=== PATIENT | male | born 1945 | race Caucasian/White ===

== ENCOUNTER → 2016-04-30 | Outpatient (CLI) | payer OTHER ==
[~2016-04-30] MED LIST: ACET325T96 PO; ASPI81TA28 PO; ATEN50TA8 PO; GLUC10007 PO; KETO2SHA TOP; MELO7.5T5 PO; MULT-506 PO; OMEGA Q PO; OXYC1TAB3 PO; SALI1SPR3; SIMV20TA2 PO; SIMV40TA4 PO; TAMS0.4C59 PO; [UNRECOGNIZED DRUG - OTHER] PO
[2016-04-30 13:13] LABS: BASO % 0.5 %; BASO ABS # 0.03 K/uL (0-0.2); COMPLETE YES; EOS % 2.4 %; HEMATOCRIT 43.3 % (42-52); IG% 0.2 %; LYMPH % 32.7 %; LYMPH ABS # 2.08 K/uL (1.2-3.4); MEAN CELL VOLUME 94.7 fL (80-100); MEAN CORPUSCULAR HEMOGLOBIN 31.9 pg (25-34); MEAN CORPUSCULAR HGB CONC 33.7 g/dl (32-36); MEAN PLATELET VOLUME 9.8 fL (7.4-10.4); MONO % 8.2 %; PLATELET COUNT 166 K/uL (130-400); RED BLOOD COUNT 4.57 M/uL (4.7-6.1); WHITE BLOOD COUNT 6.36 K/uL (4.8-10.8)
[2016-04-30 13:16] LABS: ESTIMATED AVERAGE GLUCOSE 114 mg/dl; HA1C FLAG Normal (Normal)
[2016-04-30 13:19] LABS: ALT/SGPT 38 U/L (12-78); AST/SGOT 18 U/L (15-37); BLOOD UREA NITROGEN 17 mg/dl (7-18); BUN/CREATININE RATIO 13.3 (10-20); CALCIUM 9.1 mg/dl (8.5-10.1); CARBON DIOXIDE 28 mmol/L (21-32); CHLORIDE 108 mmol/L (98-107); GLUCOSE 98 mg/dl (70-99); POTASSIUM 4.4 mmol/L (3.5-5.1); SODIUM 144 mmol/L (136-145)
[2016-04-30 13:21] LABS: ALB/GLOB RATIO 1.1 (0.9-2); ALKALINE PHOSPHATASE 53 U/L (45-117); CHOLESTEROL 137 mg/dl (0-200); CHOLESTEROL/HDL RATIO 2.3; HDL CHOLESTEROL 60 mg/dl; LDL CHOLESTEROL CALCULATED 56 mg/dl; TRIGLYCERIDES 103 mg/dl (0-150); VERY LOW DENSITY LIPOPROT CALC 21 mg/dl
--- NOTE | 2016-05-06 12:47 | CODING QUERY MEDICAL NECESSITY ---
SUPPORTING DIAGNOSIS NEEDED Dr. Miller, A supporting diagnosis is required for the test/procedure performed on this patient in order for us to be reimbursed by the patient's insurance. Please provide a supporting diagnosis for the following test/procedure listed below next to the test name along with your signature. *If there is no additional diagnosis for this patient that would support the following test/procedure please document that below next to the test/procedure. Test(s)/Procedure(s) that require a supporting diagnosis: * 53382 PSA DIAGNOSIS: DATE OF SERVICE: 04/30/16 Provider Signature: Date: Thank you Brennan [facility] Information Management Once completed, please kindly fax back to [phone] For questions please call [phone]
--- NOTE | 2016-05-06 12:50 | CODING QUERY MEDICAL NECESSITY ---
SUPPORTING DIAGNOSIS NEEDED Dr. Pittman, A supporting diagnosis is required for the test/procedure performed on this patient in order for us to be reimbursed by the patient's insurance. Please provide a supporting diagnosis for the following test/procedure listed below next to the test name along with your signature. *If there is no additional diagnosis for this patient that would support the following test/procedure please document that below next to the test/procedure. Test(s)/Procedure(s) that require a supporting diagnosis: * [id number] GLYCATED HEMOGLOBIN DIAGNOSIS: DATE OF SERVICE: 04/30/16 Provider Signature: Date: Thank you Brennan Buchanan [facility] Information Management Once completed, please kindly fax back to [phone] For questions please call [phone]
== END | disposition home or self-care (01) ==
LOC: C.LABBFT 07:34
PROVIDERS: ATTEND Urology
DX: E78.5 Hyperlipidemia, unspecified (principal); R73.03 Prediabetes; R39.9 Unspecified symptoms and signs involving the genitourinary system; C61 Malignant neoplasm of prostate

== ENCOUNTER → 2016-05-06 | Outpatient (CLI) | payer OTHER | END | disposition home or self-care (01) | LOC: C.LABBFT 12:57 | PROVIDERS: ATTEND Internal Medicine | DX: Z11.59 Encounter for screening for other viral diseases (principal) ==

== ENCOUNTER → 2016-10-31 | Outpatient (CLI) | payer OTHER ==
[~2016-10-31] MED LIST changes: -OXYC1TAB3 PO
[2016-10-31 13:02] VITALS: BP 104/63; PULSE 56; TEMP 36.7; O2SAT 96
--- NOTE | 2016-10-31 13:54 | Radiation Oncology Follow-Up ---
Radiation Oncology Follow-Up Date of Visit Oct 31, 2016. Reason For Visit Annual follow-up Radiation Completion Date Cesium 131 seed implant 06/11/11 Interim History He has had increased urinary symptoms over this past year. When he saw Dr. Miller his tamsulosin was increased to 2 pills daily. He had been on Toviaz. He discontinued the medication. He felt it did not make a difference in his urinary status. His AUA score was 17.5. This was up from 12 last year. He completed and expanded prostate cancer index composite for clinical practice and gave a score of 2 of 12 and urinary incontinence symptoms. He gave a score of 5 of 12 and urinary irritation symptoms. He was score of 0 12 and bowel symptoms. He gave a score of 9 of 12 in sexual symptoms. He gave a score 1 of 12 and hormonal vitality symptoms. His total was 17 of 60. He had a recheck PSA 04/30/2016 and that was 0.200. Allergies Coded Allergies: No Known Allergies (Unverified , 03/11/16) Home Medications Scheduled Aspirin (Aspirin Ec), 81 MG PO DAILY Atenolol (Tenormin), 50 MG PO DAILY Glucosamine Sulfate (Glucosamine), 500 MG PO BID Ketoconazole (Topical) (Ketoconazole), 1 APPLN TOP 2XWK Meloxicam (Mobic), 7.5 MG PO DAILY Multivitamin (Multivitamin), 1 TAB PO DAILY Saline (Saline Nasal [place]), 1 PRN Simvastatin (Zocor), 20 MG PO QPM Tamsulosin Hcl (Flomax), 0.4 MG PO BID [[place] Q ], 1 TAB PO DAILY [Revers w tumeric], 2 TAB PO DAILY Review of Systems Gastrointestinal: Symptoms: WNL GI Comments: Rectal spotting that he relates to hemorrhoids;Metamucil daily; Oral: Symptoms: No Problems Respiratory: Symptoms: WNL Urinary: Symptoms: WNL Comments: 2 voids/night;Doesn't always empty bladder;Takes flomax; Skin: Symptoms: No Problems Physical Exam Vital Signs Date Time Temp Pulse Resp B/P (MAP) Pulse Ox O2 Delivery O2 Flow Rate FiO2 10/31/16 13:02 36.7 56 12 104/63 96 Fatigue: None General Appearance: no apparent distress Eyes: normal inspection, EOMI ENT: normal ENT inspection, hearing grossly normal Respiratory/Chest: lungs clear, no respiratory distress, no accessory muscle use Cardiovascular: regular rate, rhythm, no gallop, + systolic murmur (2/6 systolic murmur) Abdomen: non tender, soft Extremities: no pedal edema Neurologic/Psychiatric: no motor/sensory deficits, alert, normal mood/affect Skin: warm/dry Laboratory Studies Test 10/31/16 13:28 Assessment & Plan Plan: PSA was drawn today prior to examination. He'll be notified as to results. Continue on Flomax as instructed by Dr. Miller. He'll be seeing him in 6 months. Follow-up appointment with our office was not given. He is now 5 years since the completion of the radiation. He may call our office if he has any questions or concerns in the interim. Total Time In Follow-Up I spent 20 minutes speaking to the patient and performing examination. I spent 15 minutes reviewing information and completing this note. Copy To Miller Pittman M.D.; Dedrick Miller MD
== END | disposition home or self-care (01) ==
LOC: C.ONC 12:53
PROVIDERS: ATTEND Physician Assistant Medical
DX: Z08 Encounter for follow-up examination after completed treatment for malignant neoplasm (principal); Z92.3 Personal history of irradiation; Z85.46 Personal history of malignant neoplasm of prostate

== ENCOUNTER → 2016-12-20 | Day surgery (SDC) | payer OTHER ==
[2016-12-06 13:25] VITALS: BMI 27.0
[~2016-12-20] VITALS: Ht 172.7 cm; Wt 80.9 kg
[~2016-12-20] MED LIST changes: +LIDOCAINE HCL 2% 2 ML VIAL (20MG/ML) ONE; -MELO7.5T5 PO; +MIDAZOLAM HCL 1 MG/ML 2ML VIAL ONE; +ONDANSETRON INJ 2 MG/ML 2 ML VIAL ONE; +PROPOFOL IV EMULSION 10 MG/ML 20 ML VIAL IV ONE; -SALI1SPR3; -SIMV20TA2 PO; +SODIUM CHLORIDE 0.9% 500ML 500 ML IV ONE; -[UNRECOGNIZED DRUG - OTHER] PO
[2016-12-20 08:08] VITALS: Ht 172.7 cm; Wt 80.9 kg
--- NOTE | 2016-12-20 08:19 | Endo History and Physical ---
History & Physical Date of Service: Dec 20, 2016. Chief Complaint: Screening Referring Physician: Dr. Pittman History of Present Illness 71 yo CM who presents for screening colonoscopy. Past Surgical History Hx Cardiac Surgery: No Hx Internal Defibrillator: No Hx Pacemaker: No Hx Abdominal Surgery: No Hx of Implantable Prosthesis: No Hx Post-Op Nausea and Vomiting: No Hx Cancer Surgery: Yes (PROSTATE BIOPSIES) Hx Thoracic Surgery: No Hx Orthopedic: Yes (RT KNEE SURGERY, RT RCR, RT RING TRIGGER FINGER, LT MIDDLE TRIGGER FINGER) Hx Urinary Tract Surgery: No Family History None Social History Smoking Status: Former Smoker Hx Substance Use: No Hx Alcohol Use: No Allergies Coded Allergies: No Known Allergies (Unverified , 12/20/16) Current Medications Reported Home Medications Medications Dose Route/Sig Max Daily Dose Days Date Category Tylenol (Acetaminophen) 325 Mg Tab 650 Mg PO DAILY PRN 12/06/16 Reported Zocor (Simvastatin) 40 Mg Tab 40 Mg PO HS 12/06/16 Reported Ketoconazole (Ketoconazole (Topical)) 2 % Sha 1 Appln TOP 2XWK 10/31/16 Reported Glucosamine (Glucosamine Sulfate) 1,000 Mg Tab 1,500 Mg PO BID 03/11/16 Reported Aspirin Ec (Aspirin) 81 Mg Tab 81 Mg PO QPM 11/01/15 Reported [[place] Q ] 2 Tabs PO QAM 05/02/14 Reported Tenormin (Atenolol) 50 Mg Tab 50 Mg PO QPM 05/02/14 Reported Flomax (Tamsulosin Hcl) 0.4 Mg Cap 0.4 Mg PO BID 05/26/12 Reported Multivitamin (Multivitamins) Tab 1 Tab PO QAM 01/23/11 Reported Vital Signs Weight (Kilograms): 80.91 Height (Feet): 5 Height (Inches): 8 Physical Exam General Appearance: WD/WN, no apparent distress Respiratory/Chest: Auscultation: breath sounds normal Cardiovascular: Heart Auscultation: RRR Abdomen: Bowel Sounds: normal Inspection & Palpation: soft, non-distended, no tenderness, guarding & rebound Assessment and Plan Assessment: 71 yo CM who presents for screening colonoscopy. Plan: Proceed with colonoscopy.
--- NOTE | 2016-12-20 08:51 | Discharge Instructions ---
Endoscopy Patient Instructions Date / Procedure(s) Performed Dec 20, 2016. Colonoscopy Allergy Information Coded Allergies: No Known Allergies (Unverified , 12/20/16) Discharge Date / Findings Dec 20, 2016. Colon polyp Diverticulosis Internal hemorrhoids Medication Instructions OK to resume all medications today as prescribed Reported Home Medications Medications Dose Route/Sig Max Daily Dose Days Date Category Tylenol (Acetaminophen) 325 Mg Tab 650 Mg PO DAILY PRN 12/06/16 Reported Zocor (Simvastatin) 40 Mg Tab 40 Mg PO HS 12/06/16 Reported Ketoconazole (Ketoconazole (Topical)) 2 % Sha 1 Appln TOP 2XWK 10/31/16 Reported Glucosamine (Glucosamine Sulfate) 1,000 Mg Tab 1,500 Mg PO BID 03/11/16 Reported Aspirin Ec (Aspirin) 81 Mg Tab 81 Mg PO QPM 11/01/15 Reported [[place] Q ] 2 Tabs PO QAM 05/02/14 Reported Tenormin (Atenolol) 50 Mg Tab 50 Mg PO QPM 05/02/14 Reported Flomax (Tamsulosin Hcl) 0.4 Mg Cap 0.4 Mg PO BID 05/26/12 Reported Multivitamin (Multivitamins) Tab 1 Tab PO QAM 01/23/11 Reported Provider Instructions Activity Restrictions - No exercising or heavy lifting for 24 hours. - Do not drink alcohol the day of the procedure. - Do not drive a car or operate machinery until the day after the procedure. - Do not make any important decisions or sign important papers in 24 hours after the procedure. Following Day: - Return to full activity which may include returning to work/school. Diet Start your diet with liquids and light foods (jello, soup, juice, toast). Then eat your usual diet if not nauseated. Treatment For Common After Affects For mild abdominal pain, bloating, or excessive gas: - Rest - Eat lightly - Lie on right side Follow-Up Information Follow-up with DR. CHING as scheduled Anesthesia Information What You Should Know You have had a procedure that required some medicine to reduce anxiety and discomfort. This treatment is called moderate sedation. After receiving the treatment, you may be sleepy, but you will be able to breathe on your own. The effects of the treatment may last for several hours. Follow these instructions along with Activity/Diet recommendations noted above: * Do NOT do anything where dizziness or clumsiness would be dangerous. * Rest quietly at home today, then you can be up and about tomorrow. * Have a responsible person stay with you the rest of today. * You may have had an I.V. today. If so, you may take the dressing off later today. Recommendations Call your doctor if: * Trouble breathing * Continuous vomiting for more than 24 hours * Temperature above 101 degrees * Severe abdominal pain or bloating * Pain not relieved by pain medicine ordered * There is increased drainage or redness from any incision * A large amount of rectal bleeding greater than 2-3 tablespoons. (If you had a polyp/s removed or have hemorrhoids, a small amount of blood - from the rectum is to be expected.) * You have any unanswered questions or concerns. IN THE EVENT OF A SERIOUS EMERGENCY, GO TO THE NEAREST EMERGENCY ROOM Your discharge instructions were prepared by provider Cecil Car. Patient Instructions Signature Page Norberto Jerome Patient (or Guardian) Signature/Date: I have read and understand the instructions given to me by my caregivers. Caregiver/RN/Doctor Signature/Date: The above-named patient and/or guardian has received patient instructions on this date. + Original Patient Signature Page (only) stays with chart. Please make copy for patient.
--- NOTE | 2016-12-20 08:59 | GI REPORT ---
Procedure Date: 12/20/2016 8:28 AM Procedure: Colonoscopy Indications: Screening for colorectal malignant neoplasm Medicines: Monitored Anesthesia Care Complications: No immediate complications. Estimated Blood Loss: Estimated blood loss: none. Procedure: Pre-Anesthesia Assessment: - Prior to the procedure, a History and Physical was performed, and patient medications and allergies were reviewed. The patient's tolerance of previous anesthesia was also reviewed. The risks and benefits of the procedure and the sedation options and risks were discussed with the patient. All questions were answered, and informed consent was obtained. Prior Anticoagulants: The patient has taken aspirin, last dose was 2 days prior to procedure. ASA Grade Assessment: III - A patient with severe systemic disease. After reviewing the risks and benefits, the patient was deemed in satisfactory condition to undergo the procedure. After I obtained informed consent, the scope was passed under direct vision. Throughout the procedure, the patient's blood pressure, pulse, and oxygen saturations were monitored continuously. The scope was introduced through the anus and advanced to the terminal ileum. The colonoscopy was performed without difficulty. The patient tolerated the procedure well. The quality of the bowel preparation was good. The terminal ileum, ileocecal valve, appendiceal orifice, and rectum were photographed. Findings: A 5 mm polyp was found in the sigmoid colon. The polyp was sessile. The polyp was removed with a hot snare. Resection and retrieval were complete. Multiple small-mouthed diverticula were found in the sigmoid colon. Non-bleeding internal hemorrhoids were found during retroflexion. The hemorrhoids were small. Impression: - One 5 mm polyp in the sigmoid colon, removed with a hot snare. Resected and retrieved. - Diverticulosis in the sigmoid colon. - Non-bleeding internal hemorrhoids. Recommendation: - Resume previous diet. - Continue present medications. - Repeat colonoscopy for surveillance based on pathology results. - Return to primary care physician as previously scheduled. Cecil Car DO 12/20/2016 8:58:14 AM This report has been signed electronically. Note Initiated On: 12/20/2016 8:28 AM I attest to the content of the Intraoperative Record and orders documented therein, exceptions below
--- NOTE | 2016-12-20 09:17 | Anesthesiology Progress Note ---
Anesthesia Post Op Note Date & Time Dec 20, 2016 at 09:17 Vital Signs Pain Intensity: 0 Vital Signs Past 12 Hours Date Time Temp Pulse Resp B/P (MAP) Pulse Ox O2 Delivery O2 Flow Rate FiO2 12/20/16 09:09 43 16 95/56 (69) 95 Room Air 12/20/16 08:54 48 16 88/56 (67) 97 Nasal Cannula 2 12/20/16 08:21 36.4 55 16 123/79 (94) 95 Room Air Notes Mental Status: alert / awake / arousable, participated in evaluation Pt Amnestic to Procedure: Yes Nausea / Vomiting: adequately controlled Pain: adequately controlled Airway Patency, RR, SpO2: stable & adequate BP & HR: stable & adequate Hydration State: stable & adequate Anesthetic Complications: no major complications apparent
[2016-12-20 09:24] VITALS: BP 98/68; PULSE 42; O2SAT 97
== END | disposition home or self-care (01) ==
LOC: C.GI 07:59
PROVIDERS: ATTEND Internal Medicine
DX: D12.5 Benign neoplasm of sigmoid colon (principal); K57.90 Diverticulosis of intestine, part unspecified, without perforation or abscess without bleeding; K64.8 Other hemorrhoids; Z87.891 Personal history of nicotine dependence; I10 Essential (primary) hypertension

== ENCOUNTER → 2017-07-16 | Outpatient (CLI) | payer OTHER ==
[~2017-07-16] MED LIST changes: +ACET-1693 PO; -ACET325T96 PO; -LIDOCAINE HCL 2% 2 ML VIAL (20MG/ML) ONE; -MIDAZOLAM HCL 1 MG/ML 2ML VIAL ONE; -ONDANSETRON INJ 2 MG/ML 2 ML VIAL ONE; -PROPOFOL IV EMULSION 10 MG/ML 20 ML VIAL IV ONE; -SODIUM CHLORIDE 0.9% 500ML 500 ML IV ONE
[2017-07-16 12:53] LABS: BASO % 0.5 %; BASO ABS # 0.04 K/uL (0-0.2); EOS % 3.7 %; EOS ABS # 0.28 K/uL (0-0.5); HEMATOCRIT 42.2 % (42-52); HEMOGLOBIN 14.4 g/dL (14.0-18.0); IG# 0.01 K/uL (0.00-0.02); LYMPH % 31.3 %; LYMPH ABS # 2.37 K/uL (1.2-3.4); MEAN CELL VOLUME 93.6 fL (80-100); MEAN CORPUSCULAR HEMOGLOBIN 31.9 pg (25-34); MEAN CORPUSCULAR HGB CONC 34.1 g/dl (32-36); MEAN PLATELET VOLUME 9.5 fL (7.4-10.4); MONO % 10.4 %; MONO ABS # 0.79 K/uL (0.11-0.59); NEUT ABS # 4.09 K/uL (1.4-6.5); PLATELET COUNT 142 K/uL (130-400); RED CELL DISTRIBUTION WIDTH CV 13.6 % (11.5-14.5); RED CELL DISTRIBUTION WIDTH SD 46.4 fL (36.4-46.3); WHITE BLOOD COUNT 7.58 K/uL (4.8-10.8)
[2017-07-16 13:13] LABS: ALBUMIN 3.7 gm/dl (3.4-5.0); AST/SGOT 23 U/L (15-37); BLOOD UREA NITROGEN 24 mg/dl (7-18); CALCIUM 8.7 mg/dl (8.5-10.1); CARBON DIOXIDE 23 mmol/L (21-32); CREATININE 1.31 mg/dl (0.60-1.40); GLUCOSE 106 mg/dl (70-99); HEMOGLOBIN A1C 5.5 % (4.5-5.6); POTASSIUM 4.2 mmol/L (3.5-5.1); SODIUM 139 mmol/L (136-145)
[2017-07-16 13:17] LABS: ALKALINE PHOSPHATASE 59 U/L (45-117); ALT/SGPT 32 U/L (12-78); CHOLESTEROL 123 mg/dl (0-200); LDL CHOLESTEROL CALCULATED 57 mg/dl; TOTAL PROTEIN 7.2 gm/dl (6.4-8.2)
== END | disposition home or self-care (01) ==
LOC: C.LABBFT 08:22
PROVIDERS: ATTEND Internal Medicine
DX: R73.03 Prediabetes (principal); E78.5 Hyperlipidemia, unspecified

== ENCOUNTER 2020-02-01 11:39 | Inpatient (IN) ==
[2020-02-01] MEDS ORDERED: SODIUM CHLORIDE 0.9% 1000ML 500 ML IV ONE (12:16)
--- NOTE | 2020-02-01 12:23 | Emergency Department Note ---
History of Present Illness General Chief complaint: Arrhythmia/Palpitations Stated complaint: AFIB Time Seen by Provider: 02/01/20 12:04 Source: patient Mode of arrival: ambulatory Limitations: no limitations History of Present Illness Provider complaint: Rapid heart rate, short of breath Onset (ago): unknown Location: chest Maximum Pain Intensity: 0 Current Pain Intensity: 0 Exacerbated By: + movement Associated symptoms: + chest pain, + cough and + shortness of breath; no headaches, no nausea/vomiting, no syncope and no weakness Treatments prior to arrival: none This is a 74-year-old male who presents the emergency room after being referred by Dr. Miller of oncology. Patient states he presented for a checkup with Dr. Miller regarding his stage IV lung adenocarcinoma and due to concern for an evolving rash on his legs. States while he was having his visit, Dr. Miller was concerned about his rapid and irregular heart rate, told him he had atrial f ibrillation and sent him to the emergency room. Patient denies any known history of atrial fibrillation. States he follows with Dr. Garcia of cardiology due to history of mitral regurgitation. States he has periodically had echoes of his heart but does not recall any of the results. Patient states he has finished radiation, but is still undergoing chemotherapy. Patient states his last chemotherapy was 01/20/2020, and he is not scheduled for another dose until next week. Patient states he does periodically get a fast and fluttering heartbeat that is at times bothersome and associated with shortness of breath. Patient states this is often worse with exertion. Patient denies any other k nown triggers for the symptoms or a pattern to them. Patient denies any recent fevers or chills, rhinorrhea or congestion. Patient was recently tested for coronavirus and found to be negative. Patient states he has a chronic dry cough secondary to his chemotherapy meds. Patient denies any abdominal pain, nausea or vomiting, or change in bowel movements. Patient states he is occasionally constipated, however denies black or bloody stools. Patient denies any calf tenderness or leg swelling. Patient states the rash she is noted to his bilateral lower extremities is not raised, not itchy, not painful. Patient states he does take a baby aspirin, however does not take any anticoagulation. Patient states he used to but this was stopped. On review of EMR, there is a cardiology note from Dr. Garcia that states the patient has a history of paroxysmal a.fib. There is also a stress echo that was negative for ischemia and shows an EF of 50%. Pt seen during a time of high acuity and national emergency pandemic while wearing PPE. Home Medications Home Medications Medication Instructions Recorded Confirmed Type coenzyme Q10 100 mg capsule 200 mg PO QAM cap 11/24/18 02/01/20 History multivitamin 1 tab PO QAM 11/24/18 02/01/20 History glucosamine HCl 1,500 mg tablet 1,500 mg PO QAM 02/16/19 02/01/20 History atenolol 50 mg PO QAM 10/06/19 02/01/20 History tamsulosin 0.4 mg PO BID 10/06/19 02/01/20 History Portable Oxygen #1 ea 11/22/19 02/01/20 Rx benzonatate 100 mg capsule 100 mg PO BID PRN #60 cap 11/26/19 02/01/20 Rx ketoconazole 2 % shampoo 1 appln TOP 2XWK ml 12/02/19 02/01/20 History lorazepam 0.5 mg tablet 0.5 mg PO .COMPLEX PRN #60 tab 12/08/19 02/01/20 Rx albuterol sulfate 2 puff INHALATION Q6 PRN 01/13/20 02/01/20 History psyllium [Metamucil] 1 packet PO QAM 01/13/20 02/01/20 History tramadol 50 - 100 mg PO Q6H PRN 01/13/20 02/01/20 History triamterene-hydrochlorothiazid 1 tab PO QAM 01/13/20 02/01/20 History atorvastatin 40 mg PO HS 02/01/20 02/01/20 History Allergies Allergy/AdvReac Type Severity Reaction Status Date / Time No Known Allergies Allergy Verified 02/01/20 12:09 Past Med/Surg History Medical History Abdominal bruit Adenopathy Allergic rhinitis Bright red blood per rectum no problems at present Chronic kidney disease, stage III (moderate) stage 3 Constipation Diverticulosis Dyspnea on exertion Esophageal reflux History of colon polyps History of prostate cancer 2011, s/p brachytherapy Presenting PSA 2.8, clinical stage TIIa HTN (hypertension) Hyperlipidemia IBS (irritable bowel syndrome) Internal hemorrhoids Lung neoplasm recently diagnosed will be starting chemo Mitral valve prolapse Severe, with severe regurgitation Osteoarthritis Persistent dry cough x 6-7 months 2/2 lung carcinoma Prediabetes Severe mitral regurgitation by prior echocardiogram Surgical History History of arthroscopy of right knee History of brachytherapy prostate cancer - finished treatment and follows with urology once a year History of cataract surgery right and left History of colonoscopy History of prostate biopsy History of repair of rotator cuff Rt History of right knee surgery History of tonsillectomy Status post trigger finger release x 2 left and right hand Family History Father, age 72 complications cardiac cath had abdominal aneurysm Mother, age 67 colon ca Uncle, age 64 lung cancer No family history of adverse response to anesthesia Heart disease Intestinal cancer Mother Cancer Social History Smoking Status: Former smoker Tobacco Type: Cigarettes Age Started Using Tobacco: 15; Age Quit Using Tobacco: 46; packs per day: 0.5; Number of Years Since Quit: 27; Second Hand Exposure: No; Hx Alcohol Use: No Hx Substance Use: No Preferred Language: [place] Communication Ability: Effective 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 Required: No Beliefs That Will Affect Care: None marital status: Current Living Situation: Spouse Current Living Situation Comment: lives significant other current occupational status: retired 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 and A total of 10 systems reviewed and were otherwise negative Physical Exam Vital Signs Vital Signs - 24 hr 02/01/20 11:41 02/01/20 12:08 02/01/20 12:37 Temperature 36.7 C Temperature Source Oral Pulse Rate 135 H Pulse Rate from SpO2 Sensor 113 H Pulse Rhythm Irregular Respiratory Rate 20 Respiratory Effort / Characteristics Non-Labored Spontaneous Respiratory Depth Normal Respiratory Pattern Regular Blood Pressure 112/79 89/65 L Blood Pressure Mean 90 80 Blood Pressure Position Sitting Pulse Oximetry 97 96 96 Oxygen Delivery Method Room Air Room Air Sepsis Recent Fever Within 48 Hours No Sepsis New/Unexplained Change in Mental Status No Sepsis Action Taken by Nursing No Action Required 02/01/20 12:38 02/01/20 13:01 Temperature Temperature Source Pulse Rate 113 H 104 H Pulse Rate from SpO2 Sensor 108 H 98 H Pulse Rhythm Respiratory Rate 24 28 H Respiratory Effort / Characteristics Respiratory Depth Respiratory Pattern Blood Pressure 115/78 93/61 L Blood Pressure Mean 93 72 Blood Pressure Position Pulse Oximetry 96 96 Oxygen Delivery Method Sepsis Recent Fever Within 48 Hours Sepsis New/Unexplained Change in Mental Status Sepsis Action Taken by Nursing GENERAL: alert, well appearing, well nourished, no distress, non-toxic EYE EXAM: normal conjunctiva, PERRL and EOM's grossly intact OROPHARYNX: no exudate, no erythema, lips, buccal mucosa, and tongue normal and mucous membranes are moist, no mucocutaneous lesions NECK: supple, no nuchal rigidity, no adenopathy, non-tender LUNGS: Clear to auscultation. Normal chest wall mechanics, no w/r/r HEART: Loud murmur noted at the apex on the left lateral chest, S1 normal and S2 normal, on telemetry heart rate is tachycardic and irregular consistent with atrial fibrillation ABDOMEN: abdomen soft, non-tender, normo-active bowel sounds, no masses, no rebound or guarding. BACK: Back is symmetrical on inspection and there is no deformity, no midline tenderness, no CVA tenderness. SKIN: no rashes and no bruising, petechiae noted to bilateral pretibial areas on the lower extremities, no vesicles, no sloughing, blanchable UPPER EXTREMITIES: upper extremities are grossly normal. FROM, nml pulses b/l. LOWER EXTREMITIES: No pitting edema. FROM, nml pulses b/l. No calf tenderness, no palpable ropiness. NEURO EXAM: Normal sensorium, cranial nerves II-XII grossly intact, normal speech, no gross weakness of arms, no gross weakness of legs. Gross sensation intact. Course Course 1315: Discussed with OSMAN Jackman hospitalist team. She is aware of the patient and the need for admission. Agrees with plan for CT of the chest given symptoms, findings, and abnormal chest x-ray. Administered Medications Acetaminophen (Acetaminophen 325 Mg Tab) 650 mg PO Q4H PRN PRN Reason: Moderate Pain Stop: 03/02/20 17:00 Last Admin: 02/01/20 23:29 Dose: 650 mg Documented by: [id number] Atorvastatin Calcium (Atorvastatin 40 Mg Tab) 40 mg PO HS [facility] Stop: 03/02/20 20:59 Last Admin: 02/01/20 21:10 Dose: 40 mg Documented by: [id number] Metoprolol Tartrate (Metoprolol Tartrate 25 Mg Tab) 12.5 mg PO BID [facility] Stop: 03/02/20 13:54 Last Admin: 02/02/20 08:51 Dose: 12.5 mg Documented by: [id number] Admin: 02/01/20 21:10 Dose: 25 mg Documented by: [id number] Admin: 02/01/20 15:02 Dose: 12.5 mg Documented by: [id number] Miscellaneous (Ketoconazole 2% Shampoo: Order Awaiting Action) 1 ea N/A QS [facility] Stop: 03/03/20 00:00 Last Admin: 02/02/20 08:52 Dose: Not Given Documented by: [id number] Admin: 02/02/20 08:50 Dose: Not Given Documented by: [id number] Admin: 02/01/20 23:29 Dose: Not Given Documented by: [id number] Multivitamins (Multivitamin Tab) 1 tab PO QAM [facility] Stop: 03/03/20 08:59 Last Admin: 02/02/20 08:52 Dose: 1 tab Documented by: [id number] Psyllium Hydrophilic Mucilloid (Psyllium 58.6% Powder Packet) 1 pkt PO QAM [facility] Stop: 03/03/20 08:59 Last Admin: 02/02/20 08:52 Dose: 1 pkt Documented by: [id number] Tamsulosin HCl (Tamsulosin Hcl 0.4 Mg Cap) 0.4 mg PO BID [facility] Stop: 03/02/20 20:59 Last Admin: 02/02/20 08:52 Dose: 0.4 mg Documented by: [id number] Admin: 02/01/20 21:11 Dose: 0.4 mg Documented by: [id number] Discontinued Medications Sodium Chloride (Nss 1000ml) 500 mls @ 999 mls/hr IV .Q31M ONE Stop: 02/01/20 12:46 Last Infusion: 02/01/20 14:20 Dose: 0 mls/hr Documented by: [id number] Admin: 02/01/20 13:00 Dose: 999 mls/hr Documented by: [id number] Ioversol (Optiray 320 125ml) 120 ml IV ONCE ONE Stop: 02/01/20 14:40 Last Admin: 02/01/20 14:39 Dose: 120 ml Documented by: [id number] Metoprolol Tartrate (Metoprolol Tartrate 25 Mg Tab) 37.5 mg PO NOW STA Stop: 02/02/20 10:21 Last Admin: 02/02/20 10:44 Dose: 37.5 mg Documented by: [id number] Metoprolol Tartrate (Metoprolol Tartrate 1 Mg/Ml Vial) 5 mg IV NOW STA Stop: 02/02/20 13:05 Last Admin: 02/02/20 13:15 Dose: 5 mg Documented by: [id number] Metoprolol Tartrate (Metoprolol Tartrate 50 Mg Tab) 50 mg PO NOW STA Stop: 02/02/20 14:50 Last Admin: 02/02/20 15:07 Dose: 50 mg Documented by: [id number] Medical Decision Making Differential Diagnosis Differential diagnosis includes etiologies such as premature contractions, electrolyte abnormality, cardiac dysrhythmia, thyroid dysfunction, pulmonary embolism, infection, gastrointestinal, as well as others were entertained. Medical Records Attestation: I reviewed the patient's medical records. Home Medications Current Medication List: was personally reviewed by me Laboratory Data Attestation: I reviewed the patient's lab results. Result diagrams: 02/02/20 04:12 02/02/20 04:11 Lab Results 02/01/20 02/01/20 02/01/20 Range/Units 12:53 12:53 12:53 WBC 5.27 (4.8-10.8) K/uL RBC 3.16 L (4.7-6.1) M/uL Hgb 10.1 L (14.0-18.0) g/dL Hct 30.1 L (42-52) % MCV 95.3 (80-100) fL MCH 32.0 (25-34) pg MCHC 33.6 (32-36) g/dL RDW Std Deviation 61.0 H (36.4-46.3) fL RDW Coeff of Khadijah 18.4 H (11.5-14.5) % Plt Count 56 L (130-400) K/uL MPV 10.5 H (7.4-10.4) fL Immature Gran % (Auto) 0.4 % Neut % (Auto) 75.3 % Lymph % (Auto) 6.3 % Story % (Auto) 16.9 % Eos % (Auto) 1.1 % Baso % (Auto) 0.0 % Neut # (Auto) 3.97 (1.4-6.5) K/uL Lymph # (Auto) 0.33 L (1.2-3.4) K/uL Story # (Auto) 0.89 H (0.11-0.59) K/uL Eos # (Auto) 0.06 (0-0.5) K/uL Baso # (Auto) 0.00 (0-0.2) K/uL Immature Gran # (Auto) 0.02 (0.00-0.02) K/uL Platelet Estimate Decreased L (Normal) PT 11.5 (9.0-12.0) Seconds INR 1.1 (0.9-1.1) Sodium 139 (136-145) mmol/L Potassium 3.7 (3.5-5.1) mmol/L Chloride 107 (98-107) mmol/L Carbon Dioxide 24 (21-32) mmol/L Anion Gap 7.0 (3-11) BUN 17 (7-18) mg/dl Creatinine 1.14 (0.6-1.4) mg/dl Est Cr Clr Drug Dosing 55.0 ml/min Est GFR ( Amer) 73.0 Est GFR (Non-Af Amer) 63.0 BUN/Creatinine Ratio 14.7 (10-20) Glucose 90 (70-99) mg/dl Calcium 8.5 (8.5-10.1) mg/dl Magnesium 1.9 (1.8-2.4) mg/dl Total Bilirubin 0.5 (0.2-1) mg/dl AST 14 L (15-37) U/L ALT 27 (12-78) U/L Alkaline Phosphatase 58 (45-117) U/L Troponin I 0.016 (0-0.045) ng/ml NT-Pro-B Natriuret Pep 7353 H (0-900) pg/ml Total Protein 5.8 L (6.4-8.2) gm/dl Albumin 2.6 L (3.4-5.0) gm/dl Globulin 3.2 (2.5-4.0) gm/dl Albumin/Globulin Ratio 0.8 L (0.9-2) Imaging Data Radiologist's Impression: XR chest 1V portable CLINICAL HISTORY: sob, palpitations COMPARISON STUDY: 01/13/2020 FINDINGS: The heart remains enlarged. There is a left-sided A-Port catheter. There are progressive right lung airspace opacities, most pronounced in the right midlung zone. There is also interstitial/groundglass opacities within the left midlung zone. There is mild right hilar enlargement suspicious for adenopathy.[ IMPRESSION: 1. Cardiomegaly and suspected right hilar adenopathy 2. Progressive right lung airspace opacities. Slight progression in interstitial/groundglass left lung opacities. ACT 112: Negative or not required by law. Electronically signed by: Scott Price M.D. 02/01/2020 1:10 PM Blood Pressure Blood Pressure Findings: Normal blood pressure MDM Narrative Pt here after being referred by oncology having discovered the pt was in a.fib. Pt denies hx of this however cards note prior mentions paroxysmal a.fib. Pt was tachycardic and had a borderline BP initially. Given hx of severe MR, IVF cautiously started for the BP given poor po intake intermittently while being treated for cancer. BP did improve. Case discussed with hospitalist while I was awaiting results of CTA chest to r/o PE and other pathology. They went ahead and contacted cards who gave them specific medication regimen to begin treatment. CHA2DS VASC score 2 at this time. HR in the ER remained in the low 100's at rest, however with any exertion, pt became markedly more SOB and HR escalated to 130's. Pt aware of results and in agreement with plan. Unclear onset of symptoms as patient states he has been dealing with this "for a long time". An order was placed for continuous cardiac monitoring. The monitor shows a rate of _106_ with _a.fib__ rhythm. Impression & Plan Atrial fibrillation with RVR, Mitral valve prolapse, Dyspnea, Thrombocytopenia, Anemia Discharge Plan Visit Data Chief Complaint: Arrhythmia/Palpitations Stated Complaint: AFIB ED Provider: Savanna Benjamin Discharge Problem: Atrial fibrillation with RVR, Mitral valve prolapse, Dyspnea, Thrombocytopenia, Anemia Patient Disposition: Admitted As Inpatient Discharge Instructions Interventions: ED Discharge Assessment Last Done: 02/01/20 22:46 Discharge Problem: Dyspnea Qualifiers: Dyspnea type: shortness of breath Qualified Code(s): R06.02 - Shortness of breath Anemia Qualifiers: Anemia type: other cause Other causes of anemia: antineoplastic chemotherapy Qualified Code(s): D64.81 - Anemia due to antineoplastic chemotherapy
--- NOTE | 2020-02-01 13:09 | History & Physical Report ---
Date of Service February 01, 2020 Assessment & Plan (1) Atrial fibrillation with RVR: - Admit to PCU - Trend cardiac biomarkers, initial set =0.016, will trend x 2 more sets, likely component of demand ischemia - EKG reviewed - afib with rvr with HR in 110s, possibly some underlying aflutter - Consult cardiology for new onset -follows with Dr. aGrcia - discussed over the phone - will switch atenolol to metoprolol, start 12.5 mg BID now and titrate up, consider digoxin if BP remains borderline low, s/p 500 mL NSS bolus in the ER - Has not previously been on anticoagulation in light of current chemotherapy and thrombocytopenia with issues dealing with hemoptysis in the past - Check 2 D echo - Checking CTA of the chest to R/o PE - CTA was previously done on 01/13/2028 neg for PE - PT/OT consulted-patient did have one fall which was mechanical a few months ago, does not use ambulatory devices for assistance - Hemoglobin is 10.1 today, previously has been 12.3, possibly partial hypovolemia d/t chemo? - BNP elevated at 7353 (2) HTN (hypertension): -Switch atenolol to metoprolol as above, atorvastatin 40 mg, hold triamterene hydrochlorothiazide (3) Hyperlipidemia: -Statin therapy as above (4) Mitral valve prolapse: - noted, stable -2D echo as above (5) Diastolic CHF due to valvular disease: Noted, last stress echo done in September 2019 showing negative exercise stress echo for ischemia, no exercise-induced chest pain no EKG changes (6) Thrombocytopenia: -Platelet count of 56 today, previously has been in the 160s - consult oncology (7) Metastatic lung cancer (metastasis from lung to other site): - Metastatic non-small cell lung carcinoma diagnosed October 2019, stage IV - Currently undergoing chemotherapy with paclitaxel and carboplatin weekly, last dose was on 01/20/2020, finished XRT therapy beginning of December 2019, next dose scheduled for Feb 09 - Consult oncology (8) History of prostate cancer: 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 Guo is aware -Nonpruritic, nonpainful -Awaiting platelet count as could be secondary to thrombocytopenia DVT prophylaxis: - teds CODE: Full code Dispo: From home, likely to remain in the hospital x 1-2 days History of Present Illness Primary Care Provider: Miller Pittman MD This is a 74-year-old male with PMHx of metastatic non-small cell lung carcinoma diagnosed in September 2019, history of prostate cancer diagnosed in 2009, HTN, HLD, paroxysmal A. fib, diastolic CHF due to valvular disease, severe mitral regurgitation, who presents from the cancer center for A. fib with RVR with heart rate in the 110s to 120s. Due to being on code flow we were not able to to accept the patient as a direct admission therefore he came to the ER. Patient has been in his normal state of health and feeling well unless he undergoes an exertional activity such as walking up a hill over to his neighbor's house, that is when he feels short of breath, has to stop for a few minutes to catch his breath and then can proceed. He reports this may have been worsening over the last few weeks but cannot confirm. He reports palpitations sometimes on a daily basis. He is not on formal anticoagulation in light of current chemotherapy and history of low platelet count. Since having his most recent chemotherapy he developed a rash which involves both of his lower extremities, the rash is not itchy or painful, and extends from the ankles to the pubic region. He would like to be able to go home tomorrow to be able to have a picnic with his family, and son who is visiting from [place]. Allergies Allergy/AdvReac Type Severity Reaction Status Date / Time No Known Allergies Allergy Verified 02/01/20 12:09 Home Medications Home Medications Medication Instructions Recorded Confirmed Type coenzyme Q10 100 mg capsule 200 mg PO QAM cap 11/24/18 02/01/20 History multivitamin 1 tab PO QAM 11/24/18 02/01/20 History glucosamine HCl 1,500 mg tablet 1,500 mg PO QAM 02/16/19 02/01/20 History atenolol 50 mg PO QAM 10/06/19 02/01/20 History tamsulosin 0.4 mg PO BID 10/06/19 02/01/20 History Portable Oxygen #1 ea 11/22/19 02/01/20 Rx benzonatate 100 mg capsule 100 mg PO BID PRN #60 cap 11/26/19 02/01/20 Rx ketoconazole 2 % shampoo 1 appln TOP 2XWK ml 12/02/19 02/01/20 History lorazepam 0.5 mg tablet 0.5 mg PO .COMPLEX PRN #60 tab 12/08/19 02/01/20 Rx albuterol sulfate 2 puff INHALATION Q6 PRN 01/13/20 02/01/20 History psyllium [Metamucil] 1 packet PO QAM 01/13/20 02/01/20 History tramadol 50 - 100 mg PO Q6H PRN 01/13/20 02/01/20 History triamterene-hydrochlorothiazid 1 tab PO QAM 01/13/20 02/01/20 History atorvastatin 40 mg PO HS 02/01/20 02/01/20 History Past Med/Surg History Medical History Abdominal bruit Adenopathy Allergic rhinitis Bright red blood per rectum no problems at present Chronic kidney disease, stage III (moderate) stage 3 Constipation Diverticulosis Dyspnea on exertion Esophageal reflux History of colon polyps History of prostate cancer 2011, s/p brachytherapy Presenting PSA 2.8, clinical stage TIIa HTN (hypertension) Hyperlipidemia IBS (irritable bowel syndrome) Internal hemorrhoids Lung neoplasm recently diagnosed will be starting chemo Mitral valve prolapse Severe, with severe regurgitation Osteoarthritis Persistent dry cough x 6-7 months 2/2 lung carcinoma Prediabetes Severe mitral regurgitation by prior echocardiogram Surgical History History of arthroscopy of right knee History of brachytherapy prostate cancer - finished treatment and follows with urology once a year History of cataract surgery right and left History of colonoscopy History of prostate biopsy History of repair of rotator cuff Rt History of right knee surgery History of tonsillectomy Status post trigger finger release x 2 left and right hand Family History Father, age 72 complications cardiac cath had abdominal aneurysm Mother, age 67 colon ca Uncle, age 64 lung cancer No family history of adverse response to anesthesia Heart disease Intestinal cancer Mother Cancer Social History Smoking Status: Former smoker Tobacco Type: Cigarettes Age Started Using Tobacco: 15; Age Quit Using Tobacco: 46; packs per day: 0.5; Number of Years Since Quit: 27; Second Hand Exposure: No; Hx Alcohol Use: No Hx Substance Use: No Preferred Language: Greek Communication Ability: Effective [employer] Plant Operator Required: No Beliefs That Will Affect Care: None marital status: Current Living Situation: Spouse Current Living Situation Comment: lives significant other current occupational status: retired 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 How many Children do You have: 1 Feels Safe at Home: Yes Safety Concerns: Feels Safe At This Time Childhood Exposure to Second-Hand Smoke: Yes caffeine: Yes (coffee very rarely occ tea) during the past year weight has: decreased > 10 lbs Dental Care, Regularly: Yes Physical Activity Frequency: 3-4 Times per Week Seatbelt Use: always Sunscreen Use: No Assistive Devices: None Review of Systems Review of Systems: Constitutional: No fever, chills, sweats, fatigue or weakness Eyes: No diplopia, no changes in vision ENT: No sore throat, tinnitus, or trouble swallowing Respiratory: No shortness of breath, No dyspnea at rest or on exertion, no cough or sputum Cardiovascular: No chest pain, + palpitations, no flutter Abdomen: No pain, No constipation, No diarrhea, No nausea, No vomiting Musculoskeletal: No calf pain, No joint pain, No swelling Genitourinary : No dysuria or urinary frequency, No hematuria Neurologic: No numbness/tingling, no difficulty with ambulation, no sensory or motor deficits Psychiatric: No depression or anxiety symptoms Endocrine: No fatigue, No weight changes Integumentary: + Rash as per HPI, no itch, nonpainful Physical Exam Physical Exam: General: awake, alert, no apparent distress Head: Normocephalic, atraumatic ENT: PERRL, EOMI, no pharyngeal exudate, mucous membranes moist Chest: Clear to auscultation, on room air, no adventitious breath sounds Cardiac: Irregularly irregular, heart rate in 120s at bedside, with minimal exertion increases to 140s to 150s, + loud systolic murmur, no JVD, normal peripheral pulses, good capillary refill Abdominal: NABS x 4 quadrants, soft, nondistended, nontender to palpation, no rebound or guarding Extremities: Normal inspection, no peripheral edema or erythema, calfs nontender to palpation Psych: Normal mood and affect Skin: Dark erythematous purpura overlying bilateral lower extremities involving the dorsal aspect of the foot up to the pubic region, rash become brightly erythematous over the thighs and groin, nonblanching, does not involve the trunk. Neuro: AAO x 3, strength intact bilaterally and rated 5/5, no motor deficits, speech is clear, no peripheral sensory deficits Results & Data Results & Data ([facility]) Vital Signs (Past 12 Hours) Vital Signs Temp Pulse Resp BP Pulse Ox 02/01/20 12:37 96 02/01/20 11:41 36.7 C 135 H 20 112/79 97 Diagnostic Findings XR chest 1V portable HISTORY: Atypical Chest Pain COMPARISON: Chest 12/01/2019. FINDINGS: No pneumothorax. No pleural effusions. The heart remains mildly enlarged. Perihilar interstitial thickening has significantly improved in the interval. Patchy irregular densities within the right midlung zone and right hilar prominence have also improved. Emphysema. Left subclavian Port-A-Cath terminates at the SVC. The patient's right perihilar mass like opacity is again noted. IMPRESSION: 1. Interval improvement in the airspace opacities and interstitial thickening compared to the prior study. No new focal lung consolidations to suggest pneumonia. 2. Right perihilar masslike opacity is again noted. ECG Additional Comments: 01-FEB-2020 12:41:54 [facility]-EDSTAT ROUTINE RETRIEVAL Atrial fibrillation with rapid ventricular response Abnormal ECG When compared with ECG of 13-JAN-2020 17:46, Atrial fibrillation has replaced Sinus rhythm 25mm/s 10mm/mV 150Hz 9.0.9 12SL 241 KASSIE: 10 Unconfirmed Vent. rate 113 BPM IL interval * ms QRS duration 110 ms QT/QTc 352/482 ms P-R-T axes * 15 34 Code Status & VTE Plan Code Status Full code-discussed with the patient at bedside Supervising Physician Co-Signing Physician Notes Patient was seen and examined independently I discussed the case with Augustina Colindres PAC I reviewed pertinent past medical social family history and also the plan of care and agree with the plan of care. Patient will be rate controlled with metoprolol change from atenolol. Pending patient of biomarkers trended echocardiogram is not anticoagulated due to thrombocytopenia and petechial rash also with a history of hemoptysis and current lung cancer under treatment. Patient was irregularly irregular with a rapid rate when I saw him his lungs with poor air movement consistent with a COPD did not have significant heart failure auscultated lung sounds he did have a petechial rash on his lower extremities which is bilaterally and nonblanching Rate controlling agents with beta-saranya evaluate remainder of his cardiac function with an echocardiogram also left atrial size valvular state and also trend his cardiac biomarkers. Formal anticoagulation likely may be challenging given his preceding medical problems Any exceptions will be noted below PG Care Time/CCT Total # of Minutes Spent Total Time Spent with Patient: Total time spent is greater than 50% in coordination of care (as documented) at patient's floor/unit and/or counseling patient: Coding Level of Care Code 84843 Initial Inpt Care Lvl 3 Diagnoses Atrial fibrillation with RVR I48.91 HTN (hypertension) I10 Hyperlipidemia E78.5 Mitral valve prolapse I34.1 Diastolic CHF due to valvular disease I50.30; I38 Thrombocytopenia D69.6 Metastatic lung cancer (metastasis from lung to other site) C34.91 Laterality: right History of prostate cancer Z85.46 Chronic kidney disease, stage III (moderate) N18.3 Prediabetes R73.03 Rash R21 (1) Metastatic lung cancer (metastasis from lung to other site) Laterality: right Qualified Code(s): C34.91 - Malignant neoplasm of unspecified part of right bronchus or lung
--- NOTE | 2020-02-01 13:12 | XRay Report ---
XR chest 1V portable CLINICAL HISTORY: sob, palpitations COMPARISON STUDY: 01/13/2020 FINDINGS: The heart remains enlarged. There is a left-sided A-Port catheter. There are progressive ri ght lung airspace opacities, most pronounced in the right midlung zone. There is also interstitial/gr oundglass opacities within the left midlung zone. There is mild right hilar enlargement suspicious fo r adenopathy.[ IMPRESSION: 1. Cardiomegaly and suspected right hilar adenopathy 2. Progressive right lung airspace opacities. Slight progression in interstitial/groundglass left sheela g opacities. ACT 112: Negative or not required by law. Electronically signed by: Scott Price M.D. 02/01/2020 1:10 PM
[2020-02-01 13:32] LABS: Hematocrit (blood only) 30.1 % (42-52); Hemoglobin 10.1 g/dL (14.0-18.0); Mean Corpuscular Hgb Conc 33.6 g/dL (32-36); Mean Corpuscular Volume 95.3 fL (80-100); RDW Coefficient of Variation 18.4 % (11.5-14.5); Red Blood Count 3.16 M/uL (4.7-6.1); White Blood Count 5.27 K/uL (4.8-10.8)
[2020-02-01 13:39] LABS: INR 1.1 (0.9-1.1); Prothrombin Time 11.5 Seconds (9.0-12.0)
[2020-02-01 13:48] LABS: Albumin Level 2.6 gm/dl (3.4-5.0); BUN Creatinine Ratio 14.7 (10-20); Calcium 8.5 mg/dl (8.5-10.1); Magnesium 1.9 mg/dl (1.8-2.4); Potassium 3.7 mmol/L (3.5-5.1)
[2020-02-01 13:54] LABS: Albumin Globulin Ratio 0.8 (0.9-2); Bilirubin,Total 0.5 mg/dl (0.2-1); Globulin 3.2 gm/dl (2.5-4.0); Total Protein 5.8 gm/dl (6.4-8.2); Troponin I 0.016 ng/ml (0-0.045)
[2020-02-01 13:56] LABS: Mean Platelet Volume 10.5 fL (7.4-10.4); Platelet Count 56 K/uL (130-400)
[2020-02-01 13:57] LABS: Eosinophils # (auto) 0.06 K/uL (0-0.5); Eosinophils % (auto) 1.1 %; Immature Granulocytes # (auto) 0.02 K/uL (0.00-0.02); Immature Granulocytes % (auto) 0.4 %; Lymphocytes # (auto) 0.33 K/uL (1.2-3.4); Lymphocytes % (auto) 6.3 %; Monocytes # (auto) 0.89 K/uL (0.11-0.59); Monocytes % (auto) 16.9 %; Neutrophils # (auto) 3.97 K/uL (1.4-6.5); Neutrophils % (auto) 75.3 %; Platelet Estimate Decreased (Normal)
[2020-02-01] MEDS ORDERED: OPTIRAY 320 125ml IV ONE (14:39)
[2020-02-01] MEDS: METOPROLOL TARTRATE 25 MG TAB PO SCH ×2 (15:02→21:10)
--- NOTE | 2020-02-01 15:06 | CT Scan Report ---
CT ANGIOGRAM OF THE CHEST CLINICAL HISTORY: Lung carcinoma. Rapid atrial fibrillation. Worsening chest x-ray. COMPARISON STUDY: Chest CT dated 01/13/2020, chest x-ray dated 02/01/2020 TECHNIQUE: Following the IV administration of 120 mL of Optiray-320, CT angiogram of the thorax was p erformed from the thoracic inlet to the lung bases utilizing the pulmonary embolus protocol. Images a re reviewed in the axial, sagittal, and coronal planes. IV contrast was administered without complica tion. MIP imaging was performed. A dose lowering technique was utilized adhering to the principles o f ALARA. CT DOSE: 536.04 mGycm FINDINGS: There are enlarged subcarinal paratracheal and prevascular lymph nodes. There is mild right hilar diann nopathy. There was no evidence of thoracic aortic dilatation. The heart is enlarged with left atrial enlargement There were no pulmonary artery filling defects to indicate acute pulmonary embolism. There is a trace left pleural effusion and increasing right pleural effusion. There is interlobular septal edema. There is a 25 mm right lower lobe pulmonary mass. There is persis tent subpleural reticulation. There are persistent right upper lobe and right lower lobe pulmonary ai rspace opacities, likely resenting a nonspecific pneumonitis. There is an enlarging 18 mm left lower lobe nodule with focal bronchiectasis/cystic spaces. There is persistent right-sided bronchial wall thickening. There is small hiatal hernia. IMPRESSION: 1. No evidence of acute pulmonary embolism 2. Persistent pathologic mediastinal and hilar lymphadenopathy 3. Persistent 2.5 cm right lower lobe pulmonary nodule 4. Worsening interlobular septal edema, and increasing right pleural effusion. 5. Subpleural reticulation 6. Persistent right upper lobe and right lower lobe airspace opacity suspicious for a pneumonitis 7. Enlarging 18 mm left lower lobe pulmonary nodule containing focal bronchiectasis/cystic spaces. 8. Cardiomegaly with left atrial enlargement ACT 112: Negative or not required by law. Electronically signed by: Scott Priec M.D. 02/01/2020 3:05 PM
--- NOTE | 2020-02-01 16:23 | Electrocardiogram Report ---
Test Reason : Blood Pressure : / mmHG Vent. Rate : 113 BPM Atrial Rate : 113 BPM P-R Int : 000 ms QRS Dur : 110 ms QT Int : 352 ms P-R-T Axes : 000 015 034 degrees QTc Int : 482 ms Atrial fibrillation with rapid ventricular response Abnormal ECG When compared with ECG of 13-JAN-2020 17:46, Atrial fibrillation has replaced Sinus rhythm Confirmed by Teja Sun ([id number]) on 02/01/2020 4:23:24 PM Referred By: Confirmed By:Teja Sun
[2020-02-01] MEDS ORDERED: ALBUTEROL HFA 8 GM INHALER INH PRN (17:01)
[2020-02-01] MEDS ORDERED: ONDANSETRON INJ 2 MG/ML 2 ML VIAL IV PRN (17:01)
[2020-02-01] MEDS ORDERED: traMADol HCL 50 MG TABLET PO PRN (17:01)
[2020-02-01] MEDS ORDERED: ACETAMINOPHEN 325 MG TAB PO PRN (17:01)
[2020-02-01] MEDS ORDERED: LORazepam 0.5 MG TAB PO PRN (17:01)
[2020-02-01] MEDS ORDERED: BENZONATATE 100 MG CAPSULE PO PRN (17:01)
[2020-02-01 18:13] LABS: Appearance Urine Clear (Clear); Bacteria Urine Automated Negative (Negative); Bilirubin Urine Negative (Negative); Blood Urine 2+ (Negative); Cast Urine Automated 0 /lpf (0-5); Color Urine Yellow; Epithelial Cell Urine Auto 0-5 /lpf (0-5); Glucose Urine UA Negative (Negative); Ketones Urine Negative (Negative); Leukocyte Esterase Urine Negative (Negative); Nitrite Urine Negative (Negative); Protein Urine Negative (Negative); Specific Gravity Urine 1.007 (1.000-1.030); Urobilinogen Urine Negative (Negative); WBC Urine Automated 0 /hpf (0-5); pH Urine 6.5 (4.5-7.5)
--- NOTE | 2020-02-01 19:53 | Cardiology Consultation ---
Date of Consultation February 01, 2020 Assessment & Plan (1) Atrial fibrillation with RVR: Recurrence of paroxysmal atrial fibrillation. Inadequate rate control may be contributing to his exertional dyspnea. Rather than increasing his atenolol, recommend transitioning to oral metoprolol and titrating dose to achieve ventricular rate of 80-100 bpm. Likely this will require a metoprolol dose in the 100 mg per day range to be equivalent or greater than current atenolol dose. Since his CHADS-Vasc score is only 1 and he has thrombocytopenia currently as well as a recent history of bleeding problems (hemoptysis, epistaxis), risk/benefit ratio favors withholding anticoagulation at this time. (2) Severe mitral regurgitation by prior echocardiogram: Given his limited prognosis secondary to metastatic lung cancer and the absence of clear-cut evidence that his mitral regurgitation is symptomatic, he is not a candidate for operative intervention /mitral valve replacement. (3) Thrombocytopenia: (4) Metastatic lung cancer (metastasis from lung to other site): (5) Diastolic CHF due to valvular disease: This has been an ongoing concern regarding the potential role of diastolic CHF even previously as an outpatient (due to infiltrates on CXR and elevated pro-BNP), however he has never appeared volume overloaded on exam to me and he has not demonstrated any weight gain or classic CHF symptoms (orthopnea, PND). Would be judicious with IV fluid loading, but doubt he would benefit from routine diuretic dosing (as noted, trial of Dyazide resulted in orthostasis). Will follow volume status closely. History of Present Illness Attending Physician: Salvatore Real MD History of Present Illness 74-year-old man with severe mitral regurgitation secondary to mitral valve prolapse, paroxysmal atrial fibrillation (atenolol, CHADS-VASC=1/no anticoagulation), and carotid atherosclerosis who was diagnosed with Stage IV adenocarcinoma of the lung earlier this year (s/p XRT, chemo ongoing) who was noted to have paroxysmal atrial fibrillation with rapid ventricular response (110-120 bpm) at the time of his oncology visit today. He notes dyspnea on moderate exertion in recent weeks, no clear decline in his stamina at a specific point in time, but rather a gradual decrease in exercise tolerance in recent months (during which time he has been receiving chemotherapy). His weight has been stable over the past month, he is down about 10 lb from 2 months ago. He denies orthopnea, PND, leg edema, chest pain, presyncope, or syncope. He notes only occasional palpitations, experiencing a sense of a more forceful heartbeat. Currently, his main concern is bilateral lower extremity rash which is potentially felt secondary to one of the chemotherapy agents. Of note, at one point he was a concern that he might have an element of diastolic congestive heart failure. He was started on low-dose every other day Dyazide but became orthostatic. He never did show clear evidence of volume overload, his diuretic was stopped with no change in his dyspneic symptoms or chest x-ray. He does have history of hemoptysis, but this seems to have resolved post radiation therapy. He has been thrombocytopenic at times due to chemotherapy and has noted some epistaxis. A stress echo September 2019 was terminated due to an SVT, no obvious ischemia but limited LV augmentation (unclear if this was due to SVT or latent systolic dysfunction from severe mitral regurgitation). At he time of my evaluation, he was comfortable at rest with no specific complaints. Allergies Allergy/AdvReac Type Severity Reaction Status Date / Time No Known Allergies Allergy Verified 02/01/20 12:09 Home Medications Home Medications Medication Instructions Recorded Confirmed Type coenzyme Q10 100 mg capsule 200 mg PO QAM cap 11/24/18 02/01/20 History multivitamin 1 tab PO QAM 11/24/18 02/01/20 History glucosamine HCl 1,500 mg tablet 1,500 mg PO QAM 02/16/19 02/01/20 History atenolol 50 mg PO QAM 10/06/19 02/01/20 History tamsulosin 0.4 mg PO BID 10/06/19 02/01/20 History Portable Oxygen #1 ea 11/22/19 02/01/20 Rx benzonatate 100 mg capsule 100 mg PO BID PRN #60 cap 11/26/19 02/01/20 Rx ketoconazole 2 % shampoo 1 appln TOP 2XWK ml 12/02/19 02/01/20 History lorazepam 0.5 mg tablet 0.5 mg PO .COMPLEX PRN #60 tab 12/08/19 02/01/20 Rx albuterol sulfate 2 puff INHALATION Q6 PRN 01/13/20 02/01/20 History psyllium [Metamucil] 1 packet PO QAM 01/13/20 02/01/20 History tramadol 50 - 100 mg PO Q6H PRN 01/13/20 02/01/20 History triamterene-hydrochlorothiazid 1 tab PO QAM 01/13/20 02/01/20 History atorvastatin 40 mg PO HS 02/01/20 02/01/20 History Patient History Medical History Abdominal bruit Adenopathy Allergic rhinitis Bright red blood per rectum no problems at present Chronic kidney disease, stage III (moderate) stage 3 Constipation Diverticulosis Dyspnea on exertion Esophageal reflux History of colon polyps History of prostate cancer 2011, s/p brachytherapy Presenting PSA 2.8, clinical stage TIIa HTN (hypertension) Hyperlipidemia IBS (irritable bowel syndrome) Internal hemorrhoids Lung neoplasm recently diagnosed will be starting chemo Mitral valve prolapse Severe, with severe regurgitation Osteoarthritis Persistent dry cough x 6-7 months 2/2 lung carcinoma Prediabetes Severe mitral regurgitation by prior echocardiogram Surgical History History of arthroscopy of right knee History of brachytherapy prostate cancer - finished treatment and follows with urology once a year History of cataract surgery right and left History of colonoscopy History of prostate biopsy History of repair of rotator cuff Rt History of right knee surgery History of tonsillectomy Status post trigger finger release x 2 left and right hand Family History Father, age 72 complications cardiac cath had abdominal aneurysm Mother, age 67 colon ca Uncle, age 64 lung cancer No family history of adverse response to anesthesia Heart disease Intestinal cancer Mother Cancer Social History Smoking Status: Former smoker Tobacco Type: Cigarettes Age Started Using Tobacco: 15; Age Quit Using Tobacco: 46; packs per day: 0.5; Number of Years Since Quit: 27; Second Hand Exposure: No; Hx Alcohol Use: No Hx Substance Use: No Preferred Language: Occitan Communication Ability: Effective Sanitarian Aide Required: No Beliefs That Will Affect Care: None marital status: Current Living Situation: Spouse Current Living Situation Comment: lives significant other current occupational status: retired 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 How many Children do You have: 1 Feels Safe at Home: Yes Safety Concerns: Feels Safe At This Time Childhood Exposure to Second-Hand Smoke: Yes caffeine: Yes (coffee very rarely occ tea) during the past year weight has: decreased > 10 lbs Dental Care, Regularly: Yes Physical Activity Frequency: 3-4 Times per Week Seatbelt Use: always Sunscreen Use: No Assistive Devices: None Review of Systems Constitutional: + fatigue and + weight loss; no fever, no chills and no weight gain Eyes: no problem reported Ear, Nose, Mouth, Throat: + epistaxis Respiratory: + cough and + dyspnea Cardiovascular: as per Subjective / HPI Gastrointestinal: no abdominal pain and no change in stools Musculoskeletal: no myalgia Integumentary: + rash and + new lesions Neurologic: no falls and no syncope Psychiatric: no problem reported Hematologic / Lymphatic: + easy bleeding and + easy bruising Physical Exam Physical Exam: Normal habitus white male who appears comfortable. Afebrile. BP low normal. Heart rate 100-110 bpm, normal respiratory rate. Skin: Violaceous reticular lesions both lower extremities. HEENT: Unremarkable. Neck: Jugular venous pulse at the clavicle at 90, murmur transmitted to carotids. Lungs: decreased breath sounds with scattered dry crackles or rhonchi right base. Otherwise clear. Cardiac: Regular rhythm with normal S1 and S2. 4/6 harsh mid systolic murmur at the left sternal border, apex, and axilla radiating to the base and carotids. No diastolic murmur or gallop. Mid systolic click not appreciated today (intermittently noted in the past). Abdomen: Benign. Extremities: Nontender with trace pretibial edema. Intact peripheral pulses. Neurologic: Normal affect, nonfocal Results & Data ([facility]) Laboratory Results Hemoglobin 10.1, WBC 2 7, platelet count 56,000. Normal electrolytes, BUN 17, creatinine 1.4. Troponin negative. ProBNP 7353. Albumin 2.6. Diagnostic Findings Chest CT showed pathologic mediastinal hilar lymphadenopathy, worsening interlobular septal edema, increasing right pleural effusion, persistent right upper lobe/right lower lobe airspace opacities. ECG today showed atrial fibrillation with rapid ventricular response of 113 bpm, otherwise unremarkable. Compared to 01/13/2020 ECG, atrial fibrillation has replaced sinus rhythm. PG Care Time/CCT Total # of Minutes Spent Total Time Spent with Patient: Total time spent is greater than 50% in coordination of care (as documented) at patient's floor/unit and/or counseling patient: Coding Level of Care Code 78753 Initial Inpt Care Lvl 3 Diagnoses Atrial fibrillation with RVR I48.91 Severe mitral regurgitation by prior echocardiogram I34.0 Thrombocytopenia D69.6 Metastatic lung cancer (metastasis from lung to other site) C34.91 Laterality: right Diastolic CHF due to valvular disease I50.30; I38 (1) Metastatic lung cancer (metastasis from lung to other site) Laterality: right Qualified Code(s): C34.91 - Malignant neoplasm of unspecified part of right bronchus or lung
[2020-02-01] MEDS: ATORVASTATIN 40 MG TAB PO SCH (21:10)
[2020-02-01] MEDS: TAMSULOSIN HCL 0.4 MG CAP PO SCH (21:11)
[2020-02-01] MEDS: KETOCONAZOLE 2% SCH (23:29)
[2020-02-02 04:47] LABS: Hematocrit (blood only) 30.1 % (42-52); Hemoglobin 9.7 g/dL (14.0-18.0); Mean Corpuscular Hemoglobin 31.2 pg (25-34); Mean Corpuscular Hgb Conc 32.2 g/dL (32-36); Mean Corpuscular Volume 96.8 fL (80-100); RDW Coefficient of Variation 19.1 % (11.5-14.5); RDW Standard Deviation 63.5 fL (36.4-46.3); Red Blood Count 3.11 M/uL (4.7-6.1); White Blood Count 4.43 K/uL (4.8-10.8)
[2020-02-02 05:17] LABS: Albumin Level 2.5 gm/dl (3.4-5.0); BUN Creatinine Ratio 14.4 (10-20); Calcium 8.1 mg/dl (8.5-10.1); Creatinine Clr Calc Pharmacy 53.6 ml/min; Est GFR (African American) 70.8; Est GFR (Non-African American) 61.1; Potassium 3.8 mmol/L (3.5-5.1)
[2020-02-02 05:22] LABS: Albumin Globulin Ratio 0.8 (0.9-2); Bilirubin,Total 0.4 mg/dl (0.2-1); Phosphorus 4.4 mg/dl (2.5-4.9); Total Protein 5.5 gm/dl (6.4-8.2); Troponin I 0.024 ng/ml (0-0.045)
[2020-02-02 05:27] LABS: Mean Platelet Volume 10.2 fL (7.4-10.4); Platelet Count 55 K/uL (130-400)
--- NOTE | 2020-02-02 08:41 | Consultation Report ---
DATE OF CONSULTATION: 02/02/2020 REASON FOR CONSULTATION: A 74-year-old gentleman with metastatic nonsmall cell lung cancer, admitted for rapid ventricular rate, paroxysmal atrial fibrillation. HISTORY OF PRESENT ILLNESS: Mr. Jerome is a very pleasant 74-year-old gentleman well known to [facility] with current diagnosis of metastatic nonsmall cell lung cancer made in September of 2019. This gentleman again had been under the care of Dr. Thompson prior to departure and more recently followed by our physician extenders. On 01/20/2020, he began a new chemotherapeutic regimen; Alimta/carboplatin and pembrolizumab. I had actually seen him in the office yesterday because of subacute onset rash encompassing his lower extremities bilaterally. I suspect pembrolizumab as the offending agent and planned to proceed with his next cycle of chemotherapy minus pembrolizumab. Nonetheless, while in the office during physical examination, Mr. Jerome became acutely short of breath and nursing noted rapid ventricular response in the 120s to 130s. On auscultation, he was clearly irregularly irregular and summoned to go to the Emergency Room for admission to the hospital. Apparently, he does have history of paroxysmal atrial fibrillation, currently followed by Dr. Garcia. Mr. Jerome was seen and examined this morning and enjoying breakfast. He feels much better. His ventricular rate is in the low 100s. I have been asked to see him because precipitous drop in platelet count. Again, this gentleman is on carboplatin and thrombocytopenia is very common with this agent. May consider dose modification moving forward. PAST MEDICAL HISTORY: Again, significant for paroxysmal atrial fibrillation, metastatic nonsmall cell lung cancer, history of prostate cancer, hypertension, hyperlipidemia, IBS, mitral valve prolapse, osteoarthritis, prediabetic, stage III kidney disease, diverticulosis, esophageal reflux. PAST SURGICAL HISTORY: Includes a trigger finger release x2 in left and right hand, tonsillectomy, right knee surgery, rotator cuff repair, prostate biopsy, colonoscopy, cataract surgery, brachytherapy for prostate cancer and arthroscopy the right knee. MEDICATIONS: Prior to admission, atorvastatin 40 mg p.o. at bedtime, triamterene/hydrochlorothiazide 1 tablet p.o. every day, tramadol 50-100 q. 6 hours p.r.n., psyllium 1 packet p.o. q.a.m., albuterol 2 puffs inhaled q. 6 hours, lorazepam 0.5 mg p.o. q.8 hours p.r.n. tamsulosin 0.4 mg p.o. b.i.d., atenolol 50 mg p.o. daily, glucosamine 1500 mg p.o. daily, multivitamin 1 tablet p.o. daily, Coenzyme Q10 200 mg p.o. daily. ALLERGIES: No known drug allergies. FAMILY HISTORY: Father at age 72 from cardiac catheterization and AAA. Mother suffered from colorectal cancer, at age 67. Had uncle with lung cancer at age 64, . 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 He lives independently. He is a reformed smoker and denies any alcohol use. REVIEW OF SYSTEMS: Again, this gentleman was seen in the office yesterday. Negative for fevers, chills or sweats. He was not anorexic or losing weight. He had presented with skin rash encompassing his lower extremities, I believe attributable to the pembrolizumab. Rash was nonpruritic. HEENT: He has not been complaining of headaches, lightheadedness or dizziness. No acute visual or hearing deficits. No sinus symptoms, sore throat or dysphagia. LYMPH: No history of lymphoproliferative disease. CARDIAC: Again, found to be in rapid ventricular rate. Paroxysmal atrial fibrillation in the office, which led to admission. PULMONARY: Positive history of COPD, on bronchodilators. He was acutely short of breath in the office. No cough or hemoptysis. GASTROINTESTINAL: Negative for abdominal pain, nausea, vomiting, diarrhea or constipation. GENITOURINARY: Positive history of prostate cancer. MUSCULOSKELETAL: Positive history of osteoarthritis. No focal muscle weakness. ENDOCRINE: Negative for diabetes or thyroid disease. NEUROLOGIC: Negative for seizure, stroke, or migraine headache. HEMATOLOGIC: Positive for cytopenias attributable to chemotherapy. PHYSICAL EXAMINATION: GENERAL: Very pleasant 74-year-old male, awake, alert and appropriate, in no acute distress. VITAL SIGNS: Temperature 36.6, pulse 114, respiratory rate 20, blood pressure 98/65. SKIN: Without rash or lesion. Turgor is fair. HEENT: Head is atraumatic, normocephalic. Eyes: PERRLA. Nares patent without rhinorrhea or discharge. Throat is clear. NECK: Supple. HEART: Still irregularly irregular. LUNGS: Clear to auscultation bilaterally. ABDOMEN: Soft, nontender, nondistended. EXTREMITIES: No clubbing, cyanosis or edema. NEUROLOGICAL: Grossly intact. LABORATORY DATA: WBC count 4430, hemoglobin 9.7, platelet count 55,000. Sodium 141, potassium 3.8, chloride 109, carbon dioxide 24, creatinine 1.17, BUN 17. BNP 7353, albumin 2.5. IMPRESSION: 1. Atrial fibrillation with rapid ventricular response. 2. Hypertension. 3. Metastatic nonsmall cell lung cancer status post cycle #1 of Alimta/carboplatin/pembrolizumab administered on 01/20/2020. 4. Thrombocytopenia attributable to carboplatin effect. PLAN: In summary, Mr. Jerome is a very pleasant 74-year-old gentleman currently under our care at [facility], receiving initial chemotherapy for metastatic nonsmall cell lung cancer. This gentleman was previously managed by Dr. Thompson and seen by our physician extenders. He recently started combination Alimta/carboplatin and pembrolizumab. He had contacted the office a couple of days prior with subacute onset nonpruritic rash encompassing his lower extremities. He was summoned to the office for direct examination. During examination he became acutely short of breath and his ventricular rate was in the 120-130s range. He was subsequently admitted to a monitored bed for a cardiology consult and management. I have been asked to see Mr. Jerome because of low platelets. Keep in mind carboplatin when given in high doses can result in transient thrombocytopenia. He received his initial course on 01/20/2020, it is now 02/02/2020, and the timeline fits. I expect his platelet count to recover spontaneously and no intervention is required at this time. Would monitor his peripheral counts daily nonetheless. Outpatient followup has been established and I have nothing further to offer. I agree with current medical management and will periodically look in on Mr. Jerome during his stay. I do not anticipate a lengthy admission. Thank you very much for allowing me to participate in his care. If there are any questions or concerns, feel free to contact me at any time.
[2020-02-02] MEDS: KETOCONAZOLE 2% SCH ×3 (08:50→23:13)
[2020-02-02] MEDS: METOPROLOL TARTRATE 25 MG TAB PO SCH (08:51)
[2020-02-02] MEDS: PSYLLIUM 58.6% POWDER PACKET PO SCH (08:52)
[2020-02-02] MEDS: MULTIVITAMIN TAB PO SCH (08:52)
[2020-02-02] MEDS: TAMSULOSIN HCL 0.4 MG CAP PO SCH ×2 (08:52→20:53)
[2020-02-02] MEDS ORDERED: GLUCOSAMINE HCL 1500 MG PO SCH (09:00)
[2020-02-02] MEDS ORDERED: NON-FORMULARY MEDICATION (Coenzyme Q10 200 MG) PO SCH (09:00)
[2020-02-02] MEDS ORDERED: METOPROLOL TARTRATE 25 MG TAB PO STA (10:20)
--- NOTE | 2020-02-02 10:36 | Cardiology Progress Note ---
Date of Service February 02, 2020 Assessment & Plan (1) Atrial fibrillation with RVR: Rather than increasing his atenolol, recommend transitioning to oral metoprolol and titrating dose to achieve ventricular rate of 80-100 bpm. Likely this will require a metoprolol dose in the 100 mg per day range to be equivalent or greater than current atenolol dose. Since his CHADS-Vasc score is only 1 and he has thrombocytopenia currently as well as a recent history of bleeding problems (hemoptysis, epistaxis), risk/benefit ratio favors withholding anticoagulation at this time. (2) Severe mitral regurgitation by prior echocardiogram: Given his limited prognosis secondary to metastatic lung cancer and the absence of clear-cut evidence that his mitral regurgitation is symptomatic, he is not a candidate for operative intervention /mitral valve replacement. (3) Thrombocytopenia: (4) Metastatic lung cancer (metastasis from lung to other site): (5) Diastolic CHF due to valvular disease: This has been an ongoing concern regarding the potential role of diastolic CHF even previously as an outpatient (due to infiltrates on CXR and elevated pro-BNP), however he has never appeared volume overloaded on exam to me and he has not demonstrated any weight gain or classic CHF symptoms (orthopnea, PND). No need for diuretic at this point. Admission and Anticipated Discharge Date Admission Date: February 01, 2020 Subjective Uneventful night. Rate still suboptimally controlled, however he received only minimal doses of beta-saranya. He denies any chest pain, dyspnea, or other complaints. Anxious to return home. Physical Exam Physical Exam: Normal habitus white male who appears comfortable. Afebrile. BP low normal. Heart rate 100-120 bpm, normal respiratory rate. Skin: Violaceous reticular lesions both lower extremities. HEENT: Unremarkable. Neck: Jugular venous pulse at the clavicle at 90, murmur transmitted to carotids. Lungs: decreased breath sounds with scattered dry crackles or rhonchi right base. Otherwise clear. Cardiac: Regular rhythm with normal S1 and S2. 4/6 harsh mid systolic murmur at the left sternal border, apex, and axilla radiating to the base and carotids. No diastolic murmur or gallop. Mid systolic click not appreciated today (intermittently noted in the past). Abdomen: Benign. Extremities: Nontender with trace pretibial edema. Intact peripheral pulses. Neurologic: Normal affect, nonfocal Results & Data ([facility]) Laboratory Results Hemoglobin 9.7, platelet count 55,000. Potassium 3.8, creatinine 1.17. Troponin negative x3. PG Care Time/CCT Total # of Minutes Spent Total Time Spent with Patient: Total time spent is greater than 50% in coordination of care (as documented) at patient's floor/unit and/or counseling patient: Coding Level of Care Code 18847 Subseq Hosp Care Lvl 3 Diagnoses Atrial fibrillation with RVR I48.91 Severe mitral regurgitation by prior echocardiogram I34.0 Thrombocytopenia D69.6 Metastatic lung cancer (metastasis from lung to other site) C34.91 Laterality: right Diastolic CHF due to valvular disease I50.30; I38 (1) Metastatic lung cancer (metastasis from lung to other site) Laterality: right Qualified Code(s): C34.91 - Malignant neoplasm of unspecified part of right bronchus or lung
--- NOTE | 2020-02-02 11:21 | XCELERA ---
[id number]
[2020-02-02] MEDS ORDERED: METOPROLOL TARTRATE 1 MG/ML VIAL IV STA (13:04)
[2020-02-02] MEDS ORDERED: METOPROLOL TARTRATE 50 MG TAB PO STA (14:49)
[2020-02-02] MEDS: ATORVASTATIN 40 MG TAB PO SCH (20:53)
[2020-02-02] MEDS ORDERED: METOPROLOL TARTRATE 100 MG TAB PO ONE (21:00)
--- NOTE | 2020-02-02 22:58 | Hospitalist Progress Note ---
Date of Service February 02, 2020 Assessment & Plan (1) Atrial fibrillation with RVR: - Admit to PCU - Trend cardiac biomarkers negative x 3 - EKG reviewed - afib with rvr with HR in 110s, possibly some underlying aflutter - Consult cardiology for new onset -follows with Dr. Garcia - discussed over the phone - will contiue on metoprolol: increased to 50 mg in AM and repeated dose in early afternoon with an extra IV dose of 5 mg with no avail. Will increase in evening to 100 mg PO BID and monitor heart rate. -If continues to be elevated will consider adding dig. - Has not previously been on anticoagulation in light of current chemotherapy and thrombocytopenia with issues dealing with hemoptysis in the past - Checked 2 D echo - PT/OT consulted-patient did have one fall which was mechanical a few months ago, does not use ambulatory devices for assistance - Hemoglobin is 10.1 today, previously has been 12.3, possibly partial hypovolemia d/t chemo? - BNP elevated at 7353 (2) HTN (hypertension): -Switch atenolol to metoprolol as above, atorvastatin 40 mg, hold triamterene hydrochlorothiazide (3) Hyperlipidemia: -Statin therapy as above (4) Mitral valve prolapse: - noted, stable -2D echo as above (5) Diastolic CHF due to valvular disease: Noted, last stress echo done in September 2019 showing negative exercise stress echo for ischemia, no exercise-induced chest pain no EKG changes (6) Thrombocytopenia: -Platelet count of 55 today, previously has been in the 160s (7) Metastatic lung cancer (metastasis from lung to other site): - Metastatic non-small cell lung carcinoma diagnosed October 2019, stage IV - Currently undergoing chemotherapy with paclitaxel and carboplatin weekly, last dose was on 01/20/2020, finished XRT therapy beginning of December 2019, next dose scheduled for Feb 09 - Consulted oncology (8) History of prostate cancer: 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 (11) Rash: -New onset since chemotherapy on 01/19, that agent is being removed from chemotherapy, Dr. Guo is aware -Nonpruritic, nonpainful -Awaiting platelet count as could be secondary to thrombocytopenia DVT prophylaxis: - teds CODE: Full code Admission and Anticipated Discharge Date Admission Date: February 01, 2020 Subjective Patient reports feeling well. He has no new complaints at this time. Review of Systems Review of Systems: All systems reviewed & are unremarkable except as noted in HPI & below Physical Exam Physical Exam: Head: Normocephalic, atraumatic ENT: PERRL, EOMI, no pharyngeal exudate, mucous membranes moist Chest: Clear to auscultation, on room air, no adventitious breath sounds Cardiac: Irregularly irregular, heart rate in 120-130s at bedside, with minimal exertion increases to 140s to 150s, + loud systolic murmur, no JVD, normal peripheral pulses, good capillary refill Abdominal: NABS x 4 quadrants, soft, nondistended, nontender to palpation, no rebound or guarding Extremities: Normal inspection, no peripheral edema or erythema, calfs nontender to palpation Psych: Normal mood and affect Skin: Dark erythematous purpura overlying bilateral lower extremities involving the dorsal aspect of the foot up to the pubic region, rash become brightly erythematous over the thighs and groin, nonblanching, does not involve the trunk. Neuro: AAO x 3, strength intact bilaterally and rated 5/5, no motor deficits, speech is clear, no peripheral sensory deficits Results & Data Results & Data ([facility]) Vital Signs (Past 12 Hours) Vital Signs Temp Pulse Pulse Pulse Resp BP BP 02/02/20 16:00 36.9 C 02/02/20 15:50 105 H 02/02/20 15:16 110 H 22 100/62 02/02/20 14:32 105 H 106/68 02/02/20 13:15 112 H 105/64 02/02/20 12:08 102/60 02/02/20 11:50 36.9 C 109 H 18 Pulse Ox 02/02/20 16:00 02/02/20 15:50 02/02/20 15:16 95 02/02/20 14:32 02/02/20 13:15 02/02/20 12:08 02/02/20 11:50 98 PG Care Time/CCT Total # of Minutes Spent Total Time Spent with Patient: Total time spent is greater than 50% in coordination of care (as documented) at patient's floor/unit and/or counseling patient: Coding Level of Care Code 45546 Subseq Hosp Care Lvl 3 Diagnoses Atrial fibrillation with RVR I48.91 HTN (hypertension) I10 Hyperlipidemia E78.5 Mitral valve prolapse I34.1 Diastolic CHF due to valvular disease I50.30; I38 Thrombocytopenia D69.6 Metastatic lung cancer (metastasis from lung to other site) C34.91 Laterality: right History of prostate cancer Z85.46 Chronic kidney disease, stage III (moderate) N18.3 Prediabetes R73.03 Rash R21 Time Spent (min) 55 (1) Metastatic lung cancer (metastasis from lung to other site) Laterality: right Qualified Code(s): C34.91 - Malignant neoplasm of unspecified part of right bronchus or lung
[2020-02-03] MEDS: HEPARIN 100 UNIT/ML 5ML FLUSH FLUSH PRN ×2 (04:55→06:43)
[2020-02-03 07:07] LABS: Hematocrit (blood only) 30.2 % (42-52); Hemoglobin 9.9 g/dL (14.0-18.0); Mean Corpuscular Hemoglobin 31.4 pg (25-34); Mean Corpuscular Hgb Conc 32.8 g/dL (32-36); Mean Corpuscular Volume 95.9 fL (80-100); RDW Coefficient of Variation 19.1 % (11.5-14.5); RDW Standard Deviation 63.7 fL (36.4-46.3); Red Blood Count 3.15 M/uL (4.7-6.1); White Blood Count 5.11 K/uL (4.8-10.8)
[2020-02-03 07:25] LABS: Mean Platelet Volume 9.8 fL (7.4-10.4); Platelet Count 59 K/uL (130-400)
[2020-02-03 07:26] LABS: Platelet Estimate Decreased (Normal)
[2020-02-03] MEDS: TAMSULOSIN HCL 0.4 MG CAP PO SCH (07:34)
[2020-02-03] MEDS: PSYLLIUM 58.6% POWDER PACKET PO SCH (07:34)
[2020-02-03] MEDS: MULTIVITAMIN TAB PO SCH (07:34)
[2020-02-03 07:48] LABS: Albumin Level 2.6 gm/dl (3.4-5.0); BUN Creatinine Ratio 13.6 (10-20); Calcium 8.1 mg/dl (8.5-10.1); Est GFR (African American) 74.6; Est GFR (Non-African American) 64.4; Potassium 3.7 mmol/L (3.5-5.1)
[2020-02-03 07:50] LABS: Albumin Globulin Ratio 0.8 (0.9-2); Bilirubin,Total 0.6 mg/dl (0.2-1); Globulin 3.1 gm/dl (2.5-4.0); Total Protein 5.7 gm/dl (6.4-8.2)
[2020-02-03] MEDS ORDERED: METOPROLOL TARTRATE 100 MG TAB PO SCH (09:00)
[2020-02-03] MEDS: KETOCONAZOLE 2% SCH ×2 (09:29→15:40)
[2020-02-03] MEDS ORDERED: DIGOXIN 0.25 MG TAB PO ONE (10:26)
--- NOTE | 2020-02-03 11:08 | Cardiology Progress Note ---
Date of Service February 03, 2020 Assessment & Plan (1) Atrial fibrillation with RVR: Continue to upwardly titrate beta-saranya, currently up to metoprolol 100 mg twice daily. Given borderline BP but need for further rate control, would not hold beta- saranya for systolic blood pressure greater than 90 mmHg as long as he is asymptomatic. Recommend adding digoxin 0.25 mg daily (could give 2 doses today for loading) to further manage tachycardia without further drop in blood pressure. Since his CHADS-Vasc score is only 1 and he has thrombocytopenia currently as well as a recent history of bleeding problems (hemoptysis, epistaxis), risk/benefit ratio favors withholding anticoagulation at this time. (2) Severe mitral regurgitation by prior echocardiogram: Given his limited prognosis secondary to metastatic lung cancer and the absence of clear-cut evidence that his mitral regurgitation is symptomatic, he is not a candidate for operative intervention /mitral valve replacement. (3) Thrombocytopenia: (4) Metastatic lung cancer (metastasis from lung to other site): (5) Diastolic CHF due to valvular disease: No symptoms to suggest ongoing volume overload. Admission and Anticipated Discharge Date Admission Date: February 01, 2020 Subjective Uneventful night, but rate still suboptimally controlled. Mild hypotension at times, but he denies lightheadedness or orthostasis. He denies any chest pain, dyspnea, or other complaints. Anxious to return home. Physical Exam Physical Exam: Normal habitus white male who appears comfortable. Afebrile. BP low normal to mildly hypotensive. Heart rate 110-140 bpm. Skin: Violaceous reticular lesions both lower extremities. HEENT: Unremarkable. Neck: Jugular venous pulse at the clavicle at 90, murmur transmitted to carotids. Lungs: decreased breath sounds, generally clear. Cardiac: Regular rhythm with normal S1 and S2. 4/6 harsh mid systolic murmur at the left sternal border, apex, and axilla radiating to the base and carotids. No diastolic murmur or gallop. Abdomen: Benign. Extremities: Nontender with trace pretibial edema. Intact peripheral pulses. Neurologic: Normal affect, nonfocal Results & Data ([facility]) Vital Signs (Past 12 Hours) Vital Signs Temp Pulse Resp BP BP Pulse Ox 02/03/20 07:42 98.1 F 139 H 20 95/68 L 96 02/03/20 03:55 98.2 F 104 H 20 92/65 L 94 02/02/20 23:40 98.1 F 97 H 20 85/55 L 94 PG Care Time/CCT Total # of Minutes Spent Total Time Spent with Patient: Total time spent is greater than 50% in coordination of care (as documented) at patient's floor/unit and/or counseling patient: Coding Level of Care Code 41139 Subseq Hosp Care Lvl 3 Diagnoses Atrial fibrillation with RVR I48.91 Severe mitral regurgitation by prior echocardiogram I34.0 Thrombocytopenia D69.6 Metastatic lung cancer (metastasis from lung to other site) C34.91 Laterality: right Diastolic CHF due to valvular disease I50.30; I38 (1) Metastatic lung cancer (metastasis from lung to other site) Laterality: right Qualified Code(s): C34.91 - Malignant neoplasm of unspecified part of right bronchus or lung
--- NOTE | 2020-02-03 14:46 | Progress Notes ---
DATE: 02/03/2020 MEDICAL ONCOLOGY PROGRESS NOTE DIAGNOSES: 1. Atrial fibrillation with rapid ventricular response. 2. Hypertension. 3. Metastatic nonsmall cell lung cancer, status post cycle 1 of Alimta, carboplatin, and pembrolizumab. 4. Thrombocytopenia attributable to carboplatin effect. SUBJECTIVE: Mr. Jerome was seen and examined at bedside. According to Norberto, he will be discharged later today. His atrial fibrillation has been somewhat refractory, recently started on digoxin and metoprolol. I was asked to see him because of persistent thrombocytopenia. His platelet count over the past couple of days has hovered right around 60,000. I expect him to spontaneously recover in the coming days. He is due for his next cycle of chemotherapy late next week. He otherwise feels well, offers no complaints. OBJECTIVE: GENERAL: A very pleasant 74-year-old gentleman in no acute distress. VITAL SIGNS: Temperature 36.8, pulse 117, respiratory rate 18, blood pressure 91/64. SKIN: Without rash or lesion. HEENT: Oral mucosa without erythema or ulceration. HEART: Irregularly irregular. LUNGS: Clear to auscultation bilaterally. ABDOMEN: Soft, nontender, nondistended. EXTREMITIES: No clubbing, cyanosis or edema. NEUROLOGIC: Grossly intact. LABORATORY DATA: WBC count 5110, hemoglobin 9.9, platelet count 59,000. IMPRESSION: 1. Atrial fibrillation with rapid ventricular response. 2. Hypertension. 3. Metastatic nonsmall cell lung cancer, status post cycle 1 of Alimta, carboplatin, and pembrolizumab. 4. Thrombocytopenia attributable to carboplatin effect. PLAN: Mr. Jerome will most likely go home later on today. He feels well and not having any significant adverse effects attributable to chemotherapy; however, did experience skin rash, which may be attributable to pembrolizumab, which was nonpuritic. Additionally, his platelet count had dropped to around the 60,000 lina. I expect a spontaneous resolution and normalization of his counts in the days ahead. Mr. Jerome has outpatient followup established next week, at which time he will receive his next course of chemotherapy. Thank you for allowing me to participate in his care and we will officially sign off.
--- NOTE | 2020-02-09 22:07 | Discharge Summary ---
Date of Service February 03, 2020 Admission HPI Per Admitting Provider This is a 74-year-old male with PMHx of metastatic non-small cell lung carcinoma diagnosed in September 2019, history of prostate cancer diagnosed in 2009, HTN, HLD, paroxysmal A. fib, diastolic CHF due to valvular disease, severe mitral regurgitation, who presents from the cancer center for A. fib with RVR with heart rate in the 110s to 120s. Due to being on code flow we were not able to to accept the patient as a direct admission therefore he came to the ER. Patient has been in his normal state of health and feeling well unless he undergoes an exertional activity such as walking up a hill over to his neighbor's house, that is when he feels short of breath, has to stop for a few minutes to catch his breath and then can proceed. He reports this may have been worsening over the last few weeks but cannot confirm. He reports palpitations sometimes on a daily basis. He is not on formal anticoagulation in light of current chemotherapy and history of low platelet count. Since having his most recent chemotherapy he developed a rash which involves both of his lower extremities, the rash is not itchy or painful, and extends from the ankles to the pubic region. He would like to be able to go home tomorrow to be able to have a picnic with his family, and son who is visiting from [place]. Principal Diagnosis RVR a fib Discharge Exam Head: Normocephalic, atraumatic ENT: PERRL, EOMI, no pharyngeal exudate, mucous membranes moist Chest: Clear to auscultation, on room air, no adventitious breath sounds Cardiac: Irregularly irregular, better controlled, + loud systolic murmur, no JVD, normal peripheral pulses, good capillary refill Abdominal: NABS x 4 quadrants, soft, nondistended, nontender to palpation, no rebound or guarding Extremities: Normal inspection, no peripheral edema or erythema, calfs nontender to palpation Psych: Normal mood and affect Skin: Dark erythematous purpura overlying bilateral lower extremities involving the dorsal aspect of the foot up to the pubic region, rash become brightly erythematous over the thighs and groin, nonblanching, does not involve the trunk. Neuro: AAO x 3, strength intact bilaterally and rated 5/5, no motor deficits, speech is clear, no peripheral sensory deficit Discharge Data Allergies Allergy/AdvReac Type Severity Reaction Status Date / Time No Known Allergies Allergy Verified 02/08/20 10:38 Consultations 02/01/20 13:58 ED Decision to Admit Stat 02/01/20 14:14 Consult Oncology Routine 02/01/20 17:01 Consult Cardiology Routine Consult Case Management - Discharge Planning Routine Ordered Studies 02/01/20 13:22 CT angio chest PE protocol Stat Hospital Course (1) Atrial fibrillation with RVR: - Admit to PCU - Trend cardiac biomarkers negative x 3 - EKG reviewed - afib with rvr with HR in 110s, possibly some underlying aflutter - Consult cardiology for new onset -follows with Dr. Garcia - discussed over the phone - will contiue on metoprolol: increased to 50 mg in AM and repeated dose in early afternoon with an extra IV dose of 5 mg with no avail. Will increase in evening to 100 mg PO BID and monitor heart rate. -If continues to be elevated will consider adding dig. - Has not previously been on anticoagulation in light of current chemotherapy and thrombocytopenia with issues dealing with hemoptysis in the past - Checked 2 D echo - PT/OT consulted-patient did have one fall which was mechanical a few months ago, does not use ambulatory devices for assistance - Hemoglobin is 10.1 today, previously has been 12.3, possibly partial hypovolemia d/t chemo? - BNP elevated at 7353 On day of discharge, HR improved with dig. will also discharge on BB. (2) HTN (hypertension): -Switch atenolol to metoprolol as above, atorvastatin 40 mg, hold triamterene hydrochlorothiazide (3) Hyperlipidemia: -Statin therapy as above (4) Mitral valve prolapse: - noted, stable -2D echo as above (5) Diastolic CHF due to valvular disease: Noted, last stress echo done in September 2019 showing negative exercise stress echo for ischemia, no exercise-induced chest pain no EKG changes (6) Thrombocytopenia: -Platelet count of 55 today, previously has been in the 160s (7) Metastatic lung cancer (metastasis from lung to other site): - Metastatic non-small cell lung carcinoma diagnosed October 2019, stage IV - Currently undergoing chemotherapy with paclitaxel and carboplatin weekly, last dose was on 01/20/2020, finished XRT therapy beginning of December 2019, next dose scheduled for Feb 09 - Consulted oncology (8) History of prostate cancer: Adenocarcinoma the prostate presenting PSA 2.8, clinical stage TIIa origionally diagnosed in 2011 (9) Chronic kidney disease, stage III (moderate): - Cr stable, monitor (10) Prediabetes: -A1C is at goal. (11) Rash: -New onset since chemotherapy on 01/19, that agent is being removed from chemotherapy, Dr. Guo is aware -Nonpruritic, nonpainful -Awaiting platelet count as could be secondary to thrombocytopenia DVT prophylaxis: - teds CODE: Full code Total Time Total Time Spent Total Time Spent (In Minutes): 32 Total Time Includes: Examination of the Patient, Discharge Planning and Medication Reconciliation Discharge Plan Discharge Items Patient Disposition: Home - Self-Care Reason For Visit: AFIB WITH RVR Discharge Diagnosis: Atrial fib with RVR Activity: Resume your previous activity Non-emergency contact: Primary Care Provider Call non-emergency contact if: you have any medication questions Follow-up/Referrals: Brice Garcia MD [Physician] - 02/10/20 9:00 am (APPOINTMENT WITH DR. GARCIA- CARDIOLOGY) Francisco Pittman MD [Primary Care Provider] - 02/08/20 10:30 am (APPOINTMENT WITH STACY MULLEN FOR DR. PITTMAN) Diet: Heart Healthy Addtl Attending Provider Instructions: You have been hospitalized for an acute medical problem. During your stay at [facility], we have made an effort to correct the problem that brought you to the hospital while keeping you as comfortable as possible. Medications were used to bring your condition under control and your discharge instructions will include directions for any medications you should take after leaving the hospital. Please make sure you see your Primary Care Provider as part of your follow up plan. Recommend not to go hunting this weekend and to take it easy at home until seen by Dr. Garcia next week. Pending Studies at Discharge: No Stand-Alone Forms: My [facility] XMS [employer], Smoking Cessation Medications and DC Order Prescriptions: New metoprolol succinate 200 mg tablet extended release 24 hr 200 mg PO QPM Qty: 30 RF: 0 digoxin 250 mcg (0.25 mg) tablet 250 mcg PO DAILY Qty: 30 RF: 0 Continued ketoconazole 2 % shampoo 1 appln TOP 2XWK RF: 0 lorazepam 0.5 mg tablet 0.5 mg PO .COMPLEX PRN (Reason: anxiety) Qty: 60 RF: 2 (DME) Portable Oxygen Misc See Rx Instructions .ROUTE .MEDSUPPLY Qty: 1 RF: 0 coenzyme Q10 100 mg capsule 200 mg PO QAM RF: 0 multivitamin [Daily Multi-Vitamin] tablet 1 tab PO QAM RF: 0 glucosamine HCl 1,500 mg tablet 1,500 mg PO QAM RF: 0 tamsulosin 0.4 mg capsule 0.4 mg PO BID RF: 0 atorvastatin 40 mg tablet 40 mg PO HS RF: 0 tramadol 50 mg tablet 50 - 100 mg PO Q6H PRN (Reason: pain) RF: 0 psyllium Packet 1 packet PO QAM RF: 0 albuterol sulfate 90 mcg/actuation HFA aerosol inhaler 2 puff INHALATION Q6 PRN (Reason: Shortness Of Breath Or Wheezing) RF: 0 Discontinued atenolol 50 mg tablet 50 mg PO QAM RF: 0 triamterene-hydrochlorothiazid 37.5-25 mg tablet 1 tab PO QAM RF: 0 Discharge Orders: Discharge Order (Routine); Ordered 02/03/20 Ordered By: Scar Blue Admission Data Admit Date/Time: 02/01/20 13:14 Attending Provider: Scar Blue Admit Provider: Salvatore Real Primary Care Provider: Francisco Pittman Other Providers: Salvatore Real ; Yovanny Miller V. ; Brice Garcia Other Interventions: Discharge Summary Assessment (RN) Last Done: 02/03/20 15:51 Coding Level of Care Code D/C Day Management >30 mins Diagnoses Atrial fibrillation with RVR I48.91 HTN (hypertension) I10 Hyperlipidemia E78.5 Mitral valve prolapse I34.1 Diastolic CHF due to valvular disease I50.30; I38 Thrombocytopenia D69.6 Metastatic lung cancer (metastasis from lung to other site) C34.91 Laterality: right History of prostate cancer Z85.46 Chronic kidney disease, stage III (moderate) N18.3 Prediabetes R73.03 Rash R21
== END 2020-02-03 16:22 | disposition home or self-care (01) | DRG 309 ==
LOC: ED 11:39 → SUATTDRO 13:14 → EDINP 13:14 → 1E 22:46

== ENCOUNTER 2020-02-29 17:18 | Inpatient (IN) ==
--- NOTE | 2020-02-29 17:53 | Emergency Department Note ---
Impression & Plan Pneumonitis, Metastatic lung cancer (metastasis from lung to other site), Atrial fibrillation with RVR, Dyspnea on minimal exertion ED Provider Note NAME: GUS KEY AGE: 74 SEX: M ARRIVES VIA: Walk-In INFORMANT: Patient ED PROVIDER(S): Wyatt Mendes MD CHIEF COMPLAINT: Shortness of breath. PLAN: Disposition: Admit. MEDICAL DECISION MAKING: The patient is a pleasant 74 y/o gentleman with a pmhx of metastatic lung CA on chemotherapy, atrial fibrillation on Amiodarone, Digoxin, and metoprolol (not on AC 2/2 h/o hemoptysis) who presents to the emergency department for evaluation of progressive SOB over the past several weeks where he had outpatient CTA of the chest performed [employer] however was referred to ED by his mass spectroscopist, Dr. Garcia, for concern of his worsening sx and possible contributing factor of uncontrolled atrial fibrillation where they may consider PPM. The patient reports semi-productive cough and chest tightness. Denies n/v/d, urinary sx. Review of CT (report below) was negative for PE but with evidence of pneumonitis. The patient reports he is on 2L NC at home as needed but has needed to be on his O2 24/7 over the past week. He reports his HR easily goes up to 150s with minimal exertion. On arrival the patient is chronically ill appearing, mildly dyspneic but in NAD, AF, HR 110s-130s in afib, otherwise VSS. He appears clinically dry. Lung with scant wheezes and rhonchi. EKG shows afib without overt acute ischemia. WBC and platelets wnl. H/H similar to prior range. Chemistry without acidosis. Lactate wnl. Cr. 1.43 increased from recent c/w patients clinically dry appearance. LFTs and electrolytes unremarkable. Troponin negative/undetectable. BNP 4700 decreased from last month. Procalcitonin < 0.05. UA without convincing infection. Covid19 RNA, NAAT negartive. Blood cultures drawn and pending. However given no fever or leukocytosis at this time will defer decision for ABX to admitting team. Patient with some improvement with Combivent, Mucinex, IVF. He is agreeable with admission. Case was discussed with Dr. Ag, [facility] hospitalist, who will evaluate the patient for admission. Triage Nursing notes reviewed and agree them. Prior medical records reviewed Vital Signs: reviewed and remarkable for Afib rvr. Differential diagnosis: Reactive airway disease, pneumonia, pneumothorax, COPD, CHF, infections, cardiac ischemia, pulmonary embolism, musculoskeletal, gastrointestinal, as well as other pathologies. ER treatment provided: See below. Diagnostics interpreted by me: ECG: Atrial Fibrillation, 106 bpm, no ectopy, nonspecific ST and TWA. No overt ST elevation. Cardiac Monitoring: An order for continuous cardiac monitoring was placed and demonstrated Atrial Fibrillation, 106 bpm, no ectopy. Laboratory studies: See below. Imaging studies: OUTPATIENT CT 02/29/2020 @ [address]. CT angio chest PE protocol CT DOSE: 297.42 mGy.cm HISTORY: 74 years-old Male with PE. Acute cough with shortness of breath TECHNIQUE: Multiple CTA images of the chest were obtained after the intravenous administration of 120 ml Optiray 320. Coronal and sagittal MIPS were obtained from the axial data set and were submitted for review. All measurements were obtained according to NASCET criteria. A dose lowering technique was utilized adhering to the principles of ALARA. COMPARISON: CTA chest 02/01/2020 FINDINGS: CTA: Unchanged moderate to marked cardiomegaly. No pericardial effusion. No thoracic aortic aneurysm. Suboptimal opacification of the aorta and left heart secondary to contrast bolus timing. Left IJ Stiytz-g-Csky catheter distal tip terminates within the SVC. Pulmonary artery is opacified to the level of the proximal subsegmental branches and demonstrates no filling defects to suggest thromboembolic disease. CT CHEST: Unremarkable thyroid. Enlarged mediastinal and hilar lymph nodes are unchanged. Unchanged prominent supraclavicular lymph nodes. Trace left and moderate right pleural effusions, mildly increased in size on the right from comparison. There is no pneumothorax. Bilateral subpleural reticular opacities suggest chronic fibrosis. 1.8 x 1.3 cm subsolid cystic nodular opacity of the left lower lobe on image 69 series 4 is unchanged. 3 mm solid nodule of the left lower lobe. Asymmetric groundglass and consolidative opacities throughout the right lung have progressively worsened from comparison. Asymmetric intralobular septal thickening throughout the right lung is also noted. Nodular 2.9 cm opacity of the subpleural right lower lobe previously measured approximately 2.5 cm. Central airways are patent. Mild bibasilar mucous plugging. Indeterminate 1.7 cm nodular focus along the posterior margin of the right hepatic lobe is unchanged. Small hiatal hernia. No acute process of the imaged upper abdomen. Unremarkable soft tissues. Degenerative changes of the shoulders and spine. IMPRESSION: 1. Cardiomegaly without evidence of pulmonary thromboembolic disease. 2. Trace left and moderate right pleural effusions. The right pleural effusion has mildly increased in size from comparison. 3. There are progressively worsened mixed groundglass and alveolar opacities throughout the right lung with associated intralobular septal thickening. These findings are suggestive of a nonspecific infectious or inflammatory pneumonitis with probable associated pulmonary edema. 4. 2.9 cm consolidative nodular opacity of the right lower lobe appears mildly increased in size from comparison. 5. 1.8 cm cystic nodule of the basal left lower lobe is unchanged. 6. Mild bibasilar mucous plugging. 7. Unchanged mediastinal, hilar and supraclavicular adenopathy. Consultation(s): Case was discussed with Dr. Ag, [facility] hospitalist, who will evaluate the patient for admission. HPI: The patient is a pleasant 74 y/o gentleman with a pmhx of metastatic lung CA on chemotherapy, atrial fibrillation on Amiodarone, Digoxin, and metoprolol (not on AC 2/2 h/o hemoptysis) who presents to the emergency department for evaluation of progressive SOB over the past several weeks where he had outpatient CTA of the chest performed [employer] however was referred to ED by his card iologist, Dr. Garcia, for concern of his worsening sx and possible contributing factor of uncontrolled atrial fibrillation where they may consider PPM. The patient reports semi-productive cough and chest tightness. Denies n/v/d, urinary sx. Review of CT (report below) was negative for PE but with evidence of pneumonitis. The patient reports he is on 2L NC at home as needed but has needed to be on his O2 24/7 over the past week. He reports his HR easily goes up to 150s with minimal exertion. ROS: See above HPI for pertinent positives & negatives. A total of 10 systems reviewed and were otherwise negative. PAST MEDICAL HISTORY:See below. PAST SURGICAL HISTORY:See below. FAMILY HISTORY:See below. SOCIAL HISTORY:See below. HOME MEDICATIONS:See below. ALLERGIES:See below. VITALS:See below. PHYSICAL EXAMINATION: GENERAL: Awake, alert, chronically ill-appearing, in no distress HENT: Normocephalic, atraumatic. Oropharynx with dry mucous membranes and otherwise unremarkable. EYES: Normal conjunctiva. Sclera non-icteric. NECK: Supple. No nuchal rigidity. FROM. No JVD. RESPIRATORY: Scant wheezes and rhonchi throughout. Mild dyspnea without dist ress. CARDIAC: Tachcyardic rate, irregular rhythm. Extremities warm and well perfused. Pulses equal. ABDOMEN: Soft, non-distended. No tenderness to palpation. No rebound or guarding. No masses. RECTAL: Deferred. MUSCULOSKELETAL: Chest examination reveals no tenderness. The back is symmetrical on inspection without obvious abnormality. There is no CVA tenderness to palpation. No joint edema. LOWER EXTREMITIES: Calves are equal size bilaterally and non-tender. No edema. No discoloration. NEURO: Normal sensorium. No sensory or motor deficits noted. SKIN: No rash or jaundice noted. Wyatt Mendes MD Past Med/Surg History Medical History Abdominal bruit Adenopathy Allergic rhinitis Bright red blood per rectum no problems at present Chronic kidney disease, stage III (moderate) Constipation Diverticulosis Esophageal reflux History of back problems History of colon polyps History of prostate cancer 2011, s/p brachytherapy Presenting PSA 2.8, clinical stage TIIa HTN (hypertension) Hyperlipidemia IBS (irritable bowel syndrome) Internal hemorrhoids Osteoarthritis Persistent dry cough x 6-7 months 2/2 lung carcinoma Prediabetes Severe mitral regurgitation by prior echocardiogram Surgical History History of arthroscopy of right knee History of brachytherapy prostate cancer - finished treatment and follows with urology once a year History of cataract surgery right and left History of colonoscopy History of prostate biopsy History of repair of rotator cuff Rt History of right knee surgery History of tonsillectomy Status post trigger finger release x 2 left and right hand Family History Mother , age 67 colon ca Intestinal cancer Father , age 72 complications cardiac cath had abdominal aneurysm No problems noted. Brother No problems noted. Sister No problems noted. Son No problems noted. Uncle , age 64 lung cancer No problems noted. Other Cancer Heart disease No family history of adverse response to anesthesia Social History Smoking Status: Former smoker Tobacco Type: Cigarettes Age Started Using Tobacco: 15; Age Quit Using Tobacco: 46; packs per day: 0.5; Years Smoked: 31; Cigarettes Per Day: 0.5 pack; Smoking End Date: quit smoking at age 46; Number of Years Since Quit: 27; Second Hand Exposure: No; Do You Dip or Chew Tobacco: No; Hx Alcohol Use: No Hx Substance Use: No Preferred Language: Tanzanian Communication Ability: Effective Filling Carrier Required: No Beliefs That Will Affect Care: None marital status: Current Living Situation: Spouse Current Living Situation Comment: lives significant other current occupational status: retired 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 How many Children do You have: 1 Other Information That Helps Us Care for You: No Feels Safe at Home: Yes Safety Concerns: Feels Safe At This Time Childhood Exposure to Second-Hand Smoke: Yes caffeine: Yes (coffee very rarely occ tea) during the past year weight has: decreased > 10 lbs Dental Care, Regularly: Yes Physical Activity Frequency: 3-4 Times per Week Seatbelt Use: always Sunscreen Use: No Assistive Devices: Glasses, Oxygen - at Night and Oxygen - Continuous Allergies Allergies Allergy/AdvReac Type Severity Reaction Status Date / Time No Known Allergies Allergy Verified 02/29/20 20:55 Home Meds Home Medications Medication Instructions Recorded Confirmed multivitamin 1 tab PO QAM 11/24/18 02/29/20 glucosamine HCl 1,500 mg tablet 1,500 mg PO BID 02/16/19 02/29/20 tamsulosin 0.4 mg PO BID 10/06/19 02/29/20 ketoconazole 2 % shampoo 1 appln TOP 2XWK ml 12/02/19 02/29/20 albuterol sulfate 2 puff INHALATION Q6 PRN 01/13/20 02/29/20 psyllium 1 packet PO QAM 01/13/20 02/29/20 tramadol 50 - 100 mg PO Q6H PRN 01/13/20 02/29/20 atorvastatin 40 mg PO HS 02/01/20 02/29/20 dexamethasone 4 mg tablet 20 mg PO .BID UD tab 02/10/20 02/29/20 [place] Q Plus 2 tabs PO QAM 02/29/20 02/29/20 digoxin 125 mcg PO DAILY 02/29/20 02/29/20 folic acid 1 mg PO DAILY 02/29/20 02/29/20 olanzapine [Zyprexa] 2.5 mg PO UD 02/29/20 02/29/20 Previous Rx's Medication Instructions Recorded Portable Oxygen #1 ea 11/22/19 lorazepam 0.5 mg tablet 0.5 mg PO .COMPLEX PRN #60 tab 12/08/19 metoprolol succinate 200 mg PO QPM #30 tab 02/03/20 triamterene 37.5 1 tab PO .COMPLEX #24 tab 02/10/20 mg-hydrochlorothiazide 25 mg tablet amiodarone 200 mg tablet 200 mg PO BID #180 tab 02/17/20 hydrocodone-homatropine 5 mg-1.5 5 ml PO Q4H PRN #200 ml 02/24/20 mg/5 mL (5 mL) oral syrup Results & Data (ED) Vital Signs Vital Signs - 24 hr 02/29/20 17:30 02/29/20 17:57 02/29/20 17:59 Temperature 36.7 C Temperature Source Oral Pulse Rate 116 H Pulse Rate [Left Finger] 101 H Pulse Rate from SpO2 Sensor Pulse Rhythm Regular Pulse Strength Normal Respiratory Rate 20 28 H Respiratory Effort / Characteristics Non-Labored Respiratory Depth Normal Respiratory Pattern Regular Blood Pressure 113/72 Blood Pressure [Left Arm] 113/83 Blood Pressure Mean 85 Blood Pressure Mean [Left Arm] 93 Blood Pressure Position Lying Pulse Oximetry 93 99 98 Oxygen Delivery Method Room Air Nasal Cannula Nasal Cannula Oxygen Flow Rate 2 2 Sepsis Recent Fever Within 48 Hours No Sepsis New/Unexplained Change in Mental Status N/A Sepsis Action Taken by Nursing No Action Required 02/29/20 18:00 02/29/20 18:30 02/29/20 19:21 Temperature Temperature Source Pulse Rate 110 H 106 H Pulse Rate [Left Finger] Pulse Rate from SpO2 Sensor 114 H 97 H Pulse Rhythm Pulse Strength Respiratory Rate 28 H 29 H 18 Respiratory Effort / Characteristics Non-Labored Spontaneous Respiratory Depth Respiratory Pattern Blood Pressure 122/77 97/69 L Blood Pressure [Left Arm] Blood Pressure Mean 91 81 Blood Pressure Mean [Left Arm] Blood Pressure Position Pulse Oximetry 95 97 96 Oxygen Delivery Method Nasal Cannula Room Air Oxygen Flow Rate 2 Sepsis Recent Fever Within 48 Hours Sepsis New/Unexplained Change in Mental Status Sepsis Action Taken by Nursing 02/29/20 19:30 Temperature Temperature Source Pulse Rate 98 H Pulse Rate [Left Finger] Pulse Rate from SpO2 Sensor 96 H Pulse Rhythm Pulse Strength Respiratory Rate 27 H Respiratory Effort / Characteristics Respiratory Depth Respiratory Pattern Blood Pressure 101/67 Blood Pressure [Left Arm] Blood Pressure Mean 72 Blood Pressure Mean [Left Arm] Blood Pressure Position Pulse Oximetry 99 Oxygen Delivery Method Nasal Cannula Oxygen Flow Rate 2 Sepsis Recent Fever Within 48 Hours Sepsis New/Unexplained Change in Mental Status Sepsis Action Taken by Nursing Laboratory Data Attestation: I reviewed the patient's lab results. Result diagrams: 02/29/20 18:00 02/29/20 18:00 Lab Results 02/29/20 02/29/20 02/29/20 Range/Units 18:00 18:00 18:00 WBC 5.94 (4.8-10.8) K/uL RBC 3.20 L (4.7-6.1) M/uL Hgb 10.3 L (14.0-18.0) g/dL Hct 31.2 L (42-52) % MCV 97.5 (80-100) fL MCH 32.2 (25-34) pg MCHC 33.0 (32-36) g/dL RDW Std Deviation 67.0 H (36.4-46.3) fL RDW Coeff of Khadijah 19.0 H (11.5-14.5) % Plt Count 163 (130-400) K/uL MPV 9.7 (7.4-10.4) fL Immature Gran % (Auto) 0.3 % Neut % (Auto) 71.6 % Lymph % (Auto) 15.0 % [place] % (Auto) 12.6 % Eos % (Auto) 0.5 % Baso % (Auto) 0.0 % Neut # (Auto) 4.25 (1.4-6.5) K/uL Lymph # (Auto) 0.89 L (1.2-3.4) K/uL [place] # (Auto) 0.75 H (0.11-0.59) K/uL Eos # (Auto) 0.03 (0-0.5) K/uL Baso # (Auto) 0.00 (0-0.2) K/uL Immature Gran # (Auto) 0.02 (0.00-0.02) K/uL PT 11.8 (9.0-12.0) Seconds INR 1.1 (0.9-1.1) APTT 28.8 (21.0-31.0) Seconds PTT Ratio 1.0 Sodium 132 L (136-145) mmol/L Potassium 3.7 (3.5-5.1) mmol/L Chloride 100 (98-107) mmol/L Carbon Dioxide 24 (21-32) mmol/L Anion Gap 8.0 (3-11) BUN 17 (7-18) mg/dl Creatinine 1.43 H (0.6-1.4) mg/dl Est Cr Clr Drug Dosing 43.8 ml/min Est GFR ( Amer) 55.5 Est GFR (Non-Af Amer) 47.9 BUN/Creatinine Ratio 12.0 (10-20) Glucose 103 H (70-99) mg/dl Lactate (0.4-2.0) mmol/L Calcium 8.7 (8.5-10.1) mg/dl Phosphorus 3.5 (2.5-4.9) mg/dl Magnesium 2.0 (1.8-2.4) mg/dl Total Bilirubin 0.5 (0.2-1) mg/dl Direct Bilirubin 0.2 (0-0.2) mg/dl AST 29 (15-37) U/L ALT 36 (12-78) U/L Alkaline Phosphatase 73 (45-117) U/L Troponin I < 0.015 (0-0.045) ng/ml NT-Pro-B Natriuret Pep 4754 H (0-900) pg/ml Total Protein 6.6 (6.4-8.2) gm/dl Albumin 3.0 L (3.4-5.0) gm/dl Globulin 3.6 (2.5-4.0) gm/dl Albumin/Globulin Ratio 0.8 L (0.9-2) Procalcitonin (0-0.5) ng/ml TSH 1.440 (0.300-4.500) uIu/ml COVID-19 Eval Order SARS-CoV-2, RNA, NAAT (NEGATIVE) 02/29/20 02/29/20 02/29/20 Range/Units 18:00 18:57 19:14 WBC (4.8-10.8) K/uL RBC (4.7-6.1) M/uL Hgb (14.0-18.0) g/dL Hct (42-52) % MCV (80-100) fL MCH (25-34) pg MCHC (32-36) g/dL RDW Std Deviation (36.4-46.3) fL RDW Coeff of Khadijah (11.5-14.5) % Plt Count (130-400) K/uL MPV (7.4-10.4) fL Immature Gran % (Auto) % Neut % (Auto) % Lymph % (Auto) % [place] % (Auto) % Eos % (Auto) % Baso % (Auto) % Neut # (Auto) (1.4-6.5) K/uL Lymph # (Auto) (1.2-3.4) K/uL [place] # (Auto) (0.11-0.59) K/uL Eos # (Auto) (0-0.5) K/uL Baso # (Auto) (0-0.2) K/uL Immature Gran # (Auto) (0.00-0.02) K/uL PT (9.0-12.0) Seconds INR (0.9-1.1) APTT (21.0-31.0) Seconds PTT Ratio Sodium (136-145) mmol/L Potassium (3.5-5.1) mmol/L Chloride (98-107) mmol/L Carbon Dioxide (21-32) mmol/L Anion Gap (3-11) BUN (7-18) mg/dl Creatinine (0.6-1.4) mg/dl Est Cr Clr Drug Dosing ml/min Est GFR ( Amer) Est GFR (Non-Af Amer) BUN/Creatinine Ratio (10-20) Glucose (70-99) mg/dl Lactate 1.0 (0.4-2.0) mmol/L Calcium (8.5-10.1) mg/dl Phosphorus (2.5-4.9) mg/dl Magnesium (1.8-2.4) mg/dl Total Bilirubin (0.2-1) mg/dl Direct Bilirubin (0-0.2) mg/dl AST (15-37) U/L ALT (12-78) U/L Alkaline Phosphatase (45-117) U/L Troponin I (0-0.045) ng/ml NT-Pro-B Natriuret Pep (0-900) pg/ml Total Protein (6.4-8.2) gm/dl Albumin (3.4-5.0) gm/dl Globulin (2.5-4.0) gm/dl Albumin/Globulin Ratio (0.9-2) Procalcitonin < 0.05 (0-0.5) ng/ml TSH (0.300-4.500) uIu/ml COVID-19 Eval [facility] SARS-CoV-2, RNA, NAAT (NEGATIVE) 02/29/20 Range/Units 19:14 WBC (4.8-10.8) K/uL RBC (4.7-6.1) M/uL Hgb (14.0-18.0) g/dL Hct (42-52) % MCV (80-100) fL MCH (25-34) pg MCHC (32-36) g/dL RDW Std Deviation (36.4-46.3) fL RDW Coeff of Khadijah (11.5-14.5) % Plt Count (130-400) K/uL MPV (7.4-10.4) fL Immature Gran % (Auto) % Neut % (Auto) % Lymph % (Auto) % [place] % (Auto) % Eos % (Auto) % Baso % (Auto) % Neut # (Auto) (1.4-6.5) K/uL Lymph # (Auto) (1.2-3.4) K/uL [place] # (Auto) (0.11-0.59) K/uL Eos # (Auto) (0-0.5) K/uL Baso # (Auto) (0-0.2) K/uL Immature Gran # (Auto) (0.00-0.02) K/uL PT (9.0-12.0) Seconds INR (0.9-1.1) APTT (21.0-31.0) Seconds PTT Ratio Sodium (136-145) mmol/L Potassium (3.5-5.1) mmol/L Chloride (98-107) mmol/L Carbon Dioxide (21-32) mmol/L Anion Gap (3-11) BUN (7-18) mg/dl Creatinine (0.6-1.4) mg/dl Est Cr Clr Drug Dosing ml/min Est GFR ( Amer) Est GFR (Non-Af Amer) BUN/Creatinine Ratio (10-20) Glucose (70-99) mg/dl Lactate (0.4-2.0) mmol/L Calcium (8.5-10.1) mg/dl Phosphorus (2.5-4.9) mg/dl Magnesium (1.8-2.4) mg/dl Total Bilirubin (0.2-1) mg/dl Direct Bilirubin (0-0.2) mg/dl AST (15-37) U/L ALT (12-78) U/L Alkaline Phosphatase (45-117) U/L Troponin I (0-0.045) ng/ml NT-Pro-B Natriuret Pep (0-900) pg/ml Total Protein (6.4-8.2) gm/dl Albumin (3.4-5.0) gm/dl Globulin (2.5-4.0) gm/dl Albumin/Globulin Ratio (0.9-2) Procalcitonin (0-0.5) ng/ml TSH (0.300-4.500) uIu/ml COVID-19 Eval Order SARS-CoV-2, RNA, NAAT NEGATIVE (NEGATIVE) Administered Medications Amiodarone HCl (Amiodarone 200 Mg Tab) 200 mg PO BID SOPHY Stop: 03/30/20 22:14 Last Admin: 02/29/20 22:38 Dose: 200 mg Documented by: [id number] Enoxaparin Sodium (Enoxaparin Inj 40 Mg/0.4 Ml Syr) 40 mg SQ Q24H SOPHY Stop: 03/30/20 21:59 Last Admin: 02/29/20 22:42 Dose: 40 mg Documented by: [id number] Metoprolol Succinate (Metoprolol Succ 50mg Ext Rel Tab) 200 mg PO QPM SOPHY Stop: 03/30/20 22:14 Last Admin: 02/29/20 22:46 Dose: Not Given Documented by: [id number] Discontinued Medications Albuterol (Ipratropium [place]/Albuterol Respimat Inh) 2 puffs INH NOW STA Stop: 02/29/20 18:13 Last Admin: 02/29/20 19:19 Dose: 2 puffs Documented by: [id number] Guaifenesin (Guaifenesin 600 Mg Tabcr) 600 mg PO NOW STA Stop: 02/29/20 18:13 Last Admin: 02/29/20 19:15 Dose: 600 mg Documented by: [id number] Sodium Chloride (Nss) 500 mls @ 999 mls/hr IV .Q31M ONE Stop: 02/29/20 18:42 Last Infusion: 02/29/20 19:59 Dose: 0 mls/hr Documented by: [id number] Admin: 02/29/20 19:21 Dose: 999 mls/hr Documented by: [id number] Furosemide 20 mg/ Syringe 2 mls @ 4 mls/min IV ONE ONE Stop: 02/29/20 21:54 Last Admin: 02/29/20 22:37 Dose: 4 mls/min Documented by: [id number] Discharge Plan Visit Data Chief Complaint: Cardiac Assessment Stated Complaint: AFIB ED Provider: Wyatt Mendes Discharge Problem: Pneumonitis, Metastatic lung cancer (metastasis from lung to other site), Atrial fibrillation with RVR, Dyspnea on minimal exertion Patient Disposition: Admitted As Inpatient Discharge Instructions Interventions: ED Discharge Assessment Last Done: 02/29/20 21:22 Discharge Problem: Metastatic lung cancer (metastasis from lung to other site) Qualifiers: Laterality: unspecified laterality Qualified Code(s): C34.90 - Malignant neoplasm of unspecified part of unspecified bronchus or lung
[2020-02-29] MEDS ORDERED: SODIUM CHLORIDE 0.9% 500 ML IV ONE (18:12)
[2020-02-29] MEDS ORDERED: IPRATROPIUM BROMIDE/ALBUTEROL respimat INH INH STA (18:12)
[2020-02-29] MEDS ORDERED: guaiFENesin 600 MG TABCR PO STA (18:12)
[2020-02-29 18:30] LABS: Eosinophils # (auto) 0.03 K/uL (0-0.5); Eosinophils % (auto) 0.5 %; Hematocrit (blood only) 31.2 % (42-52); Hemoglobin 10.3 g/dL (14.0-18.0); Immature Granulocytes # (auto) 0.02 K/uL (0.00-0.02); Immature Granulocytes % (auto) 0.3 %; Lymphocytes # (auto) 0.89 K/uL (1.2-3.4); Mean Corpuscular Hemoglobin 32.2 pg (25-34); Mean Corpuscular Volume 97.5 fL (80-100); Mean Platelet Volume 9.7 fL (7.4-10.4); Monocytes # (auto) 0.75 K/uL (0.11-0.59); Monocytes % (auto) 12.6 %; Neutrophils # (auto) 4.25 K/uL (1.4-6.5); Neutrophils % (auto) 71.6 %; Platelet Count 163 K/uL (130-400); White Blood Count 5.94 K/uL (4.8-10.8)
[2020-02-29 18:39] LABS: Aspartate Aminotransferase 29 U/L (15-37); Blood Urea Nitrogen 17 mg/dl (7-18); Calcium 8.7 mg/dl (8.5-10.1); Carbon Dioxide 24 mmol/L (21-32); Chloride 100 mmol/L (98-107); Creatinine Clr Calc Pharmacy 43.8 ml/min; Est GFR (African American) 55.5; Est GFR (Non-African American) 47.9; Glucose 103 mg/dl (70-99); Phosphorus 3.5 mg/dl (2.5-4.9); Potassium 3.7 mmol/L (3.5-5.1); Sodium 132 mmol/L (136-145)
[2020-02-29 18:46] LABS: INR 1.1 (0.9-1.1); Partial Thromboplastin Time 28.8 Seconds (21.0-31.0); Prothrombin Time 11.8 Seconds (9.0-12.0)
[2020-02-29 18:51] LABS: Alanine Aminotransferase 36 U/L (12-78); Albumin Globulin Ratio 0.8 (0.9-2); Alkaline Phosphatase 73 U/L (45-117); Bilirubin Direct 0.2 mg/dl (0-0.2); Bilirubin,Total 0.5 mg/dl (0.2-1); Globulin 3.6 gm/dl (2.5-4.0); NT Pro B Type Natriuretic Pept 4754 pg/ml (0-900); Total Protein 6.6 gm/dl (6.4-8.2); Troponin I < 0.015 ng/ml (0-0.045)
--- NOTE | 2020-02-29 20:30 | History & Physical Report ---
Date of Service February 29, 2020 Assessment & Plan (1) Dyspnea: 74yo C male presenting with MARTELL associated with decreased exercise tolerance, exertional palpitations and hypoxia. Patient with recently diagnosed atrial fibrillation and is currently following with Cardiology for medication o ptimization. He is on Amiodarone as well as digoxin and metoprolol at present. Reports episodes of palpitations, tachycardia with HR in the 140-160's of late. Question some CHF in setting of AF with overall poor rate control, severe MR - CT with suggestion of pulmonary edema as well as pleural effusions R>L. Some consideration for worsening of underlying malignancy as etiology of dyspnea, fatigue and exercise intolerance. Doubt infectious process as patient is afebrile, no leukocytosis, negative procalcitonin. SARS-CoV-2 test NEGATIVE. No sick contacts. Some discussion in prior Cardiology notes re: evaluation by EP for possible pacemaker placement should medications prove to be ineffective. -Admit to medical with telemetry -Check 2D echocardiogram -Supplemental O2 as needed to maintain saturations >92% -Lasix 20mg IV x 1 dose now, may redose if needed -Monitor I/Os, daily weights -Cardiology consultation appreciated -?Pleural effusions as failure vs malignant - if no improvement with gentle diuresis may need diagnostic/therapeutic thoracentesis Present on Admission?: Yes (2) Atrial fibrillation with RVR: Patient currently rate controlled at rest. No anticoagulation -Continue Amiodarone -Continue Metoprolol 200mg po qPM - patient to receive dose tonight -Continue Digoxin 0.125mg po daily - check level -Cardiology consultation appreciated Present on Admission?: Yes (3) HTN (hypertension): Blood pressure stable -Continue Metoprolol -Continue to monitor Present on Admission?: Yes (4) Hyperlipidemia: Chronic. Stable -Continue Atorvastatin 40mg po qHS Present on Admission?: Yes (5) Chronic kidney disease, stage III (moderate): Chronic. Mildly increased Cr to 1.43 from 1.2 previously -Lasix x 20mg IV as above -Closely monitor BUN, Cr, electrolytes and renal function -Avoid nephrotoxic agents -Renal dosing where needed Present on Admission?: Yes (6) Metastatic lung cancer (metastasis from lung to other site): Noted. Patient follows with Dr. Miller. Is currently undergoing chemotherapy. 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 Miller (next treatment scheduled for 03/02/20), CKD, GERD, HTN, HLP. Patient with severe MR secondary to mitral valve prolapse, newly diagnosed paroxysmal atrial fibrillation. He currently follows with Cardiology, last saw Dr. Garcia on 02/24/20. Patient with overall poorly controlled ventricular rate. He is currently on Metoprolol, Amiodarone and Digoxin. He takes Dyazide twice weekly. Patient notes worsening dyspnea on exertion and decreased exercise tolerance over the last 1-2 weeks. He reports cough productive for cardenas frothy sputum, occasionally pink/blood tinged. He experiences palpitations and tachycardia with minimal exertion, HR 140-160 at times as well as decreased oxygen saturations to mid 80's. Occasional dizziness, fatigue. Patient has oxygen at home - was previously using it as needed with exertion, however, he has been on 2L consistently over the last 3 days. He denies chest pain, fever, chills, nausea/vomiting/diarrhea/constipation. Denies edema, rapid weight gain, possibly mild orthopnea, no PND Patient was contacted by Dr. Garcia this morning and was noted to be dyspneic during the conversation. Saturations in the 80's. He had a CT performed this morning at the request of Dr. Miller then proceeded to the ER for additional workup. ER Course: Albuterol, Guaifenasin, NSS Allergies Allergy/AdvReac Type Severity Reaction Status Date / Time No Known Allergies Allergy Verified 02/29/20 20:55 Home Medications Medication Instructions Recorded Confirmed Type multivitamin 1 tab PO QAM 11/24/18 02/29/20 History glucosamine HCl 1,500 mg tablet 1,500 mg PO BID 02/16/19 02/29/20 History tamsulosin 0.4 mg PO BID 10/06/19 02/29/20 History Portable Oxygen #1 ea 11/22/19 02/24/20 Rx ketoconazole 2 % shampoo 1 appln TOP 2XWK ml 12/02/19 02/29/20 History lorazepam 0.5 mg tablet 0.5 mg PO .COMPLEX PRN #60 tab 12/08/19 02/29/20 Rx albuterol sulfate 2 puff INHALATION Q6 PRN 01/13/20 02/29/20 History psyllium 1 packet PO QAM 01/13/20 02/29/20 History tramadol 50 - 100 mg PO Q6H PRN 01/13/20 02/29/20 History atorvastatin 40 mg PO HS 02/01/20 02/29/20 History metoprolol succinate 200 mg PO QPM #30 tab 02/03/20 02/29/20 Rx dexamethasone 4 mg tablet 20 mg PO .BID UD tab 02/10/20 02/29/20 History triamterene 37.5 1 tab PO .COMPLEX #24 tab 02/10/20 02/29/20 Rx mg-hydrochlorothiazide 25 mg tablet amiodarone 200 mg tablet 200 mg PO BID #180 tab 02/17/20 02/29/20 Rx hydrocodone-homatropine 5 mg-1.5 5 ml PO Q4H PRN #200 ml 02/24/20 02/29/20 Rx mg/5 mL (5 mL) oral syrup Allons Q Plus 2 tabs PO QAM 02/29/20 02/29/20 History digoxin 125 mcg PO DAILY 02/29/20 02/29/20 History folic acid 1 mg PO DAILY 02/29/20 02/29/20 History olanzapine [Zyprexa] 2.5 mg PO UD 02/29/20 02/29/20 History Past Med/Surg History Medical History Abdominal bruit Adenopathy Allergic rhinitis Bright red blood per rectum Chronic kidney disease, stage III (moderate) Constipation Diverticulosis Esophageal reflux History of back problems History of colon polyps History of prostate cancer HTN (hypertension) Hyperlipidemia IBS (irritable bowel syndrome) Internal hemorrhoids Osteoarthritis Persistent dry cough Prediabetes Severe mitral regurgitation by prior echocardiogram Surgical History History of arthroscopy of right knee History of brachytherapy History of cataract surgery History of colonoscopy History of prostate biopsy History of repair of rotator cuff History of right knee surgery History of tonsillectomy Status post trigger finger release Family History Mother , age 67 colon ca Intestinal cancer Father , age 72 complications cardiac cath had abdominal aneurysm No problems noted. Brother No problems noted. Sister No problems noted. Son No problems noted. Uncle , age 64 lung cancer No problems noted. Other Cancer Heart disease No family history of adverse response to anesthesia Social History Smoking Status: Former smoker Tobacco Type: Cigarettes Age Started Using Tobacco: 15; Age Quit Using Tobacco: 46; packs per day: 0.5; Years Smoked: 31; Cigarettes Per Day: 0.5 pack; Smoking End Date: quit smoking at age 46; Number of Years Since Quit: 27; Second Hand Exposure: No; Do You Dip or Chew Tobacco: No; Hx Alcohol Use: No Hx Substance Use: No Preferred Language: Irish Communication Ability: Effective Inventory Technician Required: No Beliefs That Will Affect Care: None marital status: Current Living Situation: Spouse Current Living Situation Comment: lives significant other current occupational status: retired 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 How many Children do You have: 1 Other Information That Helps Us Care for You: No Feels Safe at Home: Yes Safety Concerns: Feels Safe At This Time Childhood Exposure to Second-Hand Smoke: Yes caffeine: Yes (coffee very rarely occ tea) during the past year weight has: decreased > 10 lbs Dental Care, Regularly: Yes Physical Activity Frequency: 3-4 Times per Week Seatbelt Use: always Sunscreen Use: No Assistive Devices: Glasses, Oxygen - at Night and Oxygen - Continuous Review of Systems Review of Systems: All systems reviewed & are unremarkable except as noted in HPI & below Physical Exam Physical Exam: General: patient resting comfortably, NAD, non-toxic in appearance, AA&O x 4 Skin: warm, dry, intact, no rashes or lesions, left AC bruising HEENT: NC/AT, PERRL, EOMI, anicteric sclera, conjunctiva without injection, external ear normal to inspection and nontender, nares patent, moist mucus membranes, dentition intact, no oropharyngeal lesions, neck supple, trachea midline, no LAD, no thyromegaly, no JVD Heart: +S1/S2, irregularly irregular, 3/6 JABARI at LSB Lungs: equal air entry bilaterally, +crackles in bilateral bases, no rhonchi/wheezes Abd: +BS, soft, NT/ND, no masses/organomegaly/ascites Ext: warm, 2+ pulses in UE/LE bilaterally, no clubbing/cyanosis or edema Neuro: nonfocal, patient AA&O x 4, speech intact, no facial droop, moving all extremities on command with equal strength 5/5 Results & Data Results & Data ([facility]) Vital Signs (Past 12 Hours) Vital Signs Temp Pulse Pulse Resp BP BP Pulse Ox 02/29/20 19:30 98 H 27 H 101/67 99 02/29/20 19:21 18 96 02/29/20 18:30 106 H 29 H 97/69 L 97 02/29/20 18:00 110 H 28 H 122/77 95 02/29/20 17:59 98 02/29/20 17:57 101 H 28 H 113/83 99 02/29/20 17:30 36.7 C 116 H 20 113/72 93 Laboratory Results Lab Results 02/29/20 02/29/20 02/29/20 Range/Units 18:00 18:00 18:00 WBC 5.94 (4.8-10.8) K/uL RBC 3.20 L (4.7-6.1) M/uL Hgb 10.3 L (14.0-18.0) g/dL Hct 31.2 L (42-52) % MCV 97.5 (80-100) fL MCH 32.2 (25-34) pg MCHC 33.0 (32-36) g/dL RDW Std Deviation 67.0 H (36.4-46.3) fL RDW Coeff of Khadijah 19.0 H (11.5-14.5) % Plt Count 163 (130-400) K/uL MPV 9.7 (7.4-10.4) fL Immature Gran % (Auto) 0.3 % Neut % (Auto) 71.6 % Lymph % (Auto) 15.0 % [place] % (Auto) 12.6 % Eos % (Auto) 0.5 % Baso % (Auto) 0.0 % Neut # (Auto) 4.25 (1.4-6.5) K/uL Lymph # (Auto) 0.89 L (1.2-3.4) K/uL [place] # (Auto) 0.75 H (0.11-0.59) K/uL Eos # (Auto) 0.03 (0-0.5) K/uL Baso # (Auto) 0.00 (0-0.2) K/uL Immature Gran # (Auto) 0.02 (0.00-0.02) K/uL PT 11.8 (9.0-12.0) Seconds INR 1.1 (0.9-1.1) APTT 28.8 (21.0-31.0) Seconds PTT Ratio 1.0 Sodium 132 L (136-145) mmol/L Potassium 3.7 (3.5-5.1) mmol/L Chloride 100 (98-107) mmol/L Carbon Dioxide 24 (21-32) mmol/L Anion Gap 8.0 (3-11) BUN 17 (7-18) mg/dl Creatinine 1.43 H (0.6-1.4) mg/dl Est Cr Clr Drug Dosing 43.8 ml/min Est GFR ( Amer) 55.5 Est GFR (Non-Af Amer) 47.9 BUN/Creatinine Ratio 12.0 (10-20) Glucose 103 H (70-99) mg/dl Lactate (0.4-2.0) mmol/L Calcium 8.7 (8.5-10.1) mg/dl Phosphorus 3.5 (2.5-4.9) mg/dl Magnesium 2.0 (1.8-2.4) mg/dl Total Bilirubin 0.5 (0.2-1) mg/dl Direct Bilirubin 0.2 (0-0.2) mg/dl AST 29 (15-37) U/L ALT 36 (12-78) U/L Alkaline Phosphatase 73 (45-117) U/L Troponin I < 0.015 (0-0.045) ng/ml NT-Pro-B Natriuret Pep 4754 H (0-900) pg/ml Total Protein 6.6 (6.4-8.2) gm/dl Albumin 3.0 L (3.4-5.0) gm/dl Globulin 3.6 (2.5-4.0) gm/dl Albumin/Globulin Ratio 0.8 L (0.9-2) Procalcitonin (0-0.5) ng/ml TSH 1.440 (0.300-4.500) uIu/ml Urine Color Urine Appearance (Clear) Urine pH (4.5-7.5) Ur Specific [place] (1.000-1.030) Urine Protein (Negative) Urine Glucose (UA) (Negative) Urine Ketones (Negative) Urine Blood (Negative) Urine Nitrite (Negative) Urine Bilirubin (Negative) Urine Urobilinogen (Negative) Ur Leukocyte Esterase (Negative) Urine WBC (Auto) (0-5) /hpf Urine RBC (Auto) (0-4) /hpf U Hyaline Cast (Auto) (0-5) /lpf U Epithel Cells (Auto) (0-5) /lpf Urine Bacteria (Auto) (Negative) COVID-19 Eval Order SARS-CoV-2, RNA, NAAT (NEGATIVE) 02/29/20 02/29/20 02/29/20 Range/Units 18:00 18:57 19:14 WBC (4.8-10.8) K/uL RBC (4.7-6.1) M/uL Hgb (14.0-18.0) g/dL Hct (42-52) % MCV (80-100) fL MCH (25-34) pg MCHC (32-36) g/dL RDW Std Deviation (36.4-46.3) fL RDW Coeff of Khadijah (11.5-14.5) % Plt Count (130-400) K/uL MPV (7.4-10.4) fL Immature Gran % (Auto) % Neut % (Auto) % Lymph % (Auto) % [place] % (Auto) % Eos % (Auto) % Baso % (Auto) % Neut # (Auto) (1.4-6.5) K/uL Lymph # (Auto) (1.2-3.4) K/uL [place] # (Auto) (0.11-0.59) K/uL Eos # (Auto) (0-0.5) K/uL Baso # (Auto) (0-0.2) K/uL Immature Gran # (Auto) (0.00-0.02) K/uL PT (9.0-12.0) Seconds INR (0.9-1.1) APTT (21.0-31.0) Seconds PTT Ratio Sodium (136-145) mmol/L Potassium (3.5-5.1) mmol/L Chloride (98-107) mmol/L Carbon Dioxide (21-32) mmol/L Anion Gap (3-11) BUN (7-18) mg/dl Creatinine (0.6-1.4) mg/dl Est Cr Clr Drug Dosing ml/min Est GFR ( Amer) Est GFR (Non-Af Amer) BUN/Creatinine Ratio (10-20) Glucose (70-99) mg/dl Lactate 1.0 (0.4-2.0) mmol/L Calcium (8.5-10.1) mg/dl Phosphorus (2.5-4.9) mg/dl Magnesium (1.8-2.4) mg/dl Total Bilirubin (0.2-1) mg/dl Direct Bilirubin (0-0.2) mg/dl AST (15-37) U/L ALT (12-78) U/L Alkaline Phosphatase (45-117) U/L Troponin I (0-0.045) ng/ml NT-Pro-B Natriuret Pep (0-900) pg/ml Total Protein (6.4-8.2) gm/dl Albumin (3.4-5.0) gm/dl Globulin (2.5-4.0) gm/dl Albumin/Globulin Ratio (0.9-2) Procalcitonin < 0.05 (0-0.5) ng/ml TSH (0.300-4.500) uIu/ml Urine Color Urine Appearance (Clear) Urine pH (4.5-7.5) Ur Specific [place] (1.000-1.030) Urine Protein (Negative) Urine Glucose (UA) (Negative) Urine Ketones (Negative) Urine Blood (Negative) Urine Nitrite (Negative) Urine Bilirubin (Negative) Urine Urobilinogen (Negative) Ur Leukocyte Esterase (Negative) Urine WBC (Auto) (0-5) /hpf Urine RBC (Auto) (0-4) /hpf U Hyaline Cast (Auto) (0-5) /lpf U Epithel Cells (Auto) (0-5) /lpf Urine Bacteria (Auto) (Negative) COVID[facility]19 [facility] SARS-[facility]-2, RNA, NAAT (NEGATIVE) 02/29/20 02/29/20 Range/Units 19:14 20:50 WBC (4.8-10.8) K/uL RBC (4.7-6.1) M/uL Hgb (14.0-18.0) g/dL Hct (42-52) % MCV (80-100) fL MCH (25-34) pg MCHC (32-36) g/dL RDW Std Deviation (36.4-46.3) fL RDW Coeff of Khadijah (11.5-14.5) % Plt Count (130-400) K/uL MPV (7.4-10.4) fL Immature Gran % (Auto) % Neut % (Auto) % Lymph % (Auto) % [place] % (Auto) % Eos % (Auto) % Baso % (Auto) % Neut # (Auto) (1.4-6.5) K/uL Lymph # (Auto) (1.2-3.4) K/uL [place] # (Auto) (0.11-0.59) K/uL Eos # (Auto) (0-0.5) K/uL Baso # (Auto) (0-0.2) K/uL Immature Gran # (Auto) (0.00-0.02) K/uL PT (9.0-12.0) Seconds INR (0.9-1.1) APTT (21.0-31.0) Seconds PTT Ratio Sodium (136-145) mmol/L Potassium (3.5-5.1) mmol/L Chloride (98-107) mmol/L Carbon Dioxide (21-32) mmol/L Anion Gap (3-11) BUN (7-18) mg/dl Creatinine (0.6-1.4) mg/dl Est Cr Clr Drug Dosing ml/min Est GFR ( Amer) Est GFR (Non-Af Amer) BUN/Creatinine Ratio (10-20) Glucose (70-99) mg/dl Lactate (0.4-2.0) mmol/L Calcium (8.5-10.1) mg/dl Phosphorus (2.5-4.9) mg/dl Magnesium (1.8-2.4) mg/dl Total Bilirubin (0.2-1) mg/dl Direct Bilirubin (0-0.2) mg/dl AST (15-37) U/L ALT (12-78) U/L Alkaline Phosphatase (45-117) U/L Troponin I (0-0.045) ng/ml NT-Pro-B Natriuret Pep (0-900) pg/ml Total Protein (6.4-8.2) gm/dl Albumin (3.4-5.0) gm/dl Globulin (2.5-4.0) gm/dl Albumin/Globulin Ratio (0.9-2) Procalcitonin (0-0.5) ng/ml TSH (0.300-4.500) uIu/ml Urine Color Yellow Urine Appearance Cloudy A (Clear) Urine pH 5.5 (4.5-7.5) Ur Specific [place] > 1.045 H (1.000-1.030) Urine Protein Negative (Negative) Urine Glucose (UA) Negative (Negative) Urine Ketones Negative (Negative) Urine Blood 3+ H (Negative) Urine Nitrite Negative (Negative) Urine Bilirubin Negative (Negative) Urine Urobilinogen Negative (Negative) Ur Leukocyte Esterase Negative (Negative) Urine WBC (Auto) 0 (0-5) /hpf Urine RBC (Auto) 10-30 H (0-4) /hpf U Hyaline Cast (Auto) 0 (0-5) /lpf U Epithel Cells (Auto) 0-5 (0-5) /lpf Urine Bacteria (Auto) Negative (Negative) COVID-19 Eval Order SARS-CoV-2, RNA, NAAT NEGATIVE (NEGATIVE) Diagnostic Findings CT angio chest PE protocol CT DOSE: 297.42 mGy.cm HISTORY: 74 years-old Male with PE. Acute cough with shortness of breath TECHNIQUE: Multiple CTA images of the chest were obtained after the intravenous administration of 120 ml Optiray 320. Coronal and sagittal MIPS were obtained from the axial data set and were submitted for review. All measurements were obtained according to NASCET criteria. A dose lowering technique was utilized adhering to the principles of ALARA. COMPARISON: CTA chest 02/01/2020 FINDINGS: CTA: Unchanged moderate to marked cardiomegaly. No pericardial effusion. No thoracic aortic aneurysm. Suboptimal opacification of the aorta and left heart secondary to contrast bolus timing. Left IJ [id number] catheter distal tip terminates within the SVC. Pulmonary artery is opacified to the level of the proximal subsegmental branches and demonstrates no filling defects to suggest thromboembolic disease. CT CHEST: Unremarkable thyroid. Enlarged mediastinal and hilar lymph nodes are unchanged. Unchanged prominent supraclavicular lymph nodes. Trace left and moderate right pleural effusions, mildly increased in size on the right from comparison. There is no pneumothorax. Bilateral subpleural reticular opacities suggest chronic fibrosis. 1.8 x 1.3 cm subsolid cystic nodular opacity of the left lower lobe on image 69 series 4 is unchanged. 3 mm solid nodule of the left lower lobe. Asymmetric groundglass and consolidative opacities throughout the right lung have progressively worsened from comparison. Asymmetric intralobular septal thickening throughout the right lung is also noted. Nodular 2.9 cm opacity of the subpleural right lower lobe previously measured approximately 2.5 cm. Central airways are patent. Mild bibasilar mucous plugging. Indeterminate 1.7 cm nodular focus along the posterior margin of the right hepatic lobe is unchanged. Small hiatal hernia. No acute process of the imaged upper abdomen. Unremarkable soft tissues. Degenerative changes of the shoulders and spine. IMPRESSION: 1. Cardiomegaly without evidence of pulmonary thromboembolic disease. 2. Trace left and moderate right pleural effusions. The right pleural effusion has mildly increased in size from comparison. 3. There are progressively worsened mixed groundglass and alveolar opacities throughout the right lung with associated intralobular septal thickening. These findings are suggestive of a nonspecific infectious or inflammatory pneumonitis with probable associated pulmonary edema. 4. 2.9 cm consolidative nodular opacity of the right lower lobe appears mildly increased in size from comparison. 5. 1.8 cm cystic nodule of the basal left lower lobe is unchanged. 6. Mild bibasilar mucous plugging. 7. Unchanged mediastinal, hilar and supraclavicular adenopathy. ACT 112: Negative or not required by law. The above report was generated using voice recognition software. It may contain grammatical, syntax or spelling errors. Electronically signed by: Gabriel Valencia M.D. 02/29/2020 5:36 PM Dictated: 02/29/20 1726Transcribed: 02/29/20 172 ECG Additional Comments: Study shows AF at 106 with RVR, OFL=112, IUx=841, ST depressions present in lateral leads, V4-V6 Code Status & VTE Plan VTE Prophylaxis Plan VTE Prophylaxis will be ordered: Yes PG Care Time/CCT Total # of Minutes Spent Total Time Spent with Patient: Total time spent is greater than 50% in coordination of care (as documented) at patient's floor/unit and/or counseling patient: Coding Level of Care Code 63942 Initial Inpt Care Lvl 3 Diagnoses Dyspnea R06.02 Dyspnea type: shortness of breath Atrial fibrillation with RVR I48.91 HTN (hypertension) I10 Hypertension type: essential hypertension Hyperlipidemia E78.5 Hyperlipidemia type: unspecified Chronic kidney disease, stage III (moderate) N18.30 Chronic kidney disease stage 3 subtype: unspecified whether 3a or 3b Metastatic lung cancer (metastasis from lung to other site) C34.91 Laterality: right Severe mitral regurgitation by prior echocardiogram I34.0 (1) HTN (hypertension) Hypertension type: essential hypertension Qualified Code(s): I10 - Essential (primary) hypertension (2) Hyperlipidemia Hyperlipidemia type: unspecified Qualified Code(s): E78.5 - Hyperlipidemia, unspecified (3) Chronic kidney disease, stage III (moderate) Chronic kidney disease stage 3 subtype: unspecified whether 3a or 3b Qualified Code(s): N18.30 - Chronic kidney disease, stage 3 unspecified (4) Metastatic lung cancer (metastasis from lung to other site) Laterality: right Qualified Code(s): C34.91 - Malignant neoplasm of unspecified part of right bronchus or lung (5) Dyspnea Dyspnea type: shortness of breath Qualified Code(s): R06.02 - Shortness of breath
[2020-02-29 21:06] LABS: Appearance Urine Cloudy (Clear); Bacteria Urine Automated Negative (Negative); Bilirubin Urine Negative (Negative); Blood Urine 3+ (Negative); Cast Urine Automated 0 /lpf (0-5); Color Urine Yellow; Epithelial Cell Urine Auto 0-5 /lpf (0-5); Glucose Urine UA Negative (Negative); Ketones Urine Negative (Negative); Leukocyte Esterase Urine Negative (Negative); Nitrite Urine Negative (Negative); Protein Urine Negative (Negative); Specific Gravity Urine > 1.045 (1.000-1.030); Urobilinogen Urine Negative (Negative); WBC Urine Automated 0 /hpf (0-5); pH Urine 5.5 (4.5-7.5)
[2020-02-29] MEDS ORDERED: FUROSEMIDE 20 MG in SYRINGE 0 ML IV ONE (21:53)
[2020-02-29] MEDS ORDERED: ENOXAPARIN INJ 40 MG/0.4 ML SYR SQ SCH (22:00)
[2020-02-29] MEDS ORDERED: LORazepam 0.5 MG TAB PO PRN (22:01)
[2020-02-29] MEDS: AMIODARONE 200 MG TAB PO SCH (22:38)
[2020-02-29] MEDS: METOPROLOL SUCC 50MG EXT REL TAB PO SCH (22:46)
[2020-03-01] MEDS: HEPARIN 100 UNIT/ML 5ML FLUSH FLUSH PRN (05:54)
[2020-03-01] MEDS: AMIODARONE 200 MG TAB PO SCH ×2 (08:06→20:07)
[2020-03-01] MEDS: FOLIC ACID 1 MG TAB PO SCH (08:06)
[2020-03-01] MEDS: TAMSULOSIN HCL 0.4 MG CAP PO SCH ×2 (08:06→20:07)
[2020-03-01] MEDS: PSYLLIUM 58.6% POWDER PACKET PO SCH (08:07)
[2020-03-01 09:08] LABS: Basophils # (auto) 0.01 K/uL (0-0.2); Basophils % (auto) 0.3 %; Eosinophils # (auto) 0.06 K/uL (0-0.5); Eosinophils % (auto) 1.5 %; Hematocrit (blood only) 30.1 % (42-52); Immature Granulocytes # (auto) 0.01 K/uL (0.00-0.02); Immature Granulocytes % (auto) 0.3 %; Lymphocytes # (auto) 0.63 K/uL (1.2-3.4); Lymphocytes % (auto) 16.1 %; Mean Corpuscular Hemoglobin 32.8 pg (25-34); Mean Corpuscular Hgb Conc 33.2 g/dL (32-36); Mean Corpuscular Volume 98.7 fL (80-100); Mean Platelet Volume 9.3 fL (7.4-10.4); Monocytes % (auto) 12.8 %; Neutrophils # (auto) 2.71 K/uL (1.4-6.5); Platelet Count 160 K/uL (130-400); RDW Coefficient of Variation 19.1 % (11.5-14.5); RDW Standard Deviation 68.9 fL (36.4-46.3); Red Blood Count 3.05 M/uL (4.7-6.1); White Blood Count 3.92 K/uL (4.8-10.8)
[2020-03-01 09:34] LABS: BUN Creatinine Ratio 10.9 (10-20); Calcium 8.7 mg/dl (8.5-10.1); Creatinine Clr Calc Pharmacy 48.6 ml/min; Est GFR (African American) 62.9; Est GFR (Non-African American) 54.3; Potassium 3.8 mmol/L (3.5-5.1)
--- NOTE | 2020-03-01 09:35 | Hospitalist Progress Note ---
Date of Service March 01, 2020 Assessment & Plan (1) Dyspnea: * with hemoptysis * 74yo C male presenting with MARTELL associated with decreased exercise tolerance, exertional palpitations and hypoxia. Patient with recently diagnosed atrial fibrillation and is currently following with Cardiology for medication optimization. He is on Amiodarone as well as digoxin and metoprolol at present. Reports episodes of palpitations, tachycardia with HR in the 140- 160's of late. Question some CHF in setting of AF with overall poor rate control, severe MR - CT with suggestion of pulmonary edema as well as pleural effusions R>L. Some consideration for worsening of underlying malignancy as etiology of dyspnea, fatigue and exercise intolerance. * Doubt infectious process as patient is afebrile, no leukocytosis, negative procalcitonin. SARS-CoV-2 test NEGATIVE. No sick contacts. * Blood cultures pending * Some discussion in prior Cardiology notes re: evaluation by EP for possible pacemaker placement should medications prove to be ineffective. * Has been afib on monitor with rates 100-130s * 2D Echo with severe MR and hyperdynamic EF >70% * Cardiology consulted -- concerns regarding CHF vs progression of lung CA given BNP almost half of prior in January 2020 with BNP 7353 and no signs of jovany lure, currently 4754 but did have some diuresis with lasix 20mg IV x 2 since admission with improvement of creatinine. Will order additional 40mg PO x 1 this afternoon given continued improvement. * Pulmonology consulted for possible thoracentesis as patient typically not on continuous O2 and endorsing shortness of breath on 4L NC this morning * Strict I&O, Daily Weights * Supplemental O2 to maintain saturation >92% * Incentive spirometer -- wean O2 as tolerated --> currently down to 3L NC at 95% * COVID-19 negative * Continue to monitor (2) Atrial fibrillation with RVR: * Patient currently rate controlled at rest. No anticoagulation. TSH 1.44. * Continue Amiodarone * Continue Metoprolol 200mg po qPM * Continue Digoxin 0.125mg po daily - dig level 0.9 * Cardiology consultation appreciated -- will consult pulm to see about thoracentesis but if malignant would not move forward with possible AV tonio ablation/pacemaker * Pulm consultation appreciated (3) HTN (hypertension): * Blood pressure stable but slightly hypotensive -- issues with diuretics and orthostasis as outpatient per cardiology * BP currently 107/70 * Continue Metoprolol * Continue to monitor (4) Hyperlipidemia: * Chronic. Stable * Continue Atorvastatin 40mg po qHS (5) Chronic kidney disease, stage III (moderate): * Chronic. Mildly increased Cr to 1.43 from 1.2 previously * Lasix x 20mg IV as above and Cr improved to 1.29 and will order additional 40mg PO lasix as above per rec from Cardiology * Renally dose as appropriate and avoid nephrotoxic agents * BMP in AM (6) Metastatic lung cancer (metastasis from lung to other site): * Patient also with hx Prostate Ca 2010 s/p seed implant and brachytherapy 2011. * Noted. Patient follows with Dr. Miller. Is currently undergoing chemotherapy-- combined palliative chemoradiation. * CT with mildly increased size in consolidative nodular opacity of the RLL as well as pleural effusions (pulm consulted as above for thoracentesis) * Chemo per Oncology -- consultation placed (7) Severe mitral regurgitation by prior echocardiogram: * 2D Echo as above -- not candidate at this time for valve replacement Dispo: continued inpatient stay. pulm consult for possible thoracentesis pending Admission and Anticipated Discharge Date Admission Date: February 29, 2020 Subjective Patient evaluated this morning. Some shortness of breath, worse with exertion and his heart rate gets up to the 130s. Was seen by Dr. Garcia this morning and we discussed repeating chest xray and possibly smaller additional amount of diuretic to be administered if BPs able to tolerate. He does endorse minimal lightheadedness with ambulation this morning to the bathroom. Cough, worsened over past several days and he has had to utilize his oxygen continuously. Endorses hemoptysis almost daily for several days approximately t humb nail bright red blood, once with cardenas/tissue like material he states "looked like lung tissue". No fever, chills, orthopena, edema, abdominal fullness. Chest pain across lower left chest wall yesterday and day before following coughing he believes but no further chest pain reported. Eating/drinking without difficulty and moved his bowels this morning. Review of Systems Review of Systems: All systems reviewed & are unremarkable except as noted in HPI & below Physical Exam Constitutional: WD/WN, vitals as above no acute distress Eyes: + anicteric sclerae and PERRL ENMT: mmm Neck: normal visual inspection and trachea midline Respiratory: normal respiratory effort; no respiratory distress and no labored breathing Auscultation: + diminished lung sounds (bases, R >L) and + crackles (bases); no wheezes Cardiovascular: Rate/Rhythm: + irregularly irregular Heart Sounds: + murmur (systolic 3/6 LSB) Vessels: no JVD Extremities: no edema Chest (Breasts): Additional Comments: L port present Gastrointestinal (Abdomen): normal bowel sounds, soft, nontender, no hepatosplenomegaly Skin: warm, dry Neurologic: PERRL, EOMI, accommodation nl, no face palsy, no dysarthria Psychiatric: A+Ox3, euthymic affect Lymphatic: no cervical or axillary lymphadenopathy Results & Data Results & Data ([facility]) Vital Signs (Past 12 Hours) Vital Signs Temp Pulse Pulse Resp BP BP Pulse Ox 03/01/20 07:23 37.1 C 93 H 16 90/52 L 97 03/01/20 07:21 92 H 03/01/20 04:48 111 H 91/58 L 03/01/20 04:00 37.1 C 98 H 18 72/46 L 92 03/01/20 02:12 96 H 02/29/20 22:42 76 98/58 L 02/29/20 21:55 36.7 C 96 H 96 H 17 113/64 93 Laboratory Results 03/01/20 03/01/20 03/01/20 Range/Units 08:19 08:19 08:19 WBC 3.92 L (4.8-10.8) K/uL RBC 3.05 L (4.7-6.1) M/uL Hgb 10.0 L (14.0-18.0) g/dL Hct 30.1 L (42-52) % MCV 98.7 (80-100) fL MCH 32.8 (25-34) pg MCHC 33.2 (32-36) g/dL RDW Std Deviation 68.9 H (36.4-46.3) fL RDW Coeff of Khadijah 19.1 H (11.5-14.5) % Plt Count 160 (130-400) K/uL MPV 9.3 (7.4-10.4) fL Immature Gran % (Auto) 0.3 % Neut % (Auto) 69.0 % Lymph % (Auto) 16.1 % [place] % (Auto) 12.8 % Eos % (Auto) 1.5 % Baso % (Auto) 0.3 % Neut # (Auto) 2.71 (1.4-6.5) K/uL Lymph # (Auto) 0.63 L (1.2-3.4) K/uL [place] # (Auto) 0.50 (0.11-0.59) K/uL Eos # (Auto) 0.06 (0-0.5) K/uL Baso # (Auto) 0.01 (0-0.2) K/uL Immature Gran # (Auto) 0.01 (0.00-0.02) K/uL PT (9.0-12.0) Seconds INR (0.9-1.1) APTT (21.0-31.0) Seconds PTT Ratio Sodium 137 (136-145) mmol/L Potassium 3.8 (3.5-5.1) mmol/L Chloride 103 (98-107) mmol/L Carbon Dioxide 27 (21-32) mmol/L Anion Gap 7.0 (3-11) BUN 14 (7-18) mg/dl Creatinine 1.29 (0.6-1.4) mg/dl Est Cr Clr Drug Dosing 48.6 ml/min Est GFR ( Amer) 62.9 Est GFR (Non-Af Amer) 54.3 BUN/Creatinine Ratio 10.9 (10-20) Glucose 117 H (70-99) mg/dl Lactate (0.4-2.0) mmol/L Calcium 8.7 (8.5-10.1) mg/dl Phosphorus (2.5-4.9) mg/dl Magnesium (1.8-2.4) mg/dl Total Bilirubin (0.2-1) mg/dl Direct Bilirubin (0-0.2) mg/dl AST (15-37) U/L ALT (12-78) U/L Alkaline Phosphatase (45-117) U/L Troponin I (0-0.045) ng/ml NT-Pro-B Natriuret Pep (0-900) pg/ml Total Protein (6.4-8.2) gm/dl Albumin (3.4-5.0) gm/dl Globulin (2.5-4.0) gm/dl Albumin/Globulin Ratio (0.9-2) Procalcitonin (0-0.5) ng/ml TSH (0.300-4.500) uIu/ml Urine Color Urine Appearance (Clear) Urine pH (4.5-7.5) Ur Specific [place] (1.000-1.030) Urine Protein (Negative) Urine Glucose (UA) (Negative) Urine Ketones (Negative) Urine Blood (Negative) Urine Nitrite (Negative) Urine Bilirubin (Negative) Urine Urobilinogen (Negative) Ur Leukocyte Esterase (Negative) Urine WBC (Auto) (0-5) /hpf Urine RBC (Auto) (0-4) /hpf U Hyaline Cast (Auto) (0-5) /lpf U Epithel Cells (Auto) (0-5) /lpf Urine Bacteria (Auto) (Negative) Digoxin 0.9 (0.8-2.0) ng/ml COVID-19 Eval Order SARS-CoV-2, RNA, NAAT (NEGATIVE) 02/29/20 02/29/20 02/29/20 Range/Units 20:50 19:14 19:14 WBC (4.8-10.8) K/uL RBC (4.7-6.1) M/uL Hgb (14.0-18.0) g/dL Hct (42-52) % MCV (80-100) fL MCH (25-34) pg MCHC (32-36) g/dL RDW Std Deviation (36.4-46.3) fL RDW Coeff of Khadijah (11.5-14.5) % Plt Count (130-400) K/uL MPV (7.4-10.4) fL Immature Gran % (Auto) % Neut % (Auto) % Lymph % (Auto) % [place] % (Auto) % Eos % (Auto) % Baso % (Auto) % Neut # (Auto) (1.4-6.5) K/uL Lymph # (Auto) (1.2-3.4) K/uL [place] # (Auto) (0.11-0.59) K/uL Eos # (Auto) (0-0.5) K/uL Baso # (Auto) (0-0.2) K/uL Immature Gran # (Auto) (0.00-0.02) K/uL PT (9.0-12.0) Seconds INR (0.9-1.1) APTT (21.0-31.0) Seconds PTT Ratio Sodium (136-145) mmol/L Potassium (3.5-5.1) mmol/L Chloride (98-107) mmol/L Carbon Dioxide (21-32) mmol/L Anion Gap (3-11) BUN (7-18) mg/dl Creatinine (0.6-1.4) mg/dl Est Cr Clr Drug Dosing ml/min Est GFR ( Amer) Est GFR (Non-Af Amer) BUN/Creatinine Ratio (10-20) Glucose (70-99) mg/dl Lactate (0.4-2.0) mmol/L Calcium (8.5-10.1) mg/dl Phosphorus (2.5-4.9) mg/dl Magnesium (1.8-2.4) mg/dl Total Bilirubin (0.2-1) mg/dl Direct Bilirubin (0-0.2) mg/dl AST (15-37) U/L ALT (12-78) U/L Alkaline Phosphatase (45-117) U/L Troponin I (0-0.045) ng/ml NT-Pro-B Natriuret Pep (0-900) pg/ml Total Protein (6.4-8.2) gm/dl Albumin (3.4-5.0) gm/dl Globulin (2.5-4.0) gm/dl Albumin/Globulin Ratio (0.9-2) Procalcitonin (0-0.5) ng/ml TSH (0.300-4.500) uIu/ml Urine Color Yellow Urine Appearance Cloudy A (Clear) Urine pH 5.5 (4.5-7.5) Ur Specific [place] > 1.045 H (1.000-1.030) Urine Protein Negative (Negative) Urine Glucose (UA) Negative (Negative) Urine Ketones Negative (Negative) Urine Blood 3+ H (Negative) Urine Nitrite Negative (Negative) Urine Bilirubin Negative (Negative) Urine Urobilinogen Negative (Negative) Ur Leukocyte Esterase Negative (Negative) Urine WBC (Auto) 0 (0-5) /hpf Urine RBC (Auto) 10-30 H (0-4) /hpf U Hyaline Cast (Auto) 0 (0-5) /lpf U Epithel Cells (Auto) 0-5 (0-5) /lpf Urine Bacteria (Auto) Negative (Negative) Digoxin (0.8-2.0) ng/ml COVID-19 Eval [facility] SARS-CoV-2, RNA, NAAT NEGATIVE (NEGATIVE) 02/29/20 02/29/20 02/29/20 Range/Units 18:57 18:00 18:00 WBC (4.8-10.8) K/uL RBC (4.7-6.1) M/uL Hgb (14.0-18.0) g/dL Hct (42-52) % MCV (80-100) fL MCH (25-34) pg MCHC (32-36) g/dL RDW Std Deviation (36.4-46.3) fL RDW Coeff of Khadijah (11.5-14.5) % Plt Count (130-400) K/uL MPV (7.4-10.4) fL Immature Gran % (Auto) % Neut % (Auto) % Lymph % (Auto) % [place] % (Auto) % Eos % (Auto) % Baso % (Auto) % Neut # (Auto) (1.4-6.5) K/uL Lymph # (Auto) (1.2-3.4) K/uL [place] # (Auto) (0.11-0.59) K/uL Eos # (Auto) (0-0.5) K/uL Baso # (Auto) (0-0.2) K/uL Immature Gran # (Auto) (0.00-0.02) K/uL PT (9.0-12.0) Seconds INR (0.9-1.1) APTT (21.0-31.0) Seconds PTT Ratio Sodium 132 L (136-145) mmol/L Potassium 3.7 (3.5-5.1) mmol/L Chloride 100 (98-107) mmol/L Carbon Dioxide 24 (21-32) mmol/L Anion Gap 8.0 (3-11) BUN 17 (7-18) mg/dl Creatinine 1.43 H (0.6-1.4) mg/dl Est Cr Clr Drug Dosing 43.8 ml/min Est GFR ( Amer) 55.5 Est GFR (Non-Af Amer) 47.9 BUN/Creatinine Ratio 12.0 (10-20) Glucose 103 H (70-99) mg/dl Lactate 1.0 (0.4-2.0) mmol/L Calcium 8.7 (8.5-10.1) mg/dl Phosphorus 3.5 (2.5-4.9) mg/dl Magnesium 2.0 (1.8-2.4) mg/dl Total Bilirubin 0.5 (0.2-1) mg/dl Direct Bilirubin 0.2 (0-0.2) mg/dl AST 29 (15-37) U/L ALT 36 (12-78) U/L Alkaline Phosphatase 73 (45-117) U/L Troponin I < 0.015 (0-0.045) ng/ml NT-Pro-B Natriuret Pep 4754 H (0-900) pg/ml Total Protein 6.6 (6.4-8.2) gm/dl Albumin 3.0 L (3.4-5.0) gm/dl Globulin 3.6 (2.5-4.0) gm/dl Albumin/Globulin Ratio 0.8 L (0.9-2) Procalcitonin < 0.05 (0-0.5) ng/ml TSH 1.440 (0.300-4.500) uIu/ml Urine Color Urine Appearance (Clear) Urine pH (4.5-7.5) Ur Specific [place] (1.000-1.030) Urine Protein (Negative) Urine Glucose (UA) (Negative) Urine Ketones (Negative) Urine Blood (Negative) Urine Nitrite (Negative) Urine Bilirubin (Negative) Urine Urobilinogen (Negative) Ur Leukocyte Esterase (Negative) Urine WBC (Auto) (0-5) /hpf Urine RBC (Auto) (0-4) /hpf U Hyaline Cast (Auto) (0-5) /lpf U Epithel Cells (Auto) (0-5) /lpf Urine Bacteria (Auto) (Negative) Digoxin (0.8-2.0) ng/ml COVID-19 Eval Order SARS-CoV-2, RNA, NAAT (NEGATIVE) 02/29/20 02/29/20 Range/Units 18:00 18:00 WBC 5.94 (4.8-10.8) K/uL RBC 3.20 L (4.7-6.1) M/uL Hgb 10.3 L (14.0-18.0) g/dL Hct 31.2 L (42-52) % MCV 97.5 (80-100) fL MCH 32.2 (25-34) pg MCHC 33.0 (32-36) g/dL RDW Std Deviation 67.0 H (36.4-46.3) fL RDW Coeff of Khadijah 19.0 H (11.5-14.5) % Plt Count 163 (130-400) K/uL MPV 9.7 (7.4-10.4) fL Immature Gran % (Auto) 0.3 % Neut % (Auto) 71.6 % Lymph % (Auto) 15.0 % [place] % (Auto) 12.6 % Eos % (Auto) 0.5 % Baso % (Auto) 0.0 % Neut # (Auto) 4.25 (1.4-6.5) K/uL Lymph # (Auto) 0.89 L (1.2-3.4) K/uL [place] # (Auto) 0.75 H (0.11-0.59) K/uL Eos # (Auto) 0.03 (0-0.5) K/uL Baso # (Auto) 0.00 (0-0.2) K/uL Immature Gran # (Auto) 0.02 (0.00-0.02) K/uL PT 11.8 (9.0-12.0) Seconds INR 1.1 (0.9-1.1) APTT 28.8 (21.0-31.0) Seconds PTT Ratio 1.0 Sodium (136-145) mmol/L Potassium (3.5-5.1) mmol/L Chloride (98-107) mmol/L Carbon Dioxide (21-32) mmol/L Anion Gap (3-11) BUN (7-18) mg/dl Creatinine (0.6-1.4) mg/dl Est Cr Clr Drug Dosing ml/min Est GFR ( Amer) Est GFR (Non-Af Amer) BUN/Creatinine Ratio (10-20) Glucose (70-99) mg/dl Lactate (0.4-2.0) mmol/L Calcium (8.5-10.1) mg/dl Phosphorus (2.5-4.9) mg/dl Magnesium (1.8-2.4) mg/dl Total Bilirubin (0.2-1) mg/dl Direct Bilirubin (0-0.2) mg/dl AST (15-37) U/L ALT (12-78) U/L Alkaline Phosphatase (45-117) U/L Troponin I (0-0.045) ng/ml NT-Pro-B Natriuret Pep (0-900) pg/ml Total Protein (6.4-8.2) gm/dl Albumin (3.4-5.0) gm/dl Globulin (2.5-4.0) gm/dl Albumin/Globulin Ratio (0.9-2) Procalcitonin (0-0.5) ng/ml TSH (0.300-4.500) uIu/ml Urine Color Urine Appearance (Clear) Urine pH (4.5-7.5) Ur Specific [place] (1.000-1.030) Urine Protein (Negative) Urine Glucose (UA) (Negative) Urine Ketones (Negative) Urine Blood (Negative) Urine Nitrite (Negative) Urine Bilirubin (Negative) Urine Urobilinogen (Negative) Ur Leukocyte Esterase (Negative) Urine WBC (Auto) (0-5) /hpf Urine RBC (Auto) (0-4) /hpf U Hyaline Cast (Auto) (0-5) /lpf U Epithel Cells (Auto) (0-5) /lpf Urine Bacteria (Auto) (Negative) Digoxin (0.8-2.0) ng/ml COVID-19 Eval Order SARS-CoV-2, RNA, NAAT (NEGATIVE) Diagnostic Findings CXR IMPRESSION: 1. Mildly progressed mixed interstitial and alveolar opacities throughout the right lung. 2. Trace left and moderate right pleural effusions. PG Care Time/CCT Total # of Minutes Spent Total Time Spent with Patient: Total time spent is greater than 50% in coordination of care (as documented) at patient's floor/unit and/or counseling patient: Coding Level of Care Code 09359 Subseq Hosp Care Lvl 3 Diagnoses Dyspnea R06.02 Dyspnea type: shortness of breath Atrial fibrillation with RVR I48.91 HTN (hypertension) I10 Hypertension type: essential hypertension Hyperlipidemia E78.5 Hyperlipidemia type: unspecified Chronic kidney disease, stage III (moderate) N18.30 Chronic kidney disease stage 3 subtype: unspecified whether 3a or 3b Metastatic lung cancer (metastasis from lung to other site) C34.90 Laterality: unspecified laterality Severe mitral regurgitation by prior echocardiogram I34.0 (1) Dyspnea Dyspnea type: shortness of breath Qualified Code(s): R06.02 - Shortness of breath (2) HTN (hypertension) Hypertension type: essential hypertension Qualified Code(s): I10 - Essential (primary) hypertension (3) Hyperlipidemia Hyperlipidemia type: unspecified Qualified Code(s): E78.5 - Hyperlipidemia, unspecified (4) Chronic kidney disease, stage III (moderate) Chronic kidney disease stage 3 subtype: unspecified whether 3a or 3b Qualified Code(s): N18.30 - Chronic kidney disease, stage 3 unspecified (5) Metastatic lung cancer (metastasis from lung to other site) Laterality: unspecified laterality Qualified Code(s): C34.90 - Malignant neoplasm of unspecified part of unspecified bronchus or lung
--- NOTE | 2020-03-01 09:52 | XRay Report ---
XR chest 1V portable HISTORY: 74 years-old Male f/u follow-up study in a patient with pulmonary opacities COMPARISON: CTA of the chest 02/29/2020, chest radiograph 02/01/2020 TECHNIQUE: Portable AP view of the chest FINDINGS: Cardiac silhouette is enlarged. Unchanged left subclavian [id number] catheter. No pneumothorax. Tr vandana left and moderate right pleural effusions. Interstitial alveolar opacities throughout the right l geronimo are moderately progressed from comparison. Mild interstitial opacities of the left midlung. Degen erative changes of the shoulders and spine. IMPRESSION: 1. Mildly progressed mixed interstitial and alveolar opacities throughout the right lung. 2. Trace left and moderate right pleural effusions. ACT 112: Negative or not required by law. The above report was generated using voice recognition software. It may contain grammatical, syntax o r spelling errors. Electronically signed by: Gabriel Valencia M.D. 03/01/2020 9:51 AM
--- NOTE | 2020-03-01 11:18 | Cardiology Consultation ---
Date of Consultation March 01, 2020 Assessment & Plan (1) Dyspnea on minimal exertion: Etiology of his dyspnea is uncertain and may be multifactorial, but highly suspicious for progressive/disseminated carcinoma right lung as major contributing component. Although there may be a mild element of volume overload, his chest x-ray has very asymmetric findings and has worsened despite diuresis and he has not had any classic symptoms of heart failure. Specifically, he has no orthopnea (able to lie flat), his weight has been stable, his pro-BNP is actually lower than it was 3 weeks ago, and prior trial of diuretic caused orthostasis without changing his dyspneic symptoms. Reasonable to try some level of diuresis to keep him on the "dry" side of volume status and perhaps reduce right lung congestion (even if it is not classic congestive heart failure). However, suspect that he would have a narrow window before becoming more hypotensive and perhaps azotemic. At this point, his creatinine improved overnight with diuresis, so could initiate furosemide 40 mg p.o. daily while closely monitoring his volume status.. (2) Atrial fibrillation with RVR: His current ventricular rate is reasonable for his physiologic status (hospitalized with hypoxemia), but he has required large doses of chronotropic agents to achieve even borderline rate control. I discussed options with Dr. Astorga, he felt that an AV tonio ablation with a pacemaker might be reasonable, but we both felt this would only be an option if he clinically improves and does not have progressive decline due to his current right lung proces Due to mild thrombocytopenia from his chemotherapy as well as recent hemoptysis, he has not been anticoagulated. We will reassess clinical status on a daily basis to determine whether to proceed with ablation/pacemaker. (3) Severe mitral regurgitation by prior echocardiogram: Given his limited prognosis secondary to metastatic lung cancer and the absence of clear-cut evidence that his mitral regurgitation is symptomatic, he is not a candidate for operative intervention /mitral valve replacement. (4) Thrombocytopenia: (5) Metastatic lung cancer (metastasis from lung to other site): (6) Diastolic CHF due to valvular disease: As noted, there has been an ongoing concern regarding the potential role of diastolic CHF even previously as an outpatient (due to infiltrates on CXR and elevated pro-BNP), however he has never appeared volume overloaded on exam to me and he has not demonstrated any weight gain or classic CHF symptoms. Will check repeat echocardiogram for further clarification of the role of congestive heart failure, reevaluating systolic function, inferior vena caval diameter as a proxy for central venous pressure, etc. Case discussed with hospitalist team. We will continue to follow along with from a cardiology perspective. Thank you. History of Present Illness Reason for Consultation: MR JASBIR Requesting Physician: Salvatore Real MD Attending Physician: Salvatore Real MD History of Present Illness 74-year-old man with severe mitral regurgitation secondary to mitral valve prolapse, persistent atrial fibrillation (multiple negative chronotropes/no anticoagulation), and Stage IV adenocarcinoma of the lung (s/p XRT, chemo ongoing) who developed recurrent atria fibrillation with rapid ventricular response approximately 3 weeks ago and who was admitted yesterday with progressive dyspnea, right lung infiltrate, hypoxemia, and borderline control of his ventricular rate. He was admitted and given 2 doses of IV Lasix with moderate diuresis and mild improvement in dyspneic symptoms. He is currently at rest on supplemental oxygen. He had been noting a progressive decline in his exercise tolerance with worsening dyspnea at lower levels of exertion in recent weeks. He had a largely nonproductive cough, with occasional minor hemoptysis and one episode where a "grayish material" was coughed up. No chest pain, orthopnea, PND, or leg edema. His weight has been very constant over the past several months. He does note occasional palpitations as a sensation of "fast heartbeat", usually with activity. No presyncope or syncope, he has had mild orthostatic symptoms. Of note, at one point he was a concern that he might have an element of diastolic congestive heart failure. He was started on low-dose every other day Dyazide but became orthostatic. He never did show clear evidence of volume overload, his diuretic was stopped with no change in his dyspneic symptoms or c hest x-ray. He is not anticoagulated due to his ongoing hemoptysis and some degree of thrombocytopenia due to chemotherapy. A stress echo September 2019 was terminated due to an SVT, no obvious ischemia but limited LV augmentation (unclear if this was due to SVT or latent systolic dysfunction from severe mitral regurgitation). At he time of my evaluation, he was comfortable at rest with a sporadic n onproductive cough but no other specific complaints. Allergies Allergy/AdvReac Type Severity Reaction Status Date / Time No Known Allergies Allergy Verified 02/29/20 20:55 Home Medications Medication Instructions Recorded Confirmed Type multivitamin 1 tab PO QAM 11/24/18 02/29/20 History glucosamine HCl 1,500 mg tablet 1,500 mg PO BID 02/16/19 02/29/20 History tamsulosin 0.4 mg PO BID 10/06/19 02/29/20 History Portable Oxygen #1 ea 11/22/19 02/24/20 Rx ketoconazole 2 % shampoo 1 appln TOP 2XWK ml 12/02/19 02/29/20 History lorazepam 0.5 mg tablet 0.5 mg PO .COMPLEX PRN #60 tab 12/08/19 02/29/20 Rx albuterol sulfate 2 puff INHALATION Q6 PRN 01/13/20 02/29/20 History psyllium 1 packet PO QAM 01/13/20 02/29/20 History tramadol 50 - 100 mg PO Q6H PRN 01/13/20 02/29/20 History atorvastatin 40 mg PO HS 02/01/20 02/29/20 History metoprolol succinate 200 mg PO QPM #30 tab 02/03/20 02/29/20 Rx dexamethasone 4 mg tablet 20 mg PO .BID UD tab 02/10/20 02/29/20 History triamterene 37.5 1 tab PO .COMPLEX #24 tab 02/10/20 02/29/20 Rx mg-hydrochlorothiazide 25 mg tablet amiodarone 200 mg tablet 200 mg PO BID #180 tab 02/17/20 02/29/20 Rx hydrocodone-homatropine 5 mg-1.5 5 ml PO Q4H PRN #200 ml 02/24/20 02/29/20 Rx mg/5 mL (5 mL) oral syrup [place] Q Plus 2 tabs PO QAM 02/29/20 02/29/20 History digoxin 125 mcg PO DAILY 02/29/20 02/29/20 History folic acid 1 mg PO DAILY 02/29/20 02/29/20 History olanzapine [Zyprexa] 2.5 mg PO UD 02/29/20 02/29/20 History Patient History Medical History Abdominal bruit Adenopathy Allergic rhinitis Bright red blood per rectum no problems at present Chronic kidney disease, stage III (moderate) Constipation Diverticulosis Esophageal reflux History of back problems History of colon polyps History of prostate cancer 2012, s/p brachytherapy Presenting PSA 2.8, clinical stage TIIa HTN (hypertension) Hyperlipidemia IBS (irritable bowel syndrome) Internal hemorrhoids Osteoarthritis Persistent dry cough x 6-7 months 2/2 lung carcinoma Prediabetes Severe mitral regurgitation by prior echocardiogram Surgical History History of arthroscopy of right knee History of brachytherapy prostate cancer - finished treatment and follows with urology once a year History of cataract surgery right and left History of colonoscopy History of prostate biopsy History of repair of rotator cuff Rt History of right knee surgery History of tonsillectomy Status post trigger finger release x 2 left and right hand Family History Father, age 72 complications cardiac cath had abdominal aneurysm Mother, age 67 colon ca Uncle, age 64 lung cancer No family history of adverse response to anesthesia Heart disease Intestinal cancer Mother Cancer Social History Smoking Status: Former smoker Tobacco Type: Cigarettes Age Started Using Tobacco: 15; Age Quit Using Tobacco: 46; packs per day: 0.5; Years Smoked: 31; Cigarettes Per Day: 0.5 pack; Smoking End Date: quit smoking at age 46; Number of Years Since Quit: 27; Second Hand Exposure: No; Do You Dip or Chew Tobacco: No; Hx Alcohol Use: No Hx Substance Use: No Preferred Language: Greenlandic Communication Ability: Effective Coffee Attendant Required: No Beliefs That Will Affect Care: None marital status: Current Living Situation: Spouse Current Living Situation Comment: lives significant other current occupational status: retired 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 How many Children do You have: 1 Other Information That Helps Us Care for You: No Feels Safe at Home: Yes Safety Concerns: Feels Safe At This Time Childhood Exposure to Second-Hand Smoke: Yes caffeine: Yes (coffee very rarely occ tea) during the past year weight has: decreased > 10 lbs Dental Care, Regularly: Yes Physical Activity Frequency: 3-4 Times per Week Seatbelt Use: always Sunscreen Use: No Assistive Devices: Glasses, Oxygen - at Night and Oxygen - Continuous Review of Systems Constitutional: + fatigue; no fever, no chills, no weight loss and no weight gain Eyes: no problem reported Ear, Nose, Mouth, Throat: + epistaxis Respiratory: + cough and + dyspnea Cardiovascular: as per Subjective / HPI Gastrointestinal: no abdominal pain and no change in stools Musculoskeletal: no myalgia Integumentary: + rash (Lower extremity discoloration noted a few weeks ago); no new lesions Neurologic: no falls and no syncope Psychiatric: no problem reported Hematologic / Lymphatic: + easy bleeding and + easy bruising Physical Exam Physical Exam: Normal habitus white male who appears comfortable lying at 30 degrees. Afebrile. BP mildly hypotensive. Pulse average approximately 100 bpm o vernight, generally not greater than 110 bpm. Skin: No generalized lesions currently. HEENT: Unremarkable. Neck: Jugular venous pulse at the clavicle at 90, murmur transmitted to carotids. Lungs: Coarse crackles decreased breath sounds right side, left clear. No wheezing or accessory muscle use. Cardiac: irregular rhythm with normal S1 and S2. 4/6 harsh mid systolic murmur at the left sternal border, apex, and axilla radiating to the base and carotids. No diastolic murmur or gallop. Abdomen: Benign. Extremities: Nontender without pretibial edema. Intact peripheral pulses. Neurologic: Normal affect and conversation, nonfocal Results & Data ([facility]) Vital Signs (Past 12 Hours) Vital Signs Temp Pulse Pulse Resp BP BP Pulse Ox 03/01/20 07:23 98.8 F 93 H 16 90/52 L 97 03/01/20 07:21 92 H 03/01/20 04:48 111 H 91/58 L 03/01/20 04:00 98.8 F 98 H 18 72/46 L 92 03/01/20 02:12 96 H Laboratory Results Globin 10.0, white count 3.2, platelet count 160,000. Normal electrolytes, BUN/creatinine yesterday 17/1.43, today 14/1.29. proBNP 4754. Albumin 3.[address] yesterday showed right lung opacities and moderate right pleural effusion. Right lower lobe nodular opacity mildly increased from previous. Chest x-ray today showed mildly progressed interstitial/alveolar opacities right lung. ECG showed atrial fibrillation with ventricular rate of 106 bpm, nonspecific ST- T wave abnormalities. Compared with 02/01/2020 ECG, minor increase in ST-T wave abnormalities. (1) Metastatic lung cancer (metastasis from lung to other site) Laterality: unspecified laterality Qualified Code(s): C34.90 - Malignant neoplasm of unspecified part of unspecified bronchus or lung
--- NOTE | 2020-03-01 12:29 | Electrocardiogram Report ---
Test Reason : Blood Pressure : / mmHG Vent. Rate : 106 BPM Atrial Rate : 100 BPM P-R Int : 000 ms QRS Dur : 112 ms QT Int : 352 ms P-R-T Axes : 000 051 057 degrees QTc Int : 467 ms Atrial fibrillation with rapid ventricular response vs atrial flutter Minimal voltage criteria for LVH, may be normal variant Nonspecific ST and T wave abnormality Abnormal ECG When compared with ECG of 01-FEB-2020 12:41, ST now depressed in Lateral leads Nonspecific T wave abnormality now evident in Inferior leads Confirmed by Blayne Levine ([id number]) on 03/01/2020 12:29:49 PM Referred By: Yovanny Miller Confirmed By:Blayne Levine
--- NOTE | 2020-03-01 13:12 | XCELERA ---
[id number]}___[id number]
[2020-03-01] MEDS ORDERED: FUROSEMIDE 40 MG TAB PO ONE (13:46)
[2020-03-01] MEDS: DIGOXIN 0.125 MG TAB PO SCH (15:56)
[2020-03-01] MEDS ORDERED: COUGH DROP (SUGAR FREE) LOZ 24 LOZ/1 BOX BUCCAL ONE (15:58)
[2020-03-01] MEDS ORDERED: ALBUTEROL HFA 8 GM INHALER INH PRN (17:47)
[2020-03-01] MEDS: HYDROcodone/HOMATROPINE SYRUP 5MG/1.5MG 5ML UDP PO PRN ×2 (17:58→21:50)
[2020-03-01] MEDS: LEVALBUTEROL TARTRATE 15 GM HFA.AER.AD INH SCH (19:08)
--- NOTE | 2020-03-01 19:46 | Pulmonary Consultation ---
Date of Consultation March 01, 2020 Assessment & Plan (1) Pleural effusion: --Right-sided pleural effusion Etiology could be underlying cancer CHF will be low and depression given its only unilateral I would still continue with diuresis. Plan would be to have thoracentesis done to see if it is malignant and to see if there is any benefit after taking the fluid out. Risk and benefits of the procedure explained to the patient in depth. --History of stage IV adenocarcinoma of the lung S/p radiation, currently getting chemotherapy Patient does have radiation changes appreciated on the CT chest which was done at the time of presentation Plan: Thoracentesis to be done with the patient is willing to do it. Risk and benefit of the procedure explained to the patient in depth. Please note the above document was generated using voice recognition software. It may contain grammatical, syntax or spelling errors.Any formal questions or concerns about the content, text or information contained within the body of this dictation should be directly addressed to the provider for clarification. (2) Adenocarcinoma: History of Present Illness Attending Physician: Salvatore Real MD History of Present Illness 74-year-old male with past medical history of stage IV adenocarcinoma of the lung s/p radiation. Completed 4 cycles of chemo. Has been following up with pulmonary Dr. Garza. He was admitted to the hospital with complaints of shortness of breath mostly persistent on exertion. Pulmonary were consulted because of right-sided pleural effusion At the time of examination patient states that when he is resting he does not get short of breath is on exertion when he gets really short of breath No associated chest pain, no dizziness, no palpitation. Denies any fever or chills. No hemoptysis. Does cough but is not bringing up any phlegm. No dysuria, no diarrhea. No recent travel history. Social history: [id number] smoking history quit in 1993. Allergies Allergy/AdvReac Type Severity Reaction Status Date / Time No Known Allergies Allergy Verified 02/29/20 20:55 Home Medications Medication Instructions Recorded Confirmed Type multivitamin 1 tab PO QAM 11/24/18 02/29/20 History glucosamine HCl 1,500 mg tablet 1,500 mg PO BID 02/16/19 02/29/20 History tamsulosin 0.4 mg PO BID 10/06/19 02/29/20 History Portable Oxygen #1 ea 11/22/19 02/24/20 Rx ketoconazole 2 % shampoo 1 appln TOP 2XWK ml 12/02/19 02/29/20 History lorazepam 0.5 mg tablet 0.5 mg PO .COMPLEX PRN #60 tab 12/08/19 02/29/20 Rx albuterol sulfate 2 puff INHALATION Q6 PRN 01/13/20 02/29/20 History psyllium 1 packet PO QAM 01/13/20 02/29/20 History tramadol 50 - 100 mg PO Q6H PRN 01/13/20 02/29/20 History atorvastatin 40 mg PO HS 02/01/20 02/29/20 History metoprolol succinate 200 mg PO QPM #30 tab 02/03/20 02/29/20 Rx dexamethasone 4 mg tablet 20 mg PO .BID UD tab 02/10/20 02/29/20 History triamterene 37.5 1 tab PO .COMPLEX #24 tab 02/10/20 02/29/20 Rx mg-hydrochlorothiazide 25 mg tablet amiodarone 200 mg tablet 200 mg PO BID #180 tab 02/17/20 02/29/20 Rx hydrocodone-homatropine 5 mg-1.5 5 ml PO Q4H PRN #200 ml 02/24/20 02/29/20 Rx mg/5 mL (5 mL) oral syrup [place] Q Plus 2 tabs PO QAM 02/29/20 02/29/20 History digoxin 125 mcg PO DAILY 02/29/20 02/29/20 History folic acid 1 mg PO DAILY 02/29/20 02/29/20 History olanzapine [Zyprexa] 2.5 mg PO UD 02/29/20 02/29/20 History Patient History Medical History Abdominal bruit Adenopathy Allergic rhinitis Bright red blood per rectum no problems at present Chronic kidney disease, stage III (moderate) Constipation Diverticulosis Esophageal reflux History of back problems History of colon polyps History of prostate cancer 2011, s/p brachytherapy Presenting PSA 2.8, clinical stage TIIa HTN (hypertension) Hyperlipidemia IBS (irritable bowel syndrome) Internal hemorrhoids Osteoarthritis Persistent dry cough x 6-7 months 2/2 lung carcinoma Prediabetes Severe mitral regurgitation by prior echocardiogram Surgical History History of arthroscopy of right knee History of brachytherapy prostate cancer - finished treatment and follows with urology once a year History of cataract surgery right and left History of colonoscopy History of prostate biopsy History of repair of rotator cuff Rt History of right knee surgery History of tonsillectomy Status post trigger finger release x 2 left and right hand Family History Mother , age 67 colon ca Intestinal cancer Father , age 72 complications cardiac cath had abdominal aneurysm No problems noted. Brother No problems noted. Sister No problems noted. Son No problems noted. Uncle , age 64 lung cancer No problems noted. Other Cancer Heart disease No family history of adverse response to anesthesia Social History Smoking Status: Former smoker Tobacco Type: Cigarettes Age Started Using Tobacco: 15; Age Quit Using Tobacco: 46; packs per day: 0.5; Years Smoked: 31; Cigarettes Per Day: 0.5 pack; Smoking End Date: quit smoking at age 46; Number of Years Since Quit: 27; Second Hand Exposure: No; Do You Dip or Chew Tobacco: No; Hx Alcohol Use: No Hx Substance Use: No Preferred Language: Comoran Communication Ability: Effective Librarian Helper Required: No Beliefs That Will Affect Care: None marital status: Current Living Situation: Spouse Current Living Situation Comment: lives significant other 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 occupational status: retired 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 How many Children do You have: 1 Other Information That Helps Us Care for You: No Feels Safe at Home: Yes Safety Concerns: Feels Safe At This Time Childhood Exposure to Second-Hand Smoke: Yes caffeine: Yes (coffee very rarely occ tea) during the past year weight has: decreased > 10 lbs Dental Care, Regularly: Yes Physical Activity Frequency: 3-4 Times per Week Seatbelt Use: always Sunscreen Use: No Assistive Devices: Oxygen - Continuous Review of Systems Review of Systems: All systems reviewed & are unremarkable except as noted in HPI & below Physical Exam Physical Exam: Constitutional: No acute distress HEENT: EOMI, PERRLA Respiratory system: Decreased air entry on the right side, no wheeze, no rhonchi, mild crackles right lower lobe CVS: S1-S2 positive, no murmurs or gallops, irregular Abdomen: Soft, nontender, nondistended, positive bowel sounds x4 Extremities: +2 pulses bilaterally radialis/ dorsalis pedis, no cyanosis, no edema Neuro: Awake alert oriented x3 Psych: Normal mood and affect G/U: No [place] Skin: no rashes, warm and dry Lymphatic: no cervical or axillary lymphadenopathy Results & Data Results & Data ([facility]) Vital Signs (Past 12 Hours) Vital Signs Temp Pulse Pulse Resp BP Pulse Ox 03/01/20 19:16 36.8 C 86 16 119/65 93 03/01/20 19:11 88 22 95 03/01/20 17:41 36.6 C 114 H 105/64 95 03/01/20 15:56 109 H 03/01/20 15:33 37.1 C 98 H 18 107/70 95 03/02/20 05:44 03/02/20 05:44 PG Care Time/CCT Total # of Minutes Spent Total Time Spent with Patient: Total time spent is greater than 50% in coordination of care (as documented) at patient's floor/unit and/or counseling patient: Coding Level of Care Code 46187 Initial Inpt Care Lvl 3 Diagnoses Pleural effusion J90 Adenocarcinoma C80.1
--- NOTE | 2020-03-01 19:46 | Procedure Note ---
Procedure Note Date of Service March 01, 2020 Bedside Ultrasound: Lung: Right-sided pleural effusion is appreciated moderate to large. There is atelectatic lung also appreciated. No pleural effusion appreciated on the left side. Coding CPT Codes Pulmonary/Thoracic - Pulmonary and Thoracic: 84149 US, Chest, real time with imaging documentation ([id number]) [facility] [place] (Charg[place]) Pulmonary/Thoracic Procedure 1: Pulmonary and Thoracic: 42961 US, Chest, real time with imaging documentation
[2020-03-01] MEDS: METOPROLOL SUCC 50MG EXT REL TAB PO SCH (20:07)
[2020-03-01] MEDS: ATORVASTATIN 40 MG TAB PO SCH (20:08)
[2020-03-01] MEDS ORDERED: METOPROLOL SUCC 50MG EXT REL TAB PO SCH (21:00)
[2020-03-02 06:16] LABS: Hematocrit (blood only) 28.1 % (42-52); Hemoglobin 9.2 g/dL (14.0-18.0); Mean Corpuscular Hemoglobin 32.5 pg (25-34); Mean Corpuscular Hgb Conc 32.7 g/dL (32-36); Mean Corpuscular Volume 99.3 fL (80-100); Mean Platelet Volume 9.1 fL (7.4-10.4); Platelet Count 151 K/uL (130-400); RDW Coefficient of Variation 18.9 % (11.5-14.5); RDW Standard Deviation 68.8 fL (36.4-46.3); Red Blood Count 2.83 M/uL (4.7-6.1); White Blood Count 4.07 K/uL (4.8-10.8)
[2020-03-02 06:42] LABS: BUN Creatinine Ratio 13.8 (10-20); Calcium 8.2 mg/dl (8.5-10.1); Creatinine Clr Calc Pharmacy 51.4 ml/min; Est GFR (African American) 67.3; Potassium 3.4 mmol/L (3.5-5.1)
[2020-03-02 06:45] LABS: Ferritin 762.3 ng/ml (8-388)
[2020-03-02 06:56] LABS: Folate (Folic Acid) > 20.00 ng/ml (>5.38); Vitamin B12 1667 pg/ml (193-986)
[2020-03-02] MEDS: LEVALBUTEROL TARTRATE 15 GM HFA.AER.AD INH SCH ×4 (07:22→20:03)
[2020-03-02] MEDS: PSYLLIUM 58.6% POWDER PACKET PO SCH (07:30)
[2020-03-02] MEDS: TAMSULOSIN HCL 0.4 MG CAP PO SCH ×2 (07:30→21:26)
[2020-03-02] MEDS: FOLIC ACID 1 MG TAB PO SCH (07:30)
[2020-03-02] MEDS: AMIODARONE 200 MG TAB PO SCH ×2 (07:30→21:24)
--- NOTE | 2020-03-02 08:39 | Consultation Report ---
DATE OF CONSULTATION: 03/02/2020 REASON FOR CONSULTATION: A 74-year-old gentleman with metastatic nonsmall cell lung cancer, admitted with dyspnea on exertion. HISTORY OF PRESENT ILLNESS: The patient is a very pleasant, well known 74-year-old gentleman currently under our care for metastatic nonsmall cell lung cancer, initially treated with combination pembrolizumab, Alimta and carboplatin, which was initiated on 01/20/2020. Shortly after his initial dose developed skin rash and was not sure if it was the checkpoint inhibitor versus traditional chemotherapy. Thus, his last dose administered just prior to this admission at the end of January consisted of Alimta and carboplatin devoid of pembrolizumab. The patient was previously admitted to [facility] with uncontrolled atrial fibrillation and skin rash. His rash had improved and for a brief period of time, atrial fibrillation was controlled by medical management. However, when he presented to our office with shortness of breath. Of course, there was a concern he could be suffering from a treatment-induced pneumonitis, particularly pembrolizumab versus an acute pulmonary embolism. CTA of the chest was performed, which revealed several interesting findings. First and foremost, there was no evidence of pulmonary embolism. There was increased right pleural effusion noted and a small amount of effusion on the left side. There have progressively worsened mixed ground-glass and alveolar opacities throughout the right lung associated with intralobar septal thickening. These findings are suggestive of nonspecific infectious or inflammatory pneumonitis with probable associated pulmonary edema. Lastly, a 2.9 cm consolidative nodular opacity in the right lower lobe appears to be mildly increased in size from comparison. According to the patient, Cardiology also wanted him hospitalized potentially for a pacemaker placement and/or cardioversion. Appropriately, Pulmonary is on consult and hopefully will proceed with thoracentesis and sample the right pleural effusion for cytology to rule out malignant effusion. At bedside this morning, the patient is in good spirits and offers no specific complaints. PAST MEDICAL HISTORY: Significant for severe mitral regurgitation, prediabetes, osteoarthritis, internal hemorrhoids, irritable bowel syndrome, hyperlipidemia, hypertension, history of prostate cancer, metastatic nonsmall cell lung cancer, chronic kidney disease. PAST SURGICAL HISTORY: Status post trigger finger release, tonsillectomy, right knee surgery, repair of rotator cuff, prostate biopsy, colonoscopy, cataract surgery, brachytherapy, and arthroscopy of the right knee. MEDICATIONS: Includes Zyprexa 2.5 mg p.o. UD, folic acid 1 mg p.o. daily, digoxin 25 mcg p.o. every day, omega Q Plus 2 tablets p.o. daily, hydrocodone cough syrup 5 mL p.o. q. 4 hours p.r.n., amiodarone 200 mg p.o. b.i.d., triamterene/hydrochlorothiazide 1 tablet p.o. every day, dexamethasone 20 mg p.o. b.i.d. UD, metoprolol 200 mg p.o. daily, atorvastatin 40 mg p.o. daily, tramadol 50-100 mg p.o. q. 6 hours p.r.n., albuterol sulfate 2 puffs inhaled q. 6 hours, lorazepam 0.5 mg p.o. p.r.n., tamsulosin 0.4 mg p.o. b.i.d., glucosamine 1500 mg p.o. b.i.d., multivitamin 1 tablet p.o. daily. ALLERGIES: No known drug allergies. FAMILY HISTORY: Mother at age 67 from colorectal cancer. Father 72, complications of cardiac and abdominal aortic aneurysm. REVIEW OF SYSTEMS: CONSTITUTIONAL: As per HPI, mainly for shortness of breath and dyspnea on exertion. No fevers, chills or sweats. He is not anorexic or losing weight. SKIN: Previous drug rash, thought to be attributable to pembrolizumab has resolved. HEENT: Denies headaches, lightheadedness or dizziness. No sinus symptoms, sore throat or dysphagia. LYMPH: No history of lymphoproliferative disease. CARDIAC: Positive history of atrial fibrillation and mitral regurgitation. PULMONARY: Ground-glass opacities and bilateral pleural effusions noted on radiograph. Positive for dyspnea on exertion and shortness of breath. GASTROINTESTINAL: Negative for abdominal pain, nausea, vomiting, diarrhea or constipation, hematochezia or melena stools. GENITOURINARY: No hematuria, dysuria, urinary incontinence. PSYCHIATRIC: Positive for anxiety. ENDOCRINE: Negative for diabetes or thyroid disease. NEUROLOGIC: Negative for seizure, stroke, or migraine headache. MUSCULOSKELETAL: Negative for focal muscle weakness. No arthralgias. HEMATOLOGIC: Positive for persistent anemia attributable to chemotherapeutic effect. PHYSICAL EXAMINATION: GENERAL: A very pleasant 74-year-old gentleman, awake, alert and appropriate, in no acute distress. VITAL SIGNS: Temperature 37.2, pulse 86, respiratory rate 18, blood pressure 87/54. SKIN: Warm, dry, noncyanotic without petechia, rash or ecchymosis. HEENT: Head is atraumatic, normocephalic. Eyes: PERRLA, EOMI. Sclerae nonicteric. No conjunctival injection. Nares are patent without rhinorrhea or discharge. Throat clear. Tongue midline. Mucous membranes are moist. NECK: Supple without JVD or thyromegaly. LYMPHATICS: No cervical or supraclavicular palpable nodes. HEART: Regular rate and rhythm. No clicks, rubs, murmurs or gallops. LUNGS: Bibasilar crackles heard posteriorly. ABDOMEN: Soft, nontender, nondistended, without palpable hepatosplenomegaly. EXTREMITIES: No calf tenderness or swelling. No clubbing, cyanosis or edema. NEUROLOGICALLY: Awake, alert and oriented x3. Cranial nerves grossly intact. LABORATORY DATA: WBC count 4070, hemoglobin 9.2, platelet count 151,000. Sodium 136, potassium 3.4, chloride 102, carbon dioxide 31, creatinine 1.22, BUN 17. Ferritin 762.3, serum iron 31, TIBC 181. IMPRESSION: 1. Shortness of breath and dyspnea on exertion. 2. Paroxysmal atrial fibrillation. 3. Bilateral pleural effusions. 4. Iron deficiency anemia. 5. Metastatic nonsmall cell lung cancer. 6. Possible drug-induced pneumonitis (pembrolizumab). PLAN: I have been asked to visit with the patient in house. This gentleman now has had 2 hospitalizations within the last couple of weeks, initially for skin rash and paroxysmal atrial fibrillation, now with dyspnea and shortness of breath. I am very troubled by a CTA that was done prior to admission, which not only reveals increasing right-sided pleural effusion, but also ground-glass opacities which may suggest a pneumonitis initiated by pembrolizumab. He received his initial course on 01/20/2020 and has only received 1 dose thus far. His checkpoint inhibitors are notorious for autoimmune attacks on multiple organ systems including lung, bowel, thyroid, and liver. Appropriately, his last chemotherapy consisted of just Alimta and carboplatin. There is also suggestion perhaps his disease is progressing; however, he is very early in his treatment phase and do not want to totally change up therapy based on these findings. That said, appreciate pulmonary's input. Perhaps a thoracentesis for cytology and even consider sampling one of these infiltrates. For now, however, we will plan to completely hold pembrolizumab. Perhaps corticosteroids may be helpful in this setting. According to the patient Cardiology plans for pacemaker placement. I agree with medical management otherwise. We will continue to hold chemotherapy until the patient is medically stable. Thank you very much for allowing me to participate in his care. If you have any questions or concerns, feel free to call me at any time.
[2020-03-02] MEDS: predniSONE 50 MG TAB PO SCH (11:23)
[2020-03-02] MEDS ORDERED: POTASSIUM CHLORIDE CRTAB 20 MEQ TABCR PO STA (12:33)
--- NOTE | 2020-03-02 13:05 | Hospitalist Progress Note ---
Date of Service March 02, 2020 Assessment & Plan (1) Dyspnea: * with hemoptysis * 74yo C male presenting with MARTELL associated with decreased exercise tolerance, exertional palpitations and hypoxia. Patient with recently diagnosed atrial fibrillation and is currently following with Cardiology for medication optimization. He is on Amiodarone as well as digoxin and metoprolol at present. Reports episodes of palpitations, tachycardia with HR in the 140- 160's of late. Question some CHF in setting of AF with overall poor rate control, severe MR - CT with suggestion of pulmonary edema as well as pleural effusions R>L. Some consideration for worsening of underlying malignancy as etiology of dyspnea, fatigue and exercise intolerance. * Doubt infectious process as patient is afebrile, no leukocytosis, negative procalcitonin. SARS-CoV-2 test NEGATIVE. No sick contacts. * Blood cultures pending * Some discussion in prior Cardiology notes re: evaluation by EP for possible pacemaker placement should medications prove to be ineffective. * Has been afib on monitor with rates slightly better 90-100s with elevations with activity * 2D Echo with severe MR and hyperdynamic EF >70% * Cardiology consulted -- concerns regarding CHF vs progression of lung CA given BNP almost half of prior in January 2020 with BNP 7353 and no signs of failure, currently 4754 but did have some diuresis with lasix 20mg IV x 2 since admission with improvement of creatinine. Additional 40mg PO x 1 afternoon 03/01 and will continue 40mg daily if BP/Cr tolerates. * Pulmonology consulted for possible thoracentesis as patient typically not on continuous O2 and endorsing shortness of breath on 4L NC morning of 03/01 * Oncology consulted -- appreciate recs. Will ordered prednisone 50mg for pneumonitis possibly for pneumonitis given CTA findings with ground-glass opacities. * Incentive spirometer -- wean O2 as tolerated --> currently 98% on 2L * Sputum cx if able to produce given consolidations on CXR (repeat with pulm congestion 03/02) * Supplemental O2 to maintain saturation >92% * Xopenex HFA scheduled for reported sob * Strict I&O, Daily Weights --> Wt down to 68.5kg from 72.3kg 02/28 (although I&O show balance +1L cumulative) * COVID-19 negative * Continue to monitor Thoracentesis planned for this afternoon with Pulmonology Based on results, possibly to move forward with pacemaker next week (2) Atrial fibrillation with RVR: * Patient currently rate controlled at rest. No anticoagulation. TSH 1.44. * Continue Amiodarone * Continue Metoprolol 200mg po qPM * Continue Digoxin 0.125mg po daily - dig level 0.9 * Cardiology consultation appreciated -- will consult pulm to see about thoracentesis but if malignant would not move forward with possible AV tonio ablation/pacemaker next week * Pulm consultation appreciated (3) HTN (hypertension): * Blood pressure stable but slightly hypotensive -- issues with diuretics and orthostasis as outpatient per cardiology * BP currently 107/71 * Continue Metoprolol * Continue to monitor (4) Hyperlipidemia: * Chronic. Stable * Continue Atorvastatin 40mg po qHS (5) Chronic kidney disease, stage III (moderate): * Chronic. Mildly increased Cr to 1.43 from 1.2 previously * Lasix x 20mg IV as above and Cr improved to 1.29 and ordered additional 40mg PO lasix as above and will continue * Renally dose as appropriate and avoid nephrotoxic agents * Cr 1.22 * BMP in AM (6) Metastatic lung cancer (metastasis from lung to other site): * Patient also with hx Prostate Ca 2010 s/p seed implant and brachytherapy 2011. * Noted. Patient follows with Dr. Miller. Is currently undergoing chemotherapy-- combined palliative chemoradiation. * CT with mildly increased size in consolidative nodular opacity of the RLL as well as pleural effusions (pulm consulted as above for thoracentesis) * Chemo per Oncology -- consultation placed and rec prednisone 50mg and will hold off on further chemo until medically cleared * May need to consider palliative consultation in the future -- was discussed with patient for goals of care (7) Severe mitral regurgitation by prior echocardiogram: * 2D Echo as above -- not candidate at this time for valve replacement Hypokalemia -- K 3.4 on AM labs, likely from diuretic use. Mag wnl 2.1 Replace with 40meq PO as giving additional lasix 40mg PO as above BMP in AM Anemia/Thrombocytopenia --likely secondary to chemotherapy. Iron studies c/w chronic disease. B12 high, Folate >20 Dispo: continued inpatient stay. pulm consult for possible thoracentesis/catheter placement this afternoon Admission and Anticipated Discharge Date Admission Date: February 29, 2020 Subjective Patient evaluated at lunch. Not much of an appetite but not new since on chemotherapy. Shortness of breath still present but back down to 2L NC (prior on intermittent 2L). Cough still present. No further hemoptysis. Discussed possible palliative consultation in future to discuss goals of care. Was also seen by Dr. Garcia this morning who will plan on pacemaker next week. Rates have been better controlled in the 90-100s this morning and were 60-80 overnight per telemetry. No fever, chills, chest pain, nausea/vomiting, dysuria reported. Was seen by pulmonology this morning and plans on thoracentesis this afternoon. Review of Systems Review of Systems: All systems reviewed & are unremarkable except as noted in HPI & below Physical Exam Constitutional: WD/WN, vitals as above no acute distress Eyes: + anicteric sclerae and PERRL Neck: normal visual inspection and trachea midline Respiratory: normal respiratory effort, + cough and able to speak in complete sentences; no respiratory distress, no labored breathing and not tachypneic Auscultation: + diminished lung sounds (bases, R >L); no crackles and no wheezes 98% on 2L NC Cardiovascular: Rate/Rhythm: + irregularly irregular Heart Sounds: + murmur (systolic 3/6 LSB) Vessels: no JVD Extremities: no edema Chest (Breasts): Additional Comments: L port present Gastrointestinal (Abdomen): normal bowel sounds, soft, nontender, no hepatosplenomegaly Musculoskeletal: no cyanosis or clubbing, extremities motor strength 5/5 Neurologic: PERRL, EOMI, accommodation nl, no face palsy, no dysarthria Psychiatric: Orientation: alert and oriented x 3 Results & Data Results & Data ([facility]) Vital Signs (Past 12 Hours) Vital Signs Temp Pulse Resp BP Pulse Ox 03/02/20 11:39 36.4 C L 93 H 20 107/71 98 03/02/20 07:44 36.6 C 75 18 93/57 L 99 03/02/20 07:22 86 18 95 03/02/20 03:30 37.2 C 82 18 87/54 L 96 Laboratory Results 03/02/20 03/02/20 03/02/20 Range/Units 05:44 05:44 05:44 WBC (4.8-10.8) K/uL RBC (4.7-6.1) M/uL Hgb (14.0-18.0) g/dL Hct (42-52) % MCV (80-100) fL MCH (25-34) pg MCHC (32-36) g/dL RDW Std Deviation (36.4-46.3) fL RDW Coeff of Khadijah (11.5-14.5) % Plt Count (130-400) K/uL MPV (7.4-10.4) fL Sodium 136 (136-145) mmol/L Potassium 3.4 L (3.5-5.1) mmol/L Chloride 102 (98-107) mmol/L Carbon Dioxide 31 (21-32) mmol/L Anion Gap 3.0 (3-11) BUN 17 (7-18) mg/dl Creatinine 1.22 (0.6-1.4) mg/dl Est Cr Clr Drug Dosing 51.4 ml/min Est GFR ( Amer) 67.3 Est GFR (Non-Af Amer) 58.0 BUN/Creatinine Ratio 13.8 (10-20) Glucose 97 (70-99) mg/dl Calcium 8.2 L (8.5-10.1) mg/dl Magnesium 2.1 (1.8-2.4) mg/dl Iron 31 L (35-175) mcg/dl TIBC 181 L (250-450) mcg/dl Transferrin 152 L (200-360) mg/dl Transferrin % Sat 14 L (20-50) % Ferritin 762.3 H (8-388) ng/ml Vitamin B12 1667 H (193-986) pg/ml Folate > 20.00 (>5.38) ng/ml 03/02/20 Range/Units 05:44 WBC 4.07 L (4.8-10.8) K/uL RBC 2.83 L (4.7-6.1) M/uL Hgb 9.2 L (14.0-18.0) g/dL Hct 28.1 L (42-52) % MCV 99.3 (80-100) fL MCH 32.5 (25-34) pg MCHC 32.7 (32-36) g/dL RDW Std Deviation 68.8 H (36.4-46.3) fL RDW Coeff of Khadijah 18.9 H (11.5-14.5) % Plt Count 151 (130-400) K/uL MPV 9.1 (7.4-10.4) fL Sodium (136-145) mmol/L Potassium (3.5-5.1) mmol/L Chloride (98-107) mmol/L Carbon Dioxide (21-32) mmol/L Anion Gap (3-11) BUN (7-18) mg/dl Creatinine (0.6-1.4) mg/dl Est Cr Clr Drug Dosing ml/min Est GFR ( Amer) Est GFR (Non-Af Amer) BUN/Creatinine Ratio (10-20) Glucose (70-99) mg/dl Calcium (8.5-10.1) mg/dl Magnesium (1.8-2.4) mg/dl Iron (35-175) mcg/dl TIBC (250-450) mcg/dl Transferrin (200-360) mg/dl Transferrin % Sat (20-50) % Ferritin (8-388) ng/ml Vitamin B12 (193-986) pg/ml Folate (>5.38) ng/ml Diagnostic Findings CXR IMPRESSION: 1. Cardiomegaly with mild pulmonary vascular congestion. 2. Airspace consolidation throughout the right lung is similar to yesterday. 3. A right pleural effusion is again noted. PG Care Time/CCT Total # of Minutes Spent Total Time Spent with Patient: Total time spent is greater than 50% in coordination of care (as documented) at patient's floor/unit and/or counseling patient: Coding Level of Care Code 07964 Subseq Hosp Care Lvl 3 Diagnoses Dyspnea R06.02 Dyspnea type: shortness of breath Atrial fibrillation with RVR I48.91 HTN (hypertension) I10 Hypertension type: essential hypertension Hyperlipidemia E78.5 Hyperlipidemia type: unspecified Chronic kidney disease, stage III (moderate) N18.30 Chronic kidney disease stage 3 subtype: unspecified whether 3a or 3b Metastatic lung cancer (metastasis from lung to other site) C34.90 Laterality: unspecified laterality Severe mitral regurgitation by prior echocardiogram I34.0 (1) Chronic kidney disease, stage III (moderate) Chronic kidney disease stage 3 subtype: unspecified whether 3a or 3b Qualified Code(s): N18.30 - Chronic kidney disease, stage 3 unspecified (2) Metastatic lung cancer (metastasis from lung to other site) Laterality: unspecified laterality Qualified Code(s): C34.90 - Malignant neoplasm of unspecified part of unspecified bronchus or lung (3) Dyspnea Dyspnea type: shortness of breath Qualified Code(s): R06.02 - Shortness of breath (4) Hyperlipidemia Hyperlipidemia type: unspecified Qualified Code(s): E78.5 - Hyperlipidemia, unspecified (5) HTN (hypertension) Hypertension type: essential hypertension Qualified Code(s): I10 - Essential (primary) hypertension
--- NOTE | 2020-03-02 13:47 | XRay Report ---
SINGLE VIEW CHEST CLINICAL HISTORY: Follow-up airspace consolidation. FINDINGS: An AP, portable, upright chest radiograph is compared to study dated 03/01/2020 and correla stanton with chest CT dated 02/29/2020. A left subclavian central venous infusion port is unchanged in po sition. The heart is enlarged. There is mild pulmonary vascular congestion. A right pleural effusion is noted. Airspace consolidation is again seen throughout the right lung. The left lung appears clear . No pneumothorax is seen. The skeletal structures are osteopenic. The bony thorax is grossly intact. IMPRESSION: 1. Cardiomegaly with mild pulmonary vascular congestion. 2. Airspace consolidation throughout the right lung is similar to yesterday. 3. A right pleural effusion is again noted. ACT 112: Negative or not required by law. Electronically signed by: Dorian Chin M.D. 03/02/2020 1:45 PM
[2020-03-02] MEDS ORDERED: FUROSEMIDE 40 MG TAB PO ONE (14:04)
--- NOTE | 2020-03-02 14:06 | Cardiology Progress Note ---
Date of Service March 02, 2020 Assessment & Plan (1) Dyspnea on minimal exertion: Pain is predominantly related to his right lung process. Thoracentesis today may shed further light (transudate versus exudate, etc.). As previously noted, doubt major congestive component but reasonable to try low- dose diuretic to keep him on the "dry" side during for hypovolemia, hypotension, or azotemia. If he clinically stabilizes from a pulmonary/oxygenation standpoint, he could potentially be discharged home with arrangements for any cardiac procedure (ablation/pacemaker) for sometime in the next week or so.. (2) Atrial fibrillation with RVR: Although uncontrolled ventricular rate to his atrial fibrillation does not seem to be playing a major role in his dyspnea, it likely plays some role and his heart rate was very poorly controlled with minimal activity last evening despite being on multiple negative chronotropic agents. As such, he likely would benefit from AV tonio ablation/pacemaker, but it would be important to discern whether his prognosis is favorable enough to merit intervention of this degree. If his prognosis is such that rapid decline is expected, he will be unlikely to derive sufficient benefit from the procedure to warrant the discomfort/risk. There evaluation of his right long process. (3) Severe mitral regurgitation by prior echocardiogram: Given his limited prognosis secondary to metastatic lung cancer and the absence of clear-cut evidence that his mitral regurgitation is symptomatic, he is not a candidate for operative intervention /mitral valve replacement. (4) Thrombocytopenia: (5) Metastatic lung cancer (metastasis from lung to other site): (6) Diastolic CHF due to valvular disease: As noted under dyspnea, suspect congestion is a minor component of his current situation, but empiric use of diuretic is reasonable. I will not be rounding tomorrow, but will ask Dr. Astorga to check in on the patient to discuss potential ablation/pacemaker. Admission and Anticipated Discharge Date Admission Date: February 29, 2020 Subjective Uneventful clinical course overnight. He feels fairly comfortable at rest on supplemental oxygen. Heart rate generally 90-100 bpm at rest, rate did increase to 130-140 bpm when he walked to the bathroom and brushed his teeth last evening. Thoracentesis planned for this afternoon. No chest pain, dyspnea at rest, subjective palpitations, or other symptoms at the time of my evaluation this morning. Physical Exam Physical Exam: Normal habitus white male who appears comfortable lying at 30 degrees. Afebrile. BP low normal. Pulse currently 94 bpm and irregular. Skin: No generalized lesions currently. HEENT: Unremarkable. Neck: Jugular venous pulse at the clavicle at 90, murmur transmitted to carotids. Lungs: Decreased breath sounds right side, generally clear. No wheezing or accessory muscle use. Cardiac: irregular rhythm with normal S1 and S2. 4/6 harsh mid systolic murmur at the left sternal border, apex, and axilla radiating to the base and carotids. No diastolic murmur or gallop. Abdomen: Benign. Extremities: Nontender without pretibial edema. Intact peripheral pulses. Neurologic: Normal affect and conversation, nonfocal Results & Data ([facility]) Vital Signs (Past 12 Hours) Vital Signs Temp Pulse Resp BP Pulse Ox 03/02/20 11:39 97.5 F L 93 H 20 107/71 98 03/02/20 07:44 97.9 F 75 18 93/57 L 99 03/02/20 07:22 86 18 95 03/02/20 03:30 99.0 F 82 18 87/54 L 96 PG Care Time/CCT Total # of Minutes Spent Total Time Spent with Patient: Total time spent is greater than 50% in coordination of care (as documented) at patient's floor/unit and/or counseling patient: Coding Level of Care Code 85163 Subseq Hosp Care Lvl 3 Diagnoses Dyspnea on minimal exertion R06.00 Atrial fibrillation with RVR I48.91 Severe mitral regurgitation by prior echocardiogram I34.0 Thrombocytopenia D69.6 Metastatic lung cancer (metastasis from lung to other site) C34.90 Laterality: unspecified laterality Diastolic CHF due to valvular disease I50.30; I38 (1) Metastatic lung cancer (metastasis from lung to other site) Laterality: unspecified laterality Qualified Code(s): C34.90 - Malignant neoplasm of unspecified part of unspecified bronchus or lung
--- NOTE | 2020-03-02 16:01 | Procedure Note ---
Procedure Note Date of Service March 02, 2020 Procedure: Diagnostic therapeutic ultrasound-guided catheter thoracentesis Integrity Assessor: Dr. Gregory Brewer Indication: Pleural effusion Consent: Signed by patient and verified with timeout prior to procedure Anesthesia: 1% lidocaine without epinephrine local. Procedure: Consent was verified and timeout performed. Appropriate imaging studies were reviewed prior to the procedure. Patient was placed in a seated position and limited thoracic ultrasound was performed of the right chest. See separate imaging. Appropriate site above the diaphragm for thoracentesis was selected. The skin was prepped and draped in normal sterile fashion. Lidocaine was used for local analgesia. Fluid was aspirated via the finder needle. A small skin alie was made with the scalpel and the catheter over the needle apparatus was advanced over the rib into the pleural space. Using the syringe one-way valve system, a total of 1400 mL's of serous fluid was removed. The catheter was removed and observed to be intact. A sterile dressing was applied. Post procedure chest x-ray was ordered. Good lung finding was appreciated postprocedure. Fluid was sent for labs, culture and cytology. Complications: None Blood loss: Less than 2 cc Coding CPT Codes Pulmonary/Thoracic - Pulmonary and Thoracic: 80537 Thoracentesis w imaging ([id number]) [facility] [place] ([place]) Pulmonary/Thoracic Procedure 1: Pulmonary and Thoracic: 74932 Thoracentesis w imaging
[2020-03-02] MEDS: DIGOXIN 0.125 MG TAB PO SCH (16:25)
--- NOTE | 2020-03-02 16:25 | XRay Report ---
SINGLE VIEW CHEST CLINICAL HISTORY: Status post thoracentesis. FINDINGS: An AP, portable, upright chest radiograph is compared to study performed earlier the same d ay 03/02/2020 and correlated with chest CT dated 02/29/2020. A left subclavian central venous infusio n port is unchanged in position. The heart is enlarged. There is mild pulmonary vascular congestion. A right pleural effusion is noted. Airspace consolidation is again seen throughout the right lung. Th e left lung appears clear. No pneumothorax is seen. The skeletal structures are osteopenic. The bony thorax is grossly intact. The lucent lesion is again seen in the right proximal humeral shaft. IMPRESSION: 1. No pneumothorax is identified post procedure. 2. Cardiomegaly with mild pulmonary vascular congestion. 3. Airspace consolidation throughout the right lung is unchanged from earlier today. 4. A right pleural effusion is again noted. ACT 112: Negative or not required by law. Electronically signed by: Dorian Chin M.D. 03/02/2020 4:24 PM
[2020-03-02 16:42] LABS: Glucose Pleural Fluid 134 mg/dl
[2020-03-02 16:51] LABS: Amylase Pleural Fluid 20 U/L; LDH Pleural Fluid 185 U/L
[2020-03-02 17:04] LABS: Albumin Level 2.7 gm/dl (3.4-5.0); Bilirubin,Total 0.4 mg/dl (0.2-1); Total Protein 6.6 gm/dl (6.4-8.2)
[2020-03-02 17:32] LABS: Appearance Pleural Fluid CLEAR; Basophils, Fluid 0 %; Color Pleural Fluid YELLOW; Eosinophils, Fluid 2 %; Lymphocytes, Fluid 21 %; Mono,Macrophage,Mesothelial 66 %; Neutrophils, Fluid 11 %; RBC Pleural Fluid (A) < 3000 /uL; Source Pleural Fluid RIGHT LUNG; WBC Pleural Fluid (A) 410 /uL
--- NOTE | 2020-03-02 18:36 | Pulmonology Progress Note ---
Date of Service March 02, 2020 Assessment & Plan (1) Pleural effusion: --Right-sided pleural effusion Etiology could be underlying cancer CHF will be low and depression given its only unilateral I would still continue with diuresis. Status post thoracentesis 03/02/2020, 1400 mL serous fluid removed --> transudative as per lights criteria Pleural fluid:- LDH: 185, protein: 3, pH 7.49 Serum:- LDH: 318, protein 6.6 Follow culture and cytology. --Exertional shortness of breath Pleural effusion might be playing a role But underlying lung disease and the scarring of the lung from the radiation is also one of the etiology Continue with O2 supplementation to keep oxygen saturation between 88-92% --History of stage IV adenocarcinoma of the lung S/p radiation, currently getting chemotherapy Patient does have radiation changes appreciated on the CT chest which was done at the time of presentation Plan: Follow culture and cytology Please note the above document was generated using voice recognition software. It may contain grammatical, syntax or spelling errors.Any formal questions or concerns about the content, text or information contained within the body of this dictation should be directly addressed to the provider for clarification. (2) Adenocarcinoma: (3) Acute and chronic respiratory failure with hypoxia: Admission and Anticipated Discharge Date Admission Date: February 29, 2020 Subjective Patient seen and examined at bedside. No acute distress, no adverse events overnight. Denies any chest pain. Does complain of shortness of breath on exertion. Good appetite. Urinating well. No fever or chills. Review of Systems Review of Systems: All systems reviewed & are unremarkable except as noted in Subjective Physical Exam Physical Exam: Constitutional: No acute distress HEENT: EOMI, PERRLA Respiratory system: Decreased air entry on the right side, no wheeze, no rhonc hi, mild crackles right lower lobe CVS: S1-S2 positive, no murmurs or gallops, irregular Abdomen: Soft, nontender, nondistended, positive bowel sounds x4 Extremities: +2 pulses bilaterally radialis/ dorsalis pedis, no cyanosis, no edema Neuro: Awake alert oriented x3 Psych: Normal mood and affect G/U: No Sinclair Skin: no rashes, warm and dry Lymphatic: no cervical or axillary lymphadenopathy Results & Data Results & Data ([facility]) Vital Signs (Past 12 Hours) Vital Signs Temp Pulse Pulse Resp BP Pulse Ox 03/02/20 16:42 36.4 C L 92 H 18 109/68 93 03/02/20 16:25 90 03/02/20 16:00 96 H 03/02/20 11:39 36.4 C L 93 H 20 107/71 98 03/02/20 07:44 36.6 C 75 18 93/57 L 99 03/02/20 07:22 86 18 95 03/02/20 05:44 03/02/20 05:44 PG Care Time/CCT Total # of Minutes Spent Total Time Spent with Patient: Total time spent is greater than 50% in coordination of care (as documented) at patient's floor/unit and/or counseling patient: Coding Level of Care Code 15946 Subseq Hosp Care Lvl 3 Diagnoses Pleural effusion J90 Adenocarcinoma C80.1 Acute and chronic respiratory failure with hypoxia J96.21
[2020-03-02] MEDS: METOPROLOL SUCC 50MG EXT REL TAB PO SCH (21:26)
[2020-03-02] MEDS: ATORVASTATIN 40 MG TAB PO SCH (21:26)
[2020-03-03] MEDS: HEPARIN 100 UNIT/ML 5ML FLUSH FLUSH PRN (05:48)
[2020-03-03 05:58] LABS: Eosinophils # (auto) 0.01 K/uL (0-0.5); Eosinophils % (auto) 0.2 %; Hemoglobin 9.5 g/dL (14.0-18.0); Immature Granulocytes # (auto) 0.01 K/uL (0.00-0.02); Immature Granulocytes % (auto) 0.2 %; Lymphocytes # (auto) 0.44 K/uL (1.2-3.4); Lymphocytes % (auto) 7.8 %; Mean Corpuscular Hemoglobin 31.9 pg (25-34); Mean Corpuscular Hgb Conc 32.8 g/dL (32-36); Mean Corpuscular Volume 97.3 fL (80-100); Mean Platelet Volume 9.4 fL (7.4-10.4); Monocytes # (auto) 1.35 K/uL (0.11-0.59); Monocytes % (auto) 23.9 %; Neutrophils # (auto) 3.84 K/uL (1.4-6.5); Neutrophils % (auto) 67.9 %; Platelet Count 177 K/uL (130-400); RDW Standard Deviation 63.7 fL (36.4-46.3); Red Blood Count 2.98 M/uL (4.7-6.1); White Blood Count 5.65 K/uL (4.8-10.8)
[2020-03-03 06:17] LABS: BUN Creatinine Ratio 17.7 (10-20); Calcium 8.6 mg/dl (8.5-10.1); Creatinine Clr Calc Pharmacy 52.6 ml/min; Est GFR (African American) 69.3; Est GFR (Non-African American) 59.8; Potassium 3.5 mmol/L (3.5-5.1)
[2020-03-03] MEDS: AMIODARONE 200 MG TAB PO SCH ×2 (07:40→20:49)
[2020-03-03] MEDS: FOLIC ACID 1 MG TAB PO SCH (07:41)
[2020-03-03] MEDS: TAMSULOSIN HCL 0.4 MG CAP PO SCH ×2 (07:41→20:49)
[2020-03-03] MEDS: PSYLLIUM 58.6% POWDER PACKET PO SCH (07:42)
[2020-03-03] MEDS: predniSONE 50 MG TAB PO SCH (07:42)
[2020-03-03] MEDS: LEVALBUTEROL TARTRATE 15 GM HFA.AER.AD INH SCH ×4 (08:00→20:20)
[2020-03-03] MEDS: FUROSEMIDE 40 MG TAB PO SCH (08:33)
[2020-03-03] MEDS ORDERED: predniSONE 50 MG TAB PO SCH (09:00)
--- NOTE | 2020-03-03 10:00 | Hospitalist Progress Note ---
Date of Service March 03, 2020 Assessment & Plan (1) Dyspnea: * with hemoptysis (none further reported) * 74yo C male presenting with MARTELL associated with decreased exercise tolerance, exertional palpitations and hypoxia. Patient with recently diagnosed atrial fibrillation and is currently following with Cardiology for medication optimization. He is on Amiodarone as well as digoxin and metoprolol at present. Reports episodes of palpitations, tachycardia with HR in the 140- 160's of late. Question some CHF in setting of AF with overall poor rate control, severe MR - CT with suggestion of pulmonary edema as well as pleural effusions R>L. Some consideration for worsening of underlying malignancy as etiology of dyspnea, fatigue and exercise intolerance. * Doubt infectious process as patient is afebrile, no leukocytosis, negative procalcitonin. SARS-CoV-2 test NEGATIVE. No sick contacts. * Blood cultures pending * Some discussion in prior Cardiology notes re: evaluation by EP for possible pacemaker placement should medications prove to be ineffective. * Has been afib on monitor with rates slightly better 90-100s with elevations with activity * 2D Echo with severe MR and hyperdynamic EF >70% * COVID negative * Cardiology consulted * -- concerns regarding CHF vs progression of lung CA given BNP almost half of prior in January 2020 with BNP 7353 and no signs of failure, currently 4754 but did have some diuresis with lasix 20mg IV x 2 since admission with improvement of creatinine and will continue daily 40mg given continued improvement * --Dr. Astorga plans for ablation/pacemaker for ventricular rate control pending cytology from thora * --Strict I&O, Daily Weights --> Wt down to 68.3kg from 72.3kg * Oncology consulted -- appreciate recs. * -- ordered prednisone 50mg for pneumonitis possibly for pneumonitis given CTA findings with ground-glass opacities. * Pulmonology consulted * -- s/p thoracentesis 03/02 for 1.4L. * -- TRANSUDATIVE per lights criteria, pH 7.49. Cholesterol pending, GS(few poly, no organisms seen)/cx , AFB pending * -- wean O2 as tolerated -- 96% on 1L. Pt typically utilizes 2L with ambulation [employer] and has concentrator through care plus and will not need 2step prior to d/c * --Sputum culture pending * -- Follow pleural fluid * Xopenex HFA scheduled -- may continue at d/c for pneumonitis with prednisone as above, as does seem to have provided help Continue to monitor Possible d/c tomorrow and will need f/u with cardiology for ablation/pacemaker (2) Atrial fibrillation with RVR: * Patient currently rate controlled at rest. No anticoagulation. TSH 1.44. * Continue Amiodarone * Continue Metoprolol 200mg po qPM * Continue Digoxin 0.125mg po daily - dig level 0.9 * Cardiology consultation appreciated -- will consult pulm to see about thoracentesis but if malignant would not move forward with possible AV tonio ablation/pacemaker next week as above * Pulm consultation appreciated * Rates afib 80-100s but up to 130s this morning with activity. Per cardiology, if able to walk without significant dyspnea, ok for d/c from their standpoint (3) HTN (hypertension): * Blood pressure stable but slightly hypotensive -- issues with diuretics and orthostasis as outpatient per cardiology * BP improved, currently 123/77 * Continue Metoprolol as above and monitor (4) Hyperlipidemia: * Chronic. Stable * Continue Atorvastatin 40mg po qHS (5) Chronic kidney disease, stage III (moderate): * Chronic. Mildly increased Cr to 1.43 from 1.2 previously * Lasix x 20mg IV x2 as above and continuing with 40mg PO daily * Renally dose as appropriate and avoid nephrotoxic agents * Cr 1.19 * BMP in AM (6) Metastatic lung cancer (metastasis from lung to other site): * Patient also with hx Prostate Ca 2010 s/p seed implant and brachytherapy 2011. * Noted. Patient follows with Dr. Miller. Is currently undergoing chemotherapy-- combined palliative chemoradiation. * CT with mildly increased size in consolidative nodular opacity of the RLL as well as pleural effusions (pulm consulted as above for thoracentesis) * Chemo per Oncology -- consultation placed and rec prednisone 50mg and will hold off on further chemo until medically cleared * May need to consider palliative consultation in the future -- was discussed with patient for goals of care but will hold off for now as patient with transudative effusion, cytology pending (7) Severe mitral regurgitation by prior echocardiogram: * 2D Echo as above -- not candidate at this time for valve replacement Hypokalemia -- RESOLVED -- K 3.5 BMP in AM given continued lasix -- if continued will likely need supplementation at discharge Anemia/Thrombocytopenia --likely secondary to chemotherapy. Iron studies c/w chronic disease (ca pt). B12 high, Folate >20 -- h/h improved 9.09/09 -- CBC in AM Dispo: continued inpatient stay with likely discharge tomorrow if stable Admission and Anticipated Discharge Date Admission Date: February 29, 2020 Subjective Patient evaluated this afternoon. Was seen by Dr. Astorga this morning who will plan on ablation/pacemaker next week pending results of pleural fluid, although it does appear to be transudative as discussed with patient. He still has shortness of breath, improved from yesterday but hasn't been up walking much. He did note Dr. Astorga also wanted him to take a walk in the halls to see how he was doing with regards to breathing. Able to produce a sputum sample. HRs overall better controlled afib 80-100s but when he gets up he notices increase and had been noted up to the 130s. No fever or chills, chest pain, abdominal pain, nausea or vomiting. Eating/drinking without difficulty. Hopeful for discharge tomorrow. Review of Systems Review of Systems: All systems reviewed & are unremarkable except as noted in HPI & below Physical Exam Constitutional: WD/WN, vitals as above no acute distress Eyes: + anicteric sclerae and PERRL Neck: normal visual inspection and trachea midline Respiratory: normal respiratory effort, + cough and able to speak in complete sentences; no respiratory distress, no labored breathing and not tachypneic Auscultation: + diminished lung sounds (R sided) and + crackles (RLL); no wheezes 97% on 2L NC Cardiovascular: Rate/Rhythm: + irregularly irregular; not tachycardic Heart Sounds: + murmur (systolic 3/6 LSB) Vessels: no JVD Extremities: no edema Chest (Breasts): Additional Comments: L port Gastrointestinal (Abdomen): normal bowel sounds, soft, nontender, no hepatosplenomegaly Musculoskeletal: no cyanosis or clubbing, extremities motor strength 5/5 Neurologic: PERRL, EOMI, accommodation nl, no face palsy, no dysarthria Psychiatric: Orientation: alert and oriented x 3 Lymphatic: no cervical or axillary lymphadenopathy Results & Data Results & Data ([facility]) Vital Signs (Past 12 Hours) Vital Signs Temp Pulse Pulse Resp BP BP Pulse Ox 03/03/20 09:00 94 H 03/03/20 08:00 108 H 18 94 03/03/20 07:18 36.6 C 79 18 92/57 L 94 03/03/20 03:19 36.4 C L 88 18 104/66 94 03/03/20 00:24 82 03/02/20 23:19 36.8 C 77 18 95/62 L 94 Laboratory Results 03/03/20 03/03/20 03/02/20 Range/Units 05:46 05:46 16:21 WBC 5.65 (4.8-10.8) K/uL RBC 2.98 L (4.7-6.1) M/uL Hgb 9.5 L (14.0-18.0) g/dL Hct 29.0 L (42-52) % MCV 97.3 (80-100) fL MCH 31.9 (25-34) pg MCHC 32.8 (32-36) g/dL RDW Std Deviation 63.7 H (36.4-46.3) fL RDW Coeff of Khadijah 18.0 H (11.5-14.5) % Plt Count 177 (130-400) K/uL MPV 9.4 (7.4-10.4) fL Immature Gran % (Auto) 0.2 % Neut % (Auto) 67.9 % Lymph % (Auto) 7.8 % [place] % (Auto) 23.9 % Eos % (Auto) 0.2 % Baso % (Auto) 0.0 % Neut # (Auto) 3.84 (1.4-6.5) K/uL Lymph # (Auto) 0.44 L (1.2-3.4) K/uL [place] # (Auto) 1.35 H (0.11-0.59) K/uL Eos # (Auto) 0.01 (0-0.5) K/uL Baso # (Auto) 0.00 (0-0.2) K/uL Immature Gran # (Auto) 0.01 (0.00-0.02) K/uL Sodium 137 (136-145) mmol/L Potassium 3.5 (3.5-5.1) mmol/L Chloride 102 (98-107) mmol/L Carbon Dioxide 29 (21-32) mmol/L Anion Gap 6.0 (3-11) BUN 21 H (7-18) mg/dl Creatinine 1.19 (0.6-1.4) mg/dl Est Cr Clr Drug Dosing 52.6 ml/min Est GFR ( Amer) 69.3 Est GFR (Non-Af Amer) 59.8 BUN/Creatinine Ratio 17.7 (10-20) Glucose 115 H (70-99) mg/dl Calcium 8.6 (8.5-10.1) mg/dl Magnesium (1.8-2.4) mg/dl Total Bilirubin 0.4 (0.2-1) mg/dl Lactate Dehydrogenase (87-241) U/L Total Protein 6.6 (6.4-8.2) gm/dl Albumin 2.7 L (3.4-5.0) gm/dl Fluid Neutrophils % % Fluid Lymphocytes % % Fluid Eosinophils % % Fluid Basophils % % Fluid Meso/Macro/[place] % % Pleural Fluid Source Pleural Color Pleural Appearance Pleural pH (7.3-7.4) Pleural WBC /uL Pleural RBC /uL Pleural Total Protein g/dl Pleural LDH U/L Pleural Glucose mg/dl Pleural Amylase U/L Pleural Cholesterol 03/02/20 03/02/20 03/02/20 Range/Units 16:21 15:40 15:40 WBC (4.8-10.8) K/uL RBC (4.7-6.1) M/uL Hgb (14.0-18.0) g/dL Hct (42-52) % MCV (80-100) fL MCH (25-34) pg MCHC (32-36) g/dL RDW Std Deviation (36.4-46.3) fL RDW Coeff of Khadijah (11.5-14.5) % Plt Count (130-400) K/uL MPV (7.4-10.4) fL Immature Gran % (Auto) % Neut % (Auto) % Lymph % (Auto) % [place] % (Auto) % Eos % (Auto) % Baso % (Auto) % Neut # (Auto) (1.4-6.5) K/uL Lymph # (Auto) (1.2-3.4) K/uL [place] # (Auto) (0.11-0.59) K/uL Eos # (Auto) (0-0.5) K/uL Baso # (Auto) (0-0.2) K/uL Immature Gran # (Auto) (0.00-0.02) K/uL Sodium (136-145) mmol/L Potassium (3.5-5.1) mmol/L Chloride (98-107) mmol/L Carbon Dioxide (21-32) mmol/L Anion Gap (3-11) BUN (7-18) mg/dl Creatinine (0.6-1.4) mg/dl Est Cr Clr Drug Dosing ml/min Est GFR ( Amer) Est GFR (Non-Af Amer) BUN/Creatinine Ratio (10-20) Glucose (70-99) mg/dl Calcium (8.5-10.1) mg/dl Magnesium (1.8-2.4) mg/dl Total Bilirubin (0.2-1) mg/dl Lactate Dehydrogenase 318 H (87-241) U/L Total Protein (6.4-8.2) gm/dl Albumin (3.4-5.0) gm/dl Fluid Neutrophils % % Fluid Lymphocytes % % Fluid Eosinophils % % Fluid Basophils % % Fluid Meso/Macro/[place] % % Pleural Fluid Source Pleural Color Pleural Appearance Pleural pH 7.49 H (7.3-7.4) Pleural WBC /uL Pleural RBC /uL Pleural Total Protein g/dl Pleural LDH U/L Pleural Glucose mg/dl Pleural Amylase U/L Pleural Cholesterol Pending 03/02/20 03/02/20 Range/Units 15:40 05:44 WBC (4.8-10.8) K/uL RBC (4.7-6.1) M/uL Hgb (14.0-18.0) g/dL Hct (42-52) % MCV (80-100) fL MCH (25-34) pg MCHC (32-36) g/dL RDW Std Deviation (36.4-46.3) fL RDW Coeff of Khadijah (11.5-14.5) % Plt Count (130-400) K/uL MPV (7.4-10.4) fL Immature Gran % (Auto) % Neut % (Auto) % Lymph % (Auto) % [place] % (Auto) % Eos % (Auto) % Baso % (Auto) % Neut # (Auto) (1.4-6.5) K/uL Lymph # (Auto) (1.2-3.4) K/uL [place] # (Auto) (0.11-0.59) K/uL Eos # (Auto) (0-0.5) K/uL Baso # (Auto) (0-0.2) K/uL Immature Gran # (Auto) (0.00-0.02) K/uL Sodium (136-145) mmol/L Potassium (3.5-5.1) mmol/L Chloride (98-107) mmol/L Carbon Dioxide (21-32) mmol/L Anion Gap (3-11) BUN (7-18) mg/dl Creatinine (0.6-1.4) mg/dl Est Cr Clr Drug Dosing ml/min Est GFR ( Amer) Est GFR (Non-Af Amer) BUN/Creatinine Ratio (10-20) Glucose (70-99) mg/dl Calcium (8.5-10.1) mg/dl Magnesium 2.1 (1.8-2.4) mg/dl Total Bilirubin (0.2-1) mg/dl Lactate Dehydrogenase (87-241) U/L Total Protein (6.4-8.2) gm/dl Albumin (3.4-5.0) gm/dl Fluid Neutrophils % 11 % Fluid Lymphocytes % 21 % Fluid Eosinophils % 2 % Fluid Basophils % 0 % Fluid Meso/Macro/[place] % 66 % Pleural Fluid Source RIGHT LUNG Pleural Color YELLOW Pleural Appearance CLEAR Pleural pH (7.3-7.4) Pleural WBC 410 /uL Pleural RBC < 3000 /uL Pleural Total Protein 3.0 g/dl Pleural LDH 185 U/L Pleural Glucose 134 mg/dl Pleural Amylase 20 U/L Pleural Cholesterol PG Care Time/CCT Total # of Minutes Spent Total Time Spent with Patient: Total time spent is greater than 50% in coordination of care (as documented) at patient's floor/unit and/or counseling patient: Coding Level of Care Code 94299 Subseq Hosp Care Lvl 2 Diagnoses Dyspnea R06.02 Dyspnea type: shortness of breath Atrial fibrillation with RVR I48.91 HTN (hypertension) I10 Hypertension type: essential hypertension Hyperlipidemia E78.5 Hyperlipidemia type: unspecified Chronic kidney disease, stage III (moderate) N18.30 Chronic kidney disease stage 3 subtype: unspecified whether 3a or 3b Metastatic lung cancer (metastasis from lung to other site) C34.90 Laterality: unspecified laterality Severe mitral regurgitation by prior echocardiogram I34.0 (1) Dyspnea Dyspnea type: shortness of breath Qualified Code(s): R06.02 - Shortness of breath (2) HTN (hypertension) Hypertension type: essential hypertension Qualified Code(s): I10 - Essential (primary) hypertension (3) Hyperlipidemia Hyperlipidemia type: unspecified Qualified Code(s): E78.5 - Hyperlipidemia, unspecified (4) Chronic kidney disease, stage III (moderate) Chronic kidney disease stage 3 subtype: unspecified whether 3a or 3b Qualified Code(s): N18.30 - Chronic kidney disease, stage 3 unspecified (5) Metastatic lung cancer (metastasis from lung to other site) Laterality: unspecified laterality Qualified Code(s): C34.90 - Malignant neoplasm of unspecified part of unspecified bronchus or lung
--- NOTE | 2020-03-03 11:52 | Cardiology Progress Note ---
Date of Service March 03, 2020 Assessment & Plan (1) Dyspnea on minimal exertion: seems to be improved since his thoracentesis. I think a better understanding of his dyspnea and associated etiology will be obtained once he is more active. Hopefully he will have an opportunity to ambulate around the singleton today to better gauge his symptoms. (2) Atrial fibrillation with RVR: Heart rates at rest are normal. With activity they certainly rise but not markedly so. I think will be difficult to determine if all of his dyspnea is related to rapid ventricular rates. He is on an aggressive rate control regimen. We did discuss the option of an ablate and pace strategy. Whether we pursue the strategy I think depends on the etiology of his primary lung disease and malignancy. I think if he is ambulatory around the singleton with minimal dyspnea he can certainly be discharged home regardless of heart rates. If he continues to have symptomatic pleural effusions or of a primary lung process such as his malignancy or pneumonitis has not resolved, this would need to be addressed before we proceed with any form of invasive rate control strategy. (3) Severe mitral regurgitation by prior echocardiogram: Possibly contributing to symptoms, but he is not a candidate for any operative intervention. (4) Thrombocytopenia: (5) Metastatic lung cancer (metastasis from lung to other site): (6) Diastolic CHF due to valvular disease: He reports being administered additional doses of diuretic for recurrent pleural effusion. 1400 cc of transudate of fluid removed yesterday. Admission and Anticipated Discharge Date Admission Date: February 29, 2020 Subjective This morning the patient claims he feeling well. He states that he had some improvement in his breathing and activity tolerance subsequent to the thoracentesis yesterday. His coughing peers have resolved entirely. He did report being ambulatory to the bathroom and noticing on his monitor heart rates in the 120s. However, he did not report limiting dyspnea with activity. No dizziness or lightheadedness. No symptoms of chest pain with activity. Review of Systems Review of Systems: Per HPI Physical Exam Physical Exam: The patient is alert and oriented. Mood and affect appeared normal. He answered all questions appropriately. HEENT: Pupils are equal and reactive to light and accommodation. Extraocular movements are intact. The sclerae are anicteric. Neuro: Cranial nerves intact Neck: Patient's neck is supple. He has palpable carotid pulses bilaterally without bruits on auscultation. There is no evidence of jugular venous distention. The thyroid is not enlarged. Lungs: Coarse breath sounds throughout all mirza. No rales. Normal excursion. No expiratory wheezing. Normal respiratory effort Cardiac: Heart demonstrates an Irregular rhythm.. Normal S1 and S2. holosystolic murmur of variable intensity. Pulses: The patient has palpable radial pulses bilaterally that are equal in intensity Extremities: There was no evidence of hypoperfusion. There is no cyanosis or clubbing. There is no edema. Skin: I did not appreciate any rashes on examination today. Results & Data ([facility]) Vital Signs (Past 12 Hours) Vital Signs Temp Pulse Pulse Resp BP BP Pulse Ox 03/03/20 11:24 95 H 18 94 03/03/20 11:19 36.4 C L 98 H 18 110/72 92 03/03/20 09:00 94 H 03/03/20 08:00 108 H 18 94 03/03/20 07:18 36.6 C 79 18 92/57 L 94 03/03/20 03:19 36.4 C L 88 18 104/66 94 03/03/20 00:24 82 Laboratory Results Abnormal Lab Results 03/02/20 03/02/20 03/02/20 05:44 15:40 15:40 WBC RBC Hgb Hct MCV MCH MCHC RDW Std Deviation RDW Coeff of Khadijah Plt Count MPV Immature Gran % (Auto) Neut % (Auto) Lymph % (Auto) Dupage % (Auto) Eos % (Auto) Baso % (Auto) Neut # (Auto) Lymph # (Auto) Dup[place] # (Auto) Eos # (Auto) Baso # (Auto) Immature Gran # (Auto) Sodium Potassium Chloride Carbon Dioxide Anion Gap BUN Creatinine Est Cr Clr Drug Dosing Est GFR ( Amer) Est GFR (Non-Af Amer) BUN/Creatinine Ratio Glucose Calcium Magnesium 2.1 Total Bilirubin Lactate Dehydrogenase Total Protein Albumin Fluid Neutrophils % 11 Fluid Lymphocytes % 21 Fluid Eosinophils % 2 Fluid Basophils % 0 Fluid Meso/Macro/Dupage % 66 Pleural Fluid Source RIGHT LUNG Pleural Color YELLOW Pleural Appearance CLEAR Pleural pH 7.49 H Pleural WBC 410 Pleural RBC < 3000 Pleural Total Protein 3.0 Pleural LDH 185 Pleural Glucose 134 Pleural Amylase 20 03/02/20 03/02/20 03/03/20 16:21 16:21 05:46 WBC 5.65 RBC 2.98 L Hgb 9.5 L Hct 29.0 L MCV 97.3 MCH 31.9 MCHC 32.8 RDW Std Deviation 63.7 H RDW Coeff of Khadijah 18.0 H Plt Count 177 MPV 9.4 Immature Gran % (Auto) 0.2 Neut % (Auto) 67.9 Lymph % (Auto) 7.8 Dupage % (Auto) 23.9 Eos % (Auto) 0.2 Baso % (Auto) 0.0 Neut # (Auto) 3.84 Lymph # (Auto) 0.44 L Dupage # (Auto) 1.35 H Eos # (Auto) 0.01 Baso # (Auto) 0.00 Immature Gran # (Auto) 0.01 Sodium Potassium Chloride Carbon Dioxide Anion Gap BUN Creatinine Est Cr Clr Drug Dosing Est GFR ( Amer) Est GFR (Non-Af Amer) BUN/Creatinine Ratio Glucose Calcium Magnesium Total Bilirubin 0.4 Lactate Dehydrogenase 318 H Total Protein 6.6 Albumin 2.7 L Fluid Neutrophils % Fluid Lymphocytes % Fluid Eosinophils % Fluid Basophils % Fluid Meso/Macro/Dupage % Pleural Fluid Source Pleural Color Pleural Appearance Pleural pH Pleural WBC Pleural RBC Pleural Total Protein Pleural LDH Pleural Glucose Pleural Amylase 03/03/20 05:46 WBC RBC Hgb Hct MCV MCH MCHC RDW Std Deviation RDW Coeff of Khadijah Plt Count MPV Immature Gran % (Auto) Neut % (Auto) Lymph % (Auto) Dupage % (Auto) Eos % (Auto) Baso % (Auto) Neut # (Auto) Lymph # (Auto) Dupage # (Auto) Eos # (Auto) Baso # (Auto) Immature Gran # (Auto) Sodium 137 Potassium 3.5 Chloride 102 Carbon Dioxide 29 Anion Gap 6.0 BUN 21 H Creatinine 1.19 Est Cr Clr Drug Dosing 52.6 Est GFR ( Amer) 69.3 Est GFR (Non-Af Amer) 59.8 BUN/Creatinine Ratio 17.7 Glucose 115 H Calcium 8.6 Magnesium Total Bilirubin Lactate Dehydrogenase Total Protein Albumin Fluid Neutrophils % Fluid Lymphocytes % Fluid Eosinophils % Fluid Basophils % Fluid Meso/Macro/Dupage % Pleural Fluid Source Pleural Color Pleural Appearance Pleural pH Pleural WBC Pleural RBC Pleural Total Protein Pleural LDH Pleural Glucose Pleural Amylase PG Care Time/CCT Total # of Minutes Spent Total Time Spent with Patient: Total time spent is greater than 50% in coordination of care (as documented) at patient's floor/unit and/or counseling patient: Coding Level of Care Code 72007 Subseq Hosp Care Lvl 2 Diagnoses Dyspnea on minimal exertion R06.00 Atrial fibrillation with RVR I48.91 Severe mitral regurgitation by prior echocardiogram I34.0 Thrombocytopenia D69.6 Metastatic lung cancer (metastasis from lung to other site) C34.90 Laterality: unspecified laterality Diastolic CHF due to valvular disease I50.30; I38 (1) Metastatic lung cancer (metastasis from lung to other site) Laterality: unspecified laterality Qualified Code(s): C34.90 - Malignant neoplasm of unspecified part of unspecified bronchus or lung
--- NOTE | 2020-03-03 14:07 | Pulmonology Progress Note ---
Date of Service March 03, 2020 Assessment & Plan (1) Pleural effusion: --Right-sided pleural effusion Etiology could be underlying cancer CHF will be low on differential given its only unilateral I would still continue with diuresis. Status post thoracentesis 03/02/2020, 1400 mL serous fluid removed --> transudative as per lights criteria Pleural fluid:- LDH: 185, protein: 3, pH 7.49 Serum:- LDH: 318, protein 6.6 Follow culture and cytology. --Exertional shortness of breath Pleural effusion might be playing a role But underlying lung disease and the scarring of the lung from the radiation is also one of the etiology Continue with O2 supplementation to keep oxygen saturation between 88-92% --History of stage IV adenocarcinoma of the lung S/p radiation, currently getting chemotherapy Patient does have radiation changes appreciated on the CT chest which was done at the time of presentation Plan: Patient was saturating 97% on 2 L nasal cannula. I think patient should be tried off oxygen. Ambulate him and see if he still needs oxygen. Follow-up cytology. Clinically patient looks better. He is diuresing well as well. No further recommendations from pulmonary perspective. Will sign off. Please recall if needed. Please note the above document was generated using voice recognition software. It may contain grammatical, syntax or spelling errors.Any formal questions or concerns about the content, text or information contained within the body of this dictation should be directly addressed to the provider for clarification. (2) Adenocarcinoma: (3) Acute and chronic respiratory failure with hypoxia: Admission and Anticipated Discharge Date Admission Date: February 29, 2020 Subjective Patient seen and examined at bedside. No acute distress, no adverse events overnight. Denies any chest pain today. Shortness of breath is improved. No headache, no nausea, no vomiting. He does complain that he gets palpitation when he exerts himself. Good appetite. Review of Systems Review of Systems: All systems reviewed & are unremarkable except as noted in Subjective Physical Exam Physical Exam: Constitutional: No acute distress HEENT: EOMI, PERRLA Respiratory system: Decreased air entry on the right side, no wheeze, no rhonchi, mild crackles right lower lobe CVS: S1-S2 positive, no murmurs or gallops, irregular Abdomen: Soft, nontender, nondistended, positive bowel sounds x4 Extremities: +2 pulses bilaterally radialis/ dorsalis pedis, no cyanosis, no edema Neuro: Awake alert oriented x3 Psych: Normal mood and affect G/U: No Sinclair Patient was saturating 97% on 2 L nasal cannula at the time of examination at rest. Went down to 1 L Skin: no rashes, warm and dry Lymphatic: no cervical or axillary lymphadenopathy Results & Data Results & Data ([facility]) Vital Signs (Past 12 Hours) Vital Signs Temp Pulse Pulse Resp BP BP Pulse Ox 03/03/20 11:24 95 H 18 94 03/03/20 11:19 36.4 C L 98 H 18 110/72 92 03/03/20 09:00 94 H 03/03/20 08:00 108 H 18 94 03/03/20 07:18 36.6 C 79 18 92/57 L 94 03/03/20 03:19 36.4 C L 88 18 104/66 94 03/03/20 05:46 03/03/20 05:46 PG Care Time/CCT Total # of Minutes Spent Total Time Spent with Patient: Total time spent is greater than 50% in coordination of care (as documented) at patient's floor/unit and/or counseling patient: Coding Level of Care Code 84268 Subseq Hosp Care Lvl 3 Diagnoses Pleural effusion J90 Adenocarcinoma C80.1 Acute and chronic respiratory failure with hypoxia J96.21
[2020-03-03] MEDS: DIGOXIN 0.125 MG TAB PO SCH (15:25)
[2020-03-03] MEDS: METOPROLOL SUCC 50MG EXT REL TAB PO SCH (20:50)
[2020-03-03] MEDS: ATORVASTATIN 40 MG TAB PO SCH (20:50)
[2020-03-04] MEDS: LEVALBUTEROL TARTRATE 15 GM HFA.AER.AD INH SCH ×4 (07:08→20:37)
[2020-03-04] MEDS: FUROSEMIDE 40 MG TAB PO SCH (07:43)
[2020-03-04] MEDS: PSYLLIUM 58.6% POWDER PACKET PO SCH (07:43)
[2020-03-04] MEDS: FOLIC ACID 1 MG TAB PO SCH (07:43)
[2020-03-04] MEDS: TAMSULOSIN HCL 0.4 MG CAP PO SCH ×2 (07:43→21:03)
[2020-03-04] MEDS: AMIODARONE 200 MG TAB PO SCH ×2 (07:43→21:03)
[2020-03-04] MEDS: predniSONE 50 MG TAB PO SCH (07:43)
[2020-03-04] MEDS: DIGOXIN 0.125 MG TAB PO SCH (15:38)
--- NOTE | 2020-03-04 17:41 | Hospitalist Progress Note ---
Date of Service March 04, 2020 Assessment & Plan (1) Dyspnea on minimal exertion: -- Improved since his thoracentesis removing 1400 cc of transudative fluid. -- No SOB at rest, but ambulated in the hallway today, became very dyspneic and his O2 saturation dropped into the upper 80s. -- HR went into the 120's and 130's with walking. -- This is likely multifactorial with lung cancer, severe mitral regurgitation, radiation pneumonitis, anemia, atrial fibrillation. -- Continue Amiodarone 200 mg b.i.d, Toprol XL 200 mg q pm, and Digoxin 125 mcg daily. -- Continue Prednisone 50 mg daily, will eventually taper. -- Continue supplemental oxygen. -- He is receiving chemotherapy with Dr. Miller to treat underlying malignancy. (2) Atrial fibrillation with RVR: -- Patient met with Dr. Astorga and they discussed the option of an ablation and pacemaker implantation. -- Whether they pursue this strategy will depend on the etiology of his primary lung processes and malignancy. -- If patient develops recurrent symptomatic pleural effusions that are of a primary lung process (such as his malignancy or ongoing pneumonitis) this would need to be addressed before they proceed with any form of invasive rate control strategy. -- Continue Amiodarone 200 mg b.i.d, Toprol XL 200 mg q pm, and Digoxin 125 mcg daily. -- Patient currently on Lovenox for anticoagulation, will need to convert to Eliquis or Xarelto at discharge. (3) Severe mitral regurgitation by prior echocardiogram: -- May be contributing to symptoms but he is not a candidate for any surgical intervention. (4) Metastatic lung cancer (metastasis from lung to other site): -- Management as per Heme-Onc and Pulmonology. -- Continue chemotherapy. (5) Diastolic CHF due to valvular disease: -- Removed 1400 cc of transudate of fluid removed with thoracentesis. -- Negative fluid balance of 1321 ml. -- Body weight is down 10 pounds since being admitted. -- Improve rate control with diastolic CHF. -- Continue to diurese Lasix 40 mg daily. Admission and Anticipated Discharge Date Admission Date: February 29, 2020 Subjective Mr. Jerome is a 74-year-old male with a history of Hypertension, Hyperlipidemia, Stage III CKD, Prediabetes, Severe Mitral Regurgitation, history of Prostate Cancer, Stage 4 Adenocarcinoma of the Lung , and Anxiety who was admitted on 04/30/2019 with complaints of dyspnea on minimal exertion. Patient was in rapid A-Fib on admission and had a grossly abnormal imaging of his chest showing radiation changes and right pleural effusion. Patient underwent thoracentesis on 03/02 with removal of 1400 cc of transudative fluid. He had improved breathing and exertional tolerance following the thoracentesis. There was a question of whether or not he had a component of heart failure. However in the past he has had Pro-BNP levels in the 7000 range with no signs or symptoms of heart failure, but his proBNP was in the 4000 range during this hospitalization. He has been diuresing while here. Patient's heart rate appears to be well controlled when he is at a state of rest, and on telemetry his heart rates have been running in the 70s and 80s in atrial fibrillation. His heart rates still jump up into the 120s and 130s when he moves around. Patient's saturations are staying in the 90s on 2 liters of oxygen via nasal cannula. Patient has not done any significant walking in the hallways yet. The patient offers no other complaints. He still has a mild cough, but denies any hemoptysis. He denies any active chest pain, heaviness, tightness, pressure, or discomfort. No syncope or near-syncope. He has not had any signs or symptoms of stroke or mini stroke. Physical Exam Physical Exam: GENERAL: Patient in no acute distress, sitting in a bedside chair. HEENT: Head is atraumatic, normocephalic. EOM's intact. Facies symmetric. No perioral cyanosis. NECK: No JVD. JVP is not elevated. Carotid upstrokes are + 2 bilaterally. No bruits are noted. CHEST/LUNGS: Crackles in the right lower lung field. No wheezes noted. CVS: S1 and S2 are irregularly irregular at an apical rate of 80 bpm. There is a grade 3-4/6 apical holosystolic murmur which radiates to the axilla. No diastolic murmurs appreciated. No gallops or rubs. No abdominal aortic or renal bruits. ABDOMINAL EXAM: Bowel sounds are present. No masses, organomegaly, or tenderness. EXTREMITIES: No clubbing or cyanosis. No edema. Intact posterior tibial and radial pulses bilaterally. NEUROLOGIC EXAM: Patient is awake, alert, and oriented. Pleasant and cooperative. Answers questions appropriately. Speech is clear. Normal movement in all 4 extremities. Gait pattern is unremarkable. Patient ambulated in the hallway with nurse and became very dyspneic. O2 saturation dropped into the upper 80s on supplemental oxygen. Heart rate went up into the 120s to 130s in atrial fibrillation. Skin: no rashes, warm and dry Lymphatic: no cervical or axillary lymphadenopathy Results & Data Results & Data ([facility]) Vital Signs (Past 12 Hours) Vital Signs Temp Pulse Pulse Resp BP BP Pulse Ox 03/04/20 15:58 36.7 C 80 18 92/61 L 95 03/04/20 15:38 82 03/04/20 15:22 100 H 03/04/20 14:16 109 H 20 86 L 03/04/20 11:20 36.7 C 76 18 91/59 L 96/57 L 96 03/04/20 10:58 76 16 94 03/04/20 07:20 36.5 C 82 18 100/63 91 03/04/20 07:11 59 L 16 91 03/04/20 06:58 107 H Medications Administered Active Medications Generic Name Dose Route Start Last Admin Trade Name Freq PRN Reason Stop Dose Admin Amiodarone HCl 200 mg 02/29/20 22:15 03/04/20 07:43 Amiodarone 200 Mg Tab PO 03/30/20 22:14 200 mg BID SOPHY Administration Atorvastatin Calcium 40 mg 03/01/20 21:00 03/03/20 20:50 Atorvastatin 40 Mg Tab PO 03/31/20 20:59 40 mg HS SOPHY Administration Digoxin 0.125 mg 03/01/20 16:00 03/04/20 15:38 Digoxin 0.125 Mg Tab PO 03/31/20 15:59 0.125 mg DAILY@1600 SOPHY Administration Enoxaparin Sodium 40 mg 02/29/20 22:00 02/29/20 22:42 Enoxaparin Inj 40 Mg/0.4 Ml Syr SQ 03/30/20 21:59 40 mg Q24H SOPHY Administration Folic Acid 1 mg 03/01/20 09:00 03/04/20 07:43 Folic Acid 1 Mg Tab PO 03/31/20 08:59 1 mg DAILY SOPHY Administration Furosemide 40 mg 03/03/20 09:00 03/04/20 07:43 Furosemide 40 Mg Tab PO 04/02/20 08:59 40 mg QAM SOPHY Administration Heparin Sodium (Porcine) 5 ml 02/29/20 22:14 03/03/20 05:48 Heparin 100 Unit/Ml 5ml Flush FLUSH 03/30/20 22:13 3 ml PRN PRN Administration Flush Hydrocodone Bit/Homatropine Methylb 5 ml 02/29/20 22:08 03/01/20 21:50 Hydrocodone/Homatropine Syrup 5mg/1.5mg 5ml Udp PO 03/14/20 22:07 5 ml Q4H PRN Administration cough Levalbuterol HCl 2 puffs 03/02/20 19:00 03/04/20 14:09 Levalbuterol Tartrate 15 Gm Hfa.Aer.Ad INH 04/01/20 18:59 2 puffs QIDR SOPHY Administration Lorazepam 0.5 mg 02/29/20 22:01 Lorazepam 0.5 Mg Tab PO 03/30/20 22:00 HS PRN anxiety Metoprolol Succinate 200 mg 02/29/20 22:15 03/03/20 20:50 Metoprolol Succ 50mg Ext Rel Tab PO 03/30/20 22:14 200 mg QPM SOPHY Administration Prednisone 50 mg 03/02/20 10:45 03/04/20 07:43 Prednisone 50 Mg Tab PO 04/01/20 10:44 50 mg DAILY SOPHY Administration Psyllium Hydrophilic Mucilloid 1 pkt 03/01/20 09:00 03/04/20 07:43 Psyllium 58.6% Powder Packet PO 03/31/20 08:59 1 pkt QAM SOPHY Administration Tamsulosin HCl 0.4 mg 03/01/20 09:00 03/04/20 07:43 Tamsulosin Hcl 0.4 Mg Cap PO 03/31/20 08:59 0.4 mg BID SOPHY Administration PG Care Time/CCT Total # of Minutes Spent Total Time Spent with Patient: Total time spent is greater than 50% in coordination of care (as documented) at patient's floor/unit and/or counseling patient:40 Coding Level of Care Code 95097 Subseq Hosp Care Lvl 3 Diagnoses Dyspnea on minimal exertion R06.00 Atrial fibrillation with RVR I48.91 Severe mitral regurgitation by prior echocardiogram I34.0 Metastatic lung cancer (metastasis from lung to other site) C34.90 Laterality: unspecified laterality Diastolic CHF due to valvular disease I50.30; I38 (1) Metastatic lung cancer (metastasis from lung to other site) Laterality: unspecified laterality Qualified Code(s): C34.90 - Malignant neoplasm of unspecified part of unspecified bronchus or lung
[2020-03-04] MEDS: ATORVASTATIN 40 MG TAB PO SCH (21:03)
[2020-03-04] MEDS: METOPROLOL SUCC 50MG EXT REL TAB PO SCH (21:03)
[2020-03-05] MEDS: LEVALBUTEROL TARTRATE 15 GM HFA.AER.AD INH SCH ×4 (07:04→21:06)
[2020-03-05] MEDS: TAMSULOSIN HCL 0.4 MG CAP PO SCH ×2 (08:46→20:18)
[2020-03-05] MEDS: AMIODARONE 200 MG TAB PO SCH ×2 (08:46→20:18)
[2020-03-05] MEDS: FOLIC ACID 1 MG TAB PO SCH (08:46)
[2020-03-05] MEDS: FUROSEMIDE 40 MG TAB PO SCH (08:46)
[2020-03-05] MEDS: PSYLLIUM 58.6% POWDER PACKET PO SCH (08:47)
[2020-03-05] MEDS: predniSONE 50 MG TAB PO SCH (08:47)
--- NOTE | 2020-03-05 08:48 | Hospitalist Progress Note ---
Date of Service March 05, 2020 Assessment & Plan (1) Dyspnea on minimal exertion: -- Improved since his thoracentesis removing 1400 cc of transudative fluid. -- No SOB at rest. Attempted 2 step but ambulated in the hallway again today on room air. O2 sats dropped to 83% with a heart rate of 96. -- This is likely multifactorial with lung cancer, severe mitral regurgitation, radiation pneumonitis, anemia, atrial fibrillation. -- Continue Amiodarone 200 mg b.i.d, Toprol XL 200 mg q pm, and Digoxin 125 mcg daily. -- Continue Prednisone 50 mg daily, will eventually taper. -- Continue supplemental oxygen. -- He is receiving chemotherapy with Dr. Miller to treat underlying malignancy. -- Will plan to keep the patient overnight again due to persistent hypoxia with activity. Plan for repeat chest x-ray in the AM and another dose of Lasix 40mg. (2) Atrial fibrillation with RVR: -- Patient met with Dr. Astorga and they discussed the option of an ablation and pacemaker implantation. -- Whether they pursue this strategy will depend on the etiology of his primary lung processes and malignancy. -- If patient develops recurrent symptomatic pleural effusions that are of a primary lung process (such as his malignancy or ongoing pneumonitis) this would need to be addressed before they proceed with any form of invasive rate control strategy. -- Continue Amiodarone 200 mg b.i.d, Toprol XL 200 mg q pm, and Digoxin 125 mcg daily. -- Patient currently on Lovenox for anticoagulation, will need to convert to Eliquis or Xarelto at discharge. (3) Severe mitral regurgitation by prior echocardiogram: -- May be contributing to symptoms but he is not a candidate for any surgical intervention. (4) Metastatic lung cancer (metastasis from lung to other site): -- Management as per Heme-Onc and Pulmonology. -- Continue chemotherapy. (5) Diastolic CHF due to valvular disease: -- Removed 1400 cc of transudate of fluid removed with thoracentesis. -- Negative fluid balance of 1321 ml. -- Body weight is down 10 pounds since being admitted. He is stable at 67.8kg today. -- Continue to diurese Lasix 40 mg daily. (6) Acute kidney injury: --Cr bumped to 1.48 this morning. BUN of 32. --Will continue Lasix and plan to monitor closely. Repeat BMP in the AM. (7) Hypokalemia: -- Potassium of 3.3 this morning. -- Will order potassium chloried 10meq PO today. -- Repeat BMP in AM. Admission and Anticipated Discharge Date Admission Date: February 29, 2020 Subjective 74-year-old male admitted for worsening dyspnea in the setting of atrial fibrillation with RVR and metastatic lung cancer. Patient is pending possible discharge tomorrow, however he developed worsening dyspnea while walking around the unit. Patient reports he has no shortness of breath while sitting. He remains on 2 L of nasal cannula oxygen. He has no other complaints today, and feels well. Cytology from thoracentesis is pending. Review of Systems Constitutional: no fever and no chills Eyes: no worsening vision Ear, Nose, Mouth, Throat: + dizziness (occasional dizziness with position changes ) Respiratory: no dyspnea Cardiovascular: no chest pain Gastrointestinal: no abdominal pain, no nausea and no vomiting Psychiatric: no confusion Physical Exam Physical Exam: Temp Pulse Resp BP Pulse Ox 36.5 C 64 18 95/57 L 93 03/05/20 07:00 03/05/20 07:19 03/05/20 07:08 03/05/20 07:00 03/05/20 07:08 Patient is afebrile. Hypotensive at 95/57, but is asymptomatic other than dizziness with position changes. Constitutional: average body habitus; no acute distress ENMT: Ears: no hearing impairment Neck: trachea midline, no thyromegaly Respiratory: normal respiratory effort, lungs clear to auscultation Cardiovascular: Rate/Rhythm: + irregularly irregular Gastrointestinal (Abdomen): Inspection/Auscultation: normal bowel sounds Percussion/Palpation: abdomen soft; abdomen nontender Psychiatric: A+Ox3, euthymic affect Results & Data Results & Data ([facility]) Vital Signs (Past 12 Hours) Vital Signs Temp Pulse Pulse Resp BP BP Pulse Ox 03/05/20 07:19 64 03/05/20 07:08 69 18 93 03/05/20 07:00 36.5 C 72 18 95/57 L 91 03/05/20 04:00 36.8 C 69 18 97/56 L 93 03/04/20 23:45 36.9 C 72 18 95/59 L 96 03/04/20 22:38 81 PG Care Time/CCT Total # of Minutes Spent Total Time Spent with Patient: Total time spent is greater than 50% in coordination of care (as documented) at patient's floor/unit and/or counseling patient: Coding Level of Care Code 47033 Subseq Hosp Care Lvl 2 History Expanded Problem Focused Exam Expanded Problem Focused Medical Decision Making Moderate Complexity Diagnoses Dyspnea on minimal exertion R06.00 Atrial fibrillation with RVR I48.91 Severe mitral regurgitation by prior echocardiogram I34.0 Metastatic lung cancer (metastasis from lung to other site) C34.90 Laterality: unspecified laterality Diastolic CHF due to valvular disease I50.30; I38 Acute kidney injury N17.9 Hypokalemia E87.6 (1) Metastatic lung cancer (metastasis from lung to other site) Laterality: unspecified laterality Qualified Code(s): C34.90 - Malignant neoplasm of unspecified part of unspecified bronchus or lung
[2020-03-05 09:36] LABS: Basophils # (auto) 0.02 K/uL (0-0.2); Basophils % (auto) 0.3 %; Eosinophils # (auto) 0.02 K/uL (0-0.5); Eosinophils % (auto) 0.3 %; Hematocrit (blood only) 33.1 % (42-52); Hemoglobin 10.7 g/dL (14.0-18.0); Immature Granulocytes # (auto) 0.14 K/uL (0.00-0.02); Immature Granulocytes % (auto) 1.9 %; Lymphocytes # (auto) 0.49 K/uL (1.2-3.4); Lymphocytes % (auto) 6.8 %; Mean Corpuscular Hemoglobin 32.3 pg (25-34); Mean Corpuscular Hgb Conc 32.3 g/dL (32-36); Mean Platelet Volume 9.7 fL (7.4-10.4); Monocytes # (auto) 1.24 K/uL (0.11-0.59); Monocytes % (auto) 17.2 %; Neutrophils # (auto) 5.28 K/uL (1.4-6.5); Neutrophils % (auto) 73.5 %; Nucleated RBC # (auto) 0.05 K/uL (0-0); Nucleated RBC % (auto) 0.7 %; Platelet Count 218 K/uL (130-400); RDW Coefficient of Variation 18.7 % (11.5-14.5); RDW Standard Deviation 68.4 fL (36.4-46.3); Red Blood Count 3.31 M/uL (4.7-6.1); White Blood Count 7.19 K/uL (4.8-10.8)
[2020-03-05 10:02] LABS: BUN Creatinine Ratio 21.8 (10-20); Calcium 9.2 mg/dl (8.5-10.1); Est GFR (African American) 53.3; Potassium 3.3 mmol/L (3.5-5.1)
[2020-03-05] MEDS ORDERED: POTASSIUM CHLORIDE 10 MEQ TABCR PO STA (10:33)
[2020-03-05] MEDS: DIGOXIN 0.125 MG TAB PO SCH (16:27)
[2020-03-05] MEDS ORDERED: LEVALBUTEROL TARTRATE 15 GM HFA.AER.AD INH PRN (18:10)
[2020-03-05] MEDS: METOPROLOL SUCC 50MG EXT REL TAB PO SCH (20:17)
[2020-03-05] MEDS: ATORVASTATIN 40 MG TAB PO SCH (20:18)
[2020-03-06] MEDS: HEPARIN 100 UNIT/ML 5ML FLUSH FLUSH PRN ×2 (05:20→18:23)
[2020-03-06] MEDS: LEVALBUTEROL TARTRATE 15 GM HFA.AER.AD INH SCH ×4 (07:37→19:12)
[2020-03-06 07:53] LABS: Calcium 8.3 mg/dl (8.5-10.1); Creatinine Clr Calc Pharmacy 43.2 ml/min; Est GFR (African American) 55.1; Est GFR (Non-African American) 47.5; Potassium 3.7 mmol/L (3.5-5.1)
--- NOTE | 2020-03-06 08:45 | XRay Report ---
XR chest 2V PA/lateral CLINICAL HISTORY: recent thoracentesis; persistent hypoxia COMPARISON STUDY: 03/02/2020 FINDINGS: The heart remains enlarged. There is a left-sided A-Port catheter. There are persistent ext ensive nodular right lung airspace opacities. There is subtle left lung interstitial thickening. No p neumothorax is visualized. There is a suspected small right pleural effusion.[ IMPRESSION: 1. No significant change from the preceding study 2. Extensive right lung airspace opacities 3. Small right pleural effusion 4. Cardiomegaly with interstitial thickening likely secondary to mild pulmonary vascular congestion ACT 112: Negative or not required by law. Electronically signed by: Scott Price M.D. 03/06/2020 8:44 AM
[2020-03-06] MEDS: AMIODARONE 200 MG TAB PO SCH ×2 (09:07→21:46)
[2020-03-06] MEDS: FOLIC ACID 1 MG TAB PO SCH (09:08)
[2020-03-06] MEDS: TAMSULOSIN HCL 0.4 MG CAP PO SCH ×2 (09:08→21:46)
[2020-03-06] MEDS: FUROSEMIDE 40 MG TAB PO SCH (09:08)
[2020-03-06] MEDS: predniSONE 50 MG TAB PO SCH (09:09)
[2020-03-06] MEDS: PSYLLIUM 58.6% POWDER PACKET PO SCH (09:09)
--- NOTE | 2020-03-06 13:47 | Hospitalist Progress Note ---
Date of Service March 06, 2020 Assessment & Plan (1) Dyspnea on minimal exertion: -- Improved since his thoracentesis removing 1400 cc of transudative fluid initially, but feels worsening today -- Attempted 2 step but ambulated in the hallway 03/05 on room air. O2 sats dropped to 83% with a heart rate of 96. -- This is likely multifactorial with lung cancer, severe mitral regurgitation, radiation pneumonitis, anemia, atrial fibrillation. -- Continue Amiodarone 200 mg b.i.d, Toprol XL 200 mg q pm, and Digoxin 125 mcg daily. -- Continue Prednisone 50 mg daily, will eventually taper. -- Continue supplemental oxygen. -- He is receiving chemotherapy with Dr. Miller to treat underlying malignancy. Repeat CXR today is noted as unchanged from 03/02 CXR Will discuss with pulm regarding tx options (2) Atrial fibrillation with RVR: -- Patient met with Dr. Astorga and they discussed the option of an ablation and pacemaker implantation. -- Whether they pursue this strategy will depend on the etiology of his primary lung processes and malignancy. -- If patient develops recurrent symptomatic pleural effusions that are of a primary lung process (such as his malignancy or ongoing pneumonitis) this would need to be addressed before they proceed with any form of invasive rate control strategy. -- Continue Amiodarone 200 mg b.i.d, Toprol XL 200 mg q pm, and Digoxin 125 mcg daily. -- Patient currently on Lovenox for anticoagulation, will need to convert to Eliquis or Xarelto at discharge. (3) Severe mitral regurgitation by prior echocardiogram: -- May be contributing to symptoms but he is not a candidate for any surgical intervention. (4) Metastatic lung cancer (metastasis from lung to other site): -- Management as per Heme-Onc and Pulmonology. -- Continue chemotherapy. (5) Diastolic CHF due to valvular disease: -- Removed 1400 cc of transudate of fluid removed with thoracentesis. -- Negative fluid balance of 1321 ml. -- Body weight is down 10 pounds since being admitted. He is stable at 67.8kg today. -- Continue to diurese Lasix 40 mg daily. (6) Acute kidney injury: --Cr bumped to 1.48 this morning. BUN of 32. --Will continue Lasix and plan to monitor closely. Repeat BMP in the AM. (7) Hypokalemia: -- Potassium WNL today Monitor Admission and Anticipated Discharge Date Admission Date: February 29, 2020 Subjective Pt with ongoing SOB, always with exertion and sometimes at rest. No chest pain and feels fine otherwise. No LE swelling. Pt denies fever, chest pain, abd pain, n/v/c/d, LE pain. He is not getting SOB with eating or talking, but woke this AM with what he feels was worse SOB. Review of Systems Review of Systems: Pertinent positives and negatives reviewed in HPI--all others negative Physical Exam Constitutional: WD/WN, vitals as above Eyes: normal visual mirza by confrontation and + anicteric sclerae Neck: normal visual inspection and trachea midline Respiratory: normal respiratory effort; no respiratory distress Auscultation: + crackles (R sided only, L is clear); no wheezes Moving good air b/l despite crackles on R Cardiovascular: Rate/Rhythm: regular rate and regular rhythm Gastrointestinal (Abdomen): Inspection/Auscultation: abdomen not distended Percussion/Palpation: abdomen soft; abdomen nontender Musculoskeletal: Head/Neck/Chest: normocephalic and head atraumatic negative for edema, peripheral pulses intact Skin: no rashes, warm and dry Neurologic: awake; not confused Speech / Cognition: normal speech Psychiatric: A+Ox3, euthymic affect Results & Data Results & Data ([facility]) Vital Signs (Past 12 Hours) Vital Signs Temp Pulse Pulse Pulse Resp BP BP 03/06/20 11:46 36.8 C 73 20 86/58 L 03/06/20 11:27 65 17 03/06/20 07:40 77 20 03/06/20 07:36 62 03/06/20 07:18 36.7 C 48 L 20 94/56 L 03/06/20 04:00 36.6 C 69 18 74/47 L 81/46 L Pulse Ox 03/06/20 11:46 93 03/06/20 11:27 03/06/20 07:40 93 03/06/20 07:36 03/06/20 07:18 93 03/06/20 04:00 95 PG Care Time/CCT Total # of Minutes Spent Total Time Spent with Patient: Total time spent is greater than 50% in coordination of care (as documented) at patient's floor/unit and/or counseling patient: Coding Level of Care Code 00868 Subseq Hosp Care Lvl 3 Diagnoses Dyspnea on minimal exertion R06.00 Atrial fibrillation with RVR I48.91 Severe mitral regurgitation by prior echocardiogram I34.0 Metastatic lung cancer (metastasis from lung to other site) C34.90 Laterality: unspecified laterality Diastolic CHF due to valvular disease I50.30; I38 Acute kidney injury N17.9 Hypokalemia E87.6 (1) Metastatic lung cancer (metastasis from lung to other site) Laterality: unspecified laterality Qualified Code(s): C34.90 - Malignant neoplasm of unspecified part of unspecified bronchus or lung
[2020-03-06] MEDS: DIGOXIN 0.125 MG TAB PO SCH (15:40)
--- NOTE | 2020-03-06 17:34 | Pulmonology Progress Note ---
Date of Service March 06, 2020 Assessment & Plan (1) Acute and chronic respiratory failure with hypoxia: Impression: 74-year-old male with advanced non-small cell lung cancer currently undergoing chemotherapy. He did receive pembrolizumab which was discontinued due to a skin rash. He has had progressive pulmonary infiltrates with increased septal thickening. The differential is broad and would include chemotherapeutic pulmonary toxicity related to pembrolizumab, fluid overload given his elevated BNP and severe mitral regurgitation, atypical pneumonia although his procalcitonin was negative, and lymphangitic progression of cancer. He has been treated empirically for the majority of these etiologies without significant improvement. At this point time performing a bronchoscopy would be of very low yield as he is already been on prednisone for several days and the findings in pulmonary associated chemotherapeutic toxicity are extraordinarily nonspecific and its essentially a diagnosis of exclusion. Recommendations: 1. I would recommend the patient be aggressively treated with steroids. We will discontinue his prednisone and place him on Solu-Medrol 125 mg IV every 8. 2. We will recheck inflammatory markers including ESR and CRP. We will also repeat his BNP level. Procalcitonin will also be rechecked to exclude infection although I think that is less likely. 3. I think continued diuresis may be beneficial. We will give him an additional dose of Lasix and see how he does. 4. Unfortunately the patient is extremely limited in his options for his mitral regurgitation. Unilateral infiltrates are common with MR and are most commonly seen within the right hemithorax. 5. If this is lymphangitic spread of tumor or tumor emboli syndrome, there is little that can be done other than chemotherapy. This is also a difficult diagnosis to make and again is typically empiric after other etiologies have been excluded. We will see how he responds to diuretics and a higher dose of steroids. Again I think the utility of bronchoscopy at this point time is exceedingly low. His prognosis is somewhat guarded and consideration for palliative care may be appro priate (2) Pneumonitis: (3) Abnormal CT scan of lung: Admission and Anticipated Discharge Date Admission Date: February 29, 2020 Subjective Called by hospitalist to reevaluate this patient with hypoxemia. The patient been previously seen by Dr. Brewer and underwent thoracentesis. He is known to me from clinic. The patient reports that he may have gotten somewhat better w ith his thoracentesis however he remains with dyspnea on exertion and exertional hypoxemia. He has been treated empirically with prednisone and diuretics. He has known severe mitral regurgitation. He did receive pembrolizumab and there was the possibility raised of chemotherapeutic pulmonary toxicity. His BNP on presentation was elevated over 4000 but down from 7000 in January. Procalcitonin on presentation was negative Review of Systems Review of Systems: All systems reviewed & are unremarkable except as noted in HPI & below Physical Exam Physical Exam: Constitutional: No acute distress HEENT: EOMI, PERRLA Respiratory system: Decreased air entry on the right side, no wheeze, no rhonchi, mild crackles right lower lobe CVS: S1-S2 positive, no murmurs or gallops, irregular Abdomen: Soft, nontender, nondistended, positive bowel sounds x4 Extremities: +2 pulses bilaterally radialis/ dorsalis pedis, no cyanosis, no edema Neuro: Awake alert oriented x3 Psych: Normal mood and affect G/U: No Sinclair Patient was saturating 97% on 2 L nasal cannula at the time of examination at rest. Went down to 1 L Skin: no rashes, warm and dry Lymphatic: no cervical or axillary lymphadenopathy Results & Data Results & Data ([facility]) Vital Signs (Past 12 Hours) Vital Signs Temp Pulse Pulse Resp BP BP Pulse Ox 03/06/20 15:59 36.5 C 68 16 92/56 L 84/57 L 94 03/06/20 15:40 72 03/06/20 15:21 70 18 97 03/06/20 15:00 66 03/06/20 11:46 36.8 C 73 20 86/58 L 93 03/06/20 11:27 65 17 03/06/20 07:40 77 20 93 03/06/20 07:36 62 03/06/20 07:18 36.7 C 48 L 20 94/56 L 93 Laboratory Results 03/05/20 08:57 03/06/20 06:42 Diagnostic Findings Imaging studies were independently reviewed, specifically the patient's CT angiogram from 02/29/2020 and compared to prior CT scans from 3 months ago. There has been development of patchy multifocal airspace opacities with increased interstitial markings and a right-sided pleural effusion. Chest x-ray from today was independently reviewed and demonstrated multifocal airspace opacities without significant pleural effusion identified. PG Care Time/CCT Total # of Minutes Spent Total Time Spent with Patient: Total time spent is greater than 50% in coordination of care (as documented) at patient's floor/unit and/or counseling patient: Coding Level of Care Code 59187 Subseq Hosp Care Lvl 3 Diagnoses Acute and chronic respiratory failure with hypoxia J96.[address] scan of lung R91.8
[2020-03-06 18:31] LABS: C Reactive Protein 0.96 mg/dl (0-0.29)
[2020-03-06] MEDS ORDERED: FUROSEMIDE 40 MG in SYRINGE 0 ML IV ONE (19:00)
[2020-03-06] MEDS: ATORVASTATIN 40 MG TAB PO SCH (21:46)
[2020-03-06] MEDS: methylPREDNISolone 125 MG in SYRINGE 0 ML IV SCH (21:47)
[2020-03-06] MEDS: METOPROLOL SUCC 50MG EXT REL TAB PO SCH (23:04)
[2020-03-07 06:34] LABS: BUN Creatinine Ratio 24.7 (10-20); Calcium 8.7 mg/dl (8.5-10.1); Creatinine Clr Calc Pharmacy 41.4 ml/min; Est GFR (African American) 52.4; Est GFR (Non-African American) 45.2; Potassium 3.7 mmol/L (3.5-5.1)
[2020-03-07] MEDS: methylPREDNISolone 125 MG in SYRINGE 0 ML IV SCH ×3 (06:39→20:51)
[2020-03-07] MEDS: LEVALBUTEROL TARTRATE 15 GM HFA.AER.AD INH SCH ×4 (07:17→20:05)
[2020-03-07] MEDS: AMIODARONE 200 MG TAB PO SCH ×2 (07:44→20:52)
[2020-03-07] MEDS: FOLIC ACID 1 MG TAB PO SCH (07:45)
[2020-03-07] MEDS: TAMSULOSIN HCL 0.4 MG CAP PO SCH ×2 (07:45→20:52)
[2020-03-07] MEDS: FUROSEMIDE 40 MG TAB PO SCH (07:45)
[2020-03-07] MEDS: PSYLLIUM 58.6% POWDER PACKET PO SCH (07:46)
[2020-03-07] MEDS: guaiFENesin 600 MG TABCR PO SCH ×2 (09:40→20:52)
[2020-03-07] MEDS: HEPARIN 100 UNIT/ML 5ML FLUSH FLUSH PRN (14:34)
[2020-03-07] MEDS: DIGOXIN 0.125 MG TAB PO SCH (16:09)
--- NOTE | 2020-03-07 16:12 | Pulmonology Progress Note ---
Date of Service March 07, 2020 Assessment & Plan (1) Acute and chronic respiratory failure with hypoxia: Impression: 74-year-old male with advanced non-small cell lung cancer currently undergoing chemotherapy. He did receive pembrolizumab which was discontinued due to a skin rash. He has had progressive pulmonary infiltrates with increased septal thickening. The differential is broad and would include chemotherapeutic pulmonary toxicity related to pembrolizumab, fluid overload given his elevated BNP and severe mitral regurgitation, atypical pneumonia although his procalcitonin was negative, and lymphangitic progression of cancer as well as radiation pneumonitis. I reviewed his therapeutic radiation plan with Dr. Issa and the area of infiltrate is clearly correlated with his radiation mirza and the timing would be consistent with radiation pneumonitis. Radiation pneumonitis is diagnosis of exclusion as is pembrolizumab pulmonary toxicity. Recommendations: 1. At this point time it appears that the leading diagnosis would be radiation pneumonitis although cannot exclude potential pembrolizumab pulmonary toxicity. Treatment is the same with steroids. It is unlikely that either of these entities would respond relatively quickly so the fact that his pulmonary infi ltrates persist would go along with either of these diagnoses. At this point time I think the patient is stable to dismiss from the hospital with supplemental oxygen at home. When he is ready to go home would place him on slow taper of prednisone, 50 mg daily for a week then decrease by 10 mg every week. He should have a follow-up chest x-ray and see us back in pulmonary clinic in about 4 weeks. 2. Patient does have elevated inflammatory markers including ESR, CRP as well as an elevated proBNP level. His procalcitonin was negative. This would argue against infection but raises the possibility of atypical pulmonary edema as well as inflammatory related lung disease. 3. Patient's dyspnea certainly could be related to his mitral valve disease but unfortunately he does not have surgical or interventional options. Unclear if he be a candidate for mitral clip. Management per cardiology. 4. The pleural fluid would argue for a cardiogenic etiology as its not common for pembrolizumab or radiation toxicity to cause pleural effusions. Defer additional diuresis to his primary care provider and cardiology service. Slightly increased to 1.5 with diuresis 5. Cannot exclude potential lymphangitic carcinomatosis or malignant pleural effusion although sensitivity and specificity is typically on the order of 60 to 70% with pleural fluid sampling. Would favor continuing to treat potential reversible causes and seeing how the patient does. From a pulmonary perspective, the patient could potentially be dismissed home. Will defer to the cardiology, medical oncology, and the patient's primary admitting service. I would be happy to see him back in clinic. If there are additional pulmonary concerns, feel free to contact us. Otherwise we will sign off at this point time. (2) Pneumonitis: (3) Abnormal CT scan of lung: Admission and Anticipated Discharge Date Admission Date: February 29, 2020 Subjective Patient seen and examined. He states he is doing okay clinically. He ambulated with oxygen desaturations down into the mid to low 80% range on room air. He is not coughing wheezing or expectorating phlegm. He is tolerating a diet. Review of Systems Review of Systems: Unchanged from prior Physical Exam Physical Exam: Constitutional: No acute distress HEENT: EOMI, PERRLA Respiratory system: Decreased air entry on the right side, no wheeze, no rhonchi, mild crackles right lower lobe CVS: S1-S2 positive, no murmurs or gallops, irregular Abdomen: Soft, nontender, nondistended, positive bowel sounds x4 Extremities: +2 pulses bilaterally radialis/ dorsalis pedis, no cyanosis, no edema Neuro: Awake alert oriented x3 Psych: Normal mood and affect G/U: No Sinclair Patient was saturating 97% on 2 L nasal cannula at the time of examination at rest. Went down to 1 L Results & Data Results & Data ([facility]) Vital Signs (Past 12 Hours) Vital Signs Temp Pulse Pulse Pulse Resp BP BP 03/07/20 15:45 36.3 C L 89 18 102/61 03/07/20 15:31 69 94 H 18 03/07/20 11:37 94 H 18 03/07/20 11:36 36.4 C L 91 H 18 107/62 03/07/20 07:32 36.6 C 77 18 96/58 L 90/62 L 03/07/20 07:19 71 03/07/20 07:18 95 H 18 Pulse Ox 03/07/20 15:45 94 03/07/20 15:31 96 03/07/20 11:37 96 03/07/20 11:36 95 03/07/20 07:32 91 03/07/20 07:19 03/07/20 07:18 80 L Laboratory Results 03/05/20 08:57 03/07/20 05:52 Pleural fluid cytology negative Diagnostic Findings No new imaging PG Care Time/CCT Total # of Minutes Spent Total Time Spent with Patient: Total time spent is greater than 50% in coordination of care (as documented) at patient's floor/unit and/or counseling patient: Coding Level of Care Code 04814 Subseq Hosp Care Lvl 3 Diagnoses Acute and chronic respiratory failure with hypoxia J96.[address] scan of lung R91.8 Time Spent (min) 35
--- NOTE | 2020-03-07 18:09 | Cardiology Progress Note ---
Date of Service March 07, 2020 Assessment & Plan (1) Dyspnea on minimal exertion: (2) Abnormal CT scan of lung: (3) Metastatic lung cancer (metastasis from lung to other site): (4) Atrial fibrillation with RVR: (5) Severe mitral regurgitation by prior echocardiogram: (6) Diastolic CHF due to valvular disease: Patient with dyspnea on minimal exertion which is multifactorial, primarily right lung process (apparently radiation pneumonitis) exacerbated by difficult to control ventricular response to his atrial fibrillation and underlying mitral regurgitation. His mitral regurgitation was asymptomatic prior to development of metastatic lung cancer and the requisite treatment. He had not previously demonstrated evidence of congestive heart failure. Suspect capillary leak from radiation pneumonitis is exacerbated by higher pulmonary pressures due to longstanding mitral regurgitation. The net result was a transudative right pleural effusion and persistent right lung infiltrates. Very doubtful that this is generalized congestive failure, given his absence of findings on left lung in the absence of other congestive symptoms (such as orthopnea). Certainly, worthwhile to maintain on the "dry" side, but he has lost 10 pounds and is mildly azotemic, more aggressive diuresis may have limited further benefit. Upon discharge, recommend sliding scale furosemide as follows (current weight 149 lbs): Weight furosemide dose <145 none 145-155 40 mg >155 80 mg Due to hemoptysis and prior thrombocytopenia (since resolved) he had not been anticoagulated. He has been tolerating enoxaparin without further hemoptysis, so it would be reasonable to initiate apixaban for outpatient anticoagulation. Given some degree of renal dysfunction and the possibility of recurrent hemoptysis, could use 2.5 mg twice daily dosing. He may be a candidate for AV tonio ablation with pacemaker placement if his pulmonary process improves/resolves. His ventricular rate is still suboptimally controlled, but does not require urgent intervention. Continue current negative chronotropic regimen of amiodarone, metoprolol, and digoxin upon discharge. Please arrange for cardiology follow-up in 1 week, will reevaluate overall clinical status and possibility of ablation/pacemaker at that time. Admission and Anticipated Discharge Date Admission Date: February 29, 2020 Subjective No major change in clinical status. Nonproductive cough. No orthostatic symptoms. Able to walk the hallways without difficulties but with oxygen desaturation when not supplemented. Heart rate 90-100 bpm at rest, increases to 120-130 bpm with activity. Initiated on steroids for possible radiation pneumonitis. Has been on furosemide 40 mg daily with 10 pound weight loss. Physical Exam Physical Exam: Normal habitus white male who appears comfortable Afebrile. BP low normal. Pulse currently 110 bpm and irregular. Skin: No generalized lesions currently. HEENT: Unremarkable. Neck: Jugular venous pulse at the clavicle at 90, murmur transmitted to carotids. Lungs: Decreased breath sounds right side, generally clear. No wheezing or accessory muscle use. Cardiac: irregular rhythm with normal S1 and S2. 4/6 harsh mid systolic murmur at the left sternal border, apex, and axilla radiating to the base and carotids. No diastolic murmur or gallop. Abdomen: Benign. Extremities: Nontender without pretibial edema. Intact peripheral pulses. Neurologic: Normal affect and conversation, nonfocal Results & Data ([facility] [place]) Laboratory Results Normal electrolytes. BUN 37, creatinine 1.5 (33 and 1.44 yesterday). Diagnostic Findings Chest x-ray yesterday showed extensive right lung airspace opacities with a small right pleural effusion and interstitial thickening. No change compared with 03/02/2020 study. PG Care Time/CCT Total # of Minutes Spent Total Time Spent with Patient: Total time spent is greater than 50% in coordination of care (as documented) at patient's floor/unit and/or counseling patient: Coding Level of Care Code 73878 Subseq Hosp Care Lvl 3 Diagnoses Dyspnea on minimal exertion R06.[address] scan of lung R91.8 Metastatic lung cancer (metastasis from lung to other site) C34.90 Laterality: unspecified laterality Atrial fibrillation with RVR I48.91 Severe mitral regurgitation by prior echocardiogram I34.0 Diastolic CHF due to valvular disease I50.30; I38 (1) Metastatic lung cancer (metastasis from lung to other site) Laterality: unspecified laterality Qualified Code(s): C34.90 - Malignant neoplasm of unspecified part of unspecified bronchus or lung
--- NOTE | 2020-03-07 19:08 | Hospitalist Progress Note ---
Date of Service March 07, 2020 Assessment & Plan (1) Acute respiratory failure with hypoxia: 2nd to suspected right-sided radiation pneumonitis + acute/chronic diastolic CHF. Both issues improved. Pt still on NC O2 but is comfortable. Remains on high-dose steroids and lasix has been transitioned to PO. Will need 2-step O2 test tomorrow prior to d/c home. (2) Radiation pneumonitis: Right-sided. Suspected. Currently on solumedrol 125mg TID. Stop in am. Then convert to po prednisone starting at 50mg/day and wean by 10mg each week. Will need close f/u with [facility] pulmonary post-d/c for this. Possibility of infectious pneumonia also entertained this admission but felt much less likely. No VTE / PE seen on recent CTA. (3) Atrial fibrillation with RVR: Continue Amiodarone 200 mg b.i.d, Toprol XL 200 mg q pm, and Digoxin 125 mcg daily. ?Eliquis or Xarelto at discharge? will d/w Dr Garcia. Rates not perfect but acceptable given current circumstances. Possibility of AV tonio ablation with pacemaker insertion still a possibility for the future. Will need close f/u with Dr Garcia post-d/c. (4) Severe mitral regurgitation by prior echocardiogram: not a candidate for any surgical intervention. (5) Metastatic lung cancer (metastasis from lung to other site): Lymph nodes, to the left lung (suspected), etc. No obvious liver, bony, or brain mets on recent or past imaging. f/u Dr Miller post-dc. Possible that his immune-based chemo caused pneumonitis but felt much less likely than radiation. (6) Diastolic CHF due to valvular disease: acute diastolic CHF. improved/resolved. converted to PO lasix. will use lasix on weight-based sliding scale post-d/c. (7) Acute kidney injury: 2nd to diuresis. BMP am. (8) Hypokalemia: Resolved (9) Chronic kidney disease, stage III (moderate): baseline 40s/50s total time today - 65 minutes including long conversation with son by phone, bedside visit, charting/orders, reviewing records/EMR, etc Admission and Anticipated Discharge Date Admission Date: February 29, 2020 Subjective patient feeling ok during the visit. had his sneakers on and jumped up from the chair to greet me. stated he walked the hallways - without O2 - and desatted to low 80s. had mild MARTELL with walking in hallways. anxious to go home. patient had NUMEROUS questions about his pleural effusion, lungs, cancer, prognosis, etc. he states he would return home with his ex- who has been helping with his care since lung ca was diagnosed. tele overnight - fib/flutter- rates 90s/100s. had extensive conversation with pt's son, Sarabjit, who lives in [place] -- discussion was 20 minutes. bedside rounds was 30 minutes, with >50% spent counseling patient, showing him xrays, drawing him picture of pleural effusion, etc. Review of Systems Constitutional: no fever, no chills and no anorexia Respiratory: + cough and + dyspnea on exertion; no sputum production Cardiovascular: no chest pain, no orthopnea and no edema Gastrointestinal: no abdominal pain Physical Exam Constitutional: no acute distress and no altered mental status ENMT: external ear and nose normal, oropharynx normal Respiratory: no respiratory distress Auscultation: + crackles (right lung; none left); no wheezes Cardiovascular: Rate/Rhythm: + tachycardic and + irregularly irregular Heart Sounds: normal S1, normal S2 and + murmur (3-4/6 holosystolic LLSB w/ xrt to left axillae) Vessels: posterior tibial pulses present and dorsalis pedis pulses present; no JVD Extremities: no edema Gastrointestinal (Abdomen): normal bowel sounds, soft, nontender, no hepatosplenomegaly Psychiatric: A+Ox3, euthymic affect Results & Data Results & Data ([facility]) Vital Signs (Past 12 Hours) Vital Signs Temp Pulse Pulse Pulse Resp BP BP 03/07/20 16:09 95 H 03/07/20 15:45 36.3 C L 89 18 102/61 03/07/20 15:31 69 94 H 18 03/07/20 11:37 94 H 18 03/07/20 11:36 36.4 C L 91 H 18 107/62 03/07/20 07:32 36.6 C 77 18 96/58 L 90/62 L 03/07/20 07:19 71 03/07/20 07:18 95 H 18 Pulse Ox 03/07/20 16:09 03/07/20 15:45 94 03/07/20 15:31 96 11/24/20 11:37 96 03/07/20 11:36 95 03/07/20 07:32 91 03/07/20 07:19 03/07/20 07:18 80 L Laboratory Results Laboratory Results - last 24 hr 03/06/20 03/07/20 17:51 05:52 ESR 37 H Sodium 136 Potassium 3.7 Chloride 98 Carbon Dioxide 32 Anion Gap 6.0 BUN 37 H Creatinine 1.50 H Est Cr Clr Drug Dosing 41.4 Est GFR ( Amer) 52.4 Est GFR (Non-Af Amer) 45.2 BUN/Creatinine Ratio 24.7 H Glucose 182 H Calcium 8.7 PG Care Time/CCT Total # of Minutes Spent Total Time Spent with Patient: Total time spent is greater than 50% in coordination of care (as documented) at patient's floor/unit and/or counseling patient: Prolonged Care Time Prolonged Care Time: Yes Total Prolonged Care Time: 65 Coding Level of Care Code 04252 Subseq Hosp Care Lvl 3 (25 - SIGNIFICANT, SEPARATELY IDENTIFIABLE ) Diagnoses Acute respiratory failure with hypoxia J96.01 Radiation pneumonitis J70.0 Atrial fibrillation with RVR I48.91 Severe mitral regurgitation by prior echocardiogram I34.0 Metastatic lung cancer (metastasis from lung to other site) C34.90 Laterality: unspecified laterality Diastolic CHF due to valvular disease I50.30; I38 Acute kidney injury N17.9 Hypokalemia E87.6 Chronic kidney disease, stage III (moderate) N18.30 Chronic kidney disease stage 3 subtype: unspecified whether 3a or 3b Additional Codes Prolonged Care Time - Prolonged Care Time: Yes ([id number]) Comment 65 total minutes today (1) Metastatic lung cancer (metastasis from lung to other site) Laterality: unspecified laterality Qualified Code(s): C34.90 - Malignant neoplasm of unspecified part of unspecified bronchus or lung (2) Chronic kidney disease, stage III (moderate) Chronic kidney disease stage 3 subtype: unspecified whether 3a or 3b Qualified Code(s): N18.30 - Chronic kidney disease, stage 3 unspecified
[2020-03-07] MEDS: METOPROLOL SUCC 50MG EXT REL TAB PO SCH (20:52)
[2020-03-07] MEDS: ATORVASTATIN 40 MG TAB PO SCH (20:52)
[2020-03-07] MEDS: HYDROcodone/HOMATROPINE SYRUP 5MG/1.5MG 5ML UDP PO PRN (20:57)
[2020-03-08] MEDS: HEPARIN 100 UNIT/ML 5ML FLUSH FLUSH PRN ×2 (06:00→14:45)
[2020-03-08] MEDS: methylPREDNISolone 125 MG in SYRINGE 0 ML IV SCH (06:00)
[2020-03-08] MEDS: LEVALBUTEROL TARTRATE 15 GM HFA.AER.AD INH SCH ×3 (07:22→15:32)
[2020-03-08] MEDS: FOLIC ACID 1 MG TAB PO SCH (08:21)
[2020-03-08] MEDS: guaiFENesin 600 MG TABCR PO SCH (08:21)
[2020-03-08] MEDS: PSYLLIUM 58.6% POWDER PACKET PO SCH (08:21)
[2020-03-08] MEDS: TAMSULOSIN HCL 0.4 MG CAP PO SCH (08:22)
[2020-03-08 08:34] LABS: BUN Creatinine Ratio 27.6 (10-20); Creatinine Clr Calc Pharmacy 41.3 ml/min; Est GFR (Non-African American) 44.9; Potassium 4.1 mmol/L (3.5-5.1)
[2020-03-08] MEDS: AMIODARONE 200 MG TAB PO SCH (11:47)
[2020-03-08] MEDS: FUROSEMIDE 40 MG TAB PO SCH (11:47)
--- NOTE | 2020-03-08 15:25 | Discharge Summary ---
Date of Service date of admission - February 29, 2020 date of discharge - March 08, 2020 Admission HPI Per Admitting Provider Norberto Jerome is a pleasant 74yo male with history of stage IV adenocarcinoma of the lung s/p XRT, currenlty on chemotherapy q [address] Miller (next treatment scheduled for 03/02/20), CKD, GERD, HTN, HLP. Patient with severe MR secondary to mitral valve prolapse, newly diagnosed paroxysmal atrial fibrillation. He currently follows with Cardiology, last saw Dr. aGrcia on 02/24/20. Patient with overall poorly controlled ventricular rate. He is currently on Metoprolol, Amiodarone and Digoxin. He takes Dyazide twice weekly. Patient notes worsening dyspnea on exertion and decreased exercise tolerance over the last 1-2 weeks. He reports cough productive for cardenas frothy sputum, occasionally pink/blood tinged. He experiences palpitations and tachycardia with minimal exertion, HR 140-160 at times as well as decreased oxygen saturations to mid 80's. Occasional dizziness, fatigue. Patient has oxygen at home - was previously using it as needed with exertion, however, he has been on 2L consistently over the last 3 days. He denies chest pain, fever, chills, nausea/vomiting/diarrhea/constipation. Denies edema, rapid weight gain, possibly mild orthopnea, no PND Patient was contacted by Dr. Garcia this morning and was noted to be dyspneic during the conversation. Saturations in the 80's. He had a CT performed this morning at the request of Dr. Miller then proceeded to the ER for additional workup. Principal Diagnosis acute hypoxic respiratory failure 2nd to suspected radiation pneumonitis Discharge Exam Constitutional no acute distress and no altered mental status ENMT external ear and nose normal, oropharynx normal Respiratory no respiratory distress Auscultation: + crackles (right lung; none left); no wheezes Cardiovascular Rate/Rhythm: regular rate and + irregularly irregular Heart Sounds: normal S1, normal S2 and + murmur (3-4/6 holosystolic LLSB w/ xrt to left axillae) Vessels: posterior tibial pulses present and dorsalis pedis pulses present; no JVD Extremities: no edema Gastrointestinal (Abdomen) normal bowel sounds, soft, nontender, no hepatosplenomegaly Psychiatric A+Ox3, euthymic affect Discharge Data Allergies Allergy/AdvReac Type Severity Reaction Status Date / Time No Known Allergies Allergy Verified 02/29/20 20:55 Consultations [facility] Cardiology [facility] Pulmonology Oncology PT/OT Procedures Performed 1. thoracentesis, right chest - Gregory Brewer MD 2. echocardiogram: * hyperdynamic LV * no regional wall motion abnormalities * EF >70% * severe prolapse of posterior mitral valve leaflet * severe mitral regurgitation * mild tricuspid regurgitation Ordered Studies 03/01/20 14:34 US point of care ultrasound Urgent 03/02/20 13:48 US point of care ultrasound Urgent Hospital Course (1) Acute respiratory failure with hypoxia: 2nd to suspected right-sided radiation pneumonitis + acute/chronic diastolic CHF + right-sided pleural effusion s/p thoracentesis. All issues improved while here but still requiring oxygen by time of discharge. Received IV/PO steroids, IV/PO diuretics, and again the thoracentesis on right. 2-step oxygen test prior to discharge showed the need for 2 liters of NC O2 with activity, but room air at rest. (2) Radiation pneumonitis: Right-sided. Suspected. Previously received radiation to the right chest lung cancer. Seen by [facility] Pulmonary - steroids were advised for this. Initially was on high-dose solumedrol. Converted to oral prednisone starting at 50mg/day for 1 week, then weaning down by 10mg each week. Will need close f/u with [facility] pulmonary post-d/c for this issue. Possibility of infectious pneumonia was also entertained this admission but felt much less likely. No VTE / PE seen on recent CTA. (3) Atrial fibrillation with RVR: Patient was seen by [facility] Cardiology while here. A.fib was challenging to control in the setting of his pulmonary issues. He will continue Amiodarone 200 mg b.i.d, Toprol XL 200 mg q pm, and Digoxin 125 mcg daily. After much discussion the patient will initiate Eliquis 2.5mg BID for anticoagulation. Due to the difficulty with controlling his atrial arrhythmias AV tonio ablation with pacemaker insertion was discussed as a future option. Will need close f/u with Dr Gilberto Garcia post-d/c to monitor the a.fib. (4) Severe mitral regurgitation by prior echocardiogram: not a candidate for any surgical intervention. (5) Metastatic lung cancer (metastasis from lung to other site): Lymph nodes, to the left lung (suspected), etc. No obvious liver, bony, or brain mets on recent or past imaging. f/u Dr Yovanny Miller post-dc at the [facility]. There was some possibility that his immune-based chemotherapy caused his pneumonitis but felt much less likely relative to radiation pneumonitis. (6) Diastolic CHF due to valvular disease: Acute/chronic. Acute component improved/resolved with IV diuretics. In addition to valvular heart disease his rapid a.fib likely also contributed to decompensation. Will use weight-based lasix at home as follows: if weight is LESS THAN 145 pounds then NO lasix or potassium if weight is 145 to 155 pounds then lasix 40mg once daily + potassium if weight is 155 pounds or more then lasix 80mg once daily + potassium (7) Acute kidney injury: 2nd to diuresis. Discharge Creatinine was 1.5. (8) Hypokalemia: Repleted/resolved. (9) Chronic kidney disease, stage III (moderate): Typical baseline CrCl 40s/50s Mild YOLANDA while here, likely due to diuretics Discharge Cr 1.5 (10) Pleural effusion on right: s/p thoracentesis by [facility] Pulmonary. Cytologies from fluid negative for malignant cells. Fluid was likely transudative by Lite's criteria. Will need to monitor for reaccumulation of the fluid given his complex heart issues as well as advanced lung cancer. Total Time Total Time Spent Total Time Spent (In Minutes): 45 Total Time Includes: Examination of the Patient, Discharge Planning, Medication Reconciliation and Communication With Other Providers Discharge Plan Discharge Items Patient Disposition: Home - Home Health Services Reason For Visit: Shortness of breath Discharge Diagnosis: 1. suspected radiation pneumonitis of right lung 2. atrial fibrillation 3. lung cancer 4. pleural effusion on right (pocket of fluid between the lung and chest wall) - fluid removed with needle procedure by asthma educator; no cancer cells found in the fluid; no infection in the fluid Activity: As commented below Activity Comment: gradually increase your activity as tolerated Non-emergency contact: Primary Care Provider, Carton Stamper, Oncologist and Senior Cyber Intelligence Analyst Call non-emergency contact if: you have any medication questions, your symptoms worsen and you have a fever Follow-up/Referrals: Brice Garcia MD [Physician] - (see Dr Garcia within 1 week) Francisco Pittman MD [Primary Care Provider] - Yovanny Miller DO [Physician] - (call office this coming Friday to schedule follow-up appointment for next week) Gregory Brewer MD [Physician] - (see Dr Brewer or Dr Garza within 1-2 weeks) Diet: Heart Healthy Fluids: 1800ml (7 cups) Addtl Attending Provider Instructions: You were treated for the problems listed above in "discharge diagnoses." It was felt that the bulk of your breathing problems was likely due to "radiation pneumonitis." This is when the lung becomes inflamed from prior radiation. It is treated with prednisone (steroids). You have made good progress while here with the steroids, IV diuretics, and time. Recommendations: 1. Starting 03/09/20, Thanksgiving - * take 5 tabs of prednisone once daily with food; do this daily for a total of 7 days, then -- * 4 tabs of prednisone daily with food for 7 days, then -- * 3 tabs of prednisone daily with food for 7 days, then -- call or see your lung doctor for further guidance * know that prednisone can irritate your stomach; thus, I have called in "pantoprazole" in for you -- it is an acid hand molder * prednisone can also cause water/fluid retention 2. For fluid/water excess/weight gain - * as per Dr Garcia do the following - * check your weight EVERY MORNING after emptying your bladder * if your weight is LESS THAN 145 pounds do NOT take lasix (furosemide) or potassium * if your weight is 145 to 155 pounds take lasix (furosemide) 40mg once daily along with potassium supplement * if your weight is 155 pounds or more take lasix 80mg once daily along with potassium supplement * if you have any questions about this please contact Dr Garcia's office 3. For cough/shortness of breath/wheezing - * may take xopenex inhaler 2 puffs every 6 hours as needed 4. For prevention of blood clots in your legs, lungs, and in the heart take - * ELIQUIS 2.5mg twice daily every day, first dose TONIGHT Information regarding your blood thinner - Your a.fib condition is typically treated with an anticoagulant. Anticoagulants will thin your blood to help prevent clots. * You should take her medication exactly as directed. * Never skip a dose. * Never take a double dose. If you miss a dose, take it as soon as you remember. Call your Primary Care doctor or plastic finisher if you experience any of the following: * Chest Pain * Sudden Shortness of Breath * Rapid or pounding heart beat * Fainting * Dizziness * Cough with blood or bloody sputum * Sweating more than normal * Bruises * Heavy or uncontrolled bleeding * Blood in your urine, stool or vomit * Black or tarry stools * Heavy nosebleeding Caring for Your Self at Home: * Avoid sitting, standing or lying down for long periods without moving your legs and feet * When traveling by car, stop to get out and move around at least once every 3 hours * On long airplane, train or bus rides, get up and move around when possible * If you can't get up, wiggle your toes and tighten your calves to keep your blood moving 5. Oxygen - use 2 liters with activity/walking/ambulation/leaving your home. At rest and with sleep can take the oxygen off. 6. LOWER your flomax (tamsulosin) to ONCE DAILY dosing since your blood pressures have been running a bit low at times. Follow-up - see separate section Return to [facility] if - * you have fevers over 100 degrees * you have worsening shortness of breath * you have chest pains * you have bleeding from any location * you have to turn the oxygen up on your oxygen tank to keep your breathing comfortable * any other concerns Pending Studies at Discharge: No Stand-Alone Forms: [facility], Smoking Cessation Medications and DC Order Prescriptions: New furosemide 40 mg Tablet 40 mg PO QAM PRN (Reason: weight gain/fluid) Qty: 30 RF: 2 levalbuterol tartrate [Xopenex HFA] 45 mcg/actuation Hfa Aerosol Inhaler 2 puff inhalation Q6 PRN (Reason: cough/wheeze/shortness of breath) Qty: 1 RF: 0 Eliquis 2.5 mg tablet 2.5 mg PO BID Qty: 60 RF: 2 prednisone 10 mg tablet 10 mg PO DIRECTED Qty: 100 RF: 1 potassium chloride 20 mEq tablet extended release 20 meq PO DAILY PRN (Reason: when you take lasix/furosemide only) Qty: 30 RF: 2 pantoprazole [Protonix] 40 mg tablet,delayed release (DR/EC) 40 mg PO DAILY Qty: 30 RF: 2 Continued ketoconazole 2 % shampoo 1 appln TOP 2XWK RF: 0 lorazepam 0.5 mg tablet 0.5 mg PO .COMPLEX PRN (Reason: anxiety) Qty: 60 RF: 2 hydrocodone-homatropine 5-1.5 mg/5 mL (5 mL) syrup 5 ml PO Q4H PRN (Reason: cough) Qty: 200 RF: 0 amiodarone 200 mg tablet 200 mg PO BID Qty: 180 RF: 2 (DME) Portable Oxygen Misc See Rx Instructions .ROUTE .MEDSUPPLY Qty: 1 RF: 0 multivitamin [Daily Multi-Vitamin] tablet 1 tab PO QAM RF: 0 glucosamine HCl 1,500 mg tablet 1,500 mg PO BID RF: 0 metoprolol succinate 200 mg tablet extended release 24 hr 200 mg PO QPM Qty: 30 RF: 0 tramadol 50 mg tablet 50 - 100 mg PO Q6H PRN (Reason: pain) RF: 0 psyllium Packet 1 packet PO QAM RF: 0 digoxin 250 mcg (0.25 mg) tablet 125 mcg PO DAILY RF: 0 folic acid 1 mg tablet 1 mg PO DAILY RF: 0 Cameron Q Plus 2 tabs PO QAM RF: 0 Changed tamsulosin 0.4 mg capsule 0.4 mg PO DAILY Qty: 0 RF: 0 Discontinued dexamethasone 4 mg tablet 20 mg PO .BID UD RF: 0 triamterene-hydrochlorothiazid 37.5-25 mg tablet 1 tab PO .COMPLEX Qty: 24 RF: 5 atorvastatin 40 mg tablet 40 mg PO HS RF: 0 albuterol sulfate 90 mcg/actuation HFA aerosol inhaler 2 puff INHALATION Q6 PRN (Reason: Shortness Of Breath Or Wheezing) RF: 0 olanzapine [Zyprexa] 2.5 mg tablet 2.5 mg PO UD RF: 0 Discharge Orders: Discharge Order (Routine); Ordered 03/08/20 Ordered By: Héctor Kirkland Admission Data Admit Date/Time: 02/29/20 19:59 Attending Provider: Héctor Kirkland Admit Provider: Francine Ag Primary Care Provider: Francisco Pittman Other Providers: Francine Ag ; Brice Garcia ; Gregory Brewer ; Yovanny Miller V. ; [facility],Home Healthcare Other Interventions: Discharge Summary Assessment (RN) Last Done: 03/08/20 16:10 Coding Level of Care Code D/C Day Management >30 mins Diagnoses Acute respiratory failure with hypoxia J96.01 Radiation pneumonitis J70.0 Atrial fibrillation with RVR I48.91 Severe mitral regurgitation by prior echocardiogram I34.0 Metastatic lung cancer (metastasis from lung to other site) C34.90 Laterality: unspecified laterality Diastolic CHF due to valvular disease I50.30; I38 Acute kidney injury N17.9 Hypokalemia E87.6 Chronic kidney disease, stage III (moderate) N18.30 Chronic kidney disease stage 3 subtype: unspecified whether 3a or 3b Pleural effusion on right J90
[2020-03-08] MEDS: DIGOXIN 0.125 MG TAB PO SCH (15:27)
== END 2020-03-08 16:39 | disposition home health service (06) | DRG 205 ==
LOC: ED 17:18 → SUATTDRO 19:59 → 2W 19:59 → 2N 03-04 16:34

== ENCOUNTER 2020-03-17 10:22 | Inpatient (IN) ==
[2020-03-17] MEDS ORDERED: LEVALBUTEROL HCL 1.25 MG/3 ML NEB NEB STA (10:50)
[2020-03-17] MEDS ORDERED: guaiFENesin 600 MG TABCR PO STA (10:50)
[2020-03-17] MEDS ORDERED: SODIUM CHLORIDE 0.9% 250 ML IV ONE ×3 (10:52→14:19)
[2020-03-17] MEDS ORDERED: DEXAMETHASONE SOD INJ 10 MG/ML VIAL IV ONE (10:52)
[2020-03-17 11:11] LABS: Hematocrit (blood only) 36.9 % (42-52); Hemoglobin 12.1 g/dL (14.0-18.0); Mean Corpuscular Hemoglobin 32.8 pg (25-34); Mean Corpuscular Hgb Conc 32.8 g/dL (32-36); RDW Coefficient of Variation 19.2 % (11.5-14.5); Red Blood Count 3.69 M/uL (4.7-6.1); White Blood Count 18.22 K/uL (4.8-10.8)
[2020-03-17 11:16] LABS: Base Excess VBG 0.3 mEq/L; Oxygen Saturation VBG 87.8 %; pH VBG 7.48 (7.36-7.41)
[2020-03-17 11:22] LABS: INR 1.1 (0.9-1.1); Prothrombin Time 11.9 Seconds (9.0-12.0)
[2020-03-17 11:29] LABS: Albumin Level 2.8 gm/dl (3.4-5.0); BUN Creatinine Ratio 25.3 (10-20); Bilirubin Direct 0.3 mg/dl (0-0.2); Calcium 8.6 mg/dl (8.5-10.1); Creatinine Clr Calc Pharmacy 40.1 ml/min; Est GFR (Non-African American) 44.9; Magnesium 2.2 mg/dl (1.8-2.4); Potassium 3.7 mmol/L (3.5-5.1)
[2020-03-17 11:32] LABS: Albumin Globulin Ratio 0.8 (0.9-2); Bilirubin,Total 0.9 mg/dl (0.2-1); Globulin 3.7 gm/dl (2.5-4.0); Phosphorus 2.8 mg/dl (2.5-4.9); Total Protein 6.5 gm/dl (6.4-8.2); Troponin I 0.022 ng/ml (0-0.045)
[2020-03-17 11:35] LABS: Mean Platelet Volume 9.1 fL (7.4-10.4); Platelet Count 83 K/uL (130-400)
[2020-03-17 11:36] LABS: Anisocytosis Present; Basophils # (auto) 0.01 K/uL (0-0.2); Basophils % (auto) 0.1 %; Eosinophils # (auto) 0.01 K/uL (0-0.5); Eosinophils % (auto) 0.1 %; Immature Granulocytes # (auto) 0.14 K/uL (0.00-0.02); Immature Granulocytes % (auto) 0.8 %; Lymphocytes # (auto) 0.88 K/uL (1.2-3.4); Lymphocytes % (auto) 4.8 %; Monocytes # (auto) 0.53 K/uL (0.11-0.59); Monocytes % (auto) 2.9 %; Neutrophils # (auto) 16.65 K/uL (1.4-6.5); Neutrophils % (auto) 91.3 %; Ovalocytes 1+; Platelet Estimate Decreased (Normal)
--- NOTE | 2020-03-17 12:56 | Electrocardiogram Report ---
Test Reason : Blood Pressure : / mmHG Vent. Rate : 069 BPM Atrial Rate : 468 BPM P-R Int : 000 ms QRS Dur : 114 ms QT Int : 390 ms P-R-T Axes : 000 041 177 degrees QTc Int : 417 ms Atrial fibrillation with a competing junctional pacemaker Nonspecific ST and T wave abnormality Abnormal ECG When compared with ECG of 29-FEB-2020 17:35, Vent. rate has decreased BY 37 BPM Confirmed by Miller Astorga ([id number]) on 03/17/2020 12:56:22 PM Referred By: Confirmed By:Venkat Astorga
--- NOTE | 2020-03-17 13:03 | XRay Report ---
XR chest 1V portable HISTORY: Atypical Chest Pain COMPARISON: Chest 03/16/2020. FINDINGS: Progressive airspace opacities within the bilateral mid to lower lung zones, right greater than left. The heart remains enlarged. Left subclavian Port-A-Cath terminates at the SVC. No pneumoth orax. Emphysema. Small right pleural effusion persists. IMPRESSION: Slight progression of bilateral airspace opacities, right greater than left. A small right pleural ef fusion remains unchanged. ACT 112: Negative or not required by law. Electronically signed by: Rajat To M.D. 03/17/2020 1:02 PM
--- NOTE | 2020-03-17 13:50 | CT Scan Report ---
CT chest wo con CLINICAL HISTORY: lung ca, hypoxia COMPARISON STUDY: 02/29/2020 CT DOSE: 231.71 mGy.cm TECHNIQUE: CT of the thorax was performed from the thoracic inlet to the lung bases. Images are revi ewed in the axial, sagittal, and coronal planes. IV contrast was not administered for this examinatio n. A dose lowering technique was utilized adhering to the principles of ALARA. FINDINGS: Thyroid: Imaged portions of the thyroid gland are normal in appearance. Thoracic aorta: The thoracic aorta is normal in course and caliber, noting standard 3 vessel arch kapil rosa. Heart: The heart is enlarged. There are coronary artery calcifications. There is dilatation of the pu lmonary arteries suggesting pulmonary hypertension Lungs and pleural spaces: There is interval decrease in the size of the [id number] right pleur al effusion. There are persistent extensive right lung airspace opacities. Since the prior study, the patient has developed groundglass opacities within the left lower lobe. There is evidence for subple ural reticulation. Mediastinum: There are borderline enlarged mediastinal lymph nodes, similar to the prior study Ernestine: There is no evidence of pathologic hilar adenopathy given the limitations of a noncontrast stud y Axilla: There is no evidence of pathologic axillary lymphadenopathy Upper abdomen: Partially visualized upper abdominal viscera is within normal limits. Skeletal structures: There is a stable subtle T7 sclerotic focus IMPRESSION: 1. Interval decrease in the size of the right pleural effusion 2. Stable mediastinal and hilar lymphadenopathy 3. Persistent extensive multifocal right lung airspace opacities. Interval development of groundglass lower lobe airspace opacities. The findings are indicative of a nonspecific infectious/inflammatory pneumonitis. Correlation with Covid 19 testing should be considered to exclude a superimposed Covid 1 9 pneumonia. ACT 112: Negative or not required by law. Electronically signed by: Scott Price M.D. 03/17/2020 1:48 PM
--- NOTE | 2020-03-17 14:11 | Emergency Department Note ---
Impression & Plan Acute radiation pneumonitis, Metastatic lung cancer (metastasis from lung to other site), Hemoptysis, Atrial fibrillation with RVR, Pleural effusion on right ED Provider Note NAME: GUS KEY AGE: 74 SEX: M ARRIVES VIA: Walk-In INFORMANT: Patient, ED PROVIDER(S): Wyatt Mendes MD CHIEF COMPLAINT: Shortness of breath. PLAN: Disposition: Admit. MEDICAL DECISION MAKING: The patient is a pleasant 74-year-old gentleman with a past medical history of CKD, atrial fibrillation, CHF, hypertension, history of lung CA on home oxygen, undergoing radiation therapy but yet to initiate chemotherapy who presents emergency department with worsening shortness of breath with oxygen saturation at home on his home concentrator in the 70s improved on 5 L nasal cannula upon arrival but with increased oxygen requirement from his baseline. The patient was recently admitted for similar shortness of breath and hypoxia and improved after having thoracentesis. He denies any fevers, chills, vomiting, diarrhea, urinary symptoms. He reports his cough has been his typical cough recently in the setting of his lung cancer though he does report several episodes of blood- tinged sputum that also occurs in the setting of having very minor intermittent nosebleeding that resolves without intervention. He is currently on steroids but he is unclear when he began these. He has had numerous negative COVID-19 tests. He does not feel he has gained any weight and reports he monitors this closely. On arrival the patient is chronically ill-appearing but no acute distress, afebrile with stable vital signs. He has scattered wheezes and is diminished at the bases. He appears clinically dry. WBC 18.2, increased from prior however in the setting of being on steroids. H/H 12.1/36.9 improved from prior. Platelets 83K, decreased from recent but within prior range of values. VBG is unremarkable. Creatinine 1.5 within prior range of values in setting of CKD. BUN/creatinine> 20 suggestive of component of dehydration. Chemistry without metabolic acidosis. LFTs unremarkable. Troponin 0.022, within normal limits. BNP 4200 similar to recent values. COVID-19 RNA NAAT test was negative. EKG demonstrates atrial fibrillation without overt acute ischemia. CXR shows progression of bilateral airspace opacities which is further clarified on CT of the chest, which shows "persistent extensive multifocal right lung airspace opacities and interval development of groundglass lower lobe airspace opacities." Patient did feel some marginal improvement after IV fluid hydration, dexamethasone, Mucinex and Xopenex neb. However given the patient's increased oxygen requirement in the setting of evolving airspace opacities reasonable to admit the patient for possible new/worsening pneumonia vs pneumonitis. Will defer decision for antibiotics to admitting team. Dr. Root, [facility] [place] aware and will admit the patient for further management. Triage Nursing notes reviewed and agree them. Prior medical records reviewed Vital Signs: reviewed and remarkable for hypoxia. Differential diagnosis: Reactive airway disease, pneumonia, pneumothorax, COPD, CHF, infections, cardiac ischemia, pulmonary embolism, musculoskeletal, gastrointestinal, as well as other pathologies. ER treatment provided: See below. Diagnostics interpreted by me: ECG: Atrial fibrillation, 69 bpm, nonspecific ST and T wave abnormality, no overt ST elevation. QTc 417, QRS 114. Similar to 02/29/2020. Cardiac Monitoring: An order for continuous cardiac monitoring was placed and d emonstrated Atrial fibrillation, 69 bpm, no ectopy. Laboratory studies: See below Imaging studies: XR chest 1V portable HISTORY: Atypical Chest Pain COMPARISON: Chest 03/16/2020. FINDINGS: Progressive airspace opacities within the bilateral mid to lower lung zones, right greater than left. The heart remains enlarged. Left subclavian Port-A-Cath terminates at the SVC. No pneumothorax. Emphysema. Small right pleural effusion persists. IMPRESSION: Slight progression of bilateral airspace opacities, right greater than left. A small right pleural effusion remains unchanged. CT chest wo con CLINICAL HISTORY: lung ca, hypoxia COMPARISON STUDY: 02/29/2020 CT DOSE: 231.71 mGy.cm TECHNIQUE: CT of the thorax was performed from the thoracic inlet to the lung bases. Images are reviewed in the axial, sagittal, and coronal planes. IV cont rast was not administered for this examination. A dose lowering technique was utilized adhering to the principles of ALARA. FINDINGS: Thyroid: Imaged portions of the thyroid gland are normal in appearance. Thoracic aorta: The thoracic aorta is normal in course and caliber, noting standard 3 vessel arch anatomy. Heart: The heart is enlarged. There are coronary artery calcifications. There is dilatation of the pulmonary arteries suggesting pulmonary hypertension Lungs and pleural spaces: There is interval decrease in the size of the [id number] right pleural effusion. There are persistent extensive right lung airspace opacities. Since the prior study, the patient has developed gregor undglass opacities within the left lower lobe. There is evidence for subpleural reticulation. Mediastinum: There are borderline enlarged mediastinal lymph nodes, similar to the prior study Ernestine: There is no evidence of pathologic hilar adenopathy given the limitations of a noncontrast study Axilla: There is no evidence of pathologic axillary lymphadenopathy Upper abdomen: Partially visualized upper abdominal viscera is within normal limits. Skeletal structures: There is a stable subtle T7 sclerotic focus IMPRESSION: 1. Interval decrease in the size of the right pleural effusion 2. Stable mediastinal and hilar lymphadenopathy 3. Persistent extensive multifocal right lung airspace opacities. Interval development of groundglass lower lobe airspace opacities. The findings are indicative of a nonspecific infectious/inflammatory pneumonitis. Correlation with Covid 19 testing should be considered to exclude a superimposed Covid 19 pneumonia. Consultation(s): Dr. Root, [facility] [place]. HPI: The patient is a pleasant 74-year-old gentleman with a past medical history of CKD, atrial fibrillation, CHF, hypertension, history of lung CA on home oxygen, undergoing radiation therapy but yet to initiate chemotherapy who [facility] emergency department with worsening shortness of breath with oxygen saturation at home on his home concentrator in the 70s improved on 5 L nasal cannula upon arrival but with increased oxygen requirement from his baseline. The patient was recently admitted for similar shortness of breath and hypoxia and improved after having thoracentesis. He denies any fevers, chills, vomiting, diarrhea, urinary symptoms. He reports his cough has been his typical cough recently in the setting of his lung cancer though he does report several episodes of blood-tinged sputum that also occurs in the setting of having very minor intermittent nosebleeding that resolves without intervention. He is currently on steroids but he is unclear when he began these. He has had numerous negative COVID-19 tests. He does not feel he has gained any weight and reports he monitors this closely. ROS: See above HPI for pertinent positives & negatives. A total of 10 systems reviewed and were otherwise negative. PAST MEDICAL HISTORY:See Below PAST SURGICAL HISTORY:See Below FAMILY HISTORY:See Below SOCIAL HISTORY:See Below HOME MEDICATIONS:See Below ALLERGIES:See Below VITALS:See Below PHYSICAL EXAMINATION: GENERAL: Awake, alert, chronically ill-appearing, in no distress HENT: Normocephalic, atraumatic. Oropharynx with dry mucous membranes and otherwise unremarkable. EYES: Normal conjunctiva. Sclera non-icteric. NECK: Supple. No nuchal rigidity. FROM. No JVD. RESPIRATORY: Scattered wheezes and is diminished at the bases. Mildly dyspneic but in no distress. CARDIAC: Tachcyardic rate, irregular rhythm. Extremities warm and well perfused. Pulses equal. ABDOMEN: Soft, non-distended. No tenderness to palpation. No rebound or guarding. No masses. RECTAL: Deferred. MUSCULOSKELETAL: Chest examination reveals no tenderness. The back is symmetrical on inspection without obvious abnormality. There is no CVA tenderness to palpation. No joint edema. LOWER EXTREMITIES: Calves are equal size bilaterally and non-tender. No edema. No discoloration. NEURO: Normal sensorium. No sensory or motor deficits noted. SKIN: No rash or jaundice noted. Wyatt Mendes MD Past Med/Surg History Medical History Abdominal bruit Adenopathy Allergic rhinitis Atrial fibrillation with RVR Bright red blood per rectum no problems at present Constipation Diastolic CHF due to valvular disease Diverticulosis Esophageal reflux History of back problems History of colon polyps History of prostate cancer 2011, s/p brachytherapy Presenting PSA 2.8, clinical stage TIIa IBS (irritable bowel syndrome) Internal hemorrhoids Metastatic lung cancer (metastasis from lung to other site) Osteoarthritis Persistent dry cough x 6-7 months 2/2 lung carcinoma Prediabetes Severe mitral regurgitation by prior echocardiogram Thrombocytopenia Surgical History History of arthroscopy of right knee History of brachytherapy prostate cancer - finished treatment and follows with urology once a year History of cataract surgery right and left History of colonoscopy History of prostate biopsy History of repair of rotator cuff Rt History of right knee surgery History of tonsillectomy Status post trigger finger release x 2 left and right hand Family History Mother , age 67 colon ca Intestinal cancer Father , age 72 complications cardiac cath had abdominal aneurysm No problems noted. Brother No problems noted. Sister No problems noted. Son No problems noted. Uncle , age 64 lung cancer No problems noted. Other Cancer Heart disease No family history of adverse response to anesthesia Social History Smoking Status: Former smoker Tobacco Type: Cigarettes Age Started Using Tobacco: 15; Age Quit Using Tobacco: 46; packs per day: 0.5; Years Smoked: 31; Cigarettes Per Day: 0.5 pack; Number of Years Since Quit: 27; Second Hand Exposure: No; Hx Alcohol Use: No Hx Substance Use: No Preferred Language: Austrian Communication Ability: Effective Playground Attendant Required: No Beliefs That Will Affect Care: None marital status: Current Living Situation: Spouse Current Living Situation Comment: lives significant other current occupational status: retired 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 How many Children do You have: 1 Feels Safe at Home: Yes Childhood Exposure to Second-Hand Smoke: Yes caffeine: Yes (coffee very rarely occ tea) during the past year weight has: decreased > 10 lbs Dental Care, Regularly: Yes Physical Activity Frequency: 3-4 Times per Week Seatbelt Use: always Sunscreen Use: No Assistive Devices: Glasses and Oxygen - Continuous Allergies Allergies Allergy/AdvReac Type Severity Reaction Status Date / Time No Known Allergies Allergy Verified 03/17/20 12:11 Home Meds Home Medications Medication Instructions Recorded Confirmed multivitamin 1 tab PO QAM 11/24/18 03/17/20 glucosamine HCl 1,500 mg tablet 1,500 mg PO BID 02/16/19 03/17/20 ketoconazole 2 % shampoo 1 appln TOP 2XWK ml 12/02/19 03/17/20 psyllium 1 packet PO QAM 01/13/20 03/17/20 tramadol 50 - 100 mg PO Q6H PRN 01/13/20 03/17/20 Accident Q Plus 2 tabs PO QAM 02/29/20 03/17/20 digoxin 125 mcg PO DAILY 02/29/20 03/17/20 folic acid 1 mg PO DAILY 02/29/20 03/17/20 lorazepam 0.5 - 1 mg PO HS PRN 03/17/20 03/17/20 tamsulosin 0.4 mg PO QAM 03/17/20 03/17/20 Previous Rx's Medication Instructions Recorded Portable Oxygen #1 ea 11/22/19 amiodarone 200 mg tablet 200 mg PO BID #180 tab 02/17/20 apixaban [Eliquis] 2.5 mg PO BID #60 tab 03/08/20 furosemide 40 mg PO QAM PRN #30 tab 03/08/20 levalbuterol tartrate [Xopenex HFA] 2 puff INHALATION Q6 PRN #1 inhaler 03/08/20 potassium chloride 20 meq PO DAILY PRN #30 tab 03/08/20 prednisone 10 mg PO DIRECTED #100 tab 03/08/20 hydrocodone-homatropine 5 mg-1.5 5 ml PO Q4H PRN #200 ml 03/15/20 mg/5 mL (5 mL) oral syrup metoprolol succinate 200 mg 200 mg PO QPM #90 tab 03/16/20 tablet,extended release 24 hr Results & Data (ED) Vital Signs Vital Signs - 24 hr 03/17/20 10:31 03/17/20 10:48 03/17/20 10:57 Temperature 36.3 C L Temperature Source Oral Pulse Rate 83 71 Pulse Rate [Left Finger] Pulse Rate from SpO2 Sensor 68 Respiratory Rate 22 21 Respiratory Effort / Characteristics Blood Pressure 98/60 L Blood Pressure Mean 72 Pulse Oximetry 78 L 94 78 L Oxygen Delivery Method Room Air Room Air Oxygen Flow Rate 5 Sepsis Recent Fever Within 48 Hours No Sepsis New/Unexplained Change in Mental Status N/A Sepsis Action Taken by Nursing No Action Required Oxygen Flow Rate - Titration 5 Pulse Oximetry Post Tiitration 94 03/17/20 11:00 03/17/20 11:01 03/17/20 11:15 Temperature Temperature Source Pulse Rate 71 70 66 Pulse Rate [Left Finger] Pulse Rate from SpO2 Sensor 79 71 65 Respiratory Rate 19 30 H 27 H Respiratory Effort / Characteristics Blood Pressure 94/63 L 94/64 L Blood Pressure Mean 65 74 Pulse Oximetry 93 93 99 Oxygen Delivery Method Oxygen Flow Rate 5 5 5 Sepsis Recent Fever Within 48 Hours Sepsis New/Unexplained Change in Mental Status Sepsis Action Taken by Nursing Oxygen Flow Rate - Titration Pulse Oximetry Post Tiitration 03/17/20 11:16 03/17/20 11:30 03/17/20 11:31 Temperature Temperature Source Pulse Rate 66 65 63 Pulse Rate [Left Finger] Pulse Rate from SpO2 Sensor 64 63 67 Respiratory Rate 25 H 23 27 H Respiratory Effort / Characteristics Blood Pressure 88/63 L Blood Pressure Mean 65 Pulse Oximetry 99 96 96 Oxygen Delivery Method Oxygen Flow Rate 5 5 5 Sepsis Recent Fever Within 48 Hours Sepsis New/Unexplained Change in Mental Status Sepsis Action Taken by Nursing Oxygen Flow Rate - Titration Pulse Oximetry Post Tiitration 03/17/20 11:40 03/17/20 11:45 03/17/20 11:46 Temperature Temperature Source Pulse Rate 65 58 L Pulse Rate [Left Finger] Pulse Rate from SpO2 Sensor 66 62 Respiratory Rate 27 H 23 Respiratory Effort / Characteristics Blood Pressure 92/60 L Blood Pressure Mean 72 Pulse Oximetry 94 97 96 Oxygen Delivery Method Nasal Cannula Oxygen Flow Rate 5 5 5 Sepsis Recent Fever Within 48 Hours Sepsis New/Unexplained Change in Mental Status Sepsis Action Taken by Nursing Oxygen Flow Rate - Titration Pulse Oximetry Post Tiitration 03/17/20 12:00 03/17/20 12:01 03/17/20 12:02 Temperature Temperature Source Pulse Rate 65 66 Pulse Rate [Left Finger] 66 Pulse Rate from SpO2 Sensor 65 66 Respiratory Rate 18 22 16 Respiratory Effort / Characteristics Non-Labored Spontaneous Blood Pressure 89/63 L Blood Pressure Mean 68 Pulse Oximetry 94 94 93 Oxygen Delivery Method Nasal Cannula Oxygen Flow Rate 5 5 5 Sepsis Recent Fever Within 48 Hours Sepsis New/Unexplained Change in Mental Status Sepsis Action Taken by Nursing Oxygen Flow Rate - Titration Pulse Oximetry Post Tiitration 03/17/20 12:15 03/17/20 12:16 03/17/20 12:30 Temperature Temperature Source Pulse Rate 76 71 64 Pulse Rate [Left Finger] Pulse Rate from SpO2 Sensor 68 65 69 Respiratory Rate 20 20 22 Respiratory Effort / Characteristics Blood Pressure 93/57 L 85/53 L Blood Pressure Mean 65 55 Pulse Oximetry 93 94 93 Oxygen Delivery Method Oxygen Flow Rate 5 5 5 Sepsis Recent Fever Within 48 Hours Sepsis New/Unexplained Change in Mental Status Sepsis Action Taken by Nursing Oxygen Flow Rate - Titration Pulse Oximetry Post Tiitration 03/17/20 12:31 03/17/20 12:51 03/17/20 12:52 Temperature Temperature Source Pulse Rate 62 78 73 Pulse Rate [Left Finger] Pulse Rate from SpO2 Sensor 63 79 Respiratory Rate 21 13 22 Respiratory Effort / Characteristics Blood Pressure 100/70 Blood Pressure Mean 77 Pulse Oximetry 93 Oxygen Delivery Method Oxygen Flow Rate 5 Sepsis Recent Fever Within 48 Hours Sepsis New/Unexplained Change in Mental Status Sepsis Action Taken by Nursing Oxygen Flow Rate - Titration Pulse Oximetry Post Tiitration 03/17/20 13:00 03/17/20 13:01 03/17/20 13:15 Temperature Temperature Source Pulse Rate 71 68 66 Pulse Rate [Left Finger] Pulse Rate from SpO2 Sensor 70 67 63 Respiratory Rate 29 H 24 25 H Respiratory Effort / Characteristics Blood Pressure 88/59 L 91/49 L Blood Pressure Mean 62 79 Pulse Oximetry 95 95 96 Oxygen Delivery Method Oxygen Flow Rate 3 3 3 Sepsis Recent Fever Within 48 Hours Sepsis New/Unexplained Change in Mental Status Sepsis Action Taken by Nursing Oxygen Flow Rate - Titration Pulse Oximetry Post Tiitration 03/17/20 13:16 03/17/20 13:30 03/17/20 13:31 Temperature Temperature Source Pulse Rate 65 60 62 Pulse Rate [Left Finger] Pulse Rate from SpO2 Sensor 69 58 L 66 Respiratory Rate 20 20 24 Respiratory Effort / Characteristics Blood Pressure 78/47 L Blood Pressure Mean 51 Pulse Oximetry 96 94 94 Oxygen Delivery Method Oxygen Flow Rate 3 3 3 Sepsis Recent Fever Within 48 Hours Sepsis New/Unexplained Change in Mental Status Sepsis Action Taken by Nursing Oxygen Flow Rate - Titration Pulse Oximetry Post Tiitration 03/17/20 13:45 03/17/20 13:46 03/17/20 14:00 Temperature Temperature Source Pulse Rate 65 70 81 Pulse Rate [Left Finger] Pulse Rate from SpO2 Sensor 65 70 77 Respiratory Rate 20 20 15 Respiratory Effort / Characteristics Blood Pressure 93/48 L Blood Pressure Mean 60 Pulse Oximetry 92 92 93 Oxygen Delivery Method Oxygen Flow Rate 3 3 3 Sepsis Recent Fever Within 48 Hours Sepsis New/Unexplained Change in Mental Status Sepsis Action Taken by Nursing Oxygen Flow Rate - Titration Pulse Oximetry Post Tiitration 03/17/20 14:02 03/17/20 14:12 03/17/20 14:15 Temperature Temperature Source Pulse Rate 65 73 Pulse Rate [Left Finger] Pulse Rate from SpO2 Sensor 73 78 Respiratory Rate 25 H 20 Respiratory Effort / Characteristics Blood Pressure 89/55 L 86/55 L Blood Pressure Mean 60 58 Pulse Oximetry 92 96 94 Oxygen Delivery Method Nasal Cannula Oxygen Flow Rate 3 5 3 Sepsis Recent Fever Within 48 Hours Sepsis New/Unexplained Change in Mental Status Sepsis Action Taken by Nursing Oxygen Flow Rate - Titration 3 Pulse Oximetry Post Tiitration 95 03/17/20 14:16 03/17/20 14:30 03/17/20 14:45 Temperature Temperature Source Pulse Rate 71 72 67 Pulse Rate [Left Finger] Pulse Rate from SpO2 Sensor 67 74 70 Respiratory Rate 17 25 H 18 Respiratory Effort / Characteristics Blood Pressure 101/62 83/52 L Blood Pressure Mean 84 54 Pulse Oximetry 94 88 L 95 Oxygen Delivery Method Oxygen Flow Rate 3 3 3 Sepsis Recent Fever Within 48 Hours Sepsis New/Unexplained Change in Mental Status Sepsis Action Taken by Nursing Oxygen Flow Rate - Titration Pulse Oximetry Post Tiitration 03/17/20 14:46 03/17/20 15:00 03/17/20 15:01 Temperature Temperature Source Pulse Rate 68 62 64 Pulse Rate [Left Finger] Pulse Rate from SpO2 Sensor 71 65 61 Respiratory Rate 20 20 20 Respiratory Effort / Characteristics Blood Pressure 84/50 L Blood Pressure Mean 55 Pulse Oximetry 95 93 94 Oxygen Delivery Method Oxygen Flow Rate 3 3 3 Sepsis Recent Fever Within 48 Hours Sepsis New/Unexplained Change in Mental Status Sepsis Action Taken by Nursing Oxygen Flow Rate - Titration Pulse Oximetry Post Tiitration 03/17/20 15:15 03/17/20 15:16 03/17/20 15:30 Temperature Temperature Source Pulse Rate 67 68 69 Pulse Rate [Left Finger] Pulse Rate from SpO2 Sensor 71 70 75 Respiratory Rate 20 20 13 Respiratory Effort / Characteristics Blood Pressure 106/47 L 97/62 L Blood Pressure Mean 51 67 Pulse Oximetry 96 96 97 Oxygen Delivery Method Oxygen Flow Rate 3 3 3 Sepsis Recent Fever Within 48 Hours Sepsis New/Unexplained Change in Mental Status Sepsis Action Taken by Nursing Oxygen Flow Rate - Titration Pulse Oximetry Post Tiitration 03/17/20 15:31 03/17/20 15:45 03/17/20 16:00 Temperature Temperature Source Pulse Rate 72 66 72 Pulse Rate [Left Finger] Pulse Rate from SpO2 Sensor 73 66 72 Respiratory Rate 15 19 20 Respiratory Effort / Characteristics Blood Pressure 103/55 L 93/59 L Blood Pressure Mean 78 61 Pulse Oximetry 96 96 95 Oxygen Delivery Method Oxygen Flow Rate 3 Sepsis Recent Fever Within 48 Hours Sepsis New/Unexplained Change in Mental Status Sepsis Action Taken by Nursing Oxygen Flow Rate - Titration Pulse Oximetry Post Tiitration 03/17/20 16:01 03/17/20 16:15 Temperature Temperature Source Pulse Rate 73 76 Pulse Rate [Left Finger] Pulse Rate from SpO2 Sensor 73 66 Respiratory Rate 29 H 22 Respiratory Effort / Characteristics Blood Pressure 86/58 L Blood Pressure Mean 62 Pulse Oximetry 94 96 Oxygen Delivery Method Oxygen Flow Rate 3 3 Sepsis Recent Fever Within 48 Hours Sepsis New/Unexplained Change in Mental Status Sepsis Action Taken by Nursing Oxygen Flow Rate - Titration Pulse Oximetry Post Tiitration Laboratory Data Attestation: I reviewed the patient's lab results. Result diagrams: 03/17/20 10:57 03/17/20 10:57 Lab Results 03/17/20 03/17/20 03/17/20 Range/Units 10:57 10:57 10:57 WBC 18.22 H (4.8-10.8) K/uL RBC 3.69 L (4.7-6.1) M/uL Hgb 12.1 L (14.0-18.0) g/dL Hct 36.9 L (42-52) % MCV 100.0 (80-100) fL MCH 32.8 (25-34) pg MCHC 32.8 (32-36) g/dL RDW Std Deviation 71.0 H (36.4-46.3) fL RDW Coeff of Khadijah 19.2 H (11.5-14.5) % Plt Count 83 L (130-400) K/uL MPV 9.1 (7.4-10.4) fL Immature Gran % (Auto) 0.8 % Neut % (Auto) 91.3 % Lymph % (Auto) 4.8 % Glasscock % (Auto) 2.9 % Eos % (Auto) 0.1 % Baso % (Auto) 0.1 % Neut # (Auto) 16.65 H (1.4-6.5) K/uL Lymph # (Auto) 0.88 L (1.2-3.4) K/uL Glasscock # (Auto) 0.53 (0.11-0.59) K/uL Eos # (Auto) 0.01 (0-0.5) K/uL Baso # (Auto) 0.01 (0-0.2) K/uL Immature Gran # (Auto) 0.14 H (0.00-0.02) K/uL Platelet Estimate Decreased L (Normal) Anisocytosis Present Ovalocytes 1+ PT 11.9 (9.0-12.0) Seconds INR 1.1 (0.9-1.1) APTT 28.0 (21.0-31.0) Seconds PTT Ratio 1.0 VBG pH (7.36-7.41) VBG pCO2 (38-50) mmHg VBG pO2 mmHg VBG HCO3 mmol/L VBG O2 Saturation % VBG Base Excess mEq/L Barometric Pressure mm/Hg Sodium 136 (136-145) mmol/L Potassium 3.7 (3.5-5.1) mmol/L Chloride 103 (98-107) mmol/L Carbon Dioxide 24 (21-32) mmol/L Anion Gap 9.0 (3-11) BUN 38 H (7-18) mg/dl Creatinine 1.51 H (0.6-1.4) mg/dl Est Cr Clr Drug Dosing 40.1 ml/min Est GFR ( Amer) 52.0 Est GFR (Non-Af Amer) 44.9 BUN/Creatinine Ratio 25.3 H (10-20) Glucose 123 H (70-99) mg/dl POC Lactic Acid Ford (0.90-1.70) mmol/L Calcium 8.6 (8.5-10.1) mg/dl Phosphorus 2.8 (2.5-4.9) mg/dl Magnesium 2.2 (1.8-2.4) mg/dl Total Bilirubin 0.9 (0.2-1) mg/dl Direct Bilirubin 0.3 H (0-0.2) mg/dl AST 23 (15-37) U/L ALT 37 (12-78) U/L Alkaline Phosphatase 69 (45-117) U/L Troponin I 0.022 (0-0.045) ng/ml NT-Pro-B Natriuret Pep 4218 H (0-900) pg/ml Total Protein 6.5 (6.4-8.2) gm/dl Albumin 2.8 L (3.4-5.0) gm/dl Globulin 3.7 (2.5-4.0) gm/dl Albumin/Globulin Ratio 0.8 L (0.9-2) Lipase 88 (73-393) U/L COVID-19 Eval Order SARS-CoV-2, RNA, NAAT (NEGATIVE) Blood Type Antibody Screen 03/17/20 03/17/20 03/17/20 Range/Units 10:57 11:03 12:05 WBC (4.8-10.8) K/uL RBC (4.7-6.1) M/uL Hgb (14.0-18.0) g/dL Hct (42-52) % MCV (80-100) fL MCH (25-34) pg MCHC (32-36) g/dL RDW Std Deviation (36.4-46.3) fL RDW Coeff of Khadijah (11.5-14.5) % Plt Count (130-400) K/uL MPV (7.4-10.4) fL Immature Gran % (Auto) % Neut % (Auto) % Lymph % (Auto) % Glasscock % (Auto) % Eos % (Auto) % Baso % (Auto) % Neut # (Auto) (1.4-6.5) K/uL Lymph # (Auto) (1.2-3.4) K/uL Glasscock # (Auto) (0.11-0.59) K/uL Eos # (Auto) (0-0.5) K/uL Baso # (Auto) (0-0.2) K/uL Immature Gran # (Auto) (0.00-0.02) K/uL Platelet Estimate (Normal) Anisocytosis Ovalocytes PT (9.0-12.0) Seconds INR (0.9-1.1) APTT (21.0-31.0) Seconds PTT Ratio VBG pH 7.48 H (7.36-7.41) VBG pCO2 32 L (38-50) mmHg VBG pO2 54 mmHg VBG HCO3 23 mmol/L VBG O2 Saturation 87.8 % VBG Base Excess 0.3 mEq/L Barometric Pressure 733.8 mm/Hg Sodium (136-145) mmol/L Potassium (3.5-5.1) mmol/L Chloride (98-107) mmol/L Carbon Dioxide (21-32) mmol/L Anion Gap (3-11) BUN (7-18) mg/dl Creatinine (0.6-1.4) mg/dl Est Cr Clr Drug Dosing ml/min Est GFR ( Amer) Est GFR (Non-Af Amer) BUN/Creatinine Ratio (10-20) Glucose (70-99) mg/dl POC Lactic Acid Ford 2.86 H (0.90-1.70) mmol/L Calcium (8.5-10.1) mg/dl Phosphorus (2.5-4.9) mg/dl Magnesium (1.8-2.4) mg/dl Total Bilirubin (0.2-1) mg/dl Direct Bilirubin (0-0.2) mg/dl AST (15-37) U/L ALT (12-78) U/L Alkaline Phosphatase (45-117) U/L Troponin I (0-0.045) ng/ml NT-Pro-B Natriuret Pep (0-900) pg/ml Total Protein (6.4-8.2) gm/dl Albumin (3.4-5.0) gm/dl Globulin (2.5-4.0) gm/dl Albumin/Globulin Ratio (0.9-2) Lipase (73-393) U/L COVID-19 Eval Order SARS-CoV-2, RNA, NAAT (NEGATIVE) Blood Type A Positive Antibody Screen NEGATIVE 03/17/20 03/17/20 Range/Units 14:25 14:25 WBC (4.8-10.8) K/uL RBC (4.7-6.1) M/uL Hgb (14.0-18.0) g/dL Hct (42-52) % MCV (80-100) fL MCH (25-34) pg MCHC (32-36) g/dL RDW Std Deviation (36.4-46.3) fL RDW Coeff of Khadijah (11.5-14.5) % Plt Count (130-400) K/uL MPV (7.4-10.4) fL Immature Gran % (Auto) % Neut % (Auto) % Lymph % (Auto) % Glasscock % (Auto) % Eos % (Auto) % Baso % (Auto) % Neut # (Auto) (1.4-6.5) K/uL Lymph # (Auto) (1.2-3.4) K/uL Glasscock # (Auto) (0.11-0.59) K/uL Eos # (Auto) (0-0.5) K/uL Baso # (Auto) (0-0.2) K/uL Immature Gran # (Auto) (0.00-0.02) K/uL Platelet Estimate (Normal) Anisocytosis Ovalocytes PT (9.0-12.0) Seconds INR (0.9-1.1) APTT (21.0-31.0) Seconds PTT Ratio VBG pH (7.36-7.41) VBG pCO2 (38-50) mmHg VBG pO2 mmHg VBG HCO3 mmol/L VBG O2 Saturation % VBG Base Excess mEq/L Barometric Pressure mm/Hg Sodium (136-145) mmol/L Potassium (3.5-5.1) mmol/L Chloride (98-107) mmol/L Carbon Dioxide (21-32) mmol/L Anion Gap (3-11) BUN (7-18) mg/dl Creatinine (0.6-1.4) mg/dl Est Cr Clr Drug Dosing ml/min Est GFR ( Amer) Est GFR (Non-Af Amer) BUN/Creatinine Ratio (10-20) Glucose (70-99) mg/dl POC Lactic Acid Ford (0.90-1.70) mmol/L Calcium (8.5-10.1) mg/dl Phosphorus (2.5-4.9) mg/dl Magnesium (1.8-2.4) mg/dl Total Bilirubin (0.2-1) mg/dl Direct Bilirubin (0-0.2) mg/dl AST (15-37) U/L ALT (12-78) U/L Alkaline Phosphatase (45-117) U/L Troponin I (0-0.045) ng/ml NT-Pro-B Natriuret Pep (0-900) pg/ml Total Protein (6.4-8.2) gm/dl Albumin (3.4-5.0) gm/dl Globulin (2.5-4.0) gm/dl Albumin/Globulin Ratio (0.9-2) Lipase (73-393) U/L COVID-19 Eval Order Covid19 [facility] SARS-CoV-2, RNA, NAAT NEGATIVE (NEGATIVE) Blood Type Antibody Screen Administered Medications Discontinued Medications Dexamethasone (Dexamethasone Sod Inj 10 Mg/Ml Vial) 10 mg IV NOW ONE Stop: 03/17/20 10:53 Last Admin: 03/17/20 11:03 Dose: 10 mg Documented by: [id number] Guaifenesin (Guaifenesin 600 Mg Tabcr) 600 mg PO NOW STA Stop: 03/17/20 10:51 Last Admin: 03/17/20 11:03 Dose: 600 mg Documented by: [id number] Sodium Chloride (Nss) 250 mls @ 999 mls/hr IV .Q16M ONE Stop: 03/17/20 11:07 Last Infusion: 03/17/20 11:53 Dose: 0 mls/hr Documented by: [id number] Admin: 03/17/20 11:03 Dose: 999 mls/hr Documented by: [id number] Sodium Chloride (Nss) 250 mls @ 999 mls/hr IV .Q16M ONE Stop: 03/17/20 13:26 Last Infusion: 03/17/20 13:43 Dose: 0 mls/hr Documented by: [id number] Admin: 03/17/20 13:18 Dose: 999 mls/hr Documented by: [id number] Sodium Chloride (Nss) 250 mls @ 999 mls/hr IV .Q16M ONE Stop: 03/17/20 14:34 Last Infusion: 03/17/20 16:20 Dose: 0 mls/hr Documented by: [id number] Admin: 03/17/20 15:09 Dose: 999 mls/hr Documented by: [id number] Levalbuterol HCl (Levalbuterol Hcl 1.25 Mg/3 Ml Neb) 1.25 mg NEB NOW STA Stop: 03/17/20 10:51 Last Admin: 03/17/20 12:01 Dose: 1.25 mg Documented by: [id number] Discharge Plan Visit Data Chief Complaint: Shortness of Breath/Dyspnea Stated Complaint: SOB, HX OF LUNG CA ED Provider: Wyatt Mendes Discharge Problem: Acute radiation pneumonitis, Metastatic lung cancer (metastasis from lung to other site), Hemoptysis, Atrial fibrillation with RVR, Pleural effusion on right Patient Disposition: Admitted As Inpatient Discharge Instructions Interventions: ED Discharge Assessment Last Done: 03/17/20 17:47
--- NOTE | 2020-03-17 16:26 | Hospitalist Progress Note ---
Date of Service March 17, 2020 Assessment & Plan (1) Dyspnea: suspect ongoing radiation pneumonitis > decompensated valvular (diastolic) CHF - but could be elements of both. doubt infectious - but will add on CRP and procal since he is so compromised. ---> lasix IV x1 and f/u for clinical response, and f/u BMP in AM ---> increase prednisone since often radiation pneumonitis will take higher dosing, and ask radiation oncology for assist in management since it may be nuanced ---> follow clinically (2) Acute radiation pneumonitis: as above (3) Severe mitral regurgitation by prior echocardiogram: as above (4) Hemoptysis: nothing overtly suspicious for acute problems with this - suspect relates to pneumonitis and cancer (5) Metastatic lung cancer (metastasis from lung to other site): baseline problem driving most of above issues, outside of MR (6) Atrial fibrillation with RVR: rate controlled, anticoagulated with eliquis (which probably accentuates hemoptysis a little) (7) DVT prophylaxis: eliquis (8) Discharge planning issues: observation to med/tele, [facility] [place] hospitalist service radiation oncology for thoughts/assist on radiation pneumonitis follow for response to diuresis if doing better tomorrow, nothing new has evolved, and clinically stable/improved then possibly home in AM Subjective more sob this AM - pulse ox at home down into 70's, more MARTELL. no f/c/s. coughing - bloody/blood tinged sputum. otherwise no other new focal sx. "and since i've been here in the ER i havent coughed at all" no real weight gain or worse swelling. notes took ~1400ml off lungs last admission. talked w oncology - believes next chemo to be 03/23. currently on long taper of prednisone for radiation pneumonitis Review of Systems Review of Systems: All systems reviewed & are unremarkable except as noted in HPI & below Physical Exam Physical Exam: gen [id number] pleasant nad heent nc at mmm no clearly notable jvd cardio reg (+) holosystolic murmur no r/g rate controlled lungs surprisingly clear - vaguely coarse but no overt focal findings (despite reviewing CT chest first) no notable r/r/w no accessory muscles good effort abd soft nd nt no masses or organomegaly no guarding/rebound ext - no c/c/e no calf tenderness skin - no rashes no pallor or icterus neuro cn 2-12 grossly intact gross motor/sensory intact no focal deficits mental - good recent and remote recall normal mood and affect good judgement and insight had him cross check his pulse ox against ours - was accurate labs and CT reviewed as well as compared to previous - with particular attention to the last month of testing Results & Data Results & Data ([facility]) Vital Signs (Past 12 Hours) Vital Signs Temp Pulse Pulse Resp BP Pulse Ox 03/17/20 16:00 72 20 93/59 L 95 03/17/20 15:45 66 19 103/55 L 96 03/17/20 15:31 72 15 96 03/17/20 15:30 69 13 97/62 L 97 03/17/20 15:16 68 20 96 03/17/20 15:15 67 20 106/47 L 96 03/17/20 15:01 64 20 94 03/17/20 15:00 62 20 84/50 L 93 03/17/20 14:46 68 20 95 03/17/20 14:45 67 18 83/52 L 95 03/17/20 14:30 72 25 H 101/62 88 L 03/17/20 14:16 71 17 94 03/17/20 14:15 73 20 86/55 L 94 03/17/20 14:12 96 03/17/20 14:02 65 25 H 89/55 L 92 03/17/20 14:00 81 15 93 03/17/20 13:46 70 20 92 03/17/20 13:45 65 20 93/48 L 92 03/17/20 13:31 62 24 94 03/17/20 13:30 60 20 78/47 L 94 03/17/20 13:16 65 20 96 03/17/20 13:15 66 25 H 91/49 L 96 03/17/20 13:01 68 24 95 03/17/20 13:00 71 29 H 88/59 L 95 03/17/20 12:52 73 22 100/70 03/17/20 12:51 78 13 03/17/20 12:31 62 21 93 03/17/20 12:30 64 22 85/53 L 93 03/17/20 12:16 71 20 93/57 L 94 03/17/20 12:15 76 20 93 03/17/20 12:02 66 16 93 03/17/20 12:01 66 22 94 03/17/20 12:00 65 18 89/63 L 94 03/17/20 11:46 58 L 23 96 03/17/20 11:45 65 27 H 92/60 L 97 03/17/20 11:40 94 03/17/20 11:31 63 27 H 96 03/17/20 11:30 65 23 88/63 L 96 03/17/20 11:16 66 25 H 99 03/17/20 11:15 66 27 H 94/64 L 99 03/17/20 11:01 70 30 H 94/63 L 93 03/17/20 11:00 71 19 93 03/17/20 10:57 78 L 03/17/20 10:48 71 21 94 03/17/20 10:31 97.3 F L 83 22 98/60 L 78 L PG Care Time/CCT Total # of Minutes Spent Total Time Spent with Patient: Total time spent is greater than 50% in coordination of care (as documented) at patient's floor/unit and/or counseling patient: Coding Level of Care Code 49567 Subseq Obs Care Lvl 3 Diagnoses Dyspnea R06.00 Acute radiation pneumonitis J70.0 Severe mitral regurgitation by prior echocardiogram I34.0 Hemoptysis R04.2 Metastatic lung cancer (metastasis from lung to other site) C34.90 Laterality: unspecified laterality Atrial fibrillation with RVR I48.91 DVT prophylaxis Z29.9 Discharge planning issues Z02.9 (1) Metastatic lung cancer (metastasis from lung to other site) Laterality: unspecified laterality Qualified Code(s): C34.90 - Malignant neoplasm of unspecified part of unspecified bronchus or lung
--- NOTE | 2020-03-17 17:19 | History & Physical Report ---
Date of Service March 17, 2020 Assessment & Plan (1) Dyspnea: suspect ongoing radiation pneumonitis > decompensated valvular (diastolic) CHF - but could be elements of both. doubt infectious - but will add on CRP and procal since he is so compromised. ---> lasix IV x1 and f/u for clinical response, and f/u BMP in AM ---> increase prednisone since often radiation pneumonitis will take higher dosing, and ask radiation oncology for assist in management since it may be nuanced ---> follow clinically (2) Acute radiation pneumonitis: as above (3) Severe mitral regurgitation by prior echocardiogram: as above (4) Hemoptysis: nothing overtly suspicious for acute problems with this - suspect relates to pneumonitis and cancer (5) Metastatic lung cancer (metastasis from lung to other site): baseline problem driving most of above issues, outside of MR (6) Atrial fibrillation with RVR: rate controlled, anticoagulated with eliquis (which probably accentuates hemoptysis a little) (7) DVT prophylaxis: eliquis (8) Discharge planning issues: observation to med/tele, [facility] [place] hospitalist service radiation oncology for thoughts/assist on radiation pneumonitis follow for response to diuresis if doing better tomorrow, nothing new has evolved, and clinically stable/improved then possibly home in AM History of Present Illness Primary Care Provider: Miller Pittman MD see progress note same date for CC/HPI i apologize for any confusion Allergies Allergy/AdvReac Type Severity Reaction Status Date / Time No Known Allergies Allergy Verified 03/17/20 12:11 Home Medications Medication Instructions Recorded Confirmed Type multivitamin 1 tab PO QAM 11/24/18 03/17/20 History glucosamine HCl 1,500 mg tablet 1,500 mg PO BID 02/16/19 03/17/20 History Portable Oxygen #1 ea 11/22/19 03/16/20 Rx ketoconazole 2 % shampoo 1 appln TOP 2XWK ml 12/02/19 03/17/20 History psyllium 1 packet PO QAM 01/13/20 03/17/20 History tramadol 50 - 100 mg PO Q6H PRN 01/13/20 03/17/20 History amiodarone 200 mg tablet 200 mg PO BID #180 tab 02/17/20 03/17/20 Rx [place] Q Plus 2 tabs PO QAM 02/29/20 03/17/20 History digoxin 125 mcg PO DAILY 02/29/20 03/17/20 History folic acid 1 mg PO DAILY 02/29/20 03/17/20 History apixaban [Eliquis] 2.5 mg PO BID #60 tab 03/08/20 03/17/20 Rx furosemide 40 mg PO QAM PRN #30 tab 03/08/20 03/17/20 Rx levalbuterol tartrate [Xopenex HFA] 2 puff INHALATION Q6 PRN #1 inhaler 03/08/20 03/17/20 Rx potassium chloride 20 meq PO DAILY PRN #30 tab 03/08/20 03/17/20 Rx prednisone 10 mg PO DIRECTED #100 tab 03/08/20 03/17/20 Rx hydrocodone-homatropine 5 mg-1.5 5 ml PO Q4H PRN #200 ml 03/15/20 03/17/20 Rx mg/5 mL (5 mL) oral syrup metoprolol succinate 200 mg 200 mg PO QPM #90 tab 03/16/20 03/17/20 Rx tablet,extended release 24 hr lorazepam 0.5 - 1 mg PO HS PRN 03/17/20 03/17/20 History tamsulosin 0.4 mg PO QAM 03/17/20 03/17/20 History Past Med/Surg History Medical History Abdominal bruit Adenopathy Allergic rhinitis Atrial fibrillation with RVR Bright red blood per rectum no problems at present Constipation Diastolic CHF due to valvular disease Diverticulosis Esophageal reflux History of back problems History of colon polyps History of prostate cancer 2011, s/p brachytherapy Presenting PSA 2.8, clinical stage TIIa IBS (irritable bowel syndrome) Internal hemorrhoids Metastatic lung cancer (metastasis from lung to other site) Osteoarthritis Persistent dry cough x 6-7 months 2/2 lung carcinoma Prediabetes Severe mitral regurgitation by prior echocardiogram Thrombocytopenia Surgical History History of arthroscopy of right knee History of brachytherapy prostate cancer - finished treatment and follows with urology once a year History of cataract surgery right and left History of colonoscopy History of prostate biopsy History of repair of rotator cuff Rt History of right knee surgery History of tonsillectomy Status post trigger finger release x 2 left and right hand Family History Mother , age 67 colon ca Intestinal cancer Father , age 72 complications cardiac cath had abdominal aneurysm No problems noted. Brother No problems noted. Sister No problems noted. Son No problems noted. Uncle , age 64 lung cancer No problems noted. Other Cancer Heart disease No family history of adverse response to anesthesia Social History Smoking Status: Former smoker Tobacco Type: Cigarettes Age Started Using Tobacco: 15; Age Quit Using Tobacco: 46; packs per day: 0.5; Years Smoked: 31; Cigarettes Per Day: 0.5 pack; Number of Years Since Quit: 27; Second Hand Exposure: No; Hx Alcohol Use: No Hx Substance Use: No Preferred Language: Khmer Communication Ability: Effective Body Worker Required: No Beliefs That Will Affect Care: None marital status: Current Living Situation: Spouse Current Living Situation Comment: lives significant other current occupational status: retired 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 How many Children do You have: 1 Feels Safe at Home: Yes Childhood Exposure to Second-Hand Smoke: Yes caffeine: Yes (coffee very rarely occ tea) during the past year weight has: decreased > 10 lbs Dental Care, Regularly: Yes Physical Activity Frequency: 3-4 Times per Week Seatbelt Use: always Sunscreen Use: No Assistive Devices: Glasses and Oxygen - Continuous Results & Data Results & Data ([facility]) Vital Signs (Past 12 Hours) Vital Signs Temp Pulse Pulse Resp BP Pulse Ox 03/17/20 16:45 63 22 89/56 L 95 03/17/20 16:31 68 23 97 03/17/20 16:30 61 17 88/54 L 96 03/17/20 16:16 73 21 96 03/17/20 16:15 76 22 86/58 L 96 03/17/20 16:01 73 29 H 94 03/17/20 16:00 72 20 93/59 L 95 03/17/20 15:45 66 19 103/55 L 96 03/17/20 15:31 72 15 96 03/17/20 15:30 69 13 97/62 L 97 03/17/20 15:16 68 20 96 03/17/20 15:15 67 20 106/47 L 96 03/17/20 15:01 64 20 94 03/17/20 15:00 62 20 84/50 L 93 03/17/20 14:46 68 20 95 03/17/20 14:45 67 18 83/52 L 95 03/17/20 14:30 72 25 H 101/62 88 L 03/17/20 14:16 71 17 94 03/17/20 14:15 73 20 86/55 L 94 03/17/20 14:12 96 03/17/20 14:02 65 25 H 89/55 L 92 03/17/20 14:00 81 15 93 03/17/20 13:46 70 20 92 03/17/20 13:45 65 20 93/48 L 92 03/17/20 13:31 62 24 94 03/17/20 13:30 60 20 78/47 L 94 03/17/20 13:16 65 20 96 03/17/20 13:15 66 25 H 91/49 L 96 03/17/20 13:01 68 24 95 03/17/20 13:00 71 29 H 88/59 L 95 03/17/20 12:52 73 22 100/70 03/17/20 12:51 78 13 03/17/20 12:31 62 21 93 03/17/20 12:30 64 22 85/53 L 93 03/17/20 12:16 71 20 93/57 L 94 03/17/20 12:15 76 20 93 03/17/20 12:02 66 16 93 03/17/20 12:01 66 22 94 03/17/20 12:00 65 18 89/63 L 94 03/17/20 11:46 58 L 23 96 03/17/20 11:45 65 27 H 92/60 L 97 03/17/20 11:40 94 03/17/20 11:31 63 27 H 96 03/17/20 11:30 65 23 88/63 L 96 03/17/20 11:16 66 25 H 99 03/17/20 11:15 66 27 H 94/64 L 99 03/17/20 11:01 70 30 H 94/63 L 93 03/17/20 11:00 71 19 93 03/17/20 10:57 78 L 03/17/20 10:48 71 21 94 03/17/20 10:31 97.3 F L 83 22 98/60 L 78 L Code Status & VTE Plan VTE Prophylaxis Plan VTE Prophylaxis will be ordered: Yes PG Care Time/CCT Total # of Minutes Spent Total Time Spent with Patient: Total time spent is greater than 50% in coordination of care (as documented) at patient's floor/unit and/or counseling patient: Coding Level of Care Code 42895 OBS Care - Level 3 Diagnoses Dyspnea R06.00 Acute radiation pneumonitis J70.0 Severe mitral regurgitation by prior echocardiogram I34.0 Hemoptysis R04.2 Metastatic lung cancer (metastasis from lung to other site) C34.90 Laterality: unspecified laterality Atrial fibrillation with RVR I48.91 DVT prophylaxis Z29.9 Discharge planning issues Z02.9 (1) Metastatic lung cancer (metastasis from lung to other site) Laterality: unspecified laterality Qualified Code(s): C34.90 - Malignant neoplasm of unspecified part of unspecified bronchus or lung
[2020-03-17] MEDS ORDERED: FUROSEMIDE 40 MG/4 ML VIAL IV STA (18:28)
[2020-03-17] MEDS ORDERED: POLYETHYLENE (MIRALAX) 17 GM PACK PO PRN (18:28)
[2020-03-17] MEDS ORDERED: ACETAMINOPHEN 325 MG TAB PO PRN (18:28)
[2020-03-17] MEDS ORDERED: MAGNESIUM HYDROXIDE SUSP 30 ML UDC PO PRN (18:28)
[2020-03-17] MEDS ORDERED: LEVALBUTEROL TARTRATE 15 GM HFA.AER.AD INH PRN (18:28)
[2020-03-17] MEDS ORDERED: FUROSEMIDE 40 MG TAB PO PRN (18:28)
[2020-03-17] MEDS ORDERED: ALUMINUM/MAGNESIUM SUSP 30 ML UDC PO PRN (18:28)
[2020-03-17] MEDS ORDERED: POTASSIUM CHLORIDE CRTAB 20 MEQ TABCR PO PRN (18:28)
[2020-03-17] MEDS ORDERED: ONDANSETRON INJ 2 MG/ML 2 ML VIAL IV PRN (18:28)
[2020-03-17] MEDS ORDERED: HYDROcodone/HOMATROPINE SYRUP 5MG/1.5MG 5ML UDP PO PRN (18:35)
[2020-03-17] MEDS: AMIODARONE 200 MG TAB PO SCH (20:06)
[2020-03-17] MEDS: METOPROLOL SUCC 50MG EXT REL TAB PO SCH (20:07)
[2020-03-17] MEDS: APIXABAN 2.5 MG TAB PO SCH (20:07)
[2020-03-17] MEDS ORDERED: NON-FORMULARY MEDICATION (Glucosamine Hcl 1,500 mg tablet) PO SCH (21:00)
[2020-03-17] MEDS: KETOCONAZOLE 2% SCH (23:31)
[2020-03-18 04:05] LABS: Hematocrit (blood only) 33.9 % (42-52); Mean Corpuscular Hemoglobin 32.4 pg (25-34); Mean Corpuscular Hgb Conc 32.4 g/dL (32-36); Mean Corpuscular Volume 99.7 fL (80-100); RDW Coefficient of Variation 19.1 % (11.5-14.5); RDW Standard Deviation 69.9 fL (36.4-46.3); White Blood Count 10.47 K/uL (4.8-10.8)
[2020-03-18 04:09] LABS: Mean Platelet Volume 9.3 fL (7.4-10.4); Platelet Count 72 K/uL (130-400)
[2020-03-18 04:24] LABS: Calcium 8.3 mg/dl (8.5-10.1); Creatinine Clr Calc Pharmacy 44.2 ml/min; Est GFR (African American) 58.5; Est GFR (Non-African American) 50.4; Potassium 3.9 mmol/L (3.5-5.1)
[2020-03-18 04:47] LABS: Anisocytosis Present; Basophils # (auto) 0.01 K/uL (0-0.2); Basophils % (auto) 0.1 %; Immature Granulocytes # (auto) 0.06 K/uL (0.00-0.02); Immature Granulocytes % (auto) 0.6 %; Lymphocytes # (auto) 0.46 K/uL (1.2-3.4); Lymphocytes % (auto) 4.4 %; Monocytes % (auto) 2.9 %; Neutrophils # (auto) 9.64 K/uL (1.4-6.5); Ovalocytes 1+
[2020-03-18] MEDS: predniSONE 20 MG TAB PO SCH (09:00)
[2020-03-18] MEDS: MULTIVITAMIN TAB PO SCH (09:00)
[2020-03-18] MEDS: AMIODARONE 200 MG TAB PO SCH ×2 (09:00→20:04)
[2020-03-18] MEDS: PSYLLIUM 58.6% POWDER PACKET PO SCH (09:00)
[2020-03-18] MEDS ORDERED: OMEGA Q PLUS PO SCH (09:00)
[2020-03-18] MEDS: APIXABAN 2.5 MG TAB PO SCH ×2 (09:00→20:03)
[2020-03-18] MEDS: FOLIC ACID 1 MG TAB PO SCH (09:00)
[2020-03-18] MEDS: TAMSULOSIN HCL 0.4 MG CAP PO SCH (09:00)
[2020-03-18] MEDS: DIGOXIN 0.125 MG TAB PO SCH (16:00)
[2020-03-18] MEDS: KETOCONAZOLE 2% SCH ×2 (17:46→17:51)
[2020-03-18] MEDS: METOPROLOL SUCC 50MG EXT REL TAB PO SCH (20:03)
[2020-03-19] MEDS: KETOCONAZOLE 2% SCH ×3 (00:01→16:09)
[2020-03-19] MEDS: MULTIVITAMIN TAB PO SCH (08:53)
[2020-03-19] MEDS: AMIODARONE 200 MG TAB PO SCH ×2 (08:53→20:50)
[2020-03-19] MEDS: TAMSULOSIN HCL 0.4 MG CAP PO SCH (08:53)
[2020-03-19] MEDS: predniSONE 20 MG TAB PO SCH (08:54)
[2020-03-19] MEDS: FOLIC ACID 1 MG TAB PO SCH (08:54)
[2020-03-19] MEDS ORDERED: COUGH DROP (SUGAR FREE) LOZ 24 LOZ/1 BOX BUCCAL PRN (08:58)
--- NOTE | 2020-03-19 11:21 | Pulmonary Consultation ---
Date of Consultation March 19, 2020 Assessment & Plan (1) Acute hypoxemic respiratory failure: 74-year-old male with a history of atrial fibrillation on Eliquis, amiodarone, non-small cell lung cancer with widespread right lung involvement and a possible malignant pleural effusion presenting to the hospital due to worsening hypoxemic respiratory failure. The etiology of his right-sided infiltrates is broad including evolving radiation pneumonitis/fibrosis, PD-L1 related pulmonary toxicity, lymphangitic carcinomatosis, amiodarone induced lung toxicity, diffuse alveolar hemorrhage, atypical pulmonary edema from severe mitral valve regurgitation, superimposed atypical bacterial or viral infection among other possibilities. He is currently on high doses of prednisone and receiving diuretic therapy for possible pulmonary edema. Bronchoscopy may be useful to help differentiate bacterial infection and possible diffuse alveolar hemorrhage. This may help guide treatment because if there is evidence of alveolar hemorrhage, he would have to stop apixaban. Cell counts may also be beneficial in guiding the possible etiology of his CT chest findings. Transbronchial lung biopsies can be beneficial in determining if lymphangitic carcinomatosis is present, but the findings would likely be nonspecific for all the other etiologies. We can potentially empirically stop therapy such as amiodarone and apixaban and see how he does without anticoagulation or rhythm control strategies for his atrial fibrillation, but this does pose the risk of stroke and worsening atrial fibrillation. This is a very complex situation and a palliative care consultation may be beneficial as well along with oncology consultation. Please leave him n.p.o. after midnight and hold his Eliquis for today for possible bronchoscopy tomorrow. (2) Acute radiation pneumonitis: (3) Severe mitral regurgitation by prior echocardiogram: (4) Metastatic lung cancer (metastasis from lung to other site): (5) Pleural effusion on right: (6) Chronic diastolic heart failure due to valvular disease: (7) Hemoptysis: History of Present Illness Reason for Consultation: Pulmonary toxicity from chemoradiation Requesting Physician: finance vice president service Attending Physician: Francisco Shaw MD History of Present Illness 74-year-old male with a past medical history of atrial fibrillation on amiodarone and anticoagulation, diastolic heart failure, severe prolapse of the posterior mitral valve causing mitral regurgitation, metastatic non-small cell lung cancer who was treated with chemoradiation and pembrolizumab as outlined by Dr. Miller's note on 03/02/2020. He was seen by both Dr. Brewer and Dr. Garza on his last admission last month. He underwent a thoracentesis on the right which demonstrated a an exudate. It was negative for malignancy. He was treated under the presumption that he had radiation pneumonitis and possible pulmonary toxicity from PD-L1. He was asked to taper prednisone by 10 mg every week. He was readmitted to the hospital yesterday due to possible decompensated diastolic heart failure and possible ongoing radiation pneumonitis. He also has a history of atrial fibrillation on Eliquis. CT of his chest yesterday demonstrated continued multifocal nodular infiltrates and new superimposed groundglass opacities. COVID-19 testing was negative. Procalcitonin yesterday was less than 0.05. WBC count was 18,000 on admission and now 10,000. proBNP of 4218 yesterday. He is currently on 6 L of oxygen saturating 91%. He has been afebrile during his hospitalization. He is currently on 80 mg p.o. prednisone started by the hospitalist. Notably he is also on amiodarone 200 mg twice daily. Patient notes that he has a cough that is dry. He denies any hemoptysis. He has shortness of breath with minimal exertion. He denies any swelling in his legs. He denies any chest pain. No fevers or chills. No recent sick contacts that he is aware of. He is frustrated with his symptoms and that he is not getting any better. He was previously a smoker. He has not smoked in several years. He has been on amiodarone for 3 to 4 months. Allergies Allergy/AdvReac Type Severity Reaction Status Date / Time No Known Allergies Allergy Verified 03/17/20 12:11 Home Medications Medication Instructions Recorded Confirmed Type multivitamin 1 tab PO QAM 11/24/18 03/17/20 History glucosamine HCl 1,500 mg tablet 1,500 mg PO BID 02/16/19 03/17/20 History Portable Oxygen #1 ea 11/22/19 03/16/20 Rx ketoconazole 2 % shampoo 1 appln TOP 2XWK ml 12/02/19 03/17/20 History psyllium 1 packet PO QAM 01/13/20 03/17/20 History tramadol 50 - 100 mg PO Q6H PRN 01/13/20 03/17/20 History amiodarone 200 mg tablet 200 mg PO BID #180 tab 02/17/20 03/17/20 Rx Douglass Q Plus 2 tabs PO QAM 02/29/20 03/17/20 History digoxin 125 mcg PO DAILY 02/29/20 03/17/20 History folic acid 1 mg PO DAILY 02/29/20 03/17/20 History apixaban [Eliquis] 2.5 mg PO BID #60 tab 03/08/20 03/17/20 Rx furosemide 40 mg PO QAM PRN #30 tab 03/08/20 03/17/20 Rx levalbuterol tartrate [Xopenex HFA] 2 puff INHALATION Q6 PRN #1 inhaler 03/08/20 03/17/20 Rx potassium chloride 20 meq PO DAILY PRN #30 tab 03/08/20 03/17/20 Rx prednisone 10 mg PO DIRECTED #100 tab 03/08/20 03/17/20 Rx hydrocodone-homatropine 5 mg-1.5 5 ml PO Q4H PRN #200 ml 03/15/20 03/17/20 Rx mg/5 mL (5 mL) oral syrup metoprolol succinate 200 mg 200 mg PO QPM #90 tab 03/16/20 03/17/20 Rx tablet,extended release 24 hr lorazepam 0.5 - 1 mg PO HS PRN 03/17/20 03/17/20 History tamsulosin 0.4 mg PO QAM 03/17/20 03/17/20 History Patient History Medical History (Updated 03/19/20 @ 11:18 by Santana Gates MD) Abdominal bruit Acute hypoxemic respiratory failure Adenopathy Allergic rhinitis Atrial fibrillation with RVR Bright red blood per rectum no problems at present Constipation Diastolic CHF due to valvular disease Diverticulosis Esophageal reflux History of back problems History of colon polyps History of prostate cancer 2011, s/p brachytherapy Presenting PSA 2.8, clinical stage TIIa IBS (irritable bowel syndrome) Internal hemorrhoids Metastatic lung cancer (metastasis from lung to other site) Osteoarthritis Persistent dry cough x 6-7 months 2/2 lung carcinoma Prediabetes Severe mitral regurgitation by prior echocardiogram Thrombocytopenia Surgical History History of arthroscopy of right knee History of brachytherapy prostate cancer - finished treatment and follows with urology once a year History of cataract surgery right and left History of colonoscopy History of prostate biopsy History of repair of rotator cuff Rt History of right knee surgery History of tonsillectomy Status post trigger finger release x 2 left and right hand Family History Mother , age 67 colon ca Intestinal cancer Father , age 72 complications cardiac cath had abdominal aneurysm No problems noted. Brother No problems noted. Sister No problems noted. Son No problems noted. Uncle , age 64 lung cancer No problems noted. Other Cancer Heart disease No family history of adverse response to anesthesia Social History Smoking Status: Former smoker Tobacco Type: Cigarettes Age Started Using Tobacco: 15; Age Quit Using Tobacco: 46; packs per day: 0.5; Years Smoked: 31; Cigarettes Per Day: 0.5 pack; Number of Years Since Quit: 27; Second Hand Exposure: No; Hx Alcohol Use: No Hx Substance Use: No Preferred Language: Italian Communication Ability: Effective Industrial Illuminating Engineer Required: No Beliefs That Will Affect Care: None marital status: Current Living Situation: Spouse Current Living Situation Comment: lives significant other current occupational status: retired 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 How many Children do You have: 1 Feels Safe at Home: Yes Childhood Exposure to Second-Hand Smoke: Yes caffeine: Yes (coffee very rarely occ tea) during the past year weight has: decreased > 10 lbs Dental Care, Regularly: Yes Physical Activity Frequency: 3-4 Times per Week Seatbelt Use: always Sunscreen Use: No Assistive Devices: Glasses and Oxygen - Continuous Review of Systems Review of Systems: All systems reviewed & are unremarkable except as noted in HPI & below Physical Exam Constitutional: + ill appearing; no acute distress Eyes: PERRL, conjunctivae normal, anicteric sclerae ENMT: external ear and nose normal, oropharynx normal Neck: normal visual inspection Respiratory: Crackles diffusely on the right. Mildly tachypneic. Cardiovascular: RRR, no murmur, no edema Gastrointestinal (Abdomen): normal bowel sounds, soft, nontender, no hepatosplenomegaly Musculoskeletal: no cyanosis or clubbing, extremities motor strength 5/5 Skin: no rashes, warm and dry Neurologic: PERRL, EOMI, accommodation nl, no face palsy, no dysarthria Psychiatric: A+Ox3, euthymic affect Results & Data Results & Data ([facility]) Vital Signs (Past 12 Hours) Vital Signs Temp Pulse Resp BP Pulse Ox 03/19/20 07:33 97.3 F L 65 20 93/60 L 91 03/19/20 03:04 97.5 F L 80 20 105/61 90 I reviewed his vital signs, chest imaging and labs. PG Care Time/CCT Total # of Minutes Spent Total Time Spent with Patient: Total time spent is greater than 50% in digital content coordinator rdination of care (as documented) at patient's floor/unit and/or counseling patient: Coding Level of Care Code 00632 Initial Inpt Care Lvl 3 Diagnoses Acute hypoxemic respiratory failure J96.01 Acute radiation pneumonitis J70.0 Severe mitral regurgitation by prior echocardiogram I34.0 Metastatic lung cancer (metastasis from lung to other site) C34.90 Pleural effusion on right J90 Chronic diastolic heart failure due to valvular disease I50.32; I38 Hemoptysis R04.2
[2020-03-19] MEDS: PSYLLIUM 58.6% POWDER PACKET PO SCH (11:58)
--- NOTE | 2020-03-19 15:16 | Hospitalist Progress Note ---
Date of Service March 19, 2020 Assessment & Plan (1) Dyspnea: Mr. Jerome is a 74 yo M with a history of metastatic lung cancer (stage IV adenocarcinoma) who completed a course of radiation therapy, currently undergoing chemotherapy who was admitted for worsening dyspnea and hemoptysis. As a consequence of both his radiation, he has developed bilateral pneumonitis. Mr. Jerome was recently hospitalized on 02/29/20 to 03/08/20 for dyspnea at which time he was started on a prednisone taper for his pneumonitis, started at 50mg, for 1 week, decreasing by 10mg each week thereafter. When he got to 40mg, Mr. Jerome returned for progressive SOB. On admission to the hospital, his WBC was not elevated (although he is immunosuppressed), procal was normal, and there were no obvious signs of pneumonia on imaging. Mr. Candelario dyspnea was thought to be secondary to either ongoing pneumonitis vs. decompensated valvular (diastolic) CHF. He was treated with both an increased dose of prednisone (80mg) as well as IV Lasix. While at rest, he saturates well on his baseline oxygen requirement of 2 liters via NC. However with any minimal exertion, he desaturates in the low 80s, requiring up to 6 liters to recover. Primary team discussed case with Dr. Issa from radiation oncology, who rec ommend continuing current prednisone dosing. Pulmonary was consulted and plan to perform bronchoscopy on 03/20 to further differentiate among various pathologic etiologies. - Secondary to ongoing pneumonitis > decompensated valvular (diastolic) CHF. - patient has completed course of radiation therapy and recieved one dose of immunotherapy, both of which may be causative of pneumonitis - BNP was elevated to 4128 on admission --> it is possible pulmonary vascular congestion is contributory - continue prednisone 80mg, daily for presumed pneumonitis flare - continue lasix 40mg, PO for daily weights > 143 pounds; hold if 143 or less - patient unable to complete two step test on 03/18, as he desatted to 82% on 6 liters - pulmonary following, plan for bronchoscopy on 03/20 as above (2) Metastatic lung cancer (metastasis from lung to other site): - Baseline problem driving most of the above issues - patient completed course of radiation. Received one dose of immunotherapy. - Currently undergoing chemotherapy q [address] Miller (3) Chronic diastolic heart failure due to valvular disease: - BNP elevated to 4218 on admission, possible in acute exacerbation - Lasix, 40mg, for daily weights > 143 pounds; hold for < 143 pounds - daily (standing) weights to guide direutic dosing - Late systolic murmur appreciated on exam - not a candidate for mitral valve replacement due to metastatic lung cancer prognosis (4) Hemoptysis: - Suspect secondary to alveolar hemophage, cancer, and exacerbated by being on Eliquis - hold Eliquis per pulmonology recommendations - Hgb stable. Hemodynamically stable (5) Acute radiation pneumonitis: - Radiation oncology (Dr. Issa) was consulted who recommend continued treatment with Prednisone 80mg. Dr. Issa reviewed patients CT scan and noted progressive bilateral (previously right sided only) involvement. - Likely due to radiation and immunotherapy. - Follow up with pulmonology (Dr. Garza) as outpatient scheduled for end march (6) Atrial fibrillation with RVR: - [facility] consulted this admission - recommend reducing metoprolol from 200mg to 100mg, qhs for rate control - hold Eliquis per pulmonary - continue home dose amiodarone and digoxin (7) BPH (benign prostatic hyperplasia): - continue home dose flomax Diet: NPO after midnight in anticipation of bronchoscopy Dispo: Med/surg w. tele Code: full Dvt ppx: SCDs, with eliquis on hold, will start heparin given minimal ambulation and current malignancy Admission and Anticipated Discharge Date Admission Date: March 17, 2020 Supervising Physician Co-Signing Physician Notes Attending attestation Pt seen and examined in concert with Dr. Barajas. In agreement with the documented findings as noted in the resident documentation with any exceptions or additions as noted here. 74 y/o male h/o metastatic lung cancer s/p radio and immunotherapy p/w shortness of breath c/w radiation pneumonitis Resting in bed, tolerating O2 NC at 6 L with significant dyspnea with ambulating to the restroom, similar to his failed 2 step last night. On examination, S1/S2 nl RRR no MCG. scattered rhonchi thorughout, acutely dyspneic following mild exertion. Abd NT/ND BS+ve Acute on chronic hypoxic respiratory failure likely 2/2 radiation pneumonitis - pulmonology consultation - prednisone 80mg. Pulm intends bronchoscopy on Friday Chronic diastolic heart failure - cardiology consultation - wt based furosemide dosing. Not likely contributing to symptoms. On digoxin. Hemoptysis - no new episodes. Holding Eliquis w/ upcoming procedure. Else see resident documentation as noted. Subjective No acute events overnight. Patient still very dyspenic with minimal activity (getting out of bed). He is extremely frustrated with all of the medication changes that are being made - he is struggling to keep tract of them. Review of Systems Respiratory: + dyspnea Physical Exam Constitutional: well developed, well nourished and cooperative; no acute distress Eyes: + anicteric sclerae ENMT: external ear and nose normal, oropharynx normal Neck: normal visual inspection and trachea midline Respiratory: normal respiratory effort and + labored breathing (with any amount of physical exertion ) Auscultation: + rhonchi (bilateral lung mirza); no crackles and no wheezes Cardiovascular: RRR, no murmur, no edema Heart Sounds: normal S1 and normal S2 Extremities: no pedal edema Gastrointestinal (Abdomen): normal bowel sounds, soft, nontender, no hepatosplenomegaly Skin: no rashes, warm and dry Psychiatric: A+Ox3, euthymic affect Results & Data Results & Data ([facility]) Vital Signs (Past 12 Hours) Vital Signs Temp Pulse Resp BP Pulse Ox 03/19/20 07:33 36.3 C L 65 20 93/60 L 91 03/19/20 03:04 36.4 C L 80 20 105/61 90 Resident Activity Tracking Resident Involvement: Resident Care Provided Care Provided: Adult Hospital Medicine
[2020-03-19] MEDS: DIGOXIN 0.125 MG TAB PO SCH (16:10)
[2020-03-19] MEDS: METOPROLOL SUCC 50MG EXT REL TAB PO SCH ×3 (16:12→20:51)
[2020-03-19] MEDS ORDERED: HEPARIN SOD 5,000 UNIT/0.5 ML VIAL SQ SCH (21:00)
[2020-03-20] MEDS: KETOCONAZOLE 2% SCH ×3 (00:31→15:49)
[2020-03-20] MEDS: LORazepam 0.5 MG TAB PO PRN ×2 (02:06→22:31)
[2020-03-20 07:45] LABS: Basophils # (auto) 0.01 K/uL (0-0.2); Hematocrit (blood only) 33.4 % (42-52); Hemoglobin 10.9 g/dL (14.0-18.0); Immature Granulocytes # (auto) 0.12 K/uL (0.00-0.02); Immature Granulocytes % (auto) 0.5 %; Lymphocytes # (auto) 0.95 K/uL (1.2-3.4); Mean Corpuscular Hemoglobin 32.6 pg (25-34); Mean Corpuscular Hgb Conc 32.6 g/dL (32-36); Mean Platelet Volume 9.2 fL (7.4-10.4); Monocytes # (auto) 0.75 K/uL (0.11-0.59); Monocytes % (auto) 3.2 %; Neutrophils # (auto) 21.69 K/uL (1.4-6.5); Neutrophils % (auto) 92.3 %; Ovalocytes 1+; Platelet Count 33 K/uL (130-400); Platelet Estimate Decreased (Normal); RDW Coefficient of Variation 18.8 % (11.5-14.5); RDW Standard Deviation 69.6 fL (36.4-46.3); Red Blood Count 3.34 M/uL (4.7-6.1); Schistocytes Occasional; White Blood Count 23.52 K/uL (4.8-10.8)
[2020-03-20 07:53] LABS: BUN Creatinine Ratio 24.5 (10-20); Calcium 8.1 mg/dl (8.5-10.1); Creatinine Clr Calc Pharmacy 49.3 ml/min; Est GFR (African American) 66.6; Est GFR (Non-African American) 57.5; Potassium 3.9 mmol/L (3.5-5.1)
--- NOTE | 2020-03-20 09:38 | Radiation Oncology Progress Nt ---
Date of Service March 20, 2020 Assessment & Plan (1) Metastatic lung cancer (metastasis from lung to other site): (2) Acute hypoxemic respiratory failure: Mr. Jerome is a 74-year-old gentleman with advanced lung cancer and history of prostate cancer. The patient completed chemotherapy and radiation therapy for his lung cancer on 12/30/2019. Subsequently, the patient has been on carboplatin/Alimta/pembrolizumab underneath the supervision of Dr. Miller. Unfortunately, the patient's condition has declined significantly and he has been admitted to the hospital for acute respiratory failure in addition to other medical issues. Patient has had multiple imaging studies which show potential pneumonitis. We have been asked to comment on current medication and management at this time. As previously noted, the patient does have pneumonitis which may be due to both his radiation therapy and immunotherapy. The fact that the patient has contralateral inflammatory changes in the left lung argues against this being just from radiation therapy. More likely, the pneumonitis may be due to his immunotherapy. However, the inflammatory changes in the right lung could be due to both radiation therapy and immediate therapy. Given the fact that the patient has multiple comorbidities, I would defer further care to the primary hospital team and pulmonary medicine. I agree with Dr. Gates's recommendation to have palliative care medicine see the patient either in the inpatient or outpatient setting to further determine goals for this patient. Please call us with any further questions or concerns. Admission and Anticipated Discharge Date Admission Date: March 17, 2020
--- NOTE | 2020-03-20 09:45 | XRay Report ---
XR chest 1V portable CLINICAL HISTORY: increased O2 demands COMPARISON STUDY: 03/17/2020 FINDINGS: There are progressive asymmetric bilateral pulmonary airspace opacities. The findings are s uggestive of a multifocal pneumonitis. There is a left subclavian A-Port catheter present. Underlying emphysema is suspected. There are no large pleural effusions.[ IMPRESSION: 1. Slight further progression in the bilateral pulmonary airspace opacities right greater than left. ACT 112: Negative or not required by law. Electronically signed by: Scott Price M.D. 03/20/2020 9:44 AM
--- NOTE | 2020-03-20 10:04 | Pulmonology Progress Note ---
Date of Service March 20, 2020 Assessment & Plan (1) Metastatic lung cancer (metastasis from lung to other site): (2) Severe mitral regurgitation by prior echocardiogram: (3) Acute radiation pneumonitis: (4) Chronic diastolic heart failure due to valvular disease: (5) Constipation: (6) Abnormal CT scan of lung: Impression: 74-year-old male with history of advanced non-small cell lung cancer status post radiation therapy. He did receive pembrolizumab as well. I evaluated the patient few weeks ago and reviewed his imaging with radiation oncology it was felt that based on the appearance of the airspace opacity, radiation pneumonitis was likely. The patient was discharged on prednisone but now readmitted with worsening of his hypoxemic respiratory failure and some progression of his parenchymal infiltrates. The differential is as noted before. This could include progression of patient's underlying malignancy with lymphangitic spread, radiation pneumonitis, pembrolizumab pulmonary toxicity, diffuse pulmonary hemorrhage, amiodarone pulmonary toxicity, as well as atypical heart failure given the patient's severe MR. In addition the patient likely has some degree of underlying ILD as he has subpleural reticulations noted in the left hemithorax. Recommendations: 1. Abnormal CT scan: I had a long discussion with the patient. At this point time he is marginal to consider bronchoscopy. If we were to attempt bronchoscopy, there is a high likelihood that the patient may require intubation or mechanical ventilation. He would like to avoid intubation which I think is reasonable. I would favor treating him for all potential reversible causes at this point time and seeing how he responds. Given the fact that this could potentially be pembrolizumab pulmonary toxicity or radiation pulmonary toxicity, will decrease his prednisone and place him on Solu-Medrol 125 mg IV every 8 and see how he does. He is at risk for opportunistic infections including pneumocys tis in will need to consider prophylaxis with Bactrim. If the patient's clinical status improved enough to allow for consideration of bronchoscopy with BAL, this could be conducted however the patient is already being empirically treated and the likelihood of underlying infection appears low at the current time. 2. Questionable pulmonary hemorrhage with hemoptysis: Think it is reasonable to stop his Eliquis at this point time. We will send serologies for interstitial lung disease as well as alveolar hemorrhage. The patient is not a candidate for plasma exchange therapy or IVIG currently. 3. Would continue optimization of volume status as tolerated by kidney function and hemodynamics. Patient does have significant MR that is known however he is not a candidate for any additional procedures including consideration of a mitral clip according to prior cardiology notes. 4. At this point time I think the patient will either respond to diuresis and steroids where he will not. I advised him that regardless of the etiology and prognosis of his underlying lung disease, he still has advanced non-small cell lung cancer which is not curable. He is very focused on quality of life and states that he cannot continue living like this if he cannot get back to golfing, bowling, and pursuing other outdoor activities so I think a palliative care consultation would be highly appropriate in this patient. He request that I discussed with his son his current situation. I will make a phone call today and will make additional recommendations based on follow-up with the patient and his son. The patient is critically ill at this point time. He may require escalation of care including application of noninvasive positive pressure ventilation however I am not highly optimistic that if he escalates to the point that we will be able to reverse this process. Patient is critically ill at this point time with multiorgan system dysfunction/failure and is at high risk of progression of d isease and potential . 45 minutes critical care time coordinating care and discussing with patient and family life-threatening illness. Admission and Anticipated Discharge Date Admission Date: March 20, 2020 Subjective Patient seen and examined. EMR reviewed. Discussed with Dr. Gates. Patient reports that his breathing is continuing to decline. He is coughing small amounts of blood-streaked phlegm now. He complains of some mild chest tightness. He states that he does not believe that he wants to continue living like this as he is focused on quality of life measures including hunting fishing golfing and bowling. He is unclear whether or not he would want to be put on a mechanical ventilator. He has transition to high flow facemask with marginal o xygen saturations currently Review of Systems Review of Systems: All systems reviewed & are unremarkable except as noted in HPI & below Physical Exam Constitutional: well developed, + acute distress, + frail appearing and co operative Neck: trachea midline, no thyromegaly Respiratory: + respiratory distress and + labored breathing Auscultation: + crackles and + rales Cardiovascular: RRR, no murmur, no edema Gastrointestinal (Abdomen): normal bowel sounds, soft, nontender, no hepatosplenomegaly Musculoskeletal: Extremities: extremities normal to inspection Skin: no rashes, warm and dry Neurologic: Nonfocal exam Lymphatic: no cervical lymphadenopathy Results & Data Results & Data ([facility]) Vital Signs (Past 12 Hours) Vital Signs Temp Pulse Resp BP BP Pulse Ox 03/20/20 06:58 36.6 C 78 18 90/57 L 91 03/20/20 04:40 36.8 C 67 20 99/62 L 90 03/19/20 23:00 36.4 C L 71 20 99/59 L 99/51 L 92 Laboratory Results 03/20/20 06:58 03/20/20 06:58 Diagnostic Findings Imaging studies were independently reviewed. CT angiogram from 03/17/2020 was reviewed and compared to prior CT scan from 02/29/2020. The right-sided pleural effusion appears decreased in size currently. There are persistent subpleural increased interstitial markings noted throughout the left hemithorax extending up to the apices. Areas of dense airspace opacity and fibrosis and consolidation are present throughout the right hemithorax. Compared to prior scans, these infiltrates appear to have slightly progressed. PG Care Time/CCT Total # of Minutes Spent Total Time Spent with Patient: Total time spent is greater than 50% in coordination of care (as documented) at patient's floor/unit and/or counseling patient: Coding Level of Care Code None Diagnoses Metastatic lung cancer (metastasis from lung to other site) C34.90 Severe mitral regurgitation by prior echocardiogram I34.0 Acute radiation pneumonitis J70.0 Chronic diastolic heart failure due to valvular disease I50.32; I38 Constipation K59.[address] scan of lung R91.8 Time Spent (min) 45 Comment 45 minutes critical care time
[2020-03-20 13:40] LABS: C Reactive Protein 8.32 mg/dl (0-0.29)
--- NOTE | 2020-03-20 13:48 | Hospitalist Progress Note ---
Date of Service March 20, 2020 Assessment & Plan (1) Dyspnea: Mr. Jerome is a 74 yo M with a history of metastatic lung cancer (stage IV adenocarcinoma) who completed a course of radiation therapy, currently undergoing chemotherapy who was admitted for worsening dyspnea and hemoptysis. As a consequence of both his radiation, he has developed bilateral pneumonitis. Mr. Jerome was recently hospitalized on 02/29/20 to 03/08/20 for dyspnea at which time he was started on a prednisone taper for his pneumonitis, started at 50mg, for 1 week, decreasing by 10mg each week thereafter. When he got to 40mg, Mr. Jerome returned for progressive SOB. Dyspnea: - likely multifactorial given recent radiation, and multiple pulmonary toxic medications - Radiation/Onc consulted: potential pneumonitis from radiation therapy or immunotherapy - Pulm consulted: recommended no bronch at this time given high likelihood for deterioration and need for intubation with limited chances of extubation in the future - discontinued Amiodarone and Eliquis - increased Solumedrol to 125mg Q8h - prophylactic Bactrim for potential opportunistic infection - consulted Palliative Care Medicine - Ativan PRN for anxiety/increased work of breathing, Roxanol PRN for pain and respiratory distress Metastatic lung cancer: - potential complicating factor of above - patient completed course of radiation. Received one dose of immunotherapy. - Currently undergoing chemotherapy q [address] Miller Hemoptysis: - Baseline problem driving most of the above issues - patient completed course of radiation. Received one dose of immunotherapy. - Currently undergoing chemotherapy q [address] Miller Atrial Fibrillation: - [facility] Cardiology consulted this admission - recommend reducing metoprolol from 200mg to 100mg, qhs for rate control - discontinue Eliquis per pulmonary - continue home dose amiodarone and digoxin Benign Prostatic Hypertrophy: - continue home dose flomax (2) Metastatic lung cancer (metastasis from lung to other site): (3) Chronic diastolic heart failure due to valvular disease: (4) Hemoptysis: (5) Acute radiation pneumonitis: (6) Atrial fibrillation with RVR: (7) BPH (benign prostatic hyperplasia): Admission and Anticipated Discharge Date Admission Date: March 20, 2020 Supervising Physician Co-Signing Physician Notes I personally examined the patient and verified all wong points of history and exam, discussed case, and agree with decision making with Dr Cabrera. feeling worse than when i admitted him friday. significant dyspnea even when getting up to the bathroom vitals noted fatigued and mildly dyspnic even at rest, mild/mod conversational dyspnea. lungs coarse throughout. dyspnea/pneumonitis - working towards more palliative discussions. dr jovani huddleston discussions w pt and son. continue high dosing of steroids in hopes of some degree of clinical response - especially as right now his dyspnea is severe enough that even if he opted for hospice it would likely have to be inpatient otherwise as above Subjective Patient continues to have extensive work of breathing despite continued treatments as above, and increased requirements for oxygen support. Endorses increased cough with breathing, and discomfort with inability to get up and walk around or move independently without severe fatigue and prolonged periods of coughing. Of note, patient when sleeping has better work of breathing and better oxygen saturations throughout the day. Expresses frustration with potential futility of continued treatments given limited likelihood that he will improve. Extensive discussions had with patient, and patient's family regarding goals of care. Patient and family expressed that they would ideally like to see him continue to improve but that they at this time recognize that there are reducing chances of this happening. Expressed interest in keeping patient comfortable as much as possible given the extent of his disease while trying to continue to see if the treatment changes being performed by Heme/Onc and Pulm to see if this results in improvements that would be able to get him closer to his previous normal life. Want him to remain comfortable, in the face of potential continued worsening despite these treatments. Open to discussions with Palliative care for ways of getting him comfortable and home if there is not improvement. Additionally, clarified code status with family patient prefers to be DNR/DNI as he feels like it is futile to save his heart in the setting of it stopping if his lungs will remain like they currently are, and does not want to be intubated under any circumstances as he realizes this will be difficult to undo. Review of Systems Review of Systems: All systems reviewed & are unremarkable except as noted in Subjective Physical Exam Constitutional: well developed, well nourished and + ill appearing Eyes: PERRL, conjunctivae normal, anicteric sclerae Respiratory: + labored breathing and + uses accessory muscles; no retractions Auscultation: + crackles and + rales Cardiovascular: Rate/Rhythm: regular rhythm and + tachycardic Heart Sounds: + murmur (best heard over apex); no gallop and no cardiac rub Vessels: normal peripheral pulses Gastrointestinal (Abdomen): normal bowel sounds, soft, nontender, no hepatosplenomegaly Skin: no rashes, warm and dry Neurologic: deep tendon reflexes 2+ bilaterally, moves all extremities and awake Psychiatric: Orientation: alert and oriented x 3 Results & Data Results & Data ([facility]) Vital Signs (Past 12 Hours) Vital Signs Temp Pulse Pulse Resp BP Pulse Ox 03/20/20 11:16 36.5 C 102 H 20 100/68 92 03/20/20 08:00 83 03/20/20 06:58 36.6 C 78 18 90/57 L 91 03/20/20 04:40 36.8 C 67 20 99/62 L 90 Laboratory Results 03/20/20 03/20/20 03/20/20 Range/Units 16:09 12:45 12:45 WBC (4.8-10.8) K/uL RBC (4.7-6.1) M/uL Hgb (14.0-18.0) g/dL Hct (42-52) % MCV (80-100) fL MCH (25-34) pg MCHC (32-36) g/dL RDW Std Deviation (36.4-46.3) fL RDW Coeff of Khadijah (11.5-14.5) % Plt Count (130-400) K/uL MPV (7.4-10.4) fL Immature Gran % (Auto) % Neut % (Auto) % Lymph % (Auto) % [place] % (Auto) % Eos % (Auto) % Baso % (Auto) % Neut # (Auto) (1.4-6.5) K/uL Lymph # (Auto) (1.2-3.4) K/uL [place] # (Auto) (0.11-0.59) K/uL Eos # (Auto) (0-0.5) K/uL Baso # (Auto) (0-0.2) K/uL Immature Gran # (Auto) (0.00-0.02) K/uL Platelet Estimate (Normal) Ovalocytes Schistocytes ESR (0-14) mm/hr Sodium (136-145) mmol/L Potassium (3.5-5.1) mmol/L Chloride (98-107) mmol/L Carbon Dioxide (21-32) mmol/L Anion Gap (3-11) BUN (7-18) mg/dl Creatinine (0.6-1.4) mg/dl Est Cr Clr Drug Dosing ml/min Est GFR ( Amer) Est GFR (Non-Af Amer) BUN/Creatinine Ratio (10-20) Glucose (70-99) mg/dl Calcium (8.5-10.1) mg/dl Total Creatine Kinase (39-308) U/L C-Reactive Protein (0-0.29) mg/dl Urine Color Yellow Urine Appearance Clear (Clear) Urine pH 6.5 (4.5-7.5) Ur Specific [place] 1.016 (1.000-1.030) Urine Protein Negative (Negative) Urine Glucose (UA) Negative (Negative) Urine Ketones Negative (Negative) Urine Blood 2+ H (Negative) Urine Nitrite Negative (Negative) Urine Bilirubin Negative (Negative) Urine Urobilinogen Negative (Negative) Ur Leukocyte Esterase Negative (Negative) Urine WBC (Auto) 0 (0-5) /hpf Urine RBC (Auto) 10-30 H (0-4) /hpf U Hyaline Cast (Auto) 0 (0-5) /lpf U Epithel Cells (Auto) 0-5 (0-5) /lpf Urine Bacteria (Auto) Negative (Negative) Rheumatoid Factor Pending Cycl Citrul Peptide IgG < 0.40 (0-4.99) U/ml Proteinase 3 (PR3) Pending Anti-Neutrophil (Flow) Pending BRITTANY-1 Antibody Pending SS-A/Ro Antibody Pending SS-B/La Antibody Pending Sm (Larson) Antibody Pending INTEGRITY ENGINEER Antibody Pending Scl-70 Scleroderma Ab Pending Double Strand DNA Ab Pending Anti-Centromere Ab Pending Glomerular Base Memb Ab Pending 03/20/20 03/20/20 03/20/20 Range/Units 12:45 12:45 06:58 WBC (4.8-10.8) K/uL RBC (4.7-6.1) M/uL Hgb (14.0-18.0) g/dL Hct (42-52) % MCV (80-100) fL MCH (25-34) pg MCHC (32-36) g/dL RDW Std Deviation (36.4-46.3) fL RDW Coeff of Khadijah (11.5-14.5) % Plt Count (130-400) K/uL MPV (7.4-10.4) fL Immature Gran % (Auto) % Neut % (Auto) % Lymph % (Auto) % [place] % (Auto) % Eos % (Auto) % Baso % (Auto) % Neut # (Auto) (1.4-6.5) K/uL Lymph # (Auto) (1.2-3.4) K/uL [place] # (Auto) (0.11-0.59) K/uL Eos # (Auto) (0-0.5) K/uL Baso # (Auto) (0-0.2) K/uL Immature Gran # (Auto) (0.00-0.02) K/uL Platelet Estimate (Normal) Ovalocytes Schistocytes ESR 10 (0-14) mm/hr Sodium 136 (136-145) mmol/L Potassium 3.9 (3.5-5.1) mmol/L Chloride 104 (98-107) mmol/L Carbon Dioxide 27 (21-32) mmol/L Anion Gap 5.0 (3-11) BUN 30 H (7-18) mg/dl Creatinine 1.23 (0.6-1.4) mg/dl Est Cr Clr Drug Dosing 49.3 ml/min Est GFR ( Amer) 66.6 Est GFR (Non-Af Amer) 57.5 BUN/Creatinine Ratio 24.5 H (10-20) Glucose 101 H (70-99) mg/dl Calcium 8.1 L (8.5-10.1) mg/dl Total Creatine Kinase 129 (39-308) U/L C-Reactive Protein 8.32 H (0-0.29) mg/dl Urine Color Urine Appearance (Clear) Urine pH (4.5-7.5) Ur Specific [place] (1.000-1.030) Urine Protein (Negative) Urine Glucose (UA) (Negative) Urine Ketones (Negative) Urine Blood (Negative) Urine Nitrite (Negative) Urine Bilirubin (Negative) Urine Urobilinogen (Negative) Ur Leukocyte Esterase (Negative) Urine WBC (Auto) (0-5) /hpf Urine RBC (Auto) (0-4) /hpf U Hyaline Cast (Auto) (0-5) /lpf U Epithel Cells (Auto) (0-5) /lpf Urine Bacteria (Auto) (Negative) Rheumatoid Factor Cycl Citrul Peptide IgG (0-4.99) U/ml Proteinase 3 (PR3) Anti-Neutrophil (Flow) BRITTANY-1 Antibody SS-A/Ro Antibody SS-B/La Antibody Sm (Larson) Antibody INTEGRITY ENGINEER Antibody Scl-70 Scleroderma Ab Double Strand DNA Ab Anti-Centromere Ab Glomerular Base Memb Ab 03/20/20 Range/Units 06:58 WBC 23.52 H (4.8-10.8) K/uL RBC 3.34 L (4.7-6.1) M/uL Hgb 10.9 L (14.0-18.0) g/dL Hct 33.4 L (42-52) % MCV 100.0 (80-100) fL MCH 32.6 (25-34) pg MCHC 32.6 (32-36) g/dL RDW Std Deviation 69.6 H (36.4-46.3) fL RDW Coeff of Khadijah 18.8 H (11.5-14.5) % Plt Count 33 L (130-400) K/uL MPV 9.2 (7.4-10.4) fL Immature Gran % (Auto) 0.5 % Neut % (Auto) 92.3 % Lymph % (Auto) 4.0 % [place] % (Auto) 3.2 % Eos % (Auto) 0.0 % Baso % (Auto) 0.0 % Neut # (Auto) 21.69 H (1.4-6.5) K/uL Lymph # (Auto) 0.95 L (1.2-3.4) K/uL [place] # (Auto) 0.75 H (0.11-0.59) K/uL Eos # (Auto) 0.00 (0-0.5) K/uL Baso # (Auto) 0.01 (0-0.2) K/uL Immature Gran # (Auto) 0.12 H (0.00-0.02) K/uL Platelet Estimate Decreased L (Normal) Ovalocytes 1+ Schistocytes Occasional ESR (0-14) mm/hr Sodium (136-145) mmol/L Potassium (3.5-5.1) mmol/L Chloride (98-107) mmol/L Carbon Dioxide (21-32) mmol/L Anion Gap (3-11) BUN (7-18) mg/dl Creatinine (0.6-1.4) mg/dl Est Cr Clr Drug Dosing ml/min Est GFR ( Amer) Est GFR (Non-Af Amer) BUN/Creatinine Ratio (10-20) Glucose (70-99) mg/dl Calcium (8.5-10.1) mg/dl Total Creatine Kinase (39-308) U/L C-Reactive Protein (0-0.29) mg/dl Urine Color Urine Appearance (Clear) Urine pH (4.5-7.5) Ur Specific [place] (1.000-1.030) Urine Protein (Negative) Urine Glucose (UA) (Negative) Urine Ketones (Negative) Urine Blood (Negative) Urine Nitrite (Negative) Urine Bilirubin (Negative) Urine Urobilinogen (Negative) Ur Leukocyte Esterase (Negative) Urine WBC (Auto) (0-5) /hpf Urine RBC (Auto) (0-4) /hpf U Hyaline Cast (Auto) (0-5) /lpf U Epithel Cells (Auto) (0-5) /lpf Urine Bacteria (Auto) (Negative) Rheumatoid Factor Cycl Citrul Peptide IgG (0-4.99) U/ml Proteinase 3 (PR3) Anti-Neutrophil (Flow) BRITTANY-1 Antibody SS-A/Ro Antibody SS-B/La Antibody Sm (Larson) Antibody INTEGR[employer] ENGINEER Antibody Scl-70 Scleroderma Ab Double Strand DNA Ab Anti-Centromere Ab Glomerular Base Memb Ab Medications Administered Current Inpatient Medications Acetaminophen (Acetaminophen 325 Mg Tab) 650 mg PO Q4H PRN PRN Reason: pain/fever Stop: 04/16/20 18:27 Al Hydrox/Mg Hydrox/Simethicone (Aluminum/Magnesium Susp 30 Ml Udc) 30 ml PO Q6H PRN PRN Reason: Dyspepsia Stop: 04/16/20 18:27 Digoxin (Digoxin 0.125 Mg Tab) 0.125 mg PO DAILY@1600 [facility] Stop: 04/17/20 15:59 Last Admin: 03/20/20 16:06 Dose: 0.125 mg Documented by: Folic Acid (Folic Acid 1 Mg Tab) 1 mg PO DAILY [facility] Stop: 04/17/20 08:59 Last Admin: 03/20/20 13:56 Dose: Not Given Documented by: Furosemide (Furosemide 40 Mg Tab) 40 mg PO QAM PRN PRN Reason: weight gain/fluid Stop: 04/16/20 18:27 Last Admin: 03/20/20 06:07 Dose: 40 mg Documented by: Hydrocodone Bit/Homatropine Methylb (Hydrocodone/Homatropine Syrup 5mg/1.5mg 5ml Udp) 5 ml PO Q4H PRN PRN Reason: Cough Stop: 03/31/20 18:34 Last Admin: 03/20/20 02:44 Dose: 5 ml Documented by: Methylprednisolone 125 mg/ (Syringe) 2 mls @ 1.5 mls/min IV Q8 SOPHY Stop: 04/19/20 13:59 Last Admin: 03/20/20 13:58 Dose: 1.5 mls/min Documented by: Lorazepam (Ativan) 0.5 mg in 1 mls @ 1 mls/min IV Q4H PRN PRN Reason: Anxiety/shortness of breath Stop: 04/19/20 17:00 Levalbuterol HCl (Levalbuterol Tartrate 15 Gm Hfa.Aer.Ad) 2 puffs INH Q6R PRN PRN Reason: cough/wheeze/shortness of franny Stop: 04/16/20 18:27 Lorazepam (Lorazepam 0.5 Mg Tab) 0.5 - 1 mg PO HS PRN PRN Reason: Insomnia Stop: 04/16/20 18:27 Last Admin: 03/20/20 02:06 Dose: 1 mg Documented by: Lorazepam (Lorazepam 0.5 Mg Tab) 0.5 mg PO Q4H PRN PRN Reason: Anxiety/shortness of breath Stop: 04/19/20 17:00 Magnesium Hydroxide (Magnesium Hydroxide Susp 30 Ml Udc) 30 ml PO Q6H PRN PRN Reason: Constipation Stop: 04/16/20 18:27 Menthol (Cough Drop (Sugar Free) Dilan 24 Dilan/1 Box) 1 dilan BUCCAL PRN PRN PRN Reason: Sore Throat Stop: 04/18/20 08:57 Last Admin: 03/19/20 11:59 Dose: 1 dilan Documented by: Metoprolol Succinate (Metoprolol Succ 50mg Ext Rel Tab) 100 mg PO QPM SOPHY Stop: 04/16/20 20:59 Last Admin: 03/19/20 20:51 Dose: 100 mg Documented by: Miscellaneous (Ketoconazole 2% Shampoo-Order Awaiting Action) 1 ea N/A QS [facility] Stop: 04/17/20 00:00 Last Admin: 03/20/20 15:49 Dose: Not Given Documented by: Morphine Sulfate (Morphine Sulfate 5 Mg/0.25 Ml Udp) 5 mg PO Q3H PRN PRN Reason: Pain or Respiratory Distress Stop: 04/03/20 17:00 Multivitamins (Multivitamin Tab) 1 tab PO [facility] Stop: 04/17/20 08:59 Last Admin: 03/20/20 13:56 Dose: Not Given Documented by: Ondansetron HCl (Ondansetron Inj 2 Mg/Ml 2 Ml Vial) 4 mg IV Q6H PRN PRN Reason: Nausea Stop: 04/16/20 18:27 Polyethylene Glycol (Polyethylene (Miralax) 17 Gm Pack) 17 gm PO DAILY PRN PRN Reason: Constipation Stop: 04/16/20 18:27 Last Admin: 03/17/20 22:15 Dose: 17 gm Documented by: Potassium Chloride (Potassium Chloride Crtab 20 Meq Tabcr) 20 meq PO DAILY PRN PRN Reason: when you take lasix/furosemide only Stop: 04/16/20 18:27 Psyllium Hydrophilic Mucilloid (Psyllium 58.6% Powder Packet) 1 pkt PO [facility] Stop: 04/17/20 08:59 Last Admin: 03/20/20 13:56 Dose: 1 pkt Documented by: Tamsulosin HCl (Tamsulosin Hcl 0.4 Mg Cap) 0.4 mg PO [facility] Stop: 04/17/20 08:59 Last Admin: 03/20/20 13:58 Dose: 0.4 mg Documented by: Resident Activity Tracking Resident Involvement: Resident Care Provided Care Provided: Adult [facility]
[2020-03-20] MEDS: MULTIVITAMIN TAB PO SCH (13:56)
[2020-03-20] MEDS: FOLIC ACID 1 MG TAB PO SCH (13:56)
[2020-03-20] MEDS: PSYLLIUM 58.6% POWDER PACKET PO SCH (13:56)
[2020-03-20] MEDS: TAMSULOSIN HCL 0.4 MG CAP PO SCH (13:58)
[2020-03-20] MEDS: methylPREDNISolone 125 MG in SYRINGE 0 ML IV SCH ×2 (13:58→21:41)
[2020-03-20] MEDS: predniSONE 20 MG TAB PO SCH (15:48)
[2020-03-20] MEDS: AMIODARONE 200 MG TAB PO SCH (15:48)
[2020-03-20] MEDS: DIGOXIN 0.125 MG TAB PO SCH (16:06)
[2020-03-20 16:28] LABS: Appearance Urine Clear (Clear); Bacteria Urine Automated Negative (Negative); Bilirubin Urine Negative (Negative); Blood Urine 2+ (Negative); Cast Urine Automated 0 /lpf (0-5); Color Urine Yellow; Epithelial Cell Urine Auto 0-5 /lpf (0-5); Glucose Urine UA Negative (Negative); Ketones Urine Negative (Negative); Leukocyte Esterase Urine Negative (Negative); Nitrite Urine Negative (Negative); Protein Urine Negative (Negative); Specific Gravity Urine 1.016 (1.000-1.030); Urobilinogen Urine Negative (Negative); WBC Urine Automated 0 /hpf (0-5); pH Urine 6.5 (4.5-7.5)
--- NOTE | 2020-03-20 16:34 | Billing Data ---
Date of Service March 20, 2020 Coding Level of Care Code 18628 Subseq Hosp Care Lvl 3
[2020-03-20] MEDS: METOPROLOL SUCC 50MG EXT REL TAB PO SCH (21:41)
[2020-03-21] MEDS: KETOCONAZOLE 2% SCH ×4 (00:33→23:02)
[2020-03-21] MEDS: MoRPHine SULFATE 5 MG/0.25 ML UDP PO PRN ×4 (02:29→23:17)
[2020-03-21] MEDS: LORazepam 0.5 MG/1 ML VIAL IV PRN ×3 (03:17→23:24)
[2020-03-21] MEDS: methylPREDNISolone 125 MG in SYRINGE 0 ML IV SCH ×2 (05:18→13:55)
[2020-03-21 06:41] LABS: Platelet Count 22 K/uL (130-400)
[2020-03-21 06:49] LABS: Hematocrit (blood only) 32.8 % (42-52); Hemoglobin 10.6 g/dL (14.0-18.0); Mean Corpuscular Hemoglobin 32.1 pg (25-34); Mean Corpuscular Hgb Conc 32.3 g/dL (32-36); Mean Corpuscular Volume 99.4 fL (80-100); Nucleated RBC # (auto) 0.02 K/uL (0-0); Nucleated RBC % (auto) 0.1 %; RDW Coefficient of Variation 19.2 % (11.5-14.5); RDW Standard Deviation 69.3 fL (36.4-46.3); White Blood Count 20.54 K/uL (4.8-10.8)
[2020-03-21 06:50] LABS: Anisocytosis Present; Basophils # (auto) 0.01 K/uL (0-0.2); Immature Granulocytes # (auto) 0.06 K/uL (0.00-0.02); Immature Granulocytes % (auto) 0.3 %; Lymphocytes # (auto) 0.24 K/uL (1.2-3.4); Lymphocytes % (auto) 1.2 %; Monocytes % (auto) 2.4 %; Neutrophils # (auto) 19.73 K/uL (1.4-6.5); Neutrophils % (auto) 96.1 %; Ovalocytes 1+; Platelet Estimate SIGNIFIC DECREASED (Normal); Polychromasia 1+; Schistocytes Occasional
[2020-03-21 06:56] LABS: Calcium 8.4 mg/dl (8.5-10.1); Creatinine Clr Calc Pharmacy 42.4 ml/min; Est GFR (African American) 55.5; Est GFR (Non-African American) 47.9
[2020-03-21] MEDS ORDERED: MEROPENEM CONSULT ACITVE PRN (09:35)
--- NOTE | 2020-03-21 09:39 | Pulmonology Progress Note ---
Date of Service March 21, 2020 Assessment & Plan (1) Metastatic lung cancer (metastasis from lung to other site): (2) Severe mitral regurgitation by prior echocardiogram: (3) Acute radiation pneumonitis: (4) Chronic diastolic heart failure due to valvular disease: (5) Constipation: (6) Abnormal CT scan of lung: Impression: 74-year-old male with history of advanced non-small cell lung cancer status post radiation therapy. He did receive pembrolizumab as well. I evaluated the patient few weeks ago and reviewed his imaging with radiation oncology it was felt that based on the appearance of the airspace opacity, radiation pneumonitis was likely. The patient was discharged on prednisone but now readmitted with worsening of his hypoxemic respiratory failure and some progression of his parenchymal infiltrates. The differential is as noted before. This could include progression of patient's underlying malignancy with lymphangitic spread, radiation pneumonitis, pembrolizumab pulmonary toxicity, diffuse pulmonary hemorrhage, amiodarone pulmonary toxicity, as well as atypical heart failure given the patient's severe MR. In addition the patient likely has some degree of underlying ILD as he has subpleural reticulations noted in the left hemithorax. Recommendations: 1. Abnormal CT scan: Patient is elected to not pursue mechanical ventilation which I think is reasonable. The differential again remains unchanged although I am suspicious that this may represent pembrolizumab toxicity exacerbated by radiation exposure. There may also be some underlying interstitial lung disease present. He is on high-dose steroids but unfortunately continues to progress. I discussed with medical oncology salvage therapy with infliximab versus mycophenolate. They believe that his thrombocytopenia and anemia would be better served by mycophenolate so we will pursue trial initiating at 250 mg twice a day and see how he does with plans to potentially increase to 500 mg twice a day depending on his counts. The patient understands that this is a salvage therapy and may not be beneficial. He definitely is outside the window of bronchoscopy currently as this would likely result in progressive respiratory failure needing mechanical ventilatory support. 2. Questionable pulmonary hemorrhage with hemoptysis: The patient did have an active urinary sediment with 10-30 red cells per high-power field. This may be consistent with pulmonary hemorrhage/pulmonary renal syndrome. He is on steroids already and anticoagulation has been discontinued. Given his heart valve status, I do not think he would tolerate plasma exchange. We will continue high-dose steroids for now 3. Would continue optimization of volume status as tolerated by kidney function and hemodynamics. Patient does have significant MR that is known however he is not a candidate for any additional procedures including consideration of a mitral clip according to prior cardiology notes. 4. Patient's procalcitonin is elevated. His white count is also elevated of unclear source. Would continue to treat for potential complicated pneumonia. Initiate therapy with meropenem 500 mg IV every 8 and azithromycin. Pharmacy to adjust for renal function. 5. At this point time I think the patient will either respond to supportive care or he will not. He understands the advanced nature of his lung cancer superimposed on his current acute decompensation. We will continue to treat potentially reversible sources and see how he does. I agree with the primary service that involvement of palliative care would be reasonable. 45 minutes critical care time including discussion with consultants and karina levine of patient at bedside and end-of-life discussions. The patient is critically ill with significant possibility of clinical deterioration of . Admission and Anticipated Discharge Date Admission Date: March 20, 2020 Subjective Patient seen and examined. EMR reviewed. Discussed with medical oncology. The patient states that he is breathing better this morning. When I saw him he was actually sleeping and I was able to easily aroused him from sleep. He states his breathing is much better after transitioning to the heated high flow. Unfortunately he is maxed out on settings currently at 40 L/min and an FiO2 of 100%. He is not coughing. He is not bringing up any phlegm. He did discuss with his family yesterday and has elected to not pursue intubation mechanical ventilation which I believe is reasonable. He denies any lower extremity edema. Review of Systems Review of Systems: Unchanged from prior Physical Exam Constitutional: well developed, + acute distress, + frail appearing and cooperative Neck: trachea midline, no thyromegaly Respiratory: + respiratory distress and + labored breathing Auscultation: + crackles and + rales Cardiovascular: RRR, no murmur, no edema Gastrointestinal (Abdomen): normal bowel sounds, soft, nontender, no hepatosplenomegaly Musculoskeletal: Extremities: extremities normal to inspection Skin: no rashes, warm and dry Lymphatic: no cervical lymphadenopathy Results & Data Results & Data ([facility]) Vital Signs (Past 12 Hours) Vital Signs Temp Pulse Pulse Resp BP BP Pulse Ox 03/21/20 08:01 36.4 C L 101 H 24 109/62 100 03/21/20 07:48 88 26 H 89 L 03/21/20 03:40 76 26 H 78 L 03/21/20 02:55 36.0 C L 52 L 24 100/58 L 80 L 03/21/20 02:20 117 H 101 H 33 H 03/20/20 23:33 36.6 C 117 H 24 98/63 L 92 03/20/20 22:27 79 20 91 03/20/20 21:41 101 H 96/67 L Laboratory Results 03/21/20 05:43 03/21/20 05:43 Urinalysis showed 2+ blood with 10-30 red cells per high-power field. Anti-CCP is negative Procalcitonin 0.73 C-reactive protein 8.32 CPK 129 Diagnostic Findings No new imaging studies to review PG Care Time/CCT Total # of Minutes Spent Total Time Spent with Patient: Total time spent is greater than 50% in coordination of care (as documented) at patient's floor/unit and/or counseling patient: Coding Level of Care Code None Diagnoses Metastatic lung cancer (metastasis from lung to other site) C34.90 Severe mitral regurgitation by prior echocardiogram I34.0 Acute radiation pneumonitis J70.0 Chronic diastolic heart failure due to valvular disease I50.32; I38 Constipation K59.[address] scan of lung R91.8 Time Spent (min) 45 Comment 27764, 45 minutes critical care time
[2020-03-21] MEDS ORDERED: MYCOPHENOLATE MOFETIL 250 MG CAP PO SCH (09:45)
--- NOTE | 2020-03-21 09:49 | Hospitalist Progress Note ---
Date of Service March 21, 2020 Assessment & Plan (1) Dyspnea: Mr. Jerome is a 74 yo M with a history of metastatic lung cancer (stage IV adenocarcinoma) who completed a course of radiation therapy, currently undergoing chemotherapy who was admitted for worsening dyspnea and hemoptysis. As a consequence of both his radiation, he has developed bilateral pneumonitis. Mr. Jerome was recently hospitalized on 02/29/20 to 03/08/20 for dyspnea at which time he was started on a prednisone taper for his pneumonitis, started at 50mg, for 1 week, decreasing by 10mg each week thereafter. When he got to 40mg, Mr. Jerome returned for progressive SOB; which continues to worsen despite medical interventions Dyspnea: - likely multifactorial given recent radiation, and multiple pulmonary toxic medications - Radiation/Onc consulted: potential pneumonitis from radiation therapy or immunotherapy - Pulm consulted: recommended no bronch at this time given high likelihood for deterioration and need for intubation with limited chances of extubation in the future - discontinued Amiodarone and Eliquis - continue Solumedrol 125mg Q8h - consulted Palliative Care Medicine: transitioning to comfort measures - will reduce intrusions on patient in aims to maintain comfort measure Metastatic lung cancer: - potential complicating factor of above - patient completed course of radiation. Received one dose of immunotherapy. Hemoptysis: - Baseline problem driving most of the above issues Atrial Fibrillation: - [facility] Cardiology consulted this admission - recommend reducing metoprolol from 200mg to 100mg, qhs for rate control - discontinue amiodarone Eliquis per pulmonary for potential contributions towards pneumonitis - continue home dose and digoxin Benign Prostatic Hypertrophy: - continue home dose flomax Admission and Anticipated Discharge Date Admission Date: March 20, 2020 Supervising Physician Co-Signing Physician Notes I personally examined the patient and verified all wong points of history and exam, discussed case, and agree with decision making with Dr Cabrera. dyspnea has progressed. working through palliative thought processes d/w palliative, input appreciated. vitals noted fatigued and mildly dyspnic even at rest, mild/mod conversational dyspnea. dyspnea/pneumonitis - moving to a palliative mode of care. continue high dosing of steroids in hopes of some degree of clinical response - especially as right now his dyspnea is severe enough that even if he opted for hospice it would likely have to be inpatient - unfortunately continues to decline otherwise as above Subjective Unfortunately overnight, patient continued to have worsening of his respiratory status and required switch from oxymask support, to HFNC which is currently at 40L/min at 100% FiO2. He continues to have increased work of breathing, and respiratory discomfort with this amount of support. Review of Systems Review of Systems: All systems reviewed & are unremarkable except as noted in Subjective Physical Exam Constitutional: well developed, well nourished and + ill appearing Eyes: PERRL, conjunctivae normal, anicteric sclerae Respiratory: + labored breathing and + uses accessory muscles; no retractions Auscultation: + crackles and + rales Cardiovascular: Rate/Rhythm: regular rhythm and + tachycardic Heart Sounds: + murmur (best heard over apex); no gallop and no cardiac rub Vessels: normal peripheral pulses Gastrointestinal (Abdomen): normal bowel sounds, soft, nontender, no hepatosplenomegaly Skin: no rashes, warm and dry Neurologic: moves all extremities Psychiatric: Orientation: alert and oriented x 3 Results & Data Results & Data ([facility]) Vital Signs (Past 12 Hours) Vital Signs Temp Pulse Pulse Resp BP BP Pulse Ox 03/21/20 08:01 36.4 C L 101 H 24 109/62 100 03/21/20 07:48 88 26 H 89 L 03/21/20 03:40 76 26 H 78 L 03/21/20 02:55 36.0 C L 52 L 24 100/58 L 80 L 03/21/20 02:20 117 H 101 H 33 H 03/20/20 23:33 36.6 C 117 H 24 98/63 L 92 03/20/20 22:27 79 20 91 Laboratory Results 03/21/20 03/21/20 03/21/20 Range/Units 05:43 05:43 05:43 WBC 20.54 H (4.8-10.8) K/uL RBC 3.30 L (4.7-6.1) M/uL Hgb 10.6 L (14.0-18.0) g/dL Hct 32.8 L (42-52) % MCV 99.4 (80-100) fL MCH 32.1 (25-34) pg MCHC 32.3 (32-36) g/dL RDW Std Deviation 69.3 H (36.4-46.3) fL RDW Coeff of Khadijah 19.2 H (11.5-14.5) % Plt Count 22 L* (130-400) K/uL Immature Gran % (Auto) 0.3 % Neut % (Auto) 96.1 % Lymph % (Auto) 1.2 % Hoke % (Auto) 2.4 % Eos % (Auto) 0.0 % Baso % (Auto) 0.0 % Neut # (Auto) 19.73 H (1.4-6.5) K/uL Lymph # (Auto) 0.24 L (1.2-3.4) K/uL Hoke # (Auto) 0.50 (0.11-0.59) K/uL Eos # (Auto) 0.00 (0-0.5) K/uL Baso # (Auto) 0.01 (0-0.2) K/uL Immature Gran # (Auto) 0.06 H (0.00-0.02) K/uL Absolute Nucleated RBC 0.02 H (0-0) K/uL Nucleated RBC % (auto) 0.1 % Platelet Estimate SIGNIFIC DECREASED (Normal) Polychromasia 1+ Anisocytosis Present Ovalocytes 1+ Schistocytes Occasional ESR (0-14) mm/hr Sodium 134 L (136-145) mmol/L Potassium 4.0 (3.5-5.1) mmol/L Chloride 99 (98-107) mmol/L Carbon Dioxide 28 (21-32) mmol/L Anion Gap 7.0 (3-11) BUN 37 H (7-18) mg/dl Creatinine 1.43 H (0.6-1.4) mg/dl Est Cr Clr Drug Dosing 42.4 ml/min Est GFR ( Amer) 55.5 Est GFR (Non-Af Amer) 47.9 BUN/Creatinine Ratio 26.0 H (10-20) Glucose 183 H (70-99) mg/dl POC Glucose (70-99) mg/dl Calcium 8.4 L (8.5-10.1) mg/dl Total Creatine Kinase (39-308) U/L C-Reactive Protein (0-0.29) mg/dl Procalcitonin 0.73 H (0-0.5) ng/ml Urine Color Urine Appearance (Clear) Urine pH (4.5-7.5) Ur Specific [place] (1.000-1.030) Urine Protein (Negative) Urine Glucose (UA) (Negative) Urine Ketones (Negative) Urine Blood (Negative) Urine Nitrite (Negative) Urine Bilirubin (Negative) Urine Urobilinogen (Negative) Ur Leukocyte Esterase (Negative) Urine WBC (Auto) (0-5) /hpf Urine RBC (Auto) (0-4) /hpf U Hyaline Cast (Auto) (0-5) /lpf U Epithel Cells (Auto) (0-5) /lpf Urine Bacteria (Auto) (Negative) Rheumatoid Factor Cycl Citrul Peptide IgG (0-4.99) U/ml Proteinase 3 (PR3) Anti-Neutrophil (Flow) BRITTANY-1 Antibody SS-A/Ro Antibody SS-B/La Antibody Sm (Larson) Antibody COKE WORKER Antibody Scl-70 Scleroderma Ab Double Strand DNA Ab Anti-Centromere Ab Glomerular Base Memb Ab 03/20/20 03/20/20 03/20/20 Range/Units 21:36 16:09 12:45 WBC (4.8-10.8) K/uL RBC (4.7-6.1) M/uL Hgb (14.0-18.0) g/dL Hct (42-52) % MCV (80-100) fL MCH (25-34) pg MCHC (32-36) g/dL RDW Std Deviation (36.4-46.3) fL RDW Coeff of Khadijah (11.5-14.5) % Plt Count (130-400) K/uL Immature Gran % (Auto) % Neut % (Auto) % Lymph % (Auto) % Hoke % (Auto) % Eos % (Auto) % Baso % (Auto) % Neut # (Auto) (1.4-6.5) K/uL Lymph # (Auto) (1.2-3.4) K/uL Hoke # (Auto) (0.11-0.59) K/uL Eos # (Auto) (0-0.5) K/uL Baso # (Auto) (0-0.2) K/uL Immature Gran # (Auto) (0.00-0.02) K/uL Absolute Nucleated RBC (0-0) K/uL Nucleated RBC % (auto) % Platelet Estimate (Normal) Polychromasia Anisocytosis Ovalocytes Schistocytes ESR (0-14) mm/hr Sodium (136-145) mmol/L Potassium (3.5-5.1) mmol/L Chloride (98-107) mmol/L Carbon Dioxide (21-32) mmol/L Anion Gap (3-11) BUN (7-18) mg/dl Creatinine (0.6-1.4) mg/dl Est Cr Clr Drug Dosing ml/min Est GFR ( Amer) Est GFR (Non-Af Amer) BUN/Creatinine Ratio (10-20) Glucose (70-99) mg/dl POC Glucose 206 H (70-99) mg/dl Calcium (8.5-10.1) mg/dl Total Creatine Kinase (39-308) U/L C-Reactive Protein (0-0.29) mg/dl Procalcitonin (0-0.5) ng/ml Urine Color Yellow Urine Appearance Clear (Clear) Urine pH 6.5 (4.5-7.5) Ur Specific [place] 1.016 (1.000-1.030) Urine Protein Negative (Negative) Urine Glucose (UA) Negative (Negative) Urine Ketones Negative (Negative) Urine Blood 2+ H (Negative) Urine Nitrite Negative (Negative) Urine Bilirubin Negative (Negative) Urine Urobilinogen Negative (Negative) Ur Leukocyte Esterase Negative (Negative) Urine WBC (Auto) 0 (0-5) /hpf Urine RBC (Auto) 10-30 H (0-4) /hpf U Hyaline Cast (Auto) 0 (0-5) /lpf U Epithel Cells (Auto) 0-5 (0-5) /lpf Urine Bacteria (Auto) Negative (Negative) Rheumatoid Factor Pending Cycl Citrul Peptide IgG (0-4.99) U/ml Proteinase 3 (PR3) Pending Anti-Neutrophil (Flow) Pending BRITTANY-1 Antibody Pending SS-A/Ro Antibody Pending SS-B/La Antibody Pending Sm (Larson) Antibody Pending COKE WORKER Antibody Pending Scl-70 Scleroderma Ab Pending Double Strand DNA Ab Pending Anti-Centromere Ab Pending Glomerular Base Memb Ab Pending 03/20/20 03/20/20 03/20/20 Range/Units 12:45 12:45 12:45 WBC (4.8-10.8) K/uL RBC (4.7-6.1) M/uL Hgb (14.0-18.0) g/dL Hct (42-52) % MCV (80-100) fL MCH (25-34) pg MCHC (32-36) g/dL RDW Std Deviation (36.4-46.3) fL RDW Coeff of Khadijah (11.5-14.5) % Plt Count (130-400) K/uL Immature Gran % (Auto) % Neut % (Auto) % Lymph % (Auto) % Hoke % (Auto) % Eos % (Auto) % Baso % (Auto) % Neut # (Auto) (1.4-6.5) K/uL Lymph # (Auto) (1.2-3.4) K/uL Hoke # (Auto) (0.11-0.59) K/uL Eos # (Auto) (0-0.5) K/uL Baso # (Auto) (0-0.2) K/uL Immature Gran # (Auto) (0.00-0.02) K/uL Absolute Nucleated RBC (0-0) K/uL Nucleated RBC % (auto) % Platelet Estimate (Normal) Polychromasia Anisocytosis Ovalocytes Schistocytes ESR 10 (0-14) mm/hr Sodium (136-145) mmol/L Potassium (3.5-5.1) mmol/L Chloride (98-107) mmol/L Carbon Dioxide (21-32) mmol/L Anion Gap (3-11) BUN (7-18) mg/dl Creatinine (0.6-1.4) mg/dl Est Cr Clr Drug Dosing ml/min Est GFR ( Amer) Est GFR (Non-Af Amer) BUN/Creatinine Ratio (10-20) Glucose (70-99) mg/dl POC Glucose (70-99) mg/dl Calcium (8.5-10.1) mg/dl Total Creatine Kinase 129 (39-308) U/L C-Reactive Protein 8.32 H (0-0.29) mg/dl Procalcitonin (0-0.5) ng/ml Urine Color Urine Appearance (Clear) Urine pH (4.5-7.5) Ur Specific [place] (1.000-1.030) Urine Protein (Negative) Urine Glucose (UA) (Negative) Urine Ketones (Negative) Urine Blood (Negative) Urine Nitrite (Negative) Urine Bilirubin (Negative) Urine Urobilinogen (Negative) Ur Leukocyte Esterase (Negative) Urine WBC (Auto) (0-5) /hpf Urine RBC (Auto) (0-4) /hpf U Hyaline Cast (Auto) (0-5) /lpf U Epithel Cells (Auto) (0-5) /lpf Urine Bacteria (Auto) (Negative) Rheumatoid Factor Cycl Citrul Peptide IgG < 0.40 (0-4.99) U/ml Proteinase 3 (PR3) Anti-Neutrophil (Flow) BRITTANY-1 Antibody SS-A/Ro Antibody SS-B/La Antibody Sm (Larson) Antibody COKE WORKER Antibody Scl-70 Scleroderma Ab Double Strand DNA Ab Anti-Centromere Ab Glomerular Base Memb Ab Medications Administered Current Inpatient Medications Acetaminophen (Acetaminophen 325 Mg Tab) 650 mg PO Q4H PRN PRN Reason: pain/fever Stop: 04/16/20 18:27 Al Hydrox/Mg Hydrox/Simethicone (Aluminum/Magnesium Susp 30 Ml Udc) 30 ml PO Q6H PRN PRN Reason: Dyspepsia Stop: 04/16/20 18:27 Azithromycin (Azithromycin 250 Mg Tab) 250 mg PO QAM SOPHY Stop: 03/28/20 09:59 Last Admin: 03/21/20 11:59 Dose: 250 mg Documented by: Digoxin (Digoxin 0.125 Mg Tab) 0.125 mg PO DAILY@1600 [facility] Stop: 04/17/20 15:59 Last Admin: 03/20/20 16:06 Dose: 0.125 mg Documented by: Folic Acid (Folic Acid 1 Mg Tab) 1 mg PO DAILY SOPHY Stop: 04/17/20 08:59 Last Admin: 03/21/20 10:03 Dose: 1 mg Documented by: Furosemide (Furosemide 40 Mg Tab) 40 mg PO QAM PRN PRN Reason: weight gain/fluid Stop: 04/16/20 18:27 Last Admin: 03/20/20 06:07 Dose: 40 mg Documented by: Heparin Sodium (Porcine) (Heparin 100 Unit/Ml 5ml Flush) 5 ml FLUSH PRN PRN PRN Reason: Flush Stop: 04/20/20 00:35 Last Admin: 03/21/20 11:59 Dose: 5 ml Documented by: Hydrocodone Bit/Homatropine Methylb (Hydrocodone/Homatropine Syrup 5mg/1.5mg 5ml Udp) 5 ml PO Q4H PRN PRN Reason: Cough Stop: 03/31/20 18:34 Last Admin: 03/20/20 02:44 Dose: 5 ml Documented by: Methylprednisolone 125 mg/ (Syringe) 2 mls @ 1.5 mls/min IV Q8 SOPHY Stop: 04/19/20 13:59 Last Admin: 03/21/20 05:18 Dose: 1.5 mls/min Documented by: Lorazepam (Ativan) 0.5 mg in 1 mls @ 1 mls/min IV Q4H PRN PRN Reason: Anxiety/shortness of breath Stop: 04/19/20 17:00 Last Admin: 03/21/20 03:17 Dose: 1 mls/min Documented by: Meropenem 500 mg/ Syringe 10 mls @ 2 mls/min IV Q8H SOPHY; Protocol Stop: 03/28/20 13:59 Last Admin: 03/21/20 11:59 Dose: 2 mls/min Documented by: Levalbuterol HCl (Levalbuterol Tartrate 15 Gm Hfa.Aer.Ad) 2 puffs INH Q6R PRN PRN Reason: cough/wheeze/shortness of franny Stop: 04/16/20 18:27 Lorazepam (Lorazepam 0.5 Mg Tab) 0.5 - 1 mg PO HS PRN PRN Reason: Insomnia Stop: 04/16/20 18:27 Last Admin: 03/20/20 22:31 Dose: 1 mg Documented by: Lorazepam (Lorazepam 0.5 Mg Tab) 0.5 mg PO Q4H PRN PRN Reason: Anxiety/shortness of breath Stop: 04/19/20 17:00 Magnesium Hydroxide (Magnesium Hydroxide Susp 30 Ml Udc) 30 ml PO Q6H PRN PRN Reason: Constipation Stop: 04/16/20 18:27 Menthol (Cough Drop (Sugar Free) Dilan 24 Dilan/1 Box) 1 dilan BUCCAL PRN PRN PRN Reason: Sore Throat Stop: 04/18/20 08:57 Last Admin: 03/19/20 11:59 Dose: 1 dilan Documented by: Metoprolol Succinate (Metoprolol Succ 50mg Ext Rel Tab) 100 mg PO QPM SOPHY Stop: 04/16/20 20:59 Last Admin: 03/20/20 21:41 Dose: Not Given Documented by: Miscellaneous (Ketoconazole 2% Shampoo-Order Awaiting Action) 1 ea N/A QS [facility] Stop: 04/17/20 00:00 Last Admin: 03/21/20 07:50 Dose: Not Given Documented by: Miscellaneous Information (Meropenem Consult Acitve) 1 ea N/A UD PRN PRN Reason: Consult Stop: 04/20/20 09:34 Morphine Sulfate (Morphine Sulfate 5 Mg/0.25 Ml Udp) 5 mg PO Q3H PRN PRN Reason: Pain or Respiratory Distress Stop: 04/03/20 17:00 Last Admin: 03/21/20 02:29 Dose: 5 mg Documented by: Multivitamins (Multivitamin Tab) 1 tab PO [facility] Stop: 04/17/20 08:59 Last Admin: 03/21/20 10:04 Dose: Not Given Documented by: Mycophenolate Mofetil (Mycophenolate Mofetil 250 Mg Cap) 250 mg PO BID [facility] Stop: 04/20/20 09:44 Last Admin: 03/21/20 10:07 Dose: 250 mg Documented by: Ondansetron HCl (Ondansetron Inj 2 Mg/Ml 2 Ml Vial) 4 mg IV Q6H PRN PRN Reason: Nausea Stop: 04/16/20 18:27 Polyethylene Glycol (Polyethylene (Miralax) 17 Gm Pack) 17 gm PO DAILY PRN PRN Reason: Constipation Stop: 04/16/20 18:27 Last Admin: 03/17/20 22:15 Dose: 17 gm Documented by: Potassium Chloride (Potassium Chloride Crtab 20 Meq Tabcr) 20 meq PO DAILY PRN PRN Reason: when you take lasix/furosemide only Stop: 04/16/20 18:27 Psyllium Hydrophilic Mucilloid (Psyllium 58.6% Powder Packet) [facility] [place] Stop: 04/17/20 08:59 Last Admin: 03/21/20 10:04 Dose: Not Given Documented by: Tamsulosin HCl (Tamsulosin Hcl 0.4 Mg Cap) 0.4 mg PO QAM [facility] Stop: 04/17/20 08:59 Last Admin: 03/21/20 10:03 Dose: 0.4 mg Documented by: Resident Activity Tracking Resident Involvement: Resident Care Provided Care Provided: Adult [facility]
[2020-03-21] MEDS ORDERED: AZITHROMYCIN 250 MG TAB PO SCH (10:00)
[2020-03-21] MEDS: FOLIC ACID 1 MG TAB PO SCH (10:03)
[2020-03-21] MEDS: TAMSULOSIN HCL 0.4 MG CAP PO SCH (10:03)
[2020-03-21] MEDS: PSYLLIUM 58.6% POWDER PACKET PO SCH (10:04)
[2020-03-21] MEDS: MULTIVITAMIN TAB PO SCH (10:04)
[2020-03-21] MEDS: HEPARIN 100 UNIT/ML 5ML FLUSH FLUSH PRN ×3 (11:59→17:29)
[2020-03-21] MEDS ORDERED: MEROPENEM 500 MG in SYRINGE 0 ML IV SCH (12:00)
--- NOTE | 2020-03-21 14:10 | Palliative Care Consultation ---
Date of Consultation March 21, 2020 Assessment & Plan (1) Palliative care encounter: This is a 74 year old male who presented to the [facility] with hypoxia. He has an unfortunate history of advanced non- small cell lung cancer status post radiation therapy for which he has suffered from recurrent radiation pneumonitis. He has received high doses of steroids and Keytruda Immunotherapy without much progress. He continues to have worsening hypoxic respiratory failure. Additional PMH includes severe CHF with decomensatory valve issues with severe mitral regurgitation, Atrial Fibrillation, and as mentioned, recurrent pulmonary pneumonitis. The patient has been evaluated by pulmonary this admission and a few weeks ago who mentioned multiple possible differential considerations for his current hypoxia. Discussions have been held regarding the advanced status of his lung cancer with decompensating features. He has decided that he would not want to pursue any invasive mechanical ventilation or CPR. Patient has been made a DNR/DNI. Palliative Care has been consulted to continue evolution of goals of care and to assist with symptom management. I met with Norberto in room 253-2. He initially was alone and then his ex-, Elsy, came into the room. We were able to have a conference call with their son, Sarabjit via the [employer] IPad. Norberto was visibly short of breath and using accessory muscles to breath when I entered the room. He is currently on Hi-Flow O2 40L 100%, with SpO2 ranging 76%- 87%. He became more winded trying to void in a urinal and appeared to cause him to be anxious as well. We talked at length about his disease process, recurrent pneumonitis, metastatic lung cancer and options moving forward, both aggressive and conservative in nature. We discussed intubation that he confirmed, as he did yesterday, is not an option he would like to pursue. We discussed limitations that a BiPAP could provide and ultimately that it is not a long-term solution to his condition, which was understood as well. We discussed comfort measures and what that entails, including discontinuing cardiac monitoring, vital signs, blood work, etc and focusing purely on symptom management with a goal of balancing symptom relief and promoting his ability to interact as much as possible with comfort as the telling goal. The patient, Elsy, and his son are all in agreement to move forward with full comfort measure focus. I asked Norberto if he was fearful of and he replied that he was not. Ai is very important to him and he is very close with his tombstone erector helper at [facility] in [place] whom he spoke with this morning. Norberto did utilize one dose of Roxanol and Ativan last night around 2:00 AM with relief. Will make Roxanol more frequently accessible (Roxanol 5 mg Q1 hour PRN air hunger) for nursing to administer for any signs of discomfort, including furrowed brow, increased accessory muscle breathing, anxiety, or any other signs indicating he is uncomfortable. I want to assess how much Roxanol he receives over the next few hours. I have a LOW threshold to initiate a Morphine drip. He does have appropriate renal function that I would not be concerned about opioid toxicity. His son, Sarabjit, has plans to travel here from [place] to see his Dad prior to his demise, I discussed this on the phone with Sarabjit after leaving the room. He may arrive on , but understands that he may not live that long. I set life expectancy for Norberto to be a few days.He is not GIP appropriate as his symptoms are currently being managed and his increased oxygen needs are unlikely to lessen; therefore, I do not forsee him being stable for discharge home with hospice. I will follow closely. Thanks again for allowing us to be involved with this unfortunate gentleman. (2) Acute hypoxemic respiratory failure: (3) Atrial fibrillation with RVR: (4) Metastatic lung cancer (metastasis from lung to other site): (5) Anxiety: (6) Shortness of breath: History of Present Illness Reason for Consultation: Goals of care Requesting Physician: Dr. Cabrera Attending Physician: Mario Prince DO History of Present Illness This is a 74 year old male who presented to the [facility] with hypoxia. He has an unfortunate history of advanced non-small cell lung cancer status post radiation therapy for which he has suffered from recurrent radiation pneumonitis. He has received high doses of steroids and Keytruda Immunotherapy without much progress. He continues to have worsening hypoxic respiratory failure. Additional PMH includes severe CHF with decomensatory valve issues with severe mitral regurgitation, Atrial Fibrillation, and as mentioned, recurrent pulmonary pneumonitis. The patient has been evaluated by pulmonary this admission and a few weeks ago who mentioned mul tiple possible differential considerations for his current hypoxia. Discussions have been held regarding the advanced status of his lung cancer with decompensating features. He has decided that he would not want to pursue any invasive mechanical ventilation or CPR. Patient has been made a DNR/DNI. Palliative Care has been consulted to continue evolution of goals of care and to assist with symptom management. Please see A/P for further details. Thank you kindly for involving this unfortunate man with our consultation service. Allergies Allergy/AdvReac Type Severity Reaction Status Date / Time No Known Allergies Allergy Verified 03/17/20 12:11 Home Medications Medication Instructions Recorded Confirmed Type multivitamin 1 tab PO QAM 11/24/18 03/17/20 History glucosamine HCl 1,500 mg tablet 1,500 mg PO BID 02/16/19 03/17/20 History Portable Oxygen #1 ea 11/22/19 03/16/20 Rx ketoconazole 2 % shampoo 1 appln TOP 2XWK ml 12/02/19 03/17/20 History psyllium 1 packet PO QAM 01/13/20 03/17/20 History tramadol 50 - 100 mg PO Q6H PRN 01/13/20 03/17/20 History amiodarone 200 mg tablet 200 mg PO BID #180 tab 02/17/20 03/17/20 Rx [place] Q Plus 2 tabs PO QAM 02/29/20 03/17/20 History digoxin 125 mcg PO DAILY 02/29/20 03/17/20 History folic acid 1 mg PO DAILY 02/29/20 03/17/20 History apixaban [Eliquis] 2.5 mg PO BID #60 tab 03/08/20 03/17/20 Rx furosemide 40 mg PO QAM PRN #30 tab 03/08/20 03/17/20 Rx levalbuterol tartrate [Xopenex HFA] 2 puff INHALATION Q6 PRN #1 inhaler 03/08/20 03/17/20 Rx potassium chloride 20 meq PO DAILY PRN #30 tab 03/08/20 03/17/20 Rx prednisone 10 mg PO DIRECTED #100 tab 03/08/20 03/17/20 Rx hydrocodone-homatropine 5 mg-1.5 5 ml PO Q4H PRN #200 ml 03/15/20 03/17/20 Rx mg/5 mL (5 mL) oral syrup metoprolol succinate 200 mg 200 mg PO QPM #90 tab 03/16/20 03/17/20 Rx tablet,extended release 24 hr lorazepam 0.5 - 1 mg PO HS PRN 03/17/20 03/17/20 History tamsulosin 0.4 mg PO QAM 03/17/20 03/17/20 History Patient History Medical History (Updated 03/21/20 @ 16:14 by DAJUAN Ansari) Abdominal bruit Acute hypoxemic respiratory failure Adenopathy Allergic rhinitis Anxiety Atrial fibrillation with RVR Bright red blood per rectum no problems at present Constipation Diastolic CHF due to valvular disease Diverticulosis Esophageal reflux History of back problems History of colon polyps History of prostate cancer 2011, s/p brachytherapy Presenting PSA 2.8, clinical stage TIIa IBS (irritable bowel syndrome) Internal hemorrhoids Metastatic lung cancer (metastasis from lung to other site) Osteoarthritis Palliative care encounter Persistent dry cough x 6-7 months 2/2 lung carcinoma Prediabetes Severe mitral regurgitation by prior echocardiogram Shortness of breath Thrombocytopenia Surgical History History of arthroscopy of right knee History of brachytherapy prostate cancer - finished treatment and follows with urology once a year History of cataract surgery right and left History of colonoscopy History of prostate biopsy History of repair of rotator cuff Rt History of right knee surgery History of tonsillectomy Status post trigger finger release x 2 left and right hand Family History Mother , age 67 colon ca Intestinal cancer Father , age 72 complications cardiac cath had abdominal aneurysm No problems noted. Brother No problems noted. Sister No problems noted. Son No problems noted. Uncle , age 64 lung cancer No problems noted. Other Cancer Heart disease No family history of adverse response to anesthesia Social History Smoking Status: Former smoker Tobacco Type: Cigarettes Age Started Using Tobacco: 15; Age Quit Using Tobacco: 46; packs per day: 0.5; Years Smoked: 31; Cigarettes Per Day: 0.5 pack; Number of Years Since Quit: 27; Second Hand Exposure: No; Hx Alcohol Use: No Hx Substance Use: No Preferred Language: Hungarian Communication Ability: Effective Pouring Crane Operator Required: No Beliefs That Will Affect Care: None marital status: Current Living Situation: Spouse Current Living Situation Comment: lives significant other current occupational status: retired 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 How many Children do You have: 1 Feels Safe at Home: Yes Childhood Exposure to Second-Hand Smoke: Yes caffeine: Yes (coffee very rarely occ tea) during the past year weight has: decreased > 10 lbs Dental Care, Regularly: Yes Physical Activity Frequency: 3-4 Times per Week Seatbelt Use: always Sunscreen Use: No Assistive Devices: Glasses and Oxygen - Continuous Review of Systems Review of Systems: [place] Symptom Assessment System Revised (ESAS-r) Pain: 1/3 Tiredness: 2/3 Drowsiness: 0/3 Nausea: 0/3 SOB: 3/3 Anxiety: 2/3 PPS: 20% Physical Exam Constitutional: + acute distress, + ill appearing, + frail appearing, cooperative and + in distress Respiratory: + labored breathing, + uses accessory muscles and symmetric chest movement Auscultation: + diminished lung sounds Cardiovascular: Rate/Rhythm: + tachycardic Heart Sounds: normal S1 and normal S2 Extremities: + abnormal capillary refill and no edema Gastrointestinal (Abdomen): normal bowel sounds, soft, nontender, no hepatosplenomegaly Skin: normal turgor and + pallor Psychiatric: A+Ox3, euthymic affect Insight: good insight Judgement: good judgement Genitourinary: voids dark yellow urine in urinal Results & Data ([facility]) Vital Signs (Past 12 Hours) Vital Signs Temp Pulse Pulse Resp BP BP Pulse Ox 03/21/20 11:22 95 H 28 H 90 03/21/20 11:21 37.4 C 109 H 18 99/63 L 100 03/21/20 08:01 36.4 C L 101 H 24 109/62 100 03/21/20 07:48 88 26 H 89 L 03/21/20 03:40 76 26 H 78 L 03/21/20 02:55 36.0 C L 52 L 24 100/58 L 80 L 03/21/20 02:20 117 H 101 H 33 H PG Care Time/CCT Total # of Minutes Spent Total Time Spent with Patient: Total time spent is greater than 50% in coordination of care (as documented) at patient's floor/unit and/or counseling patient: 100 Coding Level of Care Code 85845 Inpt Consult Level 4 Diagnoses Palliative care encounter Z51.5 Acute hypoxemic respiratory failure J96.01 Atrial fibrillation with RVR I48.91 Metastatic lung cancer (metastasis from lung to other site) C34.90 Anxiety F41.9 Shortness of breath R06.02 Time Spent (min) 100 Time Spent Midlevel Total time spent 100 minutes with > 50% of that time spent assessing the patient, discussing goals of care with patient and family, providing symptom management and collaborating with IDT
--- NOTE | 2020-03-21 17:56 | Billing Data ---
Date of Service March 21, 2020 Coding Level of Care Code 20175 Subseq Hosp Care Lvl 3
[2020-03-21] MEDS ORDERED: MoRPHine SULFATE 5 MG/0.25 ML UDP PO SCH (22:00)
[2020-03-21] MEDS: MoRPHine SULFATE 5 MG/0.25 ML UDP PO SCH (23:58)
[2020-03-22] MEDS: LORazepam 0.5 MG TAB PO PRN ×3 (01:13→22:05)
[2020-03-22] MEDS: MoRPHine SULFATE 5 MG/0.25 ML UDP PO PRN ×2 (01:14→22:31)
[2020-03-22] MEDS ORDERED: MoRPHine SULFATE 2 MG/ML CARP IV PRN (01:46)
--- NOTE | 2020-03-22 01:49 | Communication Note ---
Date of Service: March 22, 2020 I was contacted by nursing at approximately 1:30 AM as the patient on comfort measures was experiencing increased agitation and pain. Nursing was requesting assistance with controlling the patient's pain and agitation. I discussed with my attending and were recommending the addition of 2 mg of IV morphine every 4 hours as needed as needed for agitation and discomfort. Bhavin Ag MD PGY 3, FCM This chart was completed utilizing [employer] voice recognition software. Grammatical errors, random word insertions, pronoun errors, and in complete sentences are an occasional consequence of the system. Any questions or concerns about the content, text, or information contained within the body of this dictation should be addressed directly to the physician for clarification. Resident Activity Tracking Resident Involvement: Resident Care Provided Care Provided: Adult Hospital Medicine
[2020-03-22] MEDS: HEPARIN 100 UNIT/ML 5ML FLUSH FLUSH PRN ×2 (05:05→22:17)
--- NOTE | 2020-03-22 07:04 | Communication Note ---
Date of Service: March 22, [address] Rudy Fitch and I received clearance for end of life visitation for the following people: ex- Elsy, his son Sarabjit Jerome and his volunteer services manager.
[2020-03-22] MEDS: KETOCONAZOLE 2% SCH ×2 (07:32→16:21)
[2020-03-22] MEDS: MoRPHine SULFATE 5 MG/0.25 ML UDP PO SCH ×3 (07:38→22:04)
--- NOTE | 2020-03-22 09:23 | Pulmonology Progress Note ---
Date of Service March 22, 2020 Assessment & Plan (1) Metastatic lung cancer (metastasis from lung to other site): (2) Severe mitral regurgitation by prior echocardiogram: (3) Acute radiation pneumonitis: (4) Chronic diastolic heart failure due to valvular disease: (5) Constipation: (6) Abnormal CT scan of lung: Impression: 74-year-old male with history of advanced non-small cell lung cancer status post radiation therapy. He did receive pembrolizumab as well. I evaluated the patient few weeks ago and reviewed his imaging with radiation oncology it was felt that based on the appearance of the airspace opacity, radiation pneumonitis was likely. The patient was discharged on prednisone but now readmitted with worsening of his hypoxemic respiratory failure and some progression of his parenchymal infiltrates. The differential is as noted before. This could include progression of patient's underlying malignancy with lymphangitic spread, radiation pneumonitis, pembrolizumab pulmonary toxicity, diffuse pulmonary hemorrhage, amiodarone pulmonary toxicity, as well as atypical heart failure given the patient's severe MR. In addition the patient likely has some degree of underlying ILD as he has subpleural reticulations noted in the left hemithorax. Recommendations: 1. Abnormal CT scan: Patient unfortunately continues to decline despite aggressive interventions and has elected to not pursue additional escalation of care. I would not be optimistic that mycophenolate would have a rapid change in the patient's status and may take several days to show improvement. Treating all potential underlying comorbidities including volume overload, infection, inflammation, and pulmonary hemorrhage would seem reasonable but again I will defer to the primary service and palliative team regarding goals of therapy. Even if the patient were to make it through this, he still has advanced non- small cell lung cancer. We will sign off at this point time as the patient is on comfort care measures. Feel free to contact us if we can be of additional assistance Admission and Anticipated Discharge Date Admission Date: March 20, 2020 Subjective Patient seen and examined. Events of last 24 hours were reviewed. Unfortunately the patient continues to clinically decline despite our interventions. He was placed on comfort measures after discussion yesterday. This morning he is in mild respiratory distress and tachypneic. Oxygen saturations are in the high 70s to low 80% range despite max high flow settings. Despite this he is in good spirits. He is trying to eat some breakfast. Review of Systems Review of Systems: Unchanged from prior Physical Exam Constitutional: well developed, + acute distress, + frail appearing and cooperative Neck: trachea midline, no thyromegaly Respiratory: + respiratory distress and + labored breathing Auscultation: + crackles and + rales Cardiovascular: RRR, no murmur, no edema Gastrointestinal (Abdomen): normal bowel sounds, soft, nontender, no hepatosplenomegaly Musculoskeletal: Extremities: extremities normal to inspection Skin: no rashes, warm and dry Lymphatic: no cervical lymphadenopathy Results & Data Results & Data ([facility]) Vital Signs (Past 12 Hours) Vital Signs Pulse Resp Pulse Ox 03/22/20 07:14 91 H 24 86 L 03/22/20 02:07 105 H 20 84 L 03/21/20 23:39 96 H 24 88 L PG Care Time/CCT Total # of Minutes Spent Total Time Spent with Patient: Total time spent is greater than 50% in coordination of care (as documented) at patient's floor/unit and/or counseling patient: Coding Level of Care Code 85499 Subseq Hosp Care Lvl 3 Diagnoses Metastatic lung cancer (metastasis from lung to other site) C34.90 Severe mitral regurgitation by prior echocardiogram I34.0 Acute radiation pneumonitis J70.0 Chronic diastolic heart failure due to valvular disease I50.32; I38 Constipation K59.[address] scan of lung R91.8
--- NOTE | 2020-03-22 13:59 | Hospitalist Progress Note ---
Date of Service March 22, 2020 Assessment & Plan (1) Dyspnea: Mr. Jerome is a 74 yo M with a history of metastatic lung cancer (stage IV adenocarcinoma) who completed a course of radiation therapy, currently undergoing chemotherapy who was admitted for worsening dyspnea and hemoptysis. As a consequence of both his radiation, he has developed bilateral pneumonitis. Mr. Jerome was recently hospitalized on 02/29/20 to 03/08/20 for dyspnea at which time he was started on a prednisone taper for his pneumonitis, started at 50mg, for 1 week, decreasing by 10mg each week thereafter. When he got to 40mg, Mr. Jerome returned for progressive SOB; which continues to worsen despite medical interventions Dyspnea: - likely multifactorial given recent radiation, and multiple pulmonary toxic medications - Radiation/Onc consulted: potential pneumonitis from radiation therapy or immunotherapy - Pulm consulted: recommended no bronch at this time given high likelihood for deterioration and need for intubation with limited chances of extubation in the future - discontinued Amiodarone and Eliquis - continue Solumedrol 125mg Q8h - consulted Palliative Care Medicine: transitioning to comfort measures Metastatic lung cancer: - potential complicating factor of above - patient completed course of radiation. Received one dose of immunotherapy. Hemoptysis: - Baseline problem driving most of the above issues Atrial Fibrillation: - [facility] Cardiology consulted this admission - recommend reducing metoprolol from 200mg to 100mg, qhs for rate control - discontinue amiodarone Eliquis for potential contributions towards pneumonitis - continue home dose digoxin Benign Prostatic Hypertrophy: - continue home dose Flomax Admission and Anticipated Discharge Date Admission Date: March 20, 2020 Supervising Physician Co-Signing Physician Notes I personally examined the patient and verified all wong points of history and exam, discussed case, and agree with decision making with Dr Cabrera. breathing is comfortable. visiting w sap pi developer when we see him vitals noted fatigued but no visible dyspnea no conversational dyspnea dyspnea/pneumonitis - palliative mode of care. does appear comfortable but w his FiO2 needs to alleviate dyspnea and the medications he has required, i harbor concerns that he may not make it out of the hospital this stay otherwise as above Subjective Patient had visitation from family and sap pi developer today, continues to have mild to minimal discomfort. Continuing to utilize medications regularly in order to maintain comfort, and maintain saturations while on the high-flow nasal cannula. Has son visiting tomorrow, who he is hoping is able to see him before he passes. Primary goals continues to remain to be comfortable. Review of Systems Review of Systems: All systems reviewed & are unremarkable except as noted in Subjective Physical Exam Constitutional: + ill appearing Eyes: PERRL, conjunctivae normal, anicteric sclerae ENMT: Mouth: + dry oral mucous membranes Respiratory: + labored breathing and + uses accessory muscles; no retractions Skin: no rashes, warm and dry Neurologic: moves all extremities and awake Psychiatric: Orientation: alert and oriented x 3 Results & Data Results & Data ([facility]) Vital Signs (Past 12 Hours) Vital Signs Pulse Resp Pulse Ox 03/22/20 11:34 113 H 24 03/22/20 07:14 91 H 24 86 L 03/22/20 02:07 105 H 20 84 L Resident Activity Tracking Resident Involvement: Resident Care Provided Care Provided: Adult Hospital Medicine
--- NOTE | 2020-03-22 16:07 | Palliative Care Progress Note ---
Date of Service March 22, 2020 Assessment & Plan (1) Palliative care encounter: Comfort directed care. I talked with his . They are expecting their son around 5 pm tomorrow. She has been in the room all day and will stepping out for some fresh air while the set up and charger is with Norberto. Discussed morphine infusion vs continuing roxanol. Norberto is concerned about being sedated, particularly when his son arrives, but is clearly uncomfortable. Will increase routine dosing of roxanol. He has had 18OME in the last 24 hours and infusion dosing would be considerably higher dose. Norberto can refuse roxanol at any time and we can hold afternoon dose tomorrow if he is sleepy. His confirms that his comfort is primary goal. (2) Acute hypoxemic respiratory failure: (3) Shortness of breath: As above. Admission and Anticipated Discharge Date Admission Date: March 20, 2020 Subjective Labored breathing, difficulty talking. He is awake and alert. He is meeting with his set up and charger. His is at bedside. Review of Systems Review of Systems: [place] Symptom Assessement Scale Pain0/3 Nausea0/3 Anorexia 2/3 Dyspnea 2/3 Anxiety 1/3 Physical Exam Constitutional: + thin and + frail appearing Respiratory: + labored breathing and + uses accessory muscles Musculoskeletal: moving all extremities Skin: warm and dry Psychiatric: Orientation: alert and oriented x 3 Results & Data ([facility]) Vital Signs (Past 12 Hours) Vital Signs Pulse Resp Pulse Ox 03/22/20 11:34 113 H 24 03/22/20 07:14 91 H 24 86 L PG Care Time/CCT Total # of Minutes Spent Total Time Spent with Patient: Total time spent is greater than 50% in coordination of care (as documented) at patient's floor/unit and/or counseling patient: 35 minutes total with more than 50% of time spent on discussing symptom management and support Coding Level of Care Code 59687 Subseq Hosp Care Lvl 3 Diagnoses Palliative care encounter Z51.5 Acute hypoxemic respiratory failure J96.01 Shortness of breath R06.02
--- NOTE | 2020-03-22 19:15 | Billing Data ---
Date of Service March 22, 2020 Coding Level of Care Code 93873 Subseq Hosp Care Lvl 2
[2020-03-22] MEDS: LORazepam 0.5 MG/1 ML VIAL IV PRN (22:16)
--- NOTE | 2020-03-23 04:46 | Communication Note ---
Date of Service: March 22, 2020 Time of :2300 Brief HPI: Patient passed at around 2300 while on comfort care secondary to his radiation pneuomonitis secondary to his metastatic lung cancer. Patient examined and found to be apneic, without pulses, pupils equal dilated and fixed. Family Notified: certificate has been completed.
--- NOTE | 2020-03-23 06:44 | Discharge Summary ---
Date of Service March 23, 2020 Admission HPI Per Admitting Provider see progress note same date for CC/HPI i apologize for any confusion Principal Diagnosis Hypoxic respiratory failure Discharge Exam Patient secondary to hypoxic respiratory failure Discharge Data Allergies Allergy/AdvReac Type Severity Reaction Status Date / Time No Known Allergies Allergy Verified 03/17/20 12:11 Consultations 03/17/20 14:18 ED Decision to Admit Stat 03/17/20 18:28 Consult Radiation Oncology Routine 03/19/20 10:48 Consult Pulmonology Routine 03/20/20 17:01 Consult Palliative Care Routine Ordered Studies 03/17/20 11:57 CT chest wo con Stat Hospital Course (1) Dyspnea: Mr. Jerome is a 74 yo M with a history of metastatic lung cancer (stage IV adenocarcinoma) who completed a course of radiation therapy, currently undergoing chemotherapy who was admitted for worsening dyspnea and hemoptysis. As a consequence of both his radiation, he has developed bilateral pneumonitis. Mr. Jerome was recently hospitalized on 02/29/20 to 03/08/20 for dyspnea at which time he was started on a prednisone taper for his pneumonitis, started at 50mg, for 1 week, decreasing by 10mg each week thereafter. When he got to 40mg, Mr. Jerome returned for progressive SOB; which continues to worsen despite med ical interventions Metastatic lung cancer: - as a result of worsening respiratory failure in the setting of metastatic lung cancer and pneumonitis. Total Time Total Time Spent Total Time Spent (In Minutes): 15 Discharge Plan Discharge Items Patient Disposition: Discharge Diagnosis: Hypoxic respiratory failure Addtl Attending Provider Instructions: at 11pm on 03/22/2020, due to worsening hypoxic respiratory failure as a result of his metastatic lung cancer and pneumonitis. Supervising Physician Co-Signing Physician Notes case d/w dr hahn. as above. Resident Activity Tracking Resident Involvement: Resident Care Provided Care Provided: Adult [facility]
[2020-03-24 01:00] LABS: Anti-Centromere Ab <1.0 NEG AI (<1.0 NEG); Anti-Glom Basement Antibody <1.0 AI (<1.0); Anti-Neutrophil Antibody NONE DETECTED (NONE DETECTED); Anti-SS-A <1.0 NEG AI (<1.0 NEG); Anti-SS-B <1.0 NEG AI (<1.0 NEG); Anti-dsDNA Recombinant <1 IU/mL; JO 1 Antibody <1.0 NEG AI (<1.0 NEG); Proteinase-3 Ab <1.0 AI; RNP Antibody <1.0 NEG AI (<1.0 NEG); Rheumatoid Factor 14 IU/mL (<14); Scleroderma Anti Scl-70 Ab <1.0 NEG AI (<1.0 NEG); Sm Antibody <1.0 NEG AI (<1.0 NEG)
== END 2020-03-22 23:55 | disposition expired | DRG 205 ==
LOC: 2W 10:22 → ED 10:22 → SUATTDRO 16:16 → 2W 17:47